=== PATIENT | female | born 1995 | race Caucasian/White ===

== ENCOUNTER 2018-07-12 18:30 | Emergency (ER) | payer MEDICAID, SELFPAY ==
[2018-07-12 18:30] VITALS: BP 135/70; PULSE 109; RESP 16; TEMP 36.7; O2SAT 94; BMI 33.6
--- NOTE | 2018-07-12 21:27 | ED.DCSUM_ITS ---
- ER Visit Summary Date of Service: 07/12/18 Chief Complaint: Rash and itching History of Present Illness: The patient is a 22 F has medical history. Currently on no medications other than vitamins. States is a 3-day history of a rash began on her left arm to her left chest and left abdominal wall. Denies any nausea, vomiting or diarrhea. Currently on no medications other than what the urgent care start her on. Denies any fever or chills. No prior history. Denies any swelling of her lips or tongue. No trouble breathing or wheezing. Physical Examination: Vital signs are stable afebrile. No distress. H EENT exam unremarkable. No swelling. Neck nontender. Lungs clear to auscultation bilaterally. Heart regular rhythm no murmur. Chest wall nontender. Abdomen soft nontender. Her left chest and abdomen has a rash consistent with allergic reaction. No petechiae or purpura. No vesicles. No sloughing of skin. Left arm has a similar rash. She is moving all 4 extremities. Neurovascular intact. Back nontender. No rash. Neurologic exam normal. Test Results: None Emergency Department Course and Treatment: Skin rash consistent with allergic reaction. Treatment Plan: Patient was already treated in urgent care with Zyrtec and prednisone. I told her to check the dose of her prednisone she should be on at least 40 mg a day. She will be given a dose here in the ER. Also add Benadryl. Disposition: Discharge Impression: Acute rash consistent with allergic reaction This note was generated with [employer] dictation software. It may contain incorrect words, spelling, and punctuation that were not noted in review of the chart prior to signing ED Disposition - Plan for ED Patient: Chief Complaint: Rash Referrals: Mounika Buckner MD [Primary Care Provider] -
--- NOTE | 2018-07-12 21:27 | ED.DEP ---
ED Disposition - Plan for ED Patient: Disposition: Home or Assisted Living Chief Complaint: Rash Instructions: ED Allergic Reaction General Other Referrals: Mounika Buckner MD [Primary Care Provider] - 1 Week if not improving Additional Instructions: Check your prednisone dose it should be at least 40 mg a day for 5 days. Benadryl 25-50 mg twice a day for itching. Continue your Zyrtec. Follow-up if not improving or return if a lot worse.
[2018-07-12 21:34] VITALS: BP 108/74; PULSE 61; RESP 15; O2SAT 98
== END 2018-07-12 21:35 | disposition home or self-care (01) ==
PROVIDERS: Emergency Provider Emergency Medicine; Family Provider Internal Medicine; PCP Internal Medicine
DX: R21 Rash and other nonspecific skin eruption (principal)
CPT/HCPCS: 99282

== ENCOUNTER → 2019-10-06 | Outpatient (CLI) | payer MEDICAID, SELFPAY ==
[2019-05-13 13:56] VITALS: BMI 33.6
== END | disposition home or self-care (01) ==
LOC: LABSPEC 15:50
PROVIDERS: PCP Internal Medicine; Referring Provider Otolaryngology Otolaryngology/Facial Plastic Surgery; Visit Provider Otolaryngology Otolaryngology/Facial Plastic Surgery
DX: J32.9 Chronic sinusitis, unspecified (principal)
CPT/HCPCS: 87070; 87077; 87205

== ENCOUNTER → 2020-08-08 16:46 | Outpatient (CLI) | payer MEDICAID, SELFPAY ==
[2020-08-08 11:30] VITALS: BMI 36.5
[2020-08-14 13:21] LABS: HPV Reflexed? NOT INDICATED
== END ==
PROVIDERS: PCP Internal Medicine; Referring Provider Nurse Practitioner Women's Health; Visit Provider Nurse Practitioner Women's Health
DX: Z12.4 Encounter for screening for malignant neoplasm of cervix (principal)
CPT/HCPCS: 88175; G0145

== ENCOUNTER → 2020-08-16 13:46 | Outpatient (CLI) | payer MEDICAID, SELFPAY ==
[2020-08-08 11:30] VITALS: BMI 36.5
--- NOTE | 2020-08-16 13:48 | US_ITS ---
STUDY: ULTRASOUND OF THE FEMALE PELVIS - COMPLETE REASON FOR EXAM: Female, 24 years old. PAIN PELVIC LMP: 08/01/2020 TECHNIQUE: Transabdominal and Transvaginal TECHNICAL QUALITY: Adequate. COMPARISON: None. FINDINGS: The uterus is anteverted and is in a midline position. The uterus measures 9.6 x 6.5 x 4.7 cm. There is a Nabothian cyst of the cervix. The endometrium measures 12 mm in thickness, and is hyperechoic. There is no demonstrated endometrial mass. There is no demonstrated myometrial mass. I.U.D. - The patient does not have an I.U.D. The right ovary is visualized. The right ovary measures 2.0 x 1.6 x 2.0 cm. There is no right ovarian cyst or ovarian mass. There is no visualized right adnexal mass or complex lesion. There is normal arterial and normal venous vascularity. The left ovary is visualized. The left ovary measures 3.6 x 2.0 x 2.0 cm. There is no left ovarian cyst or ovarian mass. There is no visualized left adnexal mass or complex lesion. There is normal arterial and normal venous vascularity. There is no fluid in the cul-de-sac. The pre void volume of the bladder was ml. The post void volume of the bladder was ml. Polycystic ovary disease: No. US/Pelvic (Non ) IMPRESSION: Normal female pelvis. Electronically Signed: Lenny Estrada MD at 15:37 EST Tel , Service support ,
--- NOTE | 2020-08-16 13:48 | US_ITS ---
STUDY: ULTRASOUND OF THE FEMALE PELVIS - COMPLETE REASON FOR EXAM: Female, 24 years old. PAIN PELVIC LMP: 08/01/2020 TECHNIQUE: Transabdominal and Transvaginal TECHNICAL QUALITY: Adequate. COMPARISON: None. FINDINGS: The uterus is anteverted and is in a midline position. The uterus measures 9.6 x 6.5 x 4.7 cm. There is a Nabothian cyst of the cervix. The endometrium measures 12 mm in thickness, and is hyperechoic. There is no demonstrated endometrial mass. There is no demonstrated myometrial mass. I.U.D. - The patient does not have an I.U.D. The right ovary is visualized. The right ovary measures 2.0 x 1.6 x 2.0 cm. There is no right ovarian cyst or ovarian mass. There is no visualized right adnexal mass or complex lesion. There is normal arterial and normal venous vascularity. The left ovary is visualized. The left ovary measures 3.6 x 2.0 x 2.0 cm. There is no left ovarian cyst or ovarian mass. There is no visualized left adnexal mass or complex lesion. There is normal arterial and normal venous vascularity. There is no fluid in the cul-de-sac. The pre void volume of the bladder was ml. The post void volume of the bladder was ml. Polycystic ovary disease: No. US/Transvaginal Non- IMPRESSION: Normal female pelvis. Electronically Signed: Lenny Estrada MD at 15:37 EST Tel , Service support ,
== END ==
PROVIDERS: PCP Internal Medicine; Referring Provider Nurse Practitioner Women's Health; Visit Provider Nurse Practitioner Women's Health
DX: R10.2 Pelvic and perineal pain (principal)
CPT/HCPCS: 76830; 76856; 93976

== ENCOUNTER 2020-08-29 10:02 | Emergency (ER) | payer MEDICAID, SELFPAY ==
[2020-08-08 11:30] VITALS: BMI 36.5
[2020-08-29 10:04] VITALS: BP 118/81; PULSE 100; RESP 20; TEMP 35.8; O2SAT 99; BMI 37.7
--- NOTE | 2020-08-29 10:24 | ED.VISSUMM ---
- ER Visit Summary Date of Service: 08/29/20 Chief Complaint: Allergic reaction History of Present Illness: The patient is a 24 F who presents with an allergic reaction that has been getting worse over the past 3 days. 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 Patient states she drank some tea that had chamomile and it. Patient states that the next day she started developing hives. Patient admits to some swelling of her lips. Patient denies any swelling of her mouth or tongue. Patient states she has taken Benadryl which has helped with the itching but not with the hives. Patient states she also tested positive for COVID-19 approximately 1-1/2 weeks ago. Physical Examination: Vital signs are stable. Patient is afebrile. Patient is in no acute distress. Oral mucosa is pink and moist. Airway is patent. Oropharynx is clear. There is some edema of the upper and lower lips. There is no edema of the tongue. Neck is supple. Trachea is midline. There is no JVD. There is no evidence of Giovanni's angina. Heart was regular rate and rhythm. Lungs are clear and equal bilaterally. Abdomen is soft and nontender. Cranial nerves II through XII are intact. There are no focal motor or sensory deficits. Skin is warm dry. There are patchy urticaria noted. There are no vesicles or pustules. There are no petechia noted. There is no involvement of the mucous membranes. Emergency Department Course and Treatment: Patient was given a dose of Decadron here. Patient was given a prescription for Decadron. Patient was instructed to follow-up with her primary care physician in 3 to 5 days. Patient understood and was agreeable with the plan. All questions were answered. Disposition: Discharge home Impression: Urticaria This note was generated with [employer] dictation software. It may contain incorrect words, spelling, and punctuation that were not noted in review of the chart prior to signing ED Disposition - Plan for ED Patient: Disposition: Home or Assisted Living Diagnosis: Urticaria Instructions: ED Hives (Adult) Prescriptions: Dexamethasone [Decadron] 6 mg PO DAILY 5 Days #5 tab Prescription Printed Referrals: Mounika Buckner MD [Primary Care Provider] - 5-7 Days
[2020-08-29] MEDS: dexAMETHasone 4 MG Tablet 6 MG PO (10:44)
[2020-08-29 10:46] VITALS: BP 120/90; PULSE 93; RESP 18; O2SAT 99
== END 2020-08-29 10:49 | disposition home or self-care (01) ==
LOC: ED 10:33
PROVIDERS: Emergency Provider Emergency Medicine; PCP Internal Medicine
DX: L50.0 Allergic urticaria (principal); E66.9 Obesity, unspecified; Z86.16 Personal history of COVID-19
CPT/HCPCS: 99282

== ENCOUNTER 2022-03-05 12:30 | Emergency (ER) | payer MEDICAID, SELFPAY ==
[2022-03-05 12:31] VITALS: BP 124/86; PULSE 124; RESP 16; TEMP 36.9; O2SAT 99; BMI 37.5
[2022-03-05] MEDS: Ketorolac 15 MG/ML Vial IV (13:06)
[2022-03-05] MEDS: 0.9% Normal Saline 1,000 ML 999 ML IV (13:06)
[2022-03-05] MEDS: DiphenhydrAMINE 50 MG/ML Syringe 25 MG IV (13:06)
[2022-03-05] MEDS: Metoclopramide 10 MG/2 ML Vial IV (13:06)
--- NOTE | 2022-03-05 13:40 | EX.ED.VIS.HA ---
HPI History of Present Illness Chief Complaint: Headache Informant: patient Narrative Narrative: Headache starting frontal wraparound both sides since yesterday. This morning fevers sore throat. No sick contacts. Nonvaccinated for COVID. Denies COVID infections in the past. Denies sick contacts. No photophobia. No vomiting or diarrhea. She did report head injury earlier this month with a contusion intermittent headaches improved with Excedrin however this headache is different. Denies myalgias. PFSH PFSH Medical History Cholecystectomy planned Home Medications nirmatrelvir 300 mg (150 mg x2)-ritonavir 100 mg tablet,dose pack(EUA) (Paxlovid) See Rx Instructions PO .COMPLEX #30 tabs 03/05/22 [Rx Last Taken Unknown] Allergy/AdvReac Type Severity Reaction Status Date / Time latex Allergy Rash Verified 03/05/22 12:31 Family History Grandmother Breast cancer Surgical History Hx of cholecystectomy Social History current occupational status: employed current occupation: [employer] Smoking Status: Never smoker alcohol intake: never substance use type: does not use caffeine: No frequency: 1-2 times per week seatbelt use: always do you feel safe at home: Yes additional social history: single- [address] [employer] ED Constitutional Constitutional ED: Reports fever(s); Denies chills or sweats Eyes Eyes: Denies change in vision ENT ENT ED: Reports sore throat; Denies dysphagia Cardiovascular Cardiovascular: Denies chest pain, leg edema, palpitations or racing heartbeat Respiratory/Chest Respiratory/Chest: Denies cough, dyspnea or dyspnea on exertion Gastrointestinal Gastrointestinal: Denies abdominal pain, diarrhea, nausea or vomiting Genitourinary Genitourinary ED: Denies dysuria, hematuria or urinary frequency Musculoskeletal Musculoskeletal: Reports myalgias; Denies back pain, extremity pain or neck pain Integumentary Denies rash or wounds Neurologic Neurologic: Reports headache(s); Denies paresthesias or weakness EXAM Physical Exam Const Vital Signs: 03/05/22 12:31 03/05/22 15:12 Temperature 98.5 F Temperature Source Temporal Pulse Rate 124 H 88 Respiratory Rate 16 15 Blood Pressure 124/86 H Blood Pressure Mean 98 Pulse Ox 99 95 Oxygen Delivery Method Room Air Positive well nourished and well developed General Appearance ED: well developed and NAD HEENT Reports moist mucous membranes normocephalic and atraumatic Eyes PERRL, EOMs intact bilaterally and conjunctivae normal General Eye ED: Yes normal appearance of both eyes Neck no lymphadenopathy, supple and no meningeal signs Neck Narrative: No meningismus. General: Negative for tenderness Chest Wall Chest: Negative for tenderness Resp normal respiratory effort and normal air movement Effort and Inspection: symmetric chest movement; Negative for respiratory distress Cardio regular rate, regular rhythm and no murmurs Rate: tachycardic Peripheral Pulses: pulses 2+ throughout GI normal to inspection, nondistended, normoactive bowel sounds and non-tender Palpation: Negative for guarding or rebound tenderness present Back/Spine no CVA tenderness and no thoracic nor lumbar tenderness Extremity normal to inspection General Extremety ED: Negative for edema or tenderness General Extremity: Negative for edema Neuro oriented x3, CN's II-XII intact bilaterally and no sensory deficits noted Sensorium / Orientation: awake and alert Skin no rashes or lesions noted and no wounds MDM MDM MDM Narrative Medical decision making narrative: Patient afebrile here she has no meningismus. She is tachycardic. New symptoms sore throat headache myalgias. She history of migraine cocktail with improvement of symptoms. Heart rate improved. COVID testing returned positive. Discussed and offered treatment since she is within 5 days of symptoms which she agreed. She is sent in prescription for Paxlovid. 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 Return precautions discussed. All questions were answered. Discharge Plan Triage Chief Complaint: Headache ED Provider: Adonis Lobo Dx/Rx/DC Orders Clinical Impression: COVID-19 virus infection, Headache, Myalgia Instructions: Coronavirus Disease 2019 (COVID-19): Caring for Yourself or Others Prescriptions: New Paxlovid (EUA) 300 mg (150 mg x 2)-100 mg tablets,dose pack See Rx Instructions .ROUTE .COMPLEX Qty: 30 0RF Rx Instructions: take TWO 150 mg tablets of nirmatrelvir with ONE 100 mg tablet of ritonavir twice daily for 5 days Primary Care Provider: Mounika Buckner Referrals: Mounika Buckner MD [Primary Care Provider] - 1 Week Activity Restrictions/Additional Instructions: Take medication as prescribed. Continue Tylenol Motrin. Continue oral fluids. 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 Return if any worsening respiratory symptoms. Disposition Disposition: Home, Self Care Discharge Date/Time: 03/05/22 15:26
[2022-03-05 15:12] VITALS: PULSE 88; RESP 15; O2SAT 95
== END 2022-03-05 15:26 | disposition home or self-care (01) ==
PROVIDERS: Emergency Provider Emergency Medicine; PCP Internal Medicine; Visit Provider Emergency Medicine
DX: U07.1 COVID-19 (principal); S00.93XD Contusion of unspecified part of head, subsequent encounter; Z28.310 Unvaccinated for COVID-19
CPT/HCPCS: 87428; 96361; 96374; 96375; 99283; J7030

== ENCOUNTER → 2022-03-17 | Outpatient (CLI) | payer MEDICAID, SELFPAY | END | disposition home or self-care (01) | LOC: LABSPEC 11:15 | PROVIDERS: PCP Internal Medicine; Referring Provider Nurse Practitioner Women's Health; Visit Provider Nurse Practitioner Women's Health | DX: N76.0 Acute vaginitis (principal) | CPT/HCPCS: 87070; 87205 ==

== ENCOUNTER 2022-03-20 17:41 | Emergency (ER) | payer MEDICAID, SELFPAY ==
[2022-03-20 17:42] VITALS: BP 122/89; PULSE 86; RESP 14; TEMP 35.9; O2SAT 100; BMI 37.8
--- NOTE | 2022-03-20 17:51 | EX.ED.DYSGE1 ---
HPI <FABI Truong - Last Filed: 03/20/22 18:01> History of Present Illness Chief Complaint: Abd Pain Narrative Narrative: 26-year-old female with no past medical history, cholecystectomy presents with 1 week history of upper abdominal fullness and periumbilical cramping. She noticed it because she sleeps on her stomach but could not lay this way because it was uncomfortable. Pain occurs intermittently throughout the day. Its not affected by eating or drinking and she has a normal appetite. No nausea or vomiting, fever or chills, diarrhea or blood in stool, or urinary symptoms. PFSH <FABI Truong - Last Filed: 03/20/22 18:01> PFS Medical History (Updated 03/20/22 @ 18:01 by FABI Truong) COVID-19 virus infection Allergy/AdvReac Type Severity Reaction Status Date / Time latex Allergy Rash Verified 03/20/22 17:42 Family History Grandmother Breast cancer Surgical History Hx of cholecystectomy Social History current occupational status: employed current occupation: [employer] Smoking Status: Never smoker alcohol intake: never substance use type: does not use caffeine: No frequency: 1-2 times per week seatbelt use: always do you feel safe at home: Yes additional social history: single- works at [address] [employer] ROS <FABI Truong - Last Filed: 03/20/22 18:01> ROS ED ROS Narrative Constitutional: Negative for fever, chills, malaise. Eyes: Negative for visual change. ENT: Negative for sore throat, ear pain, rhinorrhea. CVS: Negative for palpitations, chest pain, syncope. Respiratory: Negative for shortness of breath, cough, orthopnea. GI: Positive for abdominal pain. Negative for nausea, vomiting, diarrhea, constipation, melena, hematochezia. : Negative for dysuria, hematuria or frequency. Neuro: Negative for headache, motor/sensory dysfunction. Skin: Negative for rash, abscess, or wound. Musc: Negative for joint pain, swelling, trauma. Heme: Negative for easy bruising, bleeding, lymphadenopathy. EXAM <FABI Truong - Last Filed: 03/20/22 18:01> Physical Exam Narrative Exam Narrative: CONST: Patient sitting in no acute distress. EYES: Normal inspection. ENT: Normal inspection, moist mucous membranes. NECK: Normal inspection. RESP: No respiratory distress, CTAB. CVS: Regular rate and rhythm, no murmur, no gallop. ABD: Soft with minimal periumbilical tenderness, no RUQ/epigastric tenderness, no guarding or rebound, nondistended, no hepatosplenomegaly. SKIN: Color normal, no rash, warm, dry, intact. EXTREMITIES: Normal appearance, no pedal edema. NEURO: Oriented x4. PSYCH: Normal affect. Const Vital Signs: 03/20/22 17:42 03/20/22 18:04 Temperature 96.7 F L Temperature Source Temporal Pulse Rate 86 Respiratory Rate 14 16 Blood Pressure 122/89 H Blood Pressure Mean 100 Pulse Ox 100 Oxygen Delivery Method Room Air <Dr. Manoj Sosa MD - Last Filed: 03/20/22 18:31> Physical Exam Const Vital Signs: 03/20/22 17:42 03/20/22 18:04 Temperature 96.7 F L Temperature Source Temporal Pulse Rate 86 Respiratory Rate 14 16 Blood Pressure 122/89 H Blood Pressure Mean 100 Pulse Ox 100 Oxygen Delivery Method Room Air MDM <FABI Truong - Last Filed: 03/20/22 18:01> [facility] Narrative Medical decision making narrative: Patient has vague periumbical pain with no other symptoms. She appears well and nontoxic. Vital signs within normal limits. On deep palpation the attending felt a small reducible umbilical hernia which is the source of her pain. There is no indication for further emergent workup and she can follow up with her PCP. Return if symptoms worsen. <Dr. Manoj Sosa MD - Last Filed: 03/20/22 18:31> [facility] Narrative Medical decision making narrative: Patient has vague periumbical pain with no other symptoms. She appears well and nontoxic. Vital signs within normal limits. On deep palpation the attending felt a small reducible umbilical hernia which is the source of her pain. There is no indication for further emergent workup and she can follow up with her PCP. Return if symptoms worsen. I have personally performed a face to face assessment of the patient and have reviewed the MARIAELENA Note. I performed a substantive portion of the visit including all aspects of the following. My ibarra findings include: History is remarkable for periumbilical pain. Patient dates unable to sleep on her stomach. She denies nausea, vomiting diarrhea or constipation. She had laparoscopic surgery for cholecystitis. She has no other complaints Exam is patient has a small reducible umbilical hernia. This alleviated her pain. Medical Decision Making patient with reducible umbilical hernia imaging is not indicated. Patient was discharged home with appropriate home-going structures Other additions or changes: None Discharge Plan Triage Chief Complaint: Abd Pain ED Midlevel Provider: Naya Barillas ED Provider: Manoj Sosa Dx/Rx/DC Orders Clinical Impression: Hernia, umbilical, Abdominal pain Instructions: ED Hernia (Adult) Primary Care Provider: Mounika Buckner Referrals: Mounika Buckner MD [Primary Care Provider] - Activity Restrictions/Additional Instructions: You have a small umbilical hernia which is a source of your discomfort. These typically do not require any treatment and you should follow-up with your primary care doctor. If it becomes larger or more painful or you have vomiting or worsening symptoms come back to the ER. Disposition Disposition: Home, Self Care Discharge Date/Time: 03/20/22 18:13
[2022-03-20 18:04] VITALS: RESP 16
== END 2022-03-20 18:13 | disposition home or self-care (01) ==
PROVIDERS: Emergency Provider Emergency Medicine; PCP Internal Medicine; Visit Provider Emergency Medicine
DX: K42.9 Umbilical hernia without obstruction or gangrene (principal); Z90.49 Acquired absence of other specified parts of digestive tract
CPT/HCPCS: 99282

== ENCOUNTER 2023-05-29 23:10 | Emergency (ER) | payer OTHER, MEDICAID, SELFPAY ==
[2023-05-29 23:11] VITALS: BP 137/99; PULSE 98; RESP 16; TEMP 36.4; O2SAT 99; BMI 36.1
--- NOTE | 2023-05-29 23:30 | EDS_ITS ---
HPI History of Present Illness Chief Complaint: Laceration Informant: patient Narrative Narrative: Accidentally cut the dorsal surface of her left nondominant hand ring finger when she was carving pumpkins shortly before arrival. Last tetanus is unknown. Bleeding was controlled. No loss of function or range of motion. No other injury. She is not on any blood thinners. [facility] Medical History COVID-19 virus infection Home Medications NK 04/02/22 [History Last Taken Unknown] Allergy/AdvReac Type Severity Reaction Status Date / Time latex Allergy Rash Verified 04/02/22 13:18 Family History Grandmother Breast cancer Surgical History Hx of cholecystectomy Social History current occupational status: employed current occupation: [email or web address] Smoking Status: Never smoker alcohol intake: never substance use type: does not use caffeine: No frequency: 1-2 times per week seatbelt use: always do you feel safe at home: Yes additional social history: single- works at [address] [employer] [facility] ED Constitutional Constitutional ED: Denies fever(s) Gastrointestinal Gastrointestinal: Denies nausea or vomiting Integumentary Reports other Details: Laceration as in history of present illness. Neurologic Neurologic: Denies paresthesias or weakness Hematologic/Lymphatic Hematologic/Lymphatic: Denies easy bleeding or easy bruising Allergic/Immunologic Allergic/Immunologic ED: Denies urticaria EXAM Physical Exam Narrative Exam Narrative: General: Patient awake alert no acute distress. HEENT: No sign of trauma Cardiorespiratory shows easy unlabored breathing. Extremities show a 1.5 cm laceration on the dorsum of the left ring finger overlying the DIP joint. It is shallow but does just go through the epidermis. When she flexes the finger it opens up. Her extensor is fully intact. No sensory changes. No visible tendon in that area. Const Vital Signs: 05/29/23 23:11 Temperature 97.5 F L Temperature Source Temporal Pulse Rate 98 Respiratory Rate 16 Blood Pressure 137/99 H Blood Pressure Mean 111 Pulse Ox 99 MDM MDM MDM Narrative Medical decision making narrative: The patient about risk benefits and options. She was nervous about having sutures. But I explained that this area opens up every time she bends her finger. Gluing it would likely not last. Even with suturing and I think placing a splint would be of benefit. She did agree to suturing. She was very nervous about it. So I did proceed with applying LET on it. I do not think this is going to cause any notable ischemia on this young healthy person. We will then use local lidocaine also suture this. Tetanus will be updated. Procedure: Suture of left ring finger laceration 1.5 cm The area was cleansed and draped. LET initially applied. I then added 1 cc of 1% plain lidocaine locally with good anesthesia. It was sutured with 2 interrupted 4-0 Ethilon with good cosmesis and hemostasis. She tolerated it well. Range of motion was good afterwards. We discussed reasons to return follow-up and timing of suture removal. Discharge Plan Triage Chief Complaint: Laceration ED Provider: Khurram Hansen Dx/Rx/DC Orders Clinical Impression: Sutured skin wound, Laceration of left ring finger Instructions: ED Laceration, Hand: All Closures Prescriptions: No Action NK Primary Care Provider: Mounika Buckner Referrals: Mounika Buckner MD [Primary Care Provider] - 10-14 Days suture removal Disposition Disposition: Home, Self Care
[2023-05-29] MEDS: Lidocaine/Epi/Tetracaine 50 ML 1 APPLIC TOPICAL (23:34)
[2023-05-29] MEDS: Lidocaine 1% (20 ml mdv) 20 ML Vial INFILT (23:34)
[2023-05-29] MEDS: Diphth,Pertuss(Acell),Tet Vac 0.5 ML Vial IM (23:35)
== END 2023-05-30 00:20 | disposition home or self-care (01) ==
PROVIDERS: Emergency Provider Emergency Medicine; PCP Internal Medicine; Visit Provider Emergency Medicine
DX: S61.215A Laceration without foreign body of left ring finger without damage to nail, initial encounter (principal); Z86.16 Personal history of COVID-19; W26.8XXA Contact with other sharp object(s), not elsewhere classified, initial encounter
CPT/HCPCS: 12001; 90715; 99283

== ENCOUNTER → 2023-09-15 | Outpatient (CLI) | payer OTHER, SELFPAY ==
--- OUTSIDE RECORDS SUMMARY | 2023-09-15 19:54 | XMS RPT_ITS | CCD ---
Author Name Unknown Address [id number] [place] [address] Organization [facility] Care Team Providers Care Salsa Dance Instructor Name Role Phone MARLO CHILD Unavailable Unavailable IMCA Unavailable Unavailable [facility] Unavailable Unavailable Dudley BURROUGHS, Mounika Primary Care Provider Mounika Buckner MD Primary Care Provider GANTA, MOUNIKA Primary Care Unavailable DINERO, MAMIE Attending Unavailable DINERO, MAMIE Admitting Unavailable DINERO, MAMIE Attending Unavailable GANTA, MOUNIKA Primary Care Unavailable DINERO, MAMIE Attending Unavailable PODLOGAR, MEKHI Referring Unavailable GANTA, MOUNIKA Primary Care Unavailable GANTA, MOUNIKA Primary Care Unavailable HAAGEN, SHERI Attending Unavailable GANTA, MOUNIKA Primary Care Unavailable GANTA, MOUNIKA Primary Care Unavailable GANTA, MOUNIKA Primary Care Unavailable MEGAN, DOLORES Attending Unavailable GANTA, MOUNIKA Primary Care Unavailable HAAGEN, SHERI Attending Unavailable GANTA, MOUNIKA Primary Care Unavailable MEGAN, DOLORES Attending Unavailable GANTA, MOUNIKA Primary Care Unavailable MEGAN, DOLORES Referring Unavailable GANTA, MOUNIKA Primary Care Unavailable GANTA, MOUNIKA Primary Care Unavailable BLAZE PERES Referring Unavailable GANTA, MOUNIKA Primary Care Unavailable DINERO, MAMIE Referring Unavailable GANTA, MOUNIKA Primary Care Unavailable GANTA, MOUNIKA Primary Care Unavailable DINERO, MAMIE Attending Unavailable PODLOGAR, MEKHI Referring Unavailable GANTA, MOUNIKA Primary Care Unavailable DINERO, MAMIE Attending Unavailable DINERO, MAMIE Admitting Unavailable GANTA, MOUNIKA Primary Care Unavailable DINERO, MAMIE Referring Unavailable GANTA, MOUNIKA Primary Care Unavailable Allergies Allergy Classification Reported Allergen(s) Allergy Type Date of Onset Reaction(s) Facility (20 sources) Latex; Translations: [LATEX] Propensity to adverse reactions to drug (disorder) 5 Rash [facility] Other [place] [facility] Medications Current Medications Medication Drug Class(es) Dates Sig (Normalized) Sig (Original) amoxicillin 875 mg / clavulanate 125 mg oral tablet (3 sources) Penicillin-class Antibacterial Start: 08-10-2023 End: 08-15-2023 take 1 tablet by mouth every twelve hours at mealtime amoxicillin-clav ulanate potassium (AUGMENTIN) 875-125 mg per tablet Take 1 tablet by mouth every 12 hours for 5 days. Take with food 10 tablet 0 08/10/2023 08/15/2023 Active Completed/Discontinued Medications Medication Drug Class(es) Dates Sig (Normalized) Sig (Original) acetaminophen 325 mg oral tablet (5 sources) Start: 12-19-2022 take 2 tablets by mouth every six hours as needed acetaminophen (TYLENOL) 325 mg tablet Take 2 tablets by mouth every 6 hours as needed (stagger with ibuprofen). 0 12/19/2022 Active Problems Active Problems Problem Classification Problem Date Documented Da te Episodic/Chronic Abdominal pain (1 source) Right lower quadrant pain; Translations: [Right lower quadrant pain] Episodic Allergic reactions (2 sources) Idiopathic urticaria; Translations: [Idiopathic urticaria] Onset: 07-20-2018 Episodic Immunizations and screening for infectious disease (1 source) Patient encounter status; Translations: [Encounter for screening for COVID-19] Episodic Malaise and fatigue (1 source) Fatigue; Translations: [Other fatigue] Episodic Nausea and vomiting (2 sources) Nausea; Translations: [Nausea] Episodic Open wounds of extremities (1 source) Laceration of left ring finger; Translations: [Laceration without foreign body of left ring finger without damage to nail, subsequent encounter] 06-12-2023 Episodic Other connective tissue disease (1 source) Enthesopathy, unspecified; Translations: [Tendonitis] Onset: 08-28-2023 Episodic Other gastrointestinal disorders (13 sources) Irritable bowel syndrome; Translations: [Irritable bowel syndrome without diarrhea] Onset: 07-02-2015 07-02-2015 Chronic Other nutritional; endocrine; and metabolic disorders (20 sources) Obesity; Translations: [Obesity, unspecified] Onset: 07-02-2015 07-02-2015 Chronic Other nutritional; endocrine; and metabolic disorders (1 source) Obesity, unspecified; Translations: [Class 2 obesity without serious comorbidity with body mass index (BMI) of 35.0 to 35.9 in adult, unspecified obesity type] Onset: 07-02-2015 Chronic Other nutritional; endocrine; and metabolic disorders (1 source) Body mass index (BMI) 35.0-35.9, adult; Translations: [Class 2 obesity without serious comorbidity with body mass index (BMI) of 35.0 to 35.9 in adult, unspecified obesity type] Onset: 07-02-2015 Chronic Other upper respiratory disease (2 sources) Allergic rhinitis; Translations: [Allergic rhinitis, unspecified] Chronic Other upper respiratory disease (1 source) Pain in face; Translations: [Other specified disorders of nose and nasal sinuses] Episodic Other upper respiratory infections (13 sources) Recurrent sinusitis; Translations: [Chronic sinusitis, unspecified] Onset: 09-19-2022 Chronic Residual codes; unclassified (1 source) Pain; Translations: [Pain, unspecified] Episodic Superficial injury; contusion (1 source) Insect bite of ear region; Translations: [Insect bite (nonvenomous) of right ear, initial encounter] 03-24-2023 Episodic Unclassified (1 source) Unknown / UNK(Unknown) Onset: 07-20-2018 Unclassified (1 source) Encounter for screening for COVID-19; Translations: [Encounter for screening for COVID-19] Onset: 12-10-2022 Viral infection (1 source) Viral disease; Translations: [Viral infection, unspecified] Episodic Past or Other Problems Problem Classification Problem Date Documented Da te Episodic/Chronic Other upper respiratory infections (6 sources) Sore throat symptom; Translations: [Acute pharyngitis, unspecified] Onset: 05-26-2023 Episodic Results Test Name Value Interpretation Reference Range Facil ity Vital Signs Date Time Vital Sign Value Performing Clinician Manuel dunne 06-12-2023 17:42-0400 Body temperature 97.3 [degF] Drake Taveras MD Work Phone: [facility] 06-12-2023 17:42-0400 Body weight 95.71 kg Drake Taveras MD Work Phone: [facility] 06-12-2023 17:42-0400 Diastolic blood pressure 72 mm[Hg] Drake Taveras MD Work Phone: [facility] 06-12-2023 17:42-0400 Heart rate 92 /min Drake Taveras MD Work Phone: [facility] 06-12-2023 17:42-0400 Respiratory rate 16 /min Drake Taveras MD Work Phone: [facility] 06-12-2023 17:42-0400 SaO2% (BldA) [Mass fraction] 98 % Drake Taveras MD Work Phone: [facility] 06-12-2023 17:42-0400 Systolic blood pressure 122 mm[Hg] Drake Taveras MD Work Phone: [facility] 03-24-2023 13:26-0400 Body temperature 98.2 [degF] To [place] CAR BODY MECHANIC.SPEECH AND HEARING DIRECTOR Work Phone: [facility] 03-24-2023 13:26-0400 Body weight 95.25 kg To [place] CAR BODY MECHANIC.SPEECH AND HEARING DIRECTOR Work Phone: [facility] 03-24-2023 13:26-0400 Diastolic blood pressure 74 mm[Hg] To [place] CAR BODY MECHANIC.SPEECH AND HEARING DIRECTOR Work Phone: [facility] 03-24-2023 13:26-0400 Heart rate 100 /min To [place] CAR BODY MECHANIC.SPEECH AND HEARING DIRECTOR Work Phone: [facility] 03-24-2023 13:26-0400 Respiratory rate 18 /min To [place] CAR BODY MECHANIC.SPEECH AND HEARING DIRECTOR Work Phone: [facility] 03-24-2023 13:26-0400 SaO2% (BldA) [Mass fraction] 96 % To [place] CAR BODY MECHANIC.SPEECH AND HEARING DIRECTOR Work Phone: [facility] 03-24-2023 13:26-0400 Systolic blood pressure 120 mm[Hg] To [place] CAR BODY MECHANIC.SPEECH AND HEARING DIRECTOR Work Phone: [facility] 11-21-2022 12:55-0400 Body height 160 cm Pacc 1 Work Phone: [facility] 11-21-2022 12:55-0400 Body temperature 98.4 [degF] Pacc 1 Work Phone: [facility] 11-21-2022 12:55-0400 Body weight 90.72 kg Pacc 1 Work Phone: [facility] 11-21-2022 12:55-0400 Diastolic blood pressure 84 mm[Hg] Pacc 1 Work Phone: [facility] 11-21-2022 12:55-0400 Heart rate 94 /min Pacc 1 Work Phone: [facility] 11-21-2022 12:55-0400 Respiratory rate 14 /min Pacc 1 Work Phone: [facility] 11-21-2022 12:55-0400 SaO2% (BldA) [Mass fraction] 97 % Pacc 1 Work Phone: [facility] 11-21-2022 12:55-0400 Systolic blood pressure 120 mm[Hg] Pacc 1 Work Phone: [facility] 10-29-2022 12:27-0400 Body temperature 97.3 [degF] Drake Taveras MD Work Phone: [facility] 10-29-2022 12:27-0400 Body weight 92.53 kg Drake Taveras MD Work Phone: [facility] 10-29-2022 12:27-0400 Diastolic blood pressure 76 mm[Hg] Drake Taveras MD Work Phone: [facility] 10-29-2022 12:27-0400 Heart rate 94 /min Drake Taveras MD Work Phone: [facility] 10-29-2022 12:27-0400 Respiratory rate 16 /min Drake Taveras MD Work Phone: [facility] 10-29-2022 12:27-0400 SaO2% (BldA) [Mass fraction] 97 % Drake Taveras MD Work Phone: [facility] 10-29-2022 12:27-0400 Systolic blood pressure 124 mm[Hg] Drake Taveras MD Work Phone: [facility] 09-19-2022 12:56-0500 Heart rate 92 /min Meredith Dinero MD Work Phone: [facility] 09-19-2022 12:56-0500 Respiratory rate 18 /min Meredith Dinero MD Work Phone: [facility] 09-19-2022 12:56-0500 SaO2% (BldA) [Mass fraction] 97 % Meredith Dinero MD Work Phone: [facility] 09-15-2022 14:37-0500 Diastolic blood pressure 82 mm[Hg] Sheri Haagen CAR BODY MECHANIC.SPEECH AND HEARING DIRECTOR Work Phone: [facility] 09-15-2022 14:37-0500 Heart rate 94 /min Sheri Haagen CAR BODY MECHANIC.SPEECH AND HEARING DIRECTOR Work Phone: [facility] 09-15-2022 14:37-0500 Respiratory rate 18 /min Sheri Haagen CAR BODY MECHANIC.SPEECH AND HEARING DIRECTOR Work Phone: [facility] 09-15-2022 14:37-0500 SaO2% (BldA) [Mass fraction] 98 % Sheri Wattsagen CAR BODY MECHANIC.SPEECH AND HEARING DIRECTOR Work Phone: [facility] 09-15-2022 14:37-0500 Systolic blood pressure 130 mm[Hg] Sheri Haagen CAR BODY MECHANIC.SPEECH AND HEARING DIRECTOR Work Phone: [facility] 07-08-2022 10:24-0500 Body temperature 97.11 [degF] Liat Viramontes APRN.SPEECH AND HEARING DIRECTOR Work Phone: [facility] 07-08-2022 10:24-0500 Body weight 94.71 kg Liat Viramontes APRN.SPEECH AND HEARING DIRECTOR Work Phone: [facility] 07-08-2022 10:24-0500 Diastolic blood pressure 72 mm[Hg] Liat Viramontes APRN.SPEECH AND HEARING DIRECTOR Work Phone: [facility] 07-08-2022 10:24-0500 Heart rate 89 /min Liat Viramontes CAR BODY MECHANIC.SPEECH AND HEARING DIRECTOR Work Phone: [facility] 07-08-2022 10:24-0500 Respiratory rate 18 /min Liat Viramontes CAR BODY MECHANIC.SPEECH AND HEARING DIRECTOR Work Phone: [facility] 07-08-2022 10:24-0500 SaO2% (BldA) [Mass fraction] 98 % Liat Viramontes CAR BODY MECHANIC.SPEECH AND HEARING DIRECTOR Work Phone: [facility] 07-08-2022 10:24-0500 Systolic blood pressure 108 mm[Hg] Liat Viramontes CAR BODY MECHANIC.SPEECH AND HEARING DIRECTOR Work Phone: [facility] 05-30-2022 10:18-0400 Body temperature 97.81 [degF] Mekhi Abdallalogar CAR BODY MECHANIC.SPEECH AND HEARING DIRECTOR Work Phone: [facility] 05-30-2022 10:18-0400 Body weight 94.89 kg Mekhi Podlogar CAR BODY MECHANIC.SPEECH AND HEARING DIRECTOR Work Phone: [facility] 05-30-2022 10:18-0400 Diastolic blood pressure 74 mm[Hg] Mekhi Podlogar CAR BODY MECHANIC.SPEECH AND HEARING DIRECTOR Work Phone: [facility] 05-30-2022 10:18-0400 Heart rate 103 /min Mekhi Podlogar CAR BODY MECHANIC.SPEECH AND HEARING DIRECTOR Work Phone: [facility] 05-30-2022 10:18-0400 Respiratory rate 16 /min Mekhi Podlogar CAR BODY MECHANIC.SPEECH AND HEARING DIRECTOR Work Phone: [facility] 05-30-2022 10:18-0400 SaO2% (BldA) [Mass fraction] 97 % Mekhi Podlogar CAR BODY MECHANIC.SPEECH AND HEARING DIRECTOR Work Phone: [facility] 05-30-2022 10:18-0400 Systolic blood pressure 116 mm[Hg] Mekhi Podlogar CAR BODY MECHANIC.SPEECH AND HEARING DIRECTOR Work Phone: [facility] 05-26-2022 11:34-0400 Body temperature 98.4 [degF] Michelle Mercado CAR BODY MECHANIC.SPEECH AND HEARING DIRECTOR Work Phone: [facility] 05-26-2022 11:34-0400 Body weight 95.62 kg Michelle Mercado CAR BODY MECHANIC.SPEECH AND HEARING DIRECTOR Work Phone: [facility] 05-26-2022 11:34-0400 Diastolic blood pressure 86 mm[Hg] Michelle Mercado CAR BODY MECHANIC.SPEECH AND HEARING DIRECTOR Work Phone: [facility] 05-26-2022 11:34-0400 Heart rate 103 /min Michelle Mercado CAR BODY MECHANIC.SPEECH AND HEARING DIRECTOR Work Phone: [facility] 05-26-2022 11:34-0400 Respiratory rate 18 /min Michelle Mercado CAR BODY MECHANIC.SPEECH AND HEARING DIRECTOR Work Phone: [facility] 05-26-2022 11:34-0400 SaO2% (BldA) [Mass fraction] 98 % Michelle Mercado CAR BODY MECHANIC.SPEECH AND HEARING DIRECTOR Work Phone: [facility] 05-26-2022 11:34-0400 Systolic blood pressure 110 mm[Hg] Michelle Mercado CAR BODY MECHANIC.SPEECH AND HEARING DIRECTOR Work Phone: [facility] Encounters Encounter Date Encounter Type Care Provider Facility Start: 08-28-2023 End: 08-28-2023 ambulatory [facility] Facility:[facility] Start: 08-18-2023 End: 08-18-2023 ambulatory [facility] Facility:[facility] Start: 08-10-2023 End: 08-10-2023 ambulatory Jacquelin Goodson CAR BODY MECHANIC.SPEECH AND HEARING DIRECTOR Work Phone: Telemedicine Procedures Date Procedure Procedure Detail Performing Clinician Start: 12-26-2022 H/O: surgery History of endoscopic sinus surgery Meredith Dinero MD Work Phone: Start: 09-26-2022 Ct maxillofacial w/o contrast material Meredith Dinero MD Work Phone: Start: 09-15-2022 COVID WITH FLUA+B, ROUTINE Sheri Franco CAR BODY MECHANIC.SPEECH AND HEARING DIRECTOR Work Phone: Start: 09-15-2022 STREP A MOLECULAR (POC) Sheri Franco APRN.SAHARA Work Phone: Start: 09-15-2022 Urnls dip stick/tablet rgnt auto w/o microscopy Sheri Franco APRN.SAHARA Work Phone: Start: 05-26-2022 STREP A MOLECULAR (POC) Michelle Mercado APRN. SPEECH AND HEARING DIRECTOR Work Phone: Start: 08-24-2020 Adult depression screening assessment Liat Viramontes APRN.SPEECH AND HEARING DIRECTOR Work Phone: Plan of Treatment Date Care Activity Detail Author Start: 05-29-2033 Urine microalbumin profile DTaP,Tdap,Td Vaccine (7 - Td or Tdap) [facility] Start: 08-10-2023 Depression Assessment Depression Assessment [facility] Start: 08-08-2023 PAP TESTING PAP TESTING [facility] Start: 08-08-2023 Screening for malignant neoplasm of cervix Pap Testing [facility] Start: 04-10-2023 Covid-19 Vaccine (2022- season) Covid-19 Vaccine (2022- season) [facility] Start: 04-10-2023 Influenza vaccination [facility] Start: 08-10-2022 DEPRESSION ASSESSMENT DEPRESSION ASSESSMENT [facility] Start: 05-20-2022 COVID-19 VACCINE (2 - Novavax series) COVID-19 VACCINE (2 - Novavax series) [facility] Start: 04-10-2022 Influenza vaccination INFLUENZA (#1) [facility] Start: 08-24-2021 Adult depression screening assessment DEPRESSION SCREENING [facility] Start: 08-10-2021 DEPRESSION ASSESSMENT DEPRESSION ASSESSMENT [facility] Start: 09-24-2017 HPV VACCINE (2 - 3-dose series) HPV VACCINE (2 - 3-dose series) [facility] Start: 11-06-2011 HEPATITIS C SCREENING HEPATITIS C SCREENING [facility] Start: 11-06-2011 Hepatitis C screening Hepatitis C Screening [facility] Start: 11-06-2011 HIV SCREENING HIV SCREENING [facility] Start: 11-06-2011 HIV screening HIV Screening [facility] Start: 2004 Urine microalbumin profile DTAP,TDAP,TD (6 - Tdap) [facility] Start: 05-08-1994 COVID-19 VACCINE (#1) COVID-19 VACCINE (#1) [facility] Bacteria identified in Urine by Culture URINE CULTURE Microbiology Routine Nausea Fatigue, unspecified type 09/15/2022 3:11 PM EST [facility] Work Phone: End: 10-19-2023 CT SINUS STEREO WO IVCON CT SINUS STEREO WO IVCON Radiology Routine Chronic sinusitis, unspecified location 1 Occurrences starting 09/19/2022 until 10/19/2023 [facility] Work Phone: Immunizations Immunization Date Immunization Notes Care Provider Zaid smith 07-14-2018 influenza virus vaccine, unspecified formulation Sheri Franco APRN.[facility] Work Phone: [facility] 03-28-1999 diphtheria, tetanus toxoids and acellular pertussis vaccine, unspecified formulation Liat Viramontes APRN.[facility] Work Phone: [facility] Work Phone: 03-28-1999 measles, mumps and rubella virus vaccine Liat Viramontes APRN.SPEECH AND HEARING DIRECTOR Work Phone: [facility] Work Phone: 03-28-1999 trivalent poliovirus vaccine, live, oral Liat Viramontes APRN.[facility] Work Phone: [facility] Work Phone: 12-06-1996 diphtheria, tetanus toxoids and acellular pertussis vaccine, unspecified formulation Liat Viramontes APRN.[facility] Work Phone: [facility] Work Phone: 12-06-1996 haemophilus influenz ae type b vaccine, PRP-T conjugate Liat Viramontes APRN.SPEECH AND HEARING DIRECTOR Work Phone: [facility] Work Phone: 01-07-1996 diphtheria, tetanus toxoids and pertussis vaccine Liat Viramontes APRN.SPEECH AND HEARING DIRECTOR Work Phone: [facility] Work Phone: 01-07-1996 trivalent poliovirus vaccine, live, oral Liat Viramontes APRN.[facility] Work Phone: [facility] Work Phone: 02-05-1995 DTP-Haemophilus influenzae type b conjugate vaccine Liat Viramontes CAR BODY MECHANIC.[facility] Work Phone: [facility] Work Phone: 02-05-1995 hepatitis B vaccine, pediatric or pediatric/adolescent dosage Liat Wander CAR BODY MECHANIC.[facility] Work Phone: [facility] Work Phone: 02-05-1995 measles, mumps and rubella virus vaccine Liat James CAR BODY MECHANIC.SPEECH AND HEARING DIRECTOR Work Phone: [facility] Work Phone: 02-05-1995 trivalent poliovirus vaccine, live, oral Liat Wander CAR BODY MECHANIC.[facility] Work Phone: [facility] Work Phone: 08-29-1994 DTP-Haemophilus influenzae type b conjugate vaccine Liat Viramontes CAR BODY MECHANIC.[facility] Work Phone: [facility] Work Phone: 08-29-1994 hepatitis B vaccine, pediatric or pediatric/adolescent dosage Liat James CAR BODY MECHANIC.[facility] Work Phone: [facility] Work Phone: 08-29-1994 trivalent poliovirus vaccine, live, oral Liat Viramontes CAR BODY MECHANIC.[facility] Work Phone: [facility] Work Phone: 1993 hepatitis B vaccine, pediatric or pediatric/adolescent dosage Liat James CAR BODY MECHANIC.[facility] Work Phone: [facility] Work Phone: Payers Date Payer Category Payer Unknown MMO MMO [employer] PPO [id number] 2023-Present [phone] [address] [place] [address] PPO [id number] 2023 Unknown [id number] 2022 Medicaid [id number] 2022 Medicaid [id number] 2017 Medicaid [id number] 1993 Unknown [id number] Social History Date Type Detail Facility Start: 06-07-2015 End: 05-06-2022 Tobacco smoking status NHIS Never smoked tobacco [facility] Work Phone: Start: 06-07-2015 End: 05-06-2022 Tobacco use and exposure Smokeless tobacco non-user [facility] Work Phone: Start: 09-27-2021 End: 06-12-2023 Alcohol intake Current non-drinker of alcohol (finding) [facility] Start: 08-24-2020 History SDOH Alcohol Std Drinks 98 [facility] Start: 08-24-2020 History SDOH Alcohol Binge 1 [facility] Start: 08-24-2020 History SDOH Social Connections Phone 5 [facility] Start: 08-24-2020 History SDOH Social Connections Get Together 2 [facility] Start: 08-24-2020 History SDOH Social Connections Living 8 [facility] Start: 08-24-2020 Education 12 [facility] Start: 1995 Sex Assigned At Female [facility] Start: 05-16-2022 End: 05-30-2022 Exposure to SARS-CoV-2 (event) Not sure [facility] Work Phone: Start: 08-24-2020 End: 12-26-2022 History of Social function [facility] Start: 08-24-2020 End: 12-26-2022 Social connection and isolation panel [facility] Do you belong to any clubs or organizations such as buddhism groups, unions, fraternal or athletic groups, or school groups? No [facility] Are you now , , , , never or living with a partner? Living with partner [facility] Frequency of Alcohol Consumption Not on file [facility] How often do you hav e 6 or more drinks on 1 occasion? Never [facility] Do you feel stress - tense, restless, nervous, or anxious, or unable to sleep at night because your mind is troubled all the time - these days [OSQ] Very much [facility] (I/We) worried wheth er (my/our) food would run out before (I/we) got money to buy more. Never true [facility] Start: 03-01-2020 Gender identity Identifies as female gender (finding) [facility] Start: 03-01-2020 Sexual orientation Heterosexual (finding) [facility] Clinical Notes 07-11-2015 to 08-28-2023 Jacquelin Goodson APRN.SPEECH AND HEARING DIRECTOR - 08/10/2023 12:58 PM ESTPatient InstructionsDrake Taveras MD - 06/12/2023 5:50 PM EDTTelephone Encounter - Sonny Wick LPN - 06/01/2023 5:02 PM EDT Note Date & Type Note Facility 08-28-2023 Note HNO ID: [id number] Author: RADHA JESUS RT(R) Service: Radiology Author Type: Technologist Type: Progress Notes Filed: 08/28/2023 10:05 Note Text: Radiology Service Progress Note PATIENT NAME: Agustin Mix DATE OF SERVICE: August 28, 2023 TIME: 9:55 AM PATIENT IDENTITY VERIFICATION COMPLETED USING TWO (2) IDENTIFIERS: Name and Date of confirmed by patient verbally. FALL SCREENING: Has the patient had 2 falls in the last year or 1 fall with injury or currently using an Ambulatory Assistive Device (Walker, Cane, Wheelchair, Crutches, etc.)? No PATIENT GENDER DATA: Female. status: : No status: NO. PATIENT RELEVANT IMPLANT DATA REVIEWED: Not Applicable RADIOLOGY DEPARTMENT: General X-ray: Exam(s) Completed: Lower Extremity X-Ray(s): Foot, Left and Wt. Bearing PERIPHERAL IV DATA: Not applicable SIGNED BY: RT Dillon(R) August 28, 2023 9:55 AM [facility] 08-28-2023 Note HNO ID: [id number] Author: DOLORES LOPES APRN.SAHARA Service: ? Author Type: Nurse Practitioner Type: Progress Notes Filed: 08/28/2023 10:38 Note Text: SUBJECTIVE Agustin Mix is a 27 year old female here today for a check up on her medical problems. Chief Complaint Patient presents with: Recheck: Left foot pain HPI Agustin Mix is a 27 year old female. She is an established patient of Dr. Buckner. Here today for concerns of worsening left foot pain. Seen 08/18. See HPI from that visit. HPI in brief she has had on going pain and swelling to the top of the left foot. Onset about 2 weeks ago. Treated with naproxen. Still with the pain to the top of the foot, localized swelling. Her medications were reviewed today and her list is now up to date. Medications Current Outpatient Medications Medication Sig acetaminophen (TYLENOL) 325 mg tablet Take 2 tablets by mouth every 6 hours as needed (stagger with ibuprofen). predniSONE (DELTASONE) 10 mg tablet Take 2 tabs po BID for 2 days then 1 tab po BID for 2 days then 1/2 tab po BID for 2 days then 1/2 tab daily for 2 days then stop loratadine (CLARITIN) 10 mg tablet Take 1 tablet by mouth once daily. No current facility-administered medications for this visit. ALLERGIES Allergen Reactions Latex Rash Powder on gloves ACTIVE PROBLEM LIST History of Endoscopic Sinus Surgery - 12/26/2022 Other Chronic Sinusitis - 12/11/2022 Obesity - 07/02/2015 Social History Tobacco Use Smoking status: Never Smokeless tobacco: Never Vaping Use Vaping Use: Never used Substance Use Topics Alcohol use: No Drug use: No Review of Systems Respiratory: Negative. Cardiovascular: Negative for chest pain and palpitations. OBJECTIVE BP 110/80 Pulse 92 Wt 210 lb (95.3kg) SpO2 98% LMP 08/14/2023 Physical Exam Vitals and nursing note reviewed. Constitutional: General: She is awake. She is not in acute distress. Appearance: Normal appearance. She is well-developed and well-groomed. She is not ill-appearing, toxic-appearing or diaphoretic. HENT: Head: Normocephalic. Right Ear: External ear normal. Left Ear: External ear normal. Nose: Nose normal. Eyes: General: Vision grossly intact. Conjunctiva/sclera: Conjunctivae normal. Pupils: Pupils are equal, round, and reactive to light. Neck: Vascular: No JVD. Trachea: Trachea normal. Cardiovascular: Pulses: Normal pulses. Pulmonary: Effort: Pulmonary effort is normal. No accessory muscle usage, prolonged expiration or respiratory distress. Musculoskeletal: Cervical back: Neck supple. Feet: Skin: General: Skin is warm and dry. Capillary Refill: Capillary refill takes less than 2 seconds. Neurological: General: No focal deficit present. Mental Status: She is alert and oriented to person, place, and time. Mental status is at baseline. Psychiatric: Attention and Perception: Attention and perception normal. Mood and Affect: Mood and affect normal. Speech: Speech normal. Behavior: Behavior normal. Behavior is cooperative. Thought Content: Thought content normal. Cognition and Memory: Cognition and memory normal. Judgment: Judgment normal. ASSESSMENT/PLAN: 1. Left foot pain - ICD9: 729.5, ICD10: M79.672 Still suspect a tendonitis given the nature of the pain but we need to ensure no stress fracture/hair line fractures. Check xray today. IF pain persistent then plan to refer to ortho or Podiatry. - XR FOOT GENERAL 3V AP/LAT/OBL LEFT - PREDNISONE 10 MG TABLET Dolores Lopes APRN.SAHARA Portions of this note have been entered by ancillary staff. I have reviewed and when necessary edited, so that they are an adequate record of my encounter with this patient Please note that parts of this document were created using voice recognition software and therefore may contain grammatical errors. Patient verbalizes understanding of instructions from today's visit and in agreement with treatment plan. Questions answered. Agrees to call the office if questions, concerns of issues with acute symptoms not improving or if they worsen. See diagnoses and orders for additional plan(s). Allergies and medications were reviewed, list was updated, and refills given if needed. Past medical, surgical, social, and family history reviewed and updated as appropriate. Encouraged proper diet AND exercise as well as compliance with taking medications. Age-appropriate health preventative measures were discussed. Return if symptoms worsen or fail to improve, for Keep next scheduled appointment.. Dolores Lopes APRN-SAHARA [facility] 08-18-2023 Note HNO ID: [id number] Author: DOLORES LOPES APRN.SAHARA Service: ? Author Type: Nurse Practitioner Type: Progress Notes Filed: 08/18/2023 12:37 Note Text: SUBJECTIVE Agustin Mix is a 27 year old female here today for a check up on her medical problems. Chief Complaint Patient presents with: Edema: right ankle and foot noted about 3 days ago Pain is 2:10 dull. HPI Agustin Mix is a 27 year old female. Established patient of Mounika Buckner MD. Here today acutely for concerns of a pain, some swelling on the top of her foot. Onset about 3 days ago. More swelling when on feet. Work has aggravated it. Has tried warm application to the site. Located to the right foot, top of foot. Pain 2/10, dull. No prior injury or issue like this. Her medications were reviewed today and her list is now up to date. Medications Current Outpatient Medications Medication Sig naproxen (NAPROSYN) 500 mg tablet Take 1 tablet by mouth two times a day with meals. Take with food. acetaminophen (TYLENOL) 325 mg tablet Take 2 tablets by mouth every 6 hours as needed (stagger with ibuprofen). oxyCODONE IR (ROXICODONE) 5 mg immediate release tablet Take 1 tablet by mouth every 6 hours as needed for pain (breakthrough pain not controlled by tylenol and ibuprofen). (Patient not taking: Reported on 12/26/2022) loratadine (CLARITIN) 10 mg tablet Take 1 tablet by mouth once daily. No current facility-administered medications for this visit. ALLERGIES Allergen Reactions Latex Rash Powder on gloves ACTIVE PROBLEM LIST History of Endoscopic Sinus Surgery - 12/26/2022 Other Chronic Sinusitis - 12/11/2022 Obesity - 07/02/2015 Social History Tobacco Use Smoking status: Never Smokeless tobacco: Never Vaping Use Vaping Use: Never used Substance Use Topics Alcohol use: No Drug use: No Review of Systems Respiratory: Negative. Cardiovascular: Negative. OBJECTIVE BP 120/70 Pulse 88 Wt 208 lb (94.3kg) SpO2 98% LMP 08/14/2023 Physical Exam Vitals and nursing note reviewed. Constitutional: General: She is awake. She is not in acute distress. Appearance: Normal appearance. She is well-developed and well-groomed. She is not ill-appearing, toxic-appearing or diaphoretic. HENT: Head: Normocephalic. Right Ear: External ear normal. Left Ear: External ear normal. Nose: Nose normal. Eyes: General: Vision grossly intact. Conjunctiva/sclera: Conjunctivae normal. Pupils: Pupils are equal, round, and reactive to light. Neck: Vascular: No JVD. Trachea: Trachea normal. Cardiovascular: Pulses: Normal pulses. Pulmonary: Effort: Pulmonary effort is normal. No accessory muscle usage, prolonged expiration or respiratory distress. Musculoskeletal: Cervical back: Neck supple. Right lower leg: No edema. Left lower leg: No edema. Feet: Skin: General: Skin is warm and dry. Capillary Refill: Capillary refill takes less than 2 seconds. Neurological: General: No focal deficit present. Mental Status: She is alert and oriented to person, place, and time. Mental status is at baseline. Psychiatric: Attention and Perception: Attention and perception normal. Mood and Affect: Mood and affect normal. Speech: Speech normal. Behavior: Behavior normal. Behavior is cooperative. Thought Content: Thought content normal. Cognition and Memory: Cognition and memory normal. Judgment: Judgment normal. ASSESSMENT/PLAN: 1. Tendonitis - ICD9: 726.90, ICD10: M77.9 Discussed rest, ice, compression, elevation, safe use of NSAIDs, start naproxen. - NAPROXEN 500 MG TABLET Portions of this note have been entered by ancillary staff. I have reviewed and when necessary edited, so that they are an adequate record of my encounter with this patient Please note that parts of this document were created using voice recognition software and therefore may contain grammatical errors. Patient verbalizes understanding of instructions from today's visit and in agreement with treatment plan. Questions answered. Agrees to call the office if questions, concerns of issues with acute symptoms not improving or if they worsen. See diagnoses and orders for additional plan(s). Allergies and medications were reviewed, list was updated, and refills given if needed. Past medical, surgical, social, and family history reviewed and updated as appropriate. Encouraged proper diet AND exercise as well as compliance with taking medications. Age-appropriate health preventative measures were discussed. Return if symptoms worsen or fail to improve, for Keep next scheduled appointment.. Dolores Lopes APRN-SAHARA [facility] 08-10-2023 Note HNO ID: [id number] Author: Jacquelin Goodson APRN.SAHARA Service: ? Author Type: Nurse Practitioner Type: Progress Notes Filed: 08/10/2023 1:04 PM Note Text: Telemedicine Visit - Distance Health Virtual Visit Note Patient seen on [employer] Video Visit platform. Location of patient: [place] I have communicated my name and active licensure. The patient's identity and physical location were verified at the time of this visit. Either the patient or their legal credit resolution representative has been informed of the risks and benefits of -- and alternatives to -- treatment through a remote evaluation and consents to proceed with the evaluation remotely. History of Present Illness Agustin Mix is a 27 year old year old female who presents for the past approximately 1.5 weeks with symptoms that are:constant. Symptoms include: (temporary sore throat in the mornings) Positive for Nasal congestion and Face pain/pressure, Negative for Fever, Chills/Sweats, Otalgia, and Sore throat Oral intake: tolerating Tobacco use: No Second hand smoke exposure: not asked Recent exposure to strep:No Sick contacts: no known Recent travel: dayquil, nyquil provides some relief OTC meds/remedies that patient has tried: dayquil, nyquil with temporary relief. PAST MEDICAL HISTORY Diagnosis Date Hearing loss thinks its her right ear- exposer to high pitch noises at an employer IBS (irritable bowel syndrome) Lactose intolerance Obesity PAST SURGICAL HISTORY Procedure Laterality Date CHOLECYSTECTOMY 03/2014 Cholecystectomy COLONOSCOPY FLX DX W/COLLJ SPEC WHEN PFRMD 07/11/15 Colonoscopy ESOPHAGOGASTRODUODENOSCOPY TRANSORAL DIAGNOSTIC 07/11/15 EGD Reports sinus surgery for narrow nasal passages December of last year. She stated that it was found that she had a staph infection in nose Sees ENT specialist from FAM[facility] Problem Relation Age of Onset Heart Mother MVP Diabetes Father Type 2 other (Other) Sister hearing loss- she is her twin Breast Cancer Paternal Grandmother Social History Tobacco Use Smoking status: Never Smokeless tobacco: Never Vaping Use Vaping Use: Never used Substance Use Topics Alcohol use: No Drug use: No Current Outpatient Medications Medication Sig amoxicillin-clavulanate potassium (AUGMENTIN) 875-125 mg per tablet Take 1 tablet by mouth every 12 hours for 5 days. Take with food acetaminophen (TYLENOL) 325 mg tablet Take 2 tablets by mouth every 6 hours as needed (stagger with ibuprofen). oxyCODONE IR (ROXICODONE) 5 mg immediate release tablet Take 1 tablet by mouth every 6 hours as needed for pain (breakthrough pain not controlled by tylenol and ibuprofen). (Patient not taking: Reported on 12/26/2022) loratadine (CLARITIN) 10 mg tablet Take 1 tablet by mouth once daily. No current facility-administered medications for this visit. ALLERGIES Allergen Reactions Latex Rash Powder on gloves Self reported temp: 97.6'F Video Exam (Examination performed via Video enabled technology) General appearance: Alert, oriented, pleasant, in NAD :Yes Ill appearing :Yes Lethargic appearing :No Eyes: Sclera clear :Yes Conjunctiva without erythema :Yes Ears: Tragus / outer ear tenderness by self palpation :No Oropharynx: normal, no erythema Frontal sinus tenderness by self palpation;No Maxillary sinus tenderness by self palpation : Yes Tender cervical adenopathy by self palpation :Yes Respiratory distress :No Coughing noted :No Audible wheezing noted :No ASSESSMENT/PLAN: She is afebrile, appeared stable and in NAD 1. Acute maxillary sinusitis, recurrence not specified - ICD9: 461.0, ICD10: J01.00 Follow up with your ENT doctor as soon as possible to discuss recurrent sinus infections Drink plenty of water Get plenty of rest May alternate tylenol and ibuprofen for pain or fever May try sudafed for congestion if you do not have high blood pressure. Warm compress over nose and forehead Breathe in steam from a bowl of hot water or shower. Saline nasal spray or gel Over the counter Flonase- aim spray away from sides of nose; rinse mouth afterwards. (do not use is nosebleeds) Salt water gargles (1/2 tsp salt in a cup of warm water; gargle and spit out) several times a day. Warm tea with honey Soup broth Chloraseptic lozenges or spray Mucinex DM for sinus and chest congestion and cough. Augmentin as prescribed-take with food Always use over the counter medications as directed by the global marketing operations manager - Red flags discussed for need for in person care - All questions answered Jacquelin Goodson APRN.SPEECH AND HEARING DIRECTOR If you let us know who your primary care provider is, we will send them a notification of today?s visit through our electronic medical records system. Since not all providers have access to our notifications, we strongly encourage you to share the following record of today?s visit with your primary care provider at your (more content not included)... [facility] 08-10-2023 History of Christiane sandy illness Narrative Telemedicine Visit - Distance Health Virtual Visit Note Patient seen on [employer] Video Visit platform. Location of patient: [place] I have communicated my name and active licensure. The patient's identity and physical location were verified at the time of this visit. Either the patient or their legal credit resolution representative has been informed of the risks and benefits of -- and alternatives to -- treatment through a remote evaluation and consents to proceed with the evaluation remotely. History of Present Illness Agustin Mix is a 27 year old year old female who presents for the past approximately 1.5 weeks with symptoms that are:constant. Symptoms include: (temporary sore throat in the mornings) Positive for Nasal congestion and Face pain/pressure, Negative for Fever, Chills/Sweats, Otalgia, and Sore throat Oral intake: tolerating Tobacco use: No Second hand smoke exposure: not asked Recent exposure to strep:No Sick contacts: no known Recent travel: dayquil, nyquil provides some relief OTC meds/remedies that patient has tried: dayquil, nyquil with temporary relief. PAST MEDICAL HISTORY Diagnosis Date Hearing loss thinks its her right ear- exposer to high pitch noises at an employer IBS (irritable bowel syndrome) Lactose intolerance Obesity PAST SURGICAL HISTORY Procedure Laterality Date CHOLECYSTECTOMY 03/2014 Cholecystectomy COLONOSCOPY FLX DX W/COLLJ SPEC WHEN PFRMD 07/11/15 Colonoscopy ESOPHAGOGASTRODUODENOSCOPY TRANSORAL DIAGNOSTIC 07/11/15 EGD Reports sinus surgery for narrow nasal passages December of last year. She stated that it was found that she had a staph infection in nose Sees ENT specialist from [facility] Problem Relation Age of Onset Heart Mother MVP Diabetes Father Type 2 other (Other) Sister hearing loss- she is her twin Breast Cancer Paternal Grandmother Social History Tobacco Use Smoking status: Never Smokeless tobacco: Never Vaping Use Vaping Use: Never used Substance Use Topics Alcohol use: No Drug use: No Current Outpatient Medications Medication Sig amoxicillin-clavulanate potassium (AUGMENTIN) 875-125 mg per tablet Take 1 tablet by mouth every 12 hours for 5 days. Take with food acetaminophen (TYLENOL) 325 mg tablet Take 2 tablets by mouth every 6 hours as needed (stagger with ibuprofen). oxyCODONE IR (ROXICODONE) 5 mg immediate release tablet Take 1 tablet by mouth every 6 hours as needed for pain (breakthrough pain not controlled by tylenol and ibuprofen). (Patient not taking: Reported on 12/26/2022) loratadine (CLARITIN) 10 mg tablet Take 1 tablet by mouth once daily. No current facility-administered medications for this visit. ALLERGIES Allergen Reactions Latex Rash Powder on gloves Self reported temp: 97.6'F Video Exam (Examination performed via Video enabled technology) General appearance: Alert, oriented, pleasant, in NAD :Yes Ill appearing :Yes Lethargic appearing :No Eyes: Sclera clear :Yes Conjunctiva without erythema :Yes Ears: Tragus / outer ear tenderness by self palpation :No Oropharynx: normal, no erythema Frontal sinus tenderness by self palpation;No Maxillary sinus tenderness by self palpation : Yes Tender cervical adenopathy by self palpation :Yes Respiratory distress :No Coughing noted :No Audible wheezing noted :No ASSESSMENT/PLAN: She is afebrile, appeared stable and in NAD 1. Acute maxillary sinusitis, recurrence not specified - ICD9: 461.0, ICD10: J01.00 Follow up with your ENT doctor as soon as possible to discuss recurrent sinus infections Drink plenty of water Get plenty of rest May alternate tylenol and ibuprofen for pain or fever May try sudafed for congestion if you do not have high blood pressure. Warm compress over nose and forehead Breathe in steam from a bowl of hot water or shower. Saline nasal spray or gel Over the counter Flonase- aim spray away from sides of nose; rinse mouth afterwards. (do not use is nosebleeds) Salt water gargles (1/2 tsp salt in a cup of warm water; gargle and spit out) several times a day. Warm tea with honey Soup broth Chloraseptic lozenges or spray Mucinex DM for sinus and chest congestion and cough. Augmentin as prescribed-take with food Always use over the counter medications as directed by the global marketing operations manager - Red flags discussed for need for in person care - All questions answered Jacquelin Goodson APRN.SPEECH AND HEARING DIRECTOR If you let us know who your primary care provider is, we will send them a notification of today s visit through our electronic medical records system. Since not all providers have access to our notifications, we strongly encourage you to share the following record of today s visit with your primary care provider at your next visit. This will help in providing you the best care. If you do not have an established Primary Care physician and would like to continue care with a [facility] Virtual Primary Care physician, please ask your provider to place a Establish Primary Care order. Use [employer] to manage your care, wherever you are, 02/03, on your mobile device or computer. [employer] connects you to [facility] so you can access all your health information in one place and also schedule and request virtual appointments with primary care providers. documented in this encounter [facility] 08-10-2023 Instructions Jacquelin Goodson APRN.CNP - 08/10/2023 12:58 PM EST Follow up with your ENT doctor as soon as possible to discuss recurrent sinus infections Drink plenty of water Get plenty of rest May alternate tylenol and ibuprofen for pain or fever May try sudafed for congestion if you do not have high blood pressure. Warm compress over nose and forehead Breathe in steam from a bowl of hot water or shower. Saline nasal spray or gel Over the counter Flonase- aim spray away from sides of nose; rinse mouth afterwards. (do not use is nosebleeds) Salt water gargles (1/2 tsp salt in a cup of warm water; gargle and spit out) several times a day. Warm tea with honey Soup broth Chloraseptic lozenges or spray Mucinex DM for sinus and chest congestion and cough. Augmentin as prescribed-take with food Always use over the counter medications as directed by the global marketing operations manager documented in this encounter [facility] 06-12-2023 Note HNO ID: [id number] Author: Drake Taveras MD Service: ? Author Type: Physician Type: Progress Notes Filed: 06/12/2023 5:57 PM Note Text: Patient presents with: Suture Removal: left ring finger, 2 sutures x 13 days HPI: Cut her left ring finger. Had 2 sutures placed at the [facility] ER 05/29/23. Patient presents for suture removal. Denies bleeding, drainage, dehiscence, erythema, or signs of infection. MEDICATIONS: fluticasone (FLONASE ALLERGY RELIEF) 50 mcg/actuation nasal spray Use 2 Sprays in each nostril once daily. acetaminophen (TYLENOL) 325 mg tablet Take 2 tablets by mouth every 6 hours as needed (stagger with ibuprofen). loratadine (CLARITIN) 10 mg tablet Take 1 tablet by mouth once daily. oxyCODONE IR (ROXICODONE) 5 mg immediate release tablet Take 1 tablet by mouth every 6 hours as needed for pain (breakthrough pain not controlled by tylenol and ibuprofen). (Patient not taking: Reported on 12/26/2022) ALLERGIES: ALLERGIES Allergen Reactions Latex Rash Powder on gloves VITALS: BP 122/72 Pulse 92 Temp 36.3 ?C (97.3 ?F) Resp 16 Wt 95.7 kg (211 lb) LMP 12/01/2022 (Approximate) SpO2 98% BMI 37.38 kg/m? PE: 1cm laceration dorsal middle phalange of the left ring finger. The wound is well healed without signs of infection. The 2 sutures are removed. Wound edges are well approximated. ASSESSMENT/PLAN: 1. Laceration of left ring finger, foreign body presence unspecified, nail damage status unspecified, subsequent encounter - ICD9: V58.89, 883.0, ICD10: S61.215D Drake Taveras MD [facility] 06-12-2023 History of Presen t illness Narrative Patient presents with: Suture Removal: left ring finger, 2 sutures x 13 days HPI: Cut her left ring finger. Had 2 sutures placed at the [facility] ER 05/29/23. Patient presents for suture removal. Denies bleeding, drainage, dehiscence, erythema, or signs of infection. MEDICATIONS: fluticasone (FLONASE ALLERGY RELIEF) 50 mcg/actuation nasal spray Use 2 Sprays in each nostril once daily. acetaminophen (TYLENOL) 325 mg tablet Take 2 tablets by mouth every 6 hours as needed (stagger with ibuprofen). loratadine (CLARITIN) 10 mg tablet Take 1 tablet by mouth once daily. oxyCODONE IR (ROXICODONE) 5 mg immediate release tablet Take 1 tablet by mouth every 6 hours as needed for pain (breakthrough pain not controlled by tylenol and ibuprofen). (Patient not taking: Reported on 12/26/2022) ALLERGIES: ALLERGIES Allergen Reactions Latex Rash Powder on gloves VITALS: BP 122/72 Pulse 92 Temp 36.3 C (97.3 F) Resp 16 Wt 95.7 kg (211 lb) LMP 12/01/2022 (Approximate) SpO2 98% BMI 37.38 kg/m PE: 1cm laceration dorsal middle phalange of the left ring finger. The wound is well healed without signs of infection. The 2 sutures are removed. Wound edges are well approximated. ASSESSMENT/PLAN: 1. Laceration of left ring finger, foreign body presence unspecified, nail damage status unspecified, subsequent encounter - ICD9: V58.89, 883.0, ICD10: S61.215D Drake Taveras MD documented in this encounter [facility] 06-01-2023 Miscellaneous Notes See message. Sonny Wick LPN documented in this encounter [facility] 05-26-2023 Note HNO ID: [id number] Author: Sheri Franco APRN.SPEECH AND HEARING DIRECTOR Service: ? Author Type: Nurse Practitioner Type: Progress Notes Filed: 05/26/2023 12:21 PM Note Text: This is a 27 year old female who presents today with: Patient presents with: Acute Visit: Th evening started with headache, has turned into sore throat, congestion, cough, no fever; no covid test; using otc cold meds HISTORY OF PRESENT ILLNESS: Agustin Mix is a 27 year old female. Patient presents with: Acute Visit: evening started with headache, has turned into sore throat, congestion, cough, no fever; no covid test; using otc cold meds Pt presents today with complaint of URI symptoms. night, started getting a headache. Thursday - more headache and sore throat. More fatigued. Thursday - complete -- congestion, coughing more, feels like ears are full. [place] like there was drainage coming out of the ears and her eyes were red. Some drainage from the eyes. + head congestion. + PND. + cough. + sore throat. + ear pain. Works for a [employer]. She is using daytime and nighttime OTC medication. PAST MEDICAL HISTORY: PAST MEDICAL HISTORY Diagnosis Date Hearing loss thinks its her right ear- exposer to high pitch noises at an employer IBS (irritable bowel syndrome) Lactose intolerance Obesity PAST SURGICAL HISTORY Procedure Laterality Date CHOLECYSTECTOMY 03/2014 Cholecystectomy COLONOSCOPY FLX DX W/COLLJ SPEC WHEN PFRMD 07/11/15 Colonoscopy ESOPHAGOGASTRODUODENOSCOPY TRANSORAL DIAGNOSTIC 07/11/15 EGD ALLERGIES Latex MEDICATIONS Current Outpatient Medications Medication Sig fluticasone (FLONASE ALLERGY RELIEF) 50 mcg/actuation nasal spray Use 2 Sprays in each nostril once daily. acetaminophen (TYLENOL) 325 mg tablet Take 2 tablets by mouth every 6 hours as needed (stagger with ibuprofen). loratadine (CLARITIN) 10 mg tablet Take 1 tablet by mouth once daily. oxyCODONE IR (ROXICODONE) 5 mg immediate release tablet Take 1 tablet by mouth every 6 hours as needed for pain (breakthrough pain not controlled by tylenol and ibuprofen). (Patient not taking: Reported on 12/26/2022) No current facility-administered medications for this visit. FAMILY HISTORY Problem Relation Age of Onset Heart Mother MVP Diabetes Father Type 2 other (Other) Sister hearing loss- she is her twin Breast Cancer Paternal Grandmother Social History Tobacco Use Smoking status: Never Smokeless tobacco: Never Vaping Use Vaping Use: Never used Substance Use Topics Alcohol use: No Drug use: No EXAM: BP 114/82 Pulse 105 Temp 37.3 ?C (99.1 ?F) Resp 16 LMP 12/01/2022 (Approximate) SpO2 97% PHYSICAL EXAM: General Appearance: Well appearing, alert, in no acute distress, well-hydrated, well nourished.. Skin: Skin color, texture, turgor normal, no suspicious rashes or lesions. Flushed. Head: Normocephalic, no masses, lesions, tenderness or abnormalities. Eyes: Anicteric sclera. Pupils are equally round and reactive to light. Extraocular movements are intact. . Ears: External ears normal, canals clear, Positive findings: R TM: air/fluid interface visualized and bulging, L TM: air/fluid interface visualized. Nose/Sinuses: no sinus tenderness. Oropharynx: Lips, mucosa, and tongue normal, teeth and gums normal, oropharynx normal. Neck: Supple, no adenopathy Lungs: Lungs clear to auscultation. No wheezing, rhonchi, rales.. Heart: RRR without murmur, gallop, or rubs. No ectopy. Neurologic: Gait normal. ASSESSMENT/PLAN: 1. Viral URI - ICD9: 465.9, ICD10: J06.9 (primary diagnosis) - Discussed viral etiology and rationale for treatment. - Group A strep molecular testing negative - Symptomatic treatment with prn analgesia - Supportive care with fluids and rest - The patient may also use OTC cough and cold meds as needed. - Follow up in 3-5 days if symptoms persist or sooner if worsening of symptoms - COVID AND INFLUENZA A/B AND RSV NAAT, ROUTINE - COVID NAAT, UPPER RESPIRATORY, ROUTINE - ROUTINE FLU A/B + RSV 2. Sore throat - ICD9: 462, ICD10: J02.9 - suspect viral - Group A strep molecular testing negative - Discussed supportive care treatment with fluids, rest and analgesia. - The patient may also use warm salt water gargles, throat lozenges and/or OTC throat spray as needed. - Call back if drooling, increased temperature, symptoms of dehydration and/or still sick in one week - STREP A MOLECULAR (POC) Discussed treatment plan and patient voices understanding. Patient's questions answered appropriately. Medications and potential side effects were discussed and patient voices understanding. Return to the office as scheduled or as needed for worsening/no improvement. Sheri Franco APRN.SPEECH AND HEARING DIRECTOR [facility] 03-24-2023 Note HNO ID: [id number] Author: To Ayala APRN.SAHARA Service: ? Author Type: Nurse Practitioner Type: Progress Notes Filed: 03/24/2023 1:45 PM Note Text: Subjective HPI Nontoxic-appearing female presents urgent care chief complaint insect bite. Duration of symptoms 8 days ago. Associated symptoms swelling itching adenopathy. Patient states she was hiking when she was stung or bit by an insect around her right ear. Presents today with persistent swelling itching. Has not use any OTC medications. Denies any other concerns. Denies any fever body aches chills productive cough chest pain shortness of breath pleuritic pain hemoptysis nausea vomiting abdominal pain change in bowel or bladder habits. Past medical history prescription medication use and allergies reviewed. Denies chance of is not breast-feeding. 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 acetaminophen (TYLENOL) 325 mg tablet Take 2 tablets by mouth every 6 hours as needed (stagger with ibuprofen). predniSONE (DELTASONE) 10 mg tablet Take 3 tablets by mouth once daily for 5 days. oxyCODONE IR (ROXICODONE) 5 mg immediate release tablet Take 1 tablet by mouth every 6 hours as needed for pain (breakthrough pain not controlled by tylenol and ibuprofen). (Patient not taking: Reported on 12/26/2022) loratadine (CLARITIN) 10 mg tablet Take 1 tablet by mouth once daily. FAMILY HISTORY Problem Relation Age of Onset Heart Mother MVP Diabetes Father Type 2 other (Other) Sister hearing loss- she is her twin Breast Cancer Paternal Grandmother Social History Tobacco Use Smoking status: Never Smokeless tobacco: Never Vaping Use Vaping Use: Never used Substance Use Topics Alcohol use: No Drug use: No BP 120/74 Pulse 100 Temp 36.8 ?C (98.2 ?F) Resp 18 Wt 95.3 kg (210 lb) LMP 12/01/2022 (Approximate) SpO2 96% BMI 37.20 kg/m? Review of Systems Constitutional: Negative for chills, fever and malaise/fatigue. HENT: Negative for congestion, ear discharge, ear pain, sinus pain and sore throat. Eyes: Negative for blurred vision, pain, discharge and redness. Respiratory: Negative for cough, hemoptysis, sputum production, shortness of breath, wheezing and stridor. Cardiovascular: Negative for chest pain. Gastrointestinal: Negative for abdominal pain, diarrhea, nausea and vomiting. Musculoskeletal: Negative for myalgias. Skin: Positive for itching and rash. Neurological: Negative for dizziness and headaches. Objective Physical Exam Constitutional: General: She is not in acute distress. Appearance: She is not toxic-appearing. HENT: Head: Normocephalic. Right Ear: Tympanic membrane, ear canal and external ear normal. No mastoid tenderness. Left Ear: Tympanic membrane, ear canal and external ear normal. No mastoid tenderness. Ears: Comments: No mastoid tenderness. No erythema. Mild edema pre and postauricular area. No evidence of perichondritis. Nose: Nose normal. Eyes: Pupils: Pupils are equal, round, and reactive to light. Cardiovascular: Rate and Rhythm: Normal rate. Pulmonary: Effort: Pulmonary effort is normal. No respiratory distress. Musculoskeletal: Cervical back: Normal range of motion. No rigidity or tenderness. Lymphadenopathy: Head: Right side of head: Posterior auricular adenopathy present. Cervical: No cervical adenopathy. Skin: General: Skin is warm and dry. Neurological: General: No focal deficit present. Mental Status: She is alert. ASSESSMENT/PLAN: 1. Insect bite of right ear, initial encounter - ICD9: 910.4, E906.4, ICD10: S00.461A, W57.XXXA No evidence of bacterial infection on exam. Treat as allergic response. Placed on prednisone burst. Patient was educated on supportive therapies. Patient will follow up with primary care provider as needed. Patient was instructed to immediately proceed to emergency room for any new, worsening, or symptoms lasting longer than anticipated. The patient's clinical presentation is otherwise unremarkable at this time. Based on exam and clinical finding, the patient is stable for discharge. Plan of care was discussed with patient. Patient verbalizes understanding and agrees to plan of care. This note was generated using [employer] software. It may contain errors in wording, punctuation, o (more content not included)... [facility] 03-24-2023 History of Presen t illness Narrative Subjective HPI Nontoxic-appearing female presents urgent care chief complaint insect bite. Duration of symptoms 8 days ago. Associated symptoms swelling itching adenopathy. Patient states she was hiking when she was stung or bit by an insect around her right ear. Presents today with persistent swelling itching. Has not use any OTC medications. Denies any other concerns. Denies any fever body aches chills productive cough chest pain shortness of breath pleuritic pain hemoptysis nausea vomiting abdominal pain change in bowel or bladder habits. Past medical history prescription medication use and allergies reviewed. Denies chance of is not breast-feeding. 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 acetaminophen (TYLENOL) 325 mg tablet Take 2 tablets by mouth every 6 hours as needed (stagger with ibuprofen). predniSONE (DELTASONE) 10 mg tablet Take 3 tablets by mouth once daily for 5 days. oxyCODONE IR (ROXICODONE) 5 mg immediate release tablet Take 1 tablet by mouth every 6 hours as needed for pain (breakthrough pain not controlled by tylenol and ibuprofen). (Patient not taking: Reported on 12/26/2022) loratadine (CLARITIN) 10 mg tablet Take 1 tablet by mouth once daily. FAMILY HISTORY Problem Relation Age of Onset Heart Mother MVP Diabetes Father Type 2 other (Other) Sister hearing loss- she is her twin Breast Cancer Paternal Grandmother Social History Tobacco Use Smoking status: Never Smokeless tobacco: Never Vaping Use Vaping Use: Never used Substance Use Topics Alcohol use: No Drug use: No BP 120/74 Pulse 100 Temp 36.8 C (98.2 F) Resp 18 Wt 95.3 kg (210 lb) LMP 12/01/2022 (Approximate) SpO2 96% BMI 37.20 kg/m Review of Systems Constitutional: Negative for chills, fever and malaise/fatigue. HENT: Negative for congestion, ear discharge, ear pain, sinus pain and sore throat. Eyes: Negative for blurred vision, pain, discharge and redness. Respiratory: Negative for cough, hemoptysis, sputum production, shortness of breath, wheezing and stridor. Cardiovascular: Negative for chest pain. Gastrointestinal: Negative for abdominal pain, diarrhea, nausea and vomiting. Musculoskeletal: Negative for myalgias. Skin: Positive for itching and rash. Neurological: Negative for dizziness and headaches. Objective Physical Exam Constitutional: General: She is not in acute distress. Appearance: She is not toxic-appearing. HENT: Head: Normocephalic. Right Ear: Tympanic membrane, ear canal and external ear normal. No mastoid tenderness. Left Ear: Tympanic membrane, ear canal and external ear normal. No mastoid tenderness. Ears: Comments: No mastoid tenderness. No erythema. Mild edema pre and postauricular area. No evidence of perichondritis. Nose: Nose normal. Eyes: Pupils: Pupils are equal, round, and reactive to light. Cardiovascular: Rate and Rhythm: Normal rate. Pulmonary: Effort: Pulmonary effort is normal. No respiratory distress. Musculoskeletal: Cervical back: Normal range of motion. No rigidity or tenderness. Lymphadenopathy: Head: Right side of head: Posterior auricular adenopathy present. Cervical: No cervical adenopathy. Skin: General: Skin is warm and dry. Neurological: General: No focal deficit present. Mental Status: She is alert. ASSESSMENT/PLAN: 1. Insect bite of right ear, initial encounter - ICD9: 910.4, E906.4, ICD10: S00.461A, W57.XXXA No evidence of bacterial infection on exam. Treat as allergic response. Placed on prednisone burst. Patient was educated on supportive therapies. Patient will follow up with primary care provider as needed. Patient was instructed to immediately proceed to emergency room for any new, worsening, or symptoms lasting longer than anticipated. The patient's clinical presentation is otherwise unremarkable at this time. Based on exam and clinical finding, the patient is stable for discharge. Plan of care was discussed with patient. Patient verbalizes understanding and agrees to plan of care. This note was generated using [employer] software. It may contain errors in wording, punctuation, or spelling. To Ayala APRN.SPEECH AND HEARING DIRECTOR documented in this encounter [facility] 01-09-2023 Miscellaneous Notes Images from the original note were not included. Meredith Dinero MD You 36 minutes ago (9:15 AM) Sometimes it's the irrigations getting stuck in the sinus now that she's debrided. I sent a course of doxy for the discoloration, continue with irrigations, try to do head rolls to try to get all the irrigation out of her nose after she irrigates so less comes out later. MH Attempted to call the patient. Message left on unidentified voicemail to return call to office or check [employer]. If pt calls back, please relay [employer] message to her and get answers. Thank you! Patient called indicating that she has been having discharge this morning. Indicates it is clear and at times it can be brownish thick. Was informed to call the office if she started having some discharge. Surgery was on 12/19. Please advise. documented in this encounter [facility] 12-26-2022 Note HNO ID: [id number] Author: Meredith Dinero MD Service: ? Author Type: Physician Type: Progress Notes Filed: 12/26/2022 3:33 PM Note Text: SECTION OF RHINOLOGY, SINUS AND SKULL BASE SURGERY Head and Neck [place], [facility] NOTE CHIEF COMPLAINT Patient presents with: Post Op ASSESSMENT AND PLAN (J32.8) Other chronic sinusitis (primary encounter diagnosis) (Z98.890) History of endoscopic sinus surgery Office Visit on 12/26/22 fluticasone (FLONASE ALLERGY RELIEF) 50 mcg/actuation nasal spray MsBryan Son is approximately 1 weeks status post endoscopic sinus surgery - CRSsNP s/p ESS (b/l ethmoid, right max) December2022. She is doing very well. I see no signs of active infection. I reviewed her pathology and any microbiology data if obtained, and confirmed appropriate antibiotic coverage. I would like her to continue with saline irrigations twice per day for the next month. In addition, she is instructed to continue with flonase daily. I would like to see her back in for follow-up in 4-6 weeks' time. Meredith Dinero MD HPI Ms. Cline returns to clinic today for follow-up approximately 1 weeks status post endoscopic sinus surgery. PROCEDURES PERFORMED - 12/19/22 Bilateral functional endoscopic sinus surgery, including: Right maxillary antrostomy with removal of contents Bilateral ethmoidectomy - right total, left partial Bilateral inferior turbinate outfracture Extradural navigation FINDINGS; chronic sinusitis, purulence within the maxillary She reports doing well. Pain is minimal. But is having headaches and migraine like vision issues bilaterally. Some blood drainage and crusts in wash, appropriate crusts in washes. ALLERGIES ALLERGIES Allergen Reactions Latex Rash Powder on gloves MEDICATIONS Current Outpatient Medications Medication Sig acetaminophen (TYLENOL) 325 mg tablet Take 2 tablets by mouth every 6 hours as needed (stagger with ibuprofen). ibuprofen (MOTRIN) 200 mg tablet Take 2 tablets by mouth every 6 hours as needed for pain (alternate with tylenol) for up to 7 days. amoxicillin-clavulanic acid (AUGMENTIN) 875-125 mg per tablet Take 1 tablet by mouth twice daily for 7 days. fluticasone (FLONASE ALLERGY RELIEF) 50 mcg/actuation nasal spray Use 2 Sprays in each nostril once daily. oxyCODONE IR (ROXICODONE) 5 mg immediate release tablet Take 1 tablet by mouth every 6 hours as needed for pain (breakthrough pain not controlled by tylenol and ibuprofen). (Patient not taking: Reported on 12/26/2022) fluticasone (FLONASE ALLERGY RELIEF) 50 mcg/actuation nasal spray Use 2 Sprays in each nostril once daily. loratadine (CLARITIN) 10 mg tablet Take 1 tablet by mouth once daily. No current facility-administered medications for this visit. Past Medical History PAST MEDICAL HISTORY Diagnosis Date Hearing loss thinks its her right ear- exposer to high pitch noises at an employer IBS (irritable bowel syndrome) Lactose intolerance Obesity SURGICAL HISTORY PAST SURGICAL HISTORY Procedure Laterality Date CHOLECYSTECTOMY 03/2014 Cholecystectomy COLONOSCOPY FLX DX W/COLLJ SPEC WHEN PFRMD 07/11/15 Colonoscopy ESOPHAGOGASTRODUODENOSCOPY TRANSORAL DIAGNOSTIC 07/11/15 EGD SOCIAL HISTORY Social History Tobacco Use Smoking status: Never Smokeless tobacco: Never Vaping Use Vaping Use: Never used Substance Use Topics Alcohol use: No Drug use: No FAMILY HISTORY FAMILY HISTORY Problem Relation Age of Onset Heart Mother MVP Diabetes Father Type 2 other (Other) Sister hearing loss- she is her twin Breast Cancer Paternal Grandmother OBJECTIVE VITAL SIGNS: LMP 12/01/2022 (Approximate) GENERAL: She is Well appearing, alert, in no acute distress, well-hydrated, well nourished. FACE: symmetric, CN 7 intact EYES: EOMI, gross vision intact, PERRL NOSE: Intranasal examination shows mild crusting bilateral OC/OP: clear NECK: soft, FROM PROCEDURE Nasal endoscopy with sinus debridement SURGEON Meredith Dinero MD INDICATIONS Ms. Cline is approximately 1 weeks status post endoscopic sinus surgery. Nasal endoscopy with debridement is indicated to remove crusting to help prevent scar formation and infection. DESCRIPTION OF PROCEDURE After verbal consent was obtained, both nares were sprayed with Afrin and lidocaine. I then placed a lidocaine-soaked cottonoid into bilateral anterior nasal cavities and removed them 5 minutes later. The rigid 30-degree endoscope was used for visualization. The crusts were removed with a combination of straight and curved suction catheters and straight alligator forceps. She tolerated the procedure well. FINDINGS [employer] Endoscopic Scoring System Polyps (0 = none; 1 = MM only; 2 = beyond MM) Right: 0 Left: 0 Edema (0 = absent; 1 = mild; 2 = severe) Right: 1 Left: 1 Discharge (0 = none; 1 = thin; 2= purulent) Right: 1 Left: 1 Scarring (0 = absent; (more content not included)... [facility] 12-19-2022 Note HNO ID: [id number] Author: Isa Richards RN Service: Nursing Author Type: Registered Nurse Type: Nursing Progress Note Filed: 12/19/2022 8:28 PM Note Text: Pt has met Phase II Criteria, waiting for fiance to return from pharmacy. [facility] 12-19-2022 Note HNO ID: [id number] Author: Isa Richards RN Service: Nursing Author Type: Registered Nurse Type: Nursing Progress Note Filed: 12/19/2022 7:43 PM Note Text: Report given to Grace Poe. 0 Report received from Grace Poe. [facility] 12-19-2022 Note HNO ID: [id number] Author: Bal Mendez DO Service: ? Author Type: Resident Type: Anesthesia Procedure Notes Filed: 12/19/2022 4:14 PM Note Text: ANESTHESIOLOGY PROCEDURE NOTE Airway General Information Procedure Start Time/Medication Administration: 12/19/2022 4:04 PM Patient location during procedure: OR Timeout Performed Pre-procedure: timeout performed Consent Obtained: Yes Patient identity confirmed: arm band Staffing Resident: Bal Mendez DO Performed by: resident Indications and Patient Condition Indications for airway management: anesthesia Preoxygenated: yes anesthesia circuit Method: sleep Difficult Mask: No Final Airway Details Final airway type: endotracheal airway Final Endotracheal Airway: ETT Cuffed: yes Successful intubation technique: video laryngoscopy Devices used: Glidescope Endotracheal tube insertion site: oral Blade size: #3 ETT size (mm): 7.0 Measured from: lips Measurement (cm): 21 Placement verified by: capnometry Cormack-Lehane Classification: grade I - full view of glottis Number of attempts at approach: 1 Airway not difficult Comments Elective glidescope/fiberoptic for education purposes SIGNATURE: Bal Mendez DO PATIENT NAME: Agustin Cline DATE: December 19, 2022 TIME: 4:13 PM CSN: [id number] [facility] 12-19-2022 Note HNO ID: [id number] Author: Latonya Villanueva RN Service: ? Author Type: Registered Nurse Type: Nursing Progress Note Filed: 12/19/2022 1:03 PM Note Text: Paged Dr. Dinero, [id number]. Agustin Cline. Pt needs consent. Thanks Latonya CASON [id number] [facility] 11-21-2022 Instructions Blaze Peres APRN.SPEECH AND HEARING DIRECTOR - 11/21/2022 1:03 PM EDT PATIENT PREOPERATIVE INSTRUCTIONS No ref. provider found has scheduled you for your procedure at this surgery center: [facility]: -- [id number] [address]. Please read below carefully for your personalized instructions. Dietary Restrictions: - No solid food after midnight. - You may have 12 ounces of clear liquids (water, clear juices such as apple juice or gatorade, carbonated beverages, clear tea, black coffee, jello) until 2 hours before scheduled arrival at facility. No red/purple coloring and no creamer/sugar Medications: Unless instructed differently below, stay on all of your medications until your surgery. Approved medications to take the morning of surgery with a sip of water: loratadine (CLARITIN) If you start any new medications after today's visit, please contact the surgeon's office. Blood Thinning Medications: - Stop NSAIDS (Ibuprofen, Advil, Aleve, Motrin, Celebrex, Mobic, etc.) 7 days before surgery, as directed by your surgeon. - Stop Aspirin 7 days before surgery, as directed by your surgeon. - Stop Vitamin E, ALL multi-vitamins, herbals and dietary supplements 7 days before surgery. - You may take Tylenol (Acetaminophen) or any of your pain medications that do not contain aspirin or NSAIDS as needed. Important Reminders: - Candy, mints, and tobacco products are NOT permitted the morning of surgery. - Hearing aids, dentures and glasses may be worn the morning of surgery. - NO jewelry, body piercings, makeup, hairpins or contacts are to be worn the day of surgery. If you develop symptoms such as a fever, cold, or flu, or have other changes to your health within TWO DAYS of scheduled surgery or the morning of surgery, please contact the surgery center above. Personal Belongings: -Please have photo ID and insurance cards. -If you do not have a copy of advance directives on file with us, please bring a copy with you on the day of surgery. - Leave ALL valuables and money at home or with family members. For Outpatient Procedures: - YOU MUST HAVE A RESPONSIBLE RUFFLER TAKE YOU HOME. A CARD RUNNER OR DEPOT MANAGER CANNOT BE MADE A RESPONSIBLE RUFFLER. - We recommend that a responsible person stays with you overnight to take care of you. - You cannot stay in a hotel alone after outpatient surgery. You will not be permitted to have your surgery, if you do not have someone to take care of you. Arrival Time for Surgery: -You will receive a call from [facility] the afternoon before surgery after 2:30 pm (or Thursday for Thursday surgery) for a scheduled arrival time. - If you have not heard by 4 pm, please contact [facility] at [phone]. Please be aware that emergency situations arise, which may delay or change your surgical time. If this happens, we will notify you as soon as possible and regret any inconvenience. If you already have an Advance Directive, please fax a copy to [phone] or email to for it to be added to your chart. If you do not have an Advance Directive, you can find the appropriate form and more information at [email or web address]. We recommend that you complete the Advance Directive form found on the website and bring it with you the day of your surgery. It can be witnessed and scanned into your chart that day. Blaze Peres APRN.CNP documented in this encounter [facility] 11-21-2022 History and physical note HISTORY AND PHYSICAL EXAMINATION SERVICE DATE: 11/21/2022 SERVICE TIME: 1:18 PM PRIMARY CARE PHYSICIAN: Mounika Buckner MD REASON FOR VISIT: Agustin Cline is a 27 year old female who is scheduled for Procedure(s): NASAL / SINUS ENDOSCOPY W/MAXILLARY ANTROSTOMY (Right) STEREOTACTIC COMPUTER-ASSISTED (NAVIGATIONAL) PROCEDURE CRANIAL EXTRADURAL (N/A) ENDOSCOPY NASAL/SINUS W/ ETHMOIDECTOMY, TOTAL (Bilateral) at the request of Dr. Meredith Dinero MD for consultation. My final recommendation will be communicated back to the requesting physician by way of shared medical record or letter. Subjective The patient has the following: ACTIVE PROBLEM LIST Obesity COVID-19 Immunization Status Overdue - COVID-19 VACCINE (2 - Novavax series) Overdue since 05/20/2022 04/29/2022 Imm Admin: COVID-19 vaccine (NOVAVAX) CHIEF COMPLAINT: Pre-op exam HPI: Agustin Cline is a 27 year old seen for PAC due to scheduled above surgery because of chronic sinusitis. 09/19/2022, Dr. Dinero Chief Complaint: Agustin Cline is a 26 year old female who is here for Patient presents with: Sinus Problem New Patient Consultation requested by [facility]logar [address] [facility] [place] [id number] for an opinion regarding sinusitis. My final recommendations will be communicated back to the requesting physician by way of shared Medical record or letter to requesting physician via [place] mail. ASSESSMENT/PLAN: (J30.9) Allergic rhinitis, unspecified seasonality, unspecified trigger (primary encounter diagnosis) (J32.9) Chronic sinusitis, unspecified location Office Visit on 09/19/22 CT SINUS STEREO WO IVCON CONSULT TO ENT fluticasone (FLONASE ALLERGY RELIEF) 50 mcg/actuation nasal spray Patient with known allergies who had started AIT OSH, with persistent clinical symptoms of CRS for the past couple years, with multiple rounds of antibiotics and failure of 1+months of INCS. Endoscopy today clear. CT ordered to rule out underlying sinus disease, will let patient know of results. If significant findings, will have patient return for possible surgical discussion. All questions answered. Meredith Dinero MD HPI: Agustin Cline is a 26 year old female referred for sinus concerns. Patient seen by SPEECH AND HEARING DIRECTOR on 05/30/22 HPI as follows and reviewed by me today, 09/19/22 : Thursday went to Urgent Care with sore throat for a day. Tested negative for strep. Symptoms have been progressing including headache, nasal congestion, rhinorrhea, sinus pain above and below right eye, jaw pain, right ear pain and nausea. Also notes some intermittent twisting epigastric discomfort. Taking OTC sudafed. TUMS and mucinex with minimal relief. Denies fevers, chills, loss of taste/smell, sore throat, SOB, dyspnea, wheezing, chest pain, vomiting or diarrhea. Treated augmentin, referred. She reports the past few years having recurrent sinus issues. States constant pressure - nasal bridge and up into her forehead and malar area. Has pressure, no major nasal obstruction. Does have PND. Only decreased smell when she has increased symptoms. Trialed on mucinex, flonase daily for over a month and allergy medications which do not help senior care. Has had several antibiotics each year for the past couple years without significant benefit - may be better for a week, but then worsens, including the episode in May. She did see an outside ENT and had allergy testing - they recommended AIT which she started but then this was derailed with COVID. Additional factors include: Environmental Allergies: yes, dog (owns dog), trees, molds and others Use of nasal steroids for 8 weeks in the past 12 months: yes, no benefit Prior Sinus Surgery: denies Reactive Airway Disease: denies, but has hx of asthmatic bronchitis REVIEW OF SYSTEMS: General: No weight loss, malaise or fevers. 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 No neurological symptoms or problems. Respiratory: No history of current cough or dyspnea, or pneumonia in the past 6 weeks. No history of respiratory/pulmonary symptoms or problems. Cardiovascular: No history of HTN requiring medication, no history of angina, CHF, AK, cardiac surgery or stents. Denies rest pain, gangrene or revascularization/amputation for PVD. No history of cardiovascular symptoms or problems. GI: No history of GI symptoms or problems. No history of esophageal varices, recent ascites, or ETOH greater than 2 drinks per day. : No history of dysuria, frequency or incontinence, stones or chronic kidney disease. No difficulty urinating, nocturia > 1 time per night or hematuria. 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 Endocrine: No history of diabetes. Has not taken steroids within the past 30 days. No history of endocrinological symptoms or problems. Hematology: No history of bleeding or clotting disorder. Patient is not taking anti-coagulation or platelet medications. No history of hematological symptoms or problems. Oncology: No history of CA metastasis, chemo within 30 days, or radiotherapy within 90 days. No history of oncological symptoms or problems. Psych: No history of psychiatric symptoms or problems. Musculoskeletal: Negative for joint pain or swelling, back pain or muscle pain. Skin: Negative for lesions, rash and itching. PAST MEDICAL HISTORY Diagnosis Date Hearing loss thinks its her right ear- exposer to high pitch noises at an employer IBS (irritable bowel syndrome) Lactose intolerance Obesity PAST SURGICAL HISTORY Procedure Laterality Date CHOLECYSTECTOMY 03/2014 Cholecystectomy COLONOSCOPY FLX DX W/COLLJ SPEC WHEN PFRMD 07/11/15 Colonoscopy ESOPHAGOGASTRODUODENOSCOPY TRANSORAL DIAGNOSTIC 07/11/15 EGD FAMILY HISTORY Problem Relation Age of Onset Heart Mother MVP Diabetes Father Type 2 other (Other) Sister hearing loss- she is her twin Breast Cancer Paternal Grandmother Social History Tobacco Use Smoking status: Never Smokeless tobacco: Never Vaping Use Vaping Use: Never used Substance Use Topics Alcohol use: No Drug use: No Prior to Admission medications as of 11/21/22 1303 Medication Sig Last Dose Taking fluticasone (FLONASE ALLERGY RELIEF) 50 mcg/actuation nasal spray Use 2 Sprays in each nostril once daily. Taking Yes loratadine (CLARITIN) 10 mg tablet Take 1 tablet by mouth once daily. Taking Yes No medication comments found. ALLERGIES Allergen Reactions Latex Rash Powder on gloves Objective PHYSICAL EXAM: General: alert and oriented (x3), healthy appearance and obese. Pertinent negatives noted - not distressed. Skin: normal color, no rash or lesions. HEENT: EOM intact and pupils equal round. Pertinent negatives noted - no carotid bruit. Cardiovascular: regular rate and rhythm, normal S1 and S2, no rub, murmurs, or gallop. Respiratory: normal breath sounds, no wheezes or crackles. No chest wall deformity or tenderness. Abdomen: soft. Pertinent negatives noted - not tender. Extremities: no deformity, no edema or tenderness, no joint swelling or clubbing. Neurological: normal cognition and motor skills. Gait normal. No weakness or sensory deficit. PAIN ASSESSMENT: VITALS: BP 120/84 Pulse 94 Temp (Src) 98.4 (Temporal) Resp 14 Ht 5' 3 (1.60m) Wt 200 lb (90.7kg) SpO2 97% LMP 10/15/2022 BMI 35.44 kg/(m^2). Diagnostic tests reviewed for today's visit: Lab Value Units Date High Low HB No results within date range. HCT No results within date range. WBC No results within date range. PLT No results within date range. NA No results within date range. K No results within date range. GLUC No results within date range. BUN No results within date range. CREAT No results within date range. PTSEC No results within date range. INR No results within date range. APTT No results within date range. ALT No results within date range. AST No results within date range. TBILI No results within date range. TSH No results within date range. Lab Value Units Date High Low HCGQT No results within date range. UHCG No results within date range. HCG, BODY* No results within date range. Lab Value Units Date High Low ABORHD No results within date range. ABSCREEN No results within date range. No results found for: HBA1C No results found for this or any previous visit (from the past 8760 hour(s)). No results found for this or any previous visit (from the past 25998 hour(s)). Assessment Patient has the following medical conditions which may affect nicholas-operative course: Obesity Assessment: Body mass index is 35.43 kg/m . Hernandez Activity Status Index: METS: Climb a flight of stairs or walk up a hill (5.50 METs) DASI Score: 5.5 Patient denies any chest pain or undue shortness of breath with the above physical activity. Clinical Frailty Scale: 2. Well STOP-Bang Score: Snores loudly Has been observed to stop breathing or choking/gasping during sleep BMI greater than 35 kg/m^2 Has a large neck Denies feeling tired, fatigued, or sleepy during the daytime Denies having high blood pressure Patient 50 years old or younger Non-male patient STOP-Bang Score: 4 [id number] Score: Age: <65 Sex: female CHF history: No Hypertension history: No Stroke/TIA/thromboembolism history: No Vascular disease history: No Diabetes history: No [id number] Score: 1 ARISCAT Score: Age: <=50 Preoperative SpO2: >=96% Respiratory infection in the last month: No Preoperative anemia: Yes Surgical incision: peripheral Duration of surgery: 2-3 hrs Emergency procedure: No ARISCAT Score: 27 ASA Class: 2 ANESTHESIA FINDINGS: Intubation History: No history of difficult intubation Significant Anesthesia Considerations: none Airway History: No history of difficult airway I - PHYSICAL EVALUATION AIRWAY Patient intubated: No. Tracheostomy tube not present Mallampati: III. TM distance: >3 FB. Neck ROM: full ROM without neurological symptoms. Mouth opening: adequate. Short neck: no. Thick neck: yes Edwards present: no Lip Bite Test: II Microretrognathia/Micronagthia/R ecessed Chin: No DENTAL Dental findings: teeth intact. II - ANESTHESIA PLAN ASA Score: 2 Anesthetic Plan: other Anesthetic plan additional comments: *PACC/TCI - anesthesia choice. Beta Vanessa Monitoring Plan Post Procedure Analgesic Plan Informed Consent Anesthetic risks, benefits, alternatives, personnel and consent discussed: yes. Patient / Responsible Constitution Party agrees to proceed: yes Patient / Surrogate agrees to blood products: blood products not planned Discussed the possibility of lip / dental damage: yes Prepared for Surgery: optimally prepared for surgery, pending [see comment]. COVID and labs CONSULTS: Patient does not require consults for optimization at this time Planned Anesthetic: other anesthesia choice The Following Tests/Procedures Have Been Initiated: Orders Placed This Encounter >CBC + AUTO DIFF Standing Status: Future Number of Occurrences: 1 Standing Expiration Date: 01/21/2023 >BMP Standing Status: Future Number of Occurrences: 1 Standing Expiration Date: 01/21/2023 Instructions Given to Patient: Instructions located in the after visit summary. Patient given verbal and written preop instructions and voices comprehension and compliance. SIGNATURE: Blaze Peres APRN.CNP PATIENT NAME: Agustin Cline DATE: November 21, 2022 TIME: 1:00 PM PAGER/CONTACT #: documented in this encounter [facility] 10-29-2022 Note HNO ID: [id number] Author: Drake Taveras MD Service: ? Author Type: Physician Type: Progress Notes Filed: 10/29/2022 1:13 PM Note Text: Patient presents with: Nausea: feverish, hand feel shaky and sweaty x this am, bruise on right forearm with swelling HPI: Feeling sick today. Positive symptoms: Feverish, sweating, Nausea, shaky, Negative symptoms: Cough, Nasal Congestion, Vomiting, Diarrhea, Body Aches, Headache, OTC: none. MEDICATIONS: Current Outpatient Medications Medication Sig fluticasone (FLONASE ALLERGY RELIEF) 50 mcg/actuation nasal spray Use 2 Sprays in each nostril once daily. loratadine (CLARITIN) 10 mg tablet Take 1 tablet by mouth once daily. No current facility-administered medications for this visit. ALLERGIES: ALLERGIES Allergen Reactions Latex Rash Powder on gloves VITALS: BP 124/76 Pulse 94 Temp 36.3 ?C (97.3 ?F) Resp 16 Wt 92.5 kg (204 lb) LMP 04/19/2021 SpO2 97% BMI 36.14 kg/m? PHYSICAL EXAM: GEN: mildly ill appearing HEENT: PERRL, EOMI, conjunctiva clear Ears: canals clear. TMs without erythema, bulge, or effusion Sinuses: non-tender frontal sinus, non-tender maxillary sinuses Throat: moist mucous membranes, no erythema, no exudate Neck: supple, no thyromegaly, no lymphadenopathy HEART: regular rate and rhythm, no murmurs LUNGS: clear to auscultation, no wheezes or crackles, no increased WOB ASSESSMENT/PLAN: 1. Encounter for screening for COVID-19 - ICD9: V73.89, ICD10: Z11.52 (primary diagnosis) 2. Nausea - ICD9: 787.02, ICD10: R11.0 Early illness. Differential includes COVID and gastroenteritis. Discussed supportive care with home isolation. Hydration with fluids encouraged. Follow up in the ER with signs of dehydration, increasing abdominal pain, high fever, or blood in vomit or stool. Drake Taveras MD [facility] 10-29-2022 History of Presen t illness Narrative Patient presents with: Nausea: feverish, hand feel shaky and sweaty x this am, bruise on right forearm with swelling HPI: Feeling sick today. Positive symptoms: Feverish, sweating, Nausea, shaky, Negative symptoms: Cough, Nasal Congestion, Vomiting, Diarrhea, Body Aches, Headache, OTC: none. MEDICATIONS: Current Outpatient Medications Medication Sig fluticasone (FLONASE ALLERGY RELIEF) 50 mcg/actuation nasal spray Use 2 Sprays in each nostril once daily. loratadine (CLARITIN) 10 mg tablet Take 1 tablet by mouth once daily. No current facility-administered medications for this visit. ALLERGIES: ALLERGIES Allergen Reactions Latex Rash Powder on gloves VITALS: BP 124/76 Pulse 94 Temp 36.3 C (97.3 F) Resp 16 Wt 92.5 kg (204 lb) LMP 04/19/2021 SpO2 97% BMI 36.14 kg/m PHYSICAL EXAM: GEN: mildly ill appearing HEENT: PERRL, EOMI, conjunctiva clear Ears: canals clear. TMs without erythema, bulge, or effusion Sinuses: non-tender frontal sinus, non-tender maxillary sinuses Throat: moist mucous membranes, no erythema, no exudate Neck: supple, no thyromegaly, no lymphadenopathy HEART: regular rate and rhythm, no murmurs LUNGS: clear to auscultation, no wheezes or crackles, no increased WOB ASSESSMENT/PLAN: 1. Encounter for screening for COVID-19 - ICD9: V73.89, ICD10: Z11.52 (primary diagnosis) 2. Nausea - ICD9: 787.02, ICD10: R11.0 Early illness. Differential includes COVID and gastroenteritis. Discussed supportive care with home isolation. Hydration with fluids encouraged. Follow up in the ER with signs of dehydration, increasing abdominal pain, high fever, or blood in vomit or stool. Drake Taveras MD documented in this encounter [facility] 10-16-2022 Miscellaneous Notes Called and left message for patient regarding surgical scheduling. documented in this encounter [facility] 09-30-2022 Note HNO ID: [id number] Author: Meredith Dinero MD Service: ? Author Type: Physician Type: Progress Notes Filed: 09/30/2022 3:45 PM Note Text: SECTION OF RHINOLOGY, SINUS AND SKULL BASE SURGERY Head and Neck [place], [facility] NOTE Chief Complaint: Patient presents with: Sinusitis This is a virtual visit using HIPAA compliant video platform. It required patient-provider interaction for the medical decision making as documented below. 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 On examination today, I see near complete opacification right max with scattered ethmoid disease, and particularly fluid within the ethmoids on the left We discussed the management options for treating chronic rhinosinusitis and these include medical and surgical therapies. She has failed to have terminal make up operator improvement appropriate aggressive medical therapy and therefore, I recommend endoscopic sinus surgery. Based on her CT scan, I recommend right max, bilateral ethmoid sinus surgery. I will use the image guidance system because of the need to address singular cells within the ethmoids. After discussing the alternative treatments and the risks (including, but not limited to bleeding, infection, continued sinus infections, decrease or loss of smell and taste function, injury to surrounding structures including vision loss or double vision, possible CSF leak necessitating repair, and possible need for re-operation) and potential benefits of surgery, a consent form was signed. We will schedule surgery at her convenience. PACC COVID - self swab I spent more than 21-40 minutes [id number] with the patient and over half the time was devoted to counseling and/or coordination of care. More than 25-mins in face to face care, not including time to review her imaging and coordination of care. Meredith Dinero MD HPI: Ms. Cline returns to clinic today for follow-up regarding clinical symptoms of CRS with hx of allergies on AIT. Patient was seen in September with persistent symptoms of CRS negative endoscopy, failed 1+ months of INCS and multiple rounds of antibiotics with increasing symptoms for 2-years - CT scan was obtained. She reports feeling of pressure periorbital bilateral, and increased headaches. Notes worse on right malar aspect. Notes post nasal drainage constantly still with associated throat clearance, and some congestion. Denies any changes with smell. She is irrigating as directed. ALLERGIES ALLERGIES Allergen Reactions Latex Rash Powder on gloves MEDICATIONS Current Outpatient Medications Medication Sig fluticasone (FLONASE ALLERGY RELIEF) 50 mcg/actuation nasal spray Use 2 Sprays in each nostril once daily. predniSONE (DELTASONE) 10 mg tablet Take 4 tabs daily for 3 days, then 2 tabs daily for 3 days, then 1 tab daily for 3 days with food. (Patient not taking: Reported on 09/19/2022) benzonatate (TESSALON PERLES) 100 mg capsule Take 1 capsule by mouth three times daily as needed for cough. (Patient not taking: Reported on 09/19/2022) loratadine (CLARITIN) 10 mg tablet Take 1 tablet by mouth once daily. cyanocobalamin (VITAMIN B-12) 100 mcg tab Take 100 mcg by mouth once daily. (Patient not taking: Reported on 09/19/2022) ondansetron orally disintegrating (ZOFRAN ODT) 4 mg disintegrating tablet Take 1 tablet by mouth every 8 hours as needed for nausea/vomiting. (Patient not taking: Reported on 09/19/2022) No current facility-administered medications for this visit. Past Medical History PAST MEDICAL HISTORY Diagnosis Date Hearing loss thinks its her right ear- exposer to high pitch noises at an employer IBS (irritable bowel syndrome) Lactose intolerance Obesity SURGICAL HISTORY PAST SURGICAL HISTORY Procedure Laterality Date CHOLECYSTECTOMY 03/2014 Cholecystectomy COLONOSCOPY FLX DX W/COLLJ SPEC WHEN PFRMD 07/11/15 Colonoscopy ESOPHAGOGASTRODUODENOSCOPY TRANSORAL DIAGNOSTIC 07/11/15 EGD SOCIAL HISTORY Social History Tobacco Use Smoking status: Never Smokeless tobacco: Never Substance Use Topics Alcohol use: No Drug use: No FAMILY HISTORY FAMILY HISTORY Problem Relation Age of Onset Heart Mother MVP Diabetes Father Type 2 other (Other) Sister hearing loss- she is her twin Breast Cancer Paternal Grandmother RESULTS CT Sinus 09/26/22 Personal review demonstrates near complete opacification of the right maxillary, with some scattered mucus bubbles within thel eft mid-ethmoid cells, as well as mild inflammation of the aggar nasi cell and anterior ethmoid on the right (bes (more content not included)... [facility] 09-30-2022 Miscellaneous Notes Called and spoke with patient. Agreed to do a virtual visit with Dr. Dinero this afternoon to review CT results. Will add patient on to schedule. documented in this encounter [facility] 09-30-2022 History of Presen t illness Narrative Images from the original note were not included. SECTION OF RHINOLOGY, SINUS AND SKULL BASE SURGERY Head and Neck [place], [facility] NOTE Chief Complaint: Patient presents with: Sinusitis This is a virtual visit using HIPAA compliant video platform. It required patient-provider interaction for the medical decision making as documented below. 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 On examination today, I see near complete opacification right max with scattered ethmoid disease, and particularly fluid within the ethmoids on the left We discussed the management options for treating chronic rhinosinusitis and these include medical and surgical therapies. She has failed to have terminal make up operator improvement appropriate aggressive medical therapy and therefore, I recommend endoscopic sinus surgery. Based on her CT scan, I recommend right max, bilateral ethmoid sinus surgery. I will use the image guidance system because of the need to address singular cells within the ethmoids. After discussing the alternative treatments and the risks (including, but not limited to bleeding, infection, continued sinus infections, decrease or loss of smell and taste function, injury to surrounding structures including vision loss or double vision, possible CSF leak necessitating repair, and possible need for re-operation) and potential benefits of surgery, a consent form was signed. We will schedule surgery at her convenience. PACC COVID - self swab I spent more than 21-40 minutes [id number] with the patient and over half the time was devoted to counseling and/or coordination of care. More than 25-mins in face to face care, not including time to review her imaging and coordination of care. Meredith Dinero MD HPI: Ms. Cline returns to clinic today for follow-up regarding clinical symptoms of CRS with hx of allergies on AIT. Patient was seen in September with persistent symptoms of CRS negative endoscopy, failed 1+ months of INCS and multiple rounds of antibiotics with increasing symptoms for 2-years - CT scan was obtained. She reports feeling of pressure periorbital bilateral, and increased headaches. Notes worse on right malar aspect. Notes post nasal drainage constantly still with associated throat clearance, and some congestion. Denies any changes with smell. She is irrigating as directed. ALLERGIES ALLERGIES Allergen Reactions Latex Rash Powder on gloves MEDICATIONS Current Outpatient Medications Medication Sig fluticasone (FLONASE ALLERGY RELIEF) 50 mcg/actuation nasal spray Use 2 Sprays in each nostril once daily. predniSONE (DELTASONE) 10 mg tablet Take 4 tabs daily for 3 days, then 2 tabs daily for 3 days, then 1 tab daily for 3 days with food. (Patient not taking: Reported on 09/19/2022) benzonatate (TESSALON PERLES) 100 mg capsule Take 1 capsule by mouth three times daily as needed for cough. (Patient not taking: Reported on 09/19/2022) loratadine (CLARITIN) 10 mg tablet Take 1 tablet by mouth once daily. cyanocobalamin (VITAMIN B-12) 100 mcg tab Take 100 mcg by mouth once daily. (Patient not taking: Reported on 09/19/2022) ondansetron orally disintegrating (ZOFRAN ODT) 4 mg disintegrating tablet Take 1 tablet by mouth every 8 hours as needed for nausea/vomiting. (Patient not taking: Reported on 09/19/2022) No current facility-administered medications for this visit. Past Medical History PAST MEDICAL HISTORY Diagnosis Date Hearing loss thinks its her right ear- exposer to high pitch noises at an employer IBS (irritable bowel syndrome) Lactose intolerance Obesity SURGICAL HISTORY PAST SURGICAL HISTORY Procedure Laterality Date CHOLECYSTECTOMY 03/2014 Cholecystectomy COLONOSCOPY FLX DX W/COLLJ SPEC WHEN PFRMD 07/11/15 Colonoscopy ESOPHAGOGASTRODUODENOSCOPY TRANSORAL DIAGNOSTIC 07/11/15 EGD SOCIAL HISTORY Social History Tobacco Use Smoking status: Never Smokeless tobacco: Never Substance Use Topics Alcohol use: No Drug use: No FAMILY HISTORY FAMILY HISTORY Problem Relation Age of Onset Heart Mother MVP Diabetes Father Type 2 other (Other) Sister hearing loss- she is her twin Breast Cancer Paternal Grandmother RESULTS CT Sinus 09/26/22 Personal review demonstrates near complete opacification of the right maxillary, with some scattered mucus bubbles within thel eft mid-ethmoid cells, as well as mild inflammation of the aggar nasi cell and anterior ethmoid on the right (best seen on axials and sagittal). IMPRESSION: Right maxillary sinus and ostiomeatal paranasal sinus inflammatory changes. COMPARISON: None. RESULT: Post-Surgical Findings: None Sinus Chambers: Paranasal mucosal thickening is noted with minimal mucosal sinus thickening involving the ethmoid sinuses and moderate to severe mucosal sinus thickening involving the right maxillary sinus; see below for Largo Tonio score for degree of sinus opacification. 0 is less than 2mm thickness of mucosal thickening, 1 is partial opacification, and 2 is almost complete or complete opacification. For the ostiomeatal complex, 0 is patent and 2 is any portion occluded. Air Fluid Levels: No air fluid levels or frothy secretions are seen. High attenuation sinus disease: There is no high attenuation sinus disease. Left Frontal Sinus: 0 Left Anterior Ethmoid Air Cells: 0 Left posterior Ethmoid Air Cells: 0 Left Maxillary Sinus: 0 Left Sphenoid Sinus: 0 Left Ostiomeatal Complex: 0 LEFT Grupo Randolph Score: 0 Right Frontal Sinus: 0 Right Anterior Ethmoid Air Cells: 0 Right posterior Ethmoid Air Cells: 0 Right Maxillary Sinus: 2 Right Sphenoid Sinus: 0 Right Ostiomeatal Complex: 2 RIGHT Largo Tonio Score: 0 TOTAL Largo Randolph Score: 4 Nasal Cavities: Visualized nasal cavities are patent. Developmental Anomalies: None Other: The visualized mastoid air cells and middle ear cavities are clear. The soft tissues of the face and orbits are within normal limits within the limitations of the study. Laborer Tin Can (topogram) images: No significant findings. OBJECTIVE VITAL SIGNS: LMP 04/19/2021 GENERAL: Very pleasant, no acute distress. FACE: symmetric, Cn7 intact EYES: EOMI, gross vision intact, PERRL NOSE: Intranasal examination shows healthy mucosa anteriorly with a fairly straight nasal septum. No anterior drainage OC/OP: clear NECK: soft, FROM Meredith Dinero MD documented in this encounter [facility] 09-26-2022 Note HNO ID: [id number] Author: RT Sukumar(R) Service: ? Author Type: Crm Administrator Type: Progress Notes Filed: 09/26/2022 3:30 PM Note Text: Radiology Service Progress Note PATIENT NAME: Agustin Cline DATE OF SERVICE: September 26, 2022 TIME: 3:30 PM PATIENT IDENTITY VERIFICATION COMPLETED USING TWO (2) IDENTIFIERS: Name and Date of confirmed by patient verbally. FALL SCREENING: Has the patient had 2 falls in the last year or 1 fall with injury or currently using an Ambulatory Assistive Device (Walker, Cane, Wheelchair, Crutches, etc.)? No PATIENT GENDER DATA: Female. status: : No status: NO. PATIENT RELEVANT IMPLANT DATA REVIEWED: Yes RADIOLOGY DEPARTMENT: CT; Exam(s) Completed: Sinus PERIPHERAL IV DATA: Not applicable SIGNED BY: RT Maria Dolores(R) September 26, 2022 3:30 PM [facility] 09-26-2022 History of Presen t illness Narrative Radiology Service Progress Note PATIENT NAME: Agustin Cline DATE OF SERVICE: September 26, 2022 TIME: 3:30 PM PATIENT IDENTITY VERIFICATION COMPLETED USING TWO (2) IDENTIFIERS: Name and Date of confirmed by patient verbally. FALL SCREENING: Has the patient had 2 falls in the last year or 1 fall with injury or currently using an Ambulatory Assistive Device (Walker, Cane, Wheelchair, Crutches, etc.)? No PATIENT GENDER DATA: Female. status: : No status: NO. PATIENT RELEVANT IMPLANT DATA REVIEWED: Yes RADIOLOGY DEPARTMENT: CT; Exam(s) Completed: Sinus PERIPHERAL IV DATA: Not applicable SIGNED BY: RT Maria Dolores(R) September 26, 2022 3:30 PM documented in this encounter [facility] 09-22-2022 Miscellaneous Notes [employer] message sent w/ letter. Sheri Franco APRN.CNP Patient calls and states that she was off of work today. Patient plans to go back to work on Thursday09/23/2022. Patient asking if provider can write a letter for her to be off today and ok to go back to work on Thursday? If agreeable can send letter through [facility]. Please review and advise, Dorita Obrien RN documented in this encounter [facility] 09-19-2022 Note HNO ID: [id number] Author: Meredith Dinero MD Service: ? Author Type: Physician Type: Progress Notes Filed: 09/19/2022 1:16 PM Note Text: SECTION OF RHINOLOGY, SINUS AND SKULL BASE SURGERY Head and Neck [place], [facility] NOTE Chief Complaint: Agsutin Cline is a 26 year old female who is here for Patient presents with: Sinus Problem New Patient Consultation requested by [facility] [address] [facility] [place] [address] for an opinion regarding sinusitis. My final recommendations will be communicated back to the requesting physician by way of shared Medical record or letter to requesting physician via [place] mail. ASSESSMENT/PLAN: (J30.9) Allergic rhinitis, unspecified seasonality, unspecified trigger (primary encounter diagnosis) (J32.9) Chronic sinusitis, unspecified location Office Visit on 09/19/22 CT SINUS STEREO WO IVCON CONSULT TO ENT fluticasone (FLONASE ALLERGY RELIEF) 50 mcg/actuation nasal spray Patient with known allergies who had started [facility] O[facility], with persistent clinical symptoms of CRS for the past couple years, with multiple rounds of antibiotics and failure of 1+months of INCS. Endoscopy today clear. CT ordered to rule out underlying sinus disease, will let patient know of results. If significant findings, will have patient return for possible surgical discussion. All questions answered. Meredith Dinero MD HPI: Agustin Cline is a 26 year old female referred for sinus concerns. Patient seen by SPEECH AND HEARING DIRECTOR on 05/30/22 HPI as follows and reviewed by me today, 09/19/22 : Thursday went to Urgent Care with sore throat for a day. Tested negative for strep. Symptoms have been progressing including headache, nasal congestion, rhinorrhea, sinus pain above and below right eye, jaw pain, right ear pain and nausea. Also notes some intermittent twisting epigastric discomfort. Taking OTC sudafed. TUMS and mucinex with minimal relief. Denies fevers, chills, loss of taste/smell, sore throat, SOB, dyspnea, wheezing, chest pain, vomiting or diarrhea. Treated augmentin, referred. She reports the past few years having recurrent sinus issues. States constant pressure - nasal bridge and up into her forehead and malar area. Has pressure, no major nasal obstruction. Does have PND. Only decreased smell when she has increased symptoms. 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 Has had several antibiotics each year for the past couple years without significant benefit - may be better for a week, but then worsens, including the episode in May. She did see an outside ENT and had allergy testing - they recommended AIT which she started but then this was derailed with COVID. Additional factors include: Environmental Allergies: yes, dog (owns dog), trees, molds and others Use of nasal steroids for 8 weeks in the past 12 months: yes, no benefit Prior Sinus Surgery: denies Reactive Airway Disease: denies, but has hx of asthmatic bronchitis ALLERGIES ALLERGIES Allergen Reactions Latex Rash Powder on gloves MEDICATIONS Current Outpatient Medications Medication Sig loratadine (CLARITIN) 10 mg tablet Take 1 tablet by mouth once daily. fluticasone (FLONASE ALLERGY RELIEF) 50 mcg/actuation nasal spray Use 2 Sprays in each nostril once daily. predniSONE (DELTASONE) 10 mg tablet Take 4 tabs daily for 3 days, then 2 tabs daily for 3 days, then 1 tab daily for 3 days with food. (Patient not taking: Reported on 09/19/2022) benzonatate (TESSALON PERLES) 100 mg capsule Take 1 capsule by mouth three times daily as needed for cough. (Patient not taking: Reported on 09/19/2022) cyanocobalamin (VITAMIN B-12) 100 mcg tab Take 100 mcg by mouth once daily. (Patient not taking: Reported on 09/19/2022) ondansetron orally disintegrating (ZOFRAN ODT) 4 mg disintegrating tablet Take 1 tablet by mouth every 8 hours as needed for nausea/vomiting. (Patient not taking: Reported on 09/19/2022) No current facility-administered medications for this visit. PAST MEDICAL HISTORY PAST MEDICAL HISTORY Diagnosis Date Hearing loss thinks its her right ear- exposer to high pitch noises at an employer IBS (irritable bowel syndrome) Lactose intolerance Obesity SOCIAL HISTORY PAST SURGICAL HISTORY Procedure Laterality Date CHOLECYSTECTOMY 03/2014 Cholecystectomy COLONOSCOPY FLX DX W/COLLJ SPEC WHEN PFRMD 07/11/15 Colonoscopy ESOPHAGOGASTRODUODENOSCOPY TRANSORAL DIAGNOSTIC 07/11/15 EGD FAMILY HISTORY FAMILY HISTORY Problem Relation Age of Onset Heart Mother MVP Diabetes Father Type 2 other (Other) Sister hearing loss- she is her twin Breast Cancer Paternal Grandmother PHYSICAL EXAM: Pulse 92 Resp 18 LMP 04/19/2021 SpO2 97% GENERAL: no acute distress, alert, VOICE: clear, no stridor/stertor HEAD AND FACE: Physical examination of the head, neck, external nose, (more content not included)... [facility] 09-19-2022 Instructions Meredith Dinero MD - 09/19/2022 1:10 PM EST Get your CT scan Keep up with your allergy treatments Use your nasal spray as directed on the bottle. When spraying, point away from the midline (your septum), and towards the outer corner of your eye. documented in this encounter [facility] 09-19-2022 History of Presen t illness Narrative Images from the original note were not included. SECTION OF RHINOLOGY, SINUS AND SKULL BASE SURGERY Head and Neck [place], [facility] NOTE Chief Complaint: Agustin Cline is a 26 year old female who is here for Patient presents with: Sinus Problem New Patient Consultation requested by [facility] [address] [place] [facility] [id number] for an opinion regarding sinusitis. My final recommendations will be communicated back to the requesting physician by way of shared Medical record or letter to requesting physician via [place] mail. ASSESSMENT/PLAN: (J30.9) Allergic rhinitis, unspecified seasonality, unspecified trigger (primary encounter diagnosis) (J32.9) Chronic sinusitis, unspecified location Office Visit on 09/19/22 CT SINUS STEREO WO IVCON CONSULT TO ENT fluticasone (FLONASE ALLERGY RELIEF) 50 mcg/actuation nasal spray Patient with known allergies who had started [facility] O[facility], with persistent clinical symptoms of CRS for the past couple years, with multiple rounds of antibiotics and failure of 1+months of INCS. Endoscopy today clear. CT ordered to rule out underlying sinus disease, will let patient know of results. If significant findings, will have patient return for possible surgical discussion. All questions answered. Meredith Dinero MD HPI: Agustin Cline is a 26 year old female referred for sinus concerns. Patient seen by SAHARA PABLO on 05/30/22 HPI as follows and reviewed by me today, 09/19/22 : Thursday went to Urgent Care with sore throat for a day. Tested negative for strep. Symptoms have been progressing including headache, nasal congestion, rhinorrhea, sinus pain above and below right eye, jaw pain, right ear pain and nausea. Also notes some intermittent twisting epigastric discomfort. Taking OTC sudafed. TUMS and mucinex with minimal relief. Denies fevers, chills, loss of taste/smell, sore throat, SOB, dyspnea, wheezing, chest pain, vomiting or diarrhea. Treated augmentin, referred. She reports the past few years having recurrent sinus issues. States constant pressure - nasal bridge and up into her forehead and malar area. Has pressure, no major nasal obstruction. Does have PND. Only decreased smell when she has increased symptoms. 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 Has had several antibiotics each year for the past couple years without significant benefit - may be better for a week, but then worsens, including the episode in May. She did see an outside ENT and had allergy testing - they recommended AIT which she started but then this was derailed with COVID. Additional factors include: Environmental Allergies: yes, dog (owns dog), trees, molds and others Use of nasal steroids for 8 weeks in the past 12 months: yes, no benefit Prior Sinus Surgery: denies Reactive Airway Disease: denies, but has hx of asthmatic bronchitis ALLERGIES ALLERGIES Allergen Reactions Latex Rash Powder on gloves MEDICATIONS Current Outpatient Medications Medication Sig loratadine (CLARITIN) 10 mg tablet Take 1 tablet by mouth once daily. fluticasone (FLONASE ALLERGY RELIEF) 50 mcg/actuation nasal spray Use 2 Sprays in each nostril once daily. predniSONE (DELTASONE) 10 mg tablet Take 4 tabs daily for 3 days, then 2 tabs daily for 3 days, then 1 tab daily for 3 days with food. (Patient not taking: Reported on 09/19/2022) benzonatate (TESSALON PERLES) 100 mg capsule Take 1 capsule by mouth three times daily as needed for cough. (Patient not taking: Reported on 09/19/2022) cyanocobalamin (VITAMIN B-12) 100 mcg tab Take 100 mcg by mouth once daily. (Patient not taking: Reported on 09/19/2022) ondansetron orally disintegrating (ZOFRAN ODT) 4 mg disintegrating tablet Take 1 tablet by mouth every 8 hours as needed for nausea/vomiting. (Patient not taking: Reported on 09/19/2022) No current facility-administered medications for this visit. PAST MEDICAL HISTORY PAST MEDICAL HISTORY Diagnosis Date Hearing loss thinks its her right ear- exposer to high pitch noises at an employer IBS (irritable bowel syndrome) Lactose intolerance Obesity SOCIAL HISTORY PAST SURGICAL HISTORY Procedure Laterality Date CHOLECYSTECTOMY 03/2014 Cholecystectomy COLONOSCOPY FLX DX W/COLLJ SPEC WHEN PFRMD 07/11/15 Colonoscopy ESOPHAGOGASTRODUODENOSCOPY TRANSORAL DIAGNOSTIC 07/11/15 EGD FAMILY HISTORY FAMILY HISTORY Problem Relation Age of Onset Heart Mother MVP Diabetes Father Type 2 other (Other) Sister hearing loss- she is her twin Breast Cancer Paternal Grandmother PHYSICAL EXAM: Pulse 92 Resp 18 LMP 04/19/2021 SpO2 97% GENERAL: no acute distress, alert, VOICE: clear, no stridor/stertor HEAD AND FACE: Physical examination of the head, neck, external nose, external ears, mouth and face fails to demonstrate any significant abnormality or asymmetry to critical face to face observation. Skin and scalp are normal. EYES: PERRL, gross vision intact, EOMI EARS: bilateral ear canals clear, bilateral tympanic membranes intact, middle ear space clear without masses or effusions NOSE: Examination of the nasal cavity revealed a septum which is relatively midline. The mucosa is pink, and the visible turbinates are normal on anterior rhinoscopy. There is no purulence or polyps . External nose unremarkable ORAL CAVITY AND OROPHARYNX: The oral mucosa, hard and soft palates, tongue, tonsil area, and posterior pharyngeal wall are without lesions. NECK: The neck appears symmetric without scars. On palpation, there are no masses or lymphadenopathy. The thyroid is not palpable and was free of masses. No salivary gland masses or hypertrophy is noted. FROM REVIEW OF RADIOLOGICAL FILMS AND RECORDS: No pertinent records REVIEW OF LABS/TESTING/AUDIOLOGY RECORDS 09/15/22 covid negative, flu negative 09/15/22 - strep negative 07/16/22 - covid negative, +fluA 05/02/21 - cbc - wbc wnl, eos wnl PROCEDURE Nasal endoscopy SURGEON Meredith Dinero MD ANESTHESIA Topical afrin and lidocaine bilateral nares FINDINGS Largo-Toro Endoscopic Scoring System Polyps (0 = none; 1 = MM only; 2 = beyond MM) Right: 0 Left: 0 Edema (0 = absent; 1 = mild; 2 = severe) Right: 0 Left: 0 Discharge (0 = none; 1 = thin; 2= purulent) Right: 0 Left: 0 Scarring (0 = absent; 1 = mild; 2 = severe) Right: 0 Left: 0 Crusting (0 = absent; 1 = mild; 2 = severe) Right: 0 Left: 0 TOTAL Right: 0 Left: 0 Some mild mucus stranding in the nose but no evidence of sinusitis INDICATIONS Ms. Cline has a history of chronic rhinosinusitis symptoms and nasal endoscopy is indicated to help establish a diagnosis, determine response to treatment, or potentially obtain an endoscopic collected sinus culture to help with treatment recommendations. DESCRIPTION OF PROCEDURE After verbal consent was obtained, both nares were sprayed with Afrin and lidocaine. The rigid endoscope was then used for visualization and passed from the nostrils into the sinus cavities on both sides. The above-stated findings were seen. She tolerated the procedure well. Meredith Dinero MD documented in this encounter [facility] 09-15-2022 Note HNO ID: [id number] Author: Sheri Franco APRN.SPEECH AND HEARING DIRECTOR Service: ? Author Type: Nurse Practitioner Type: Progress Notes Filed: 09/15/2022 5:12 PM Note Text: This is a 26 year old female who presents today with: Patient presents with: Sore Throat: Started Fri evening Head Congestion Fatigue: X couple weeks Nausea: No vomiting/diarrhea HISTORY OF PRESENT ILLNESS: Agustin Cline is a 26 year old female. Patient presents with: Sore Throat: Started Fri evening Head Congestion Fatigue: X couple weeks Nausea: No vomiting/diarrhea Sore throat starting Thursday night. Better Thursday, but now is back. Occ nausea from her sore throat. + head congestion. Some fatigue. 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 predniSONE (DELTASONE) 10 mg tablet Take 4 tabs daily for 3 days, then 2 tabs daily for 3 days, then 1 tab daily for 3 days with food. benzonatate (TESSALON PERLES) 100 mg capsule Take 1 capsule by mouth three times daily as needed for cough. cyanocobalamin (VITAMIN B-12) 100 mcg tab Take 100 mcg by mouth once daily. ondansetron orally disintegrating (ZOFRAN ODT) 4 mg disintegrating tablet Take 1 tablet by mouth every 8 hours as needed for nausea/vomiting. No current facility-administered medications for this visit. FAMILY HISTORY Problem Relation Age of Onset Heart Mother MVP Diabetes Father Type 2 other (Other) Sister hearing loss- she is her twin Breast Cancer Paternal Grandmother Social History Tobacco Use Smoking status: Never Smokeless tobacco: Never Substance Use Topics Alcohol use: No Drug use: No EXAM: BP 130/82 Pulse 94 Resp 18 LMP 04/19/2021 SpO2 98% PHYSICAL EXAM: General Appearance: Well appearing, alert, in no acute distress, well-hydrated, well nourished. Skin: Skin color, texture, turgor normal, no suspicious rashes or lesions. Head: Normocephalic, no masses, lesions, tenderness or abnormalities. Eyes: Anicteric sclera. Pupils are equally round and reactive to light. Extraocular movements are intact. Ears: External ears normal, canals clear. Normal TMs bilaterally. Oropharynx: Lips, mucosa, and tongue normal, teeth and gums normal, oropharynx normal. Neck: Supple, no adenopathy; thyroid symmetric, normal size, no bruits. Lungs: Lungs clear to auscultation. No wheezing, rhonchi, rales.. Heart: RRR without murmur, gallop, or rubs. No ectopy. Extremities: No deformities, edema, skin discoloration, clubbing or cyanosis. Good capillary refill. Neurologic: Gait normal. ASSESSMENT/PLAN: 1. Viral upper respiratory tract infection - ICD9: 465.9, ICD10: J06.9 (primary diagnosis) - Discussed viral etiology and rationale for treatment. - Rapid strep negative in office today - Symptomatic treatment with prn analgesia and otc cold medication. - Supportive care with fluids and rest - COVID WITH FLUA+B, ROUTINE 2. Nausea - ICD9: 787.02, ICD10: R11.0 - UA DIP, URINE (POC) - URINE CULTURE 3. Acute pharyngitis, unspecified etiology - ICD9: 462, ICD10: J02.9 - suspect viral - Alere Strep Test negative, no culture pending - Discussed supportive care treatment with fluids, rest and analgesia. - STREP A MOLECULAR (POC) 4. Fatigue, unspecified type - ICD9: 780.79, ICD10: R53.83 - UA DIP, URINE (POC) - URINE CULTURE Discussed treatment plan and patient voices understanding. Patient's questions answered appropriately. Medications and potential side effects were discussed and patient voices understanding. Return to the office as scheduled or as needed for worsening/no improvement. Sheri Franco APRN.SPEECH AND HEARING DIRECTOR This note was partially generated using [employer] voice recognition system. Note was reviewed for accuracy. There may be minor misspellings or grammar miscues with [employer] voice recognition. [facility] 09-15-2022 Instructions Sheri Franco APRN.SAHARA - 09/15/2022 3:02 PM EST Home going instructions for Viral Upper Respiratory Infections In General: - Drink lots of fluids - at least one gallon of non-caffeinated liquids per day - Make sure you are eating well - Get plenty of rest - at least 8 hours of sleep per night for adults - ibuprofen 600mg every 8 hours as needed for discomfort - acetaminophen 500mg every 4-6 hours as needed for fever and discomfort. - may alternate ibuprofen and acetaminophen For nasal congestion try: -Vaporizers, Neti Pot, humidifiers, hot showers, and hot fluids help open respiratory and sinus passages. - Martin Nasal [place] may offer relief of nasal and head congestion 2-3 times per day as needed. - Sudafed is a safe and effective decongestant for people who do not have high blood pressure. Do not take Sudafed if you have ever been told that you have high blood pressure or hypertension. General dosing guidelines: Immediate release: 60 mg every 4-6 hours; Extended release: 120 mg every 12 hours or 240 mg every 24 hours; maximum: 240 mg/24 hours. For Sore Throat try: - Salt water gargles every 2-3 hours as needed for discomfort - Chloraceptic spray or throat lozenges (Cepacol) For Cough and chest congestion try one of the following: - Mucinex or Robitussin are expectorants. You may take 200-400 mg every 4 hours to a not to exceed 2,400 mg/day OR Extended release tablet: 600-1200 mg every 12 hours, not to exceed 2,400 mg/day - Delsym is a cough suppressant: Oral: 10-20 mg every 4 hours or 30 mg every 6-8 hours OR Extended release: 60 mg twice daily; maximum: 120 mg/day - If you have high blood pressure or hypertension it is safe to take Coricidin HBP Cough & Cold. If you smoke it is advised that you quit smoking. CONTACT YOUR DOCTOR IF: You have fevers for longer than five days or a fever more than 102 degrees You are still sick after 10 days After several days you are getting worse rather than better 4. You develop nausea, vomiting, diarrhea, or a rash. Go to the ER if you - experience pressure or pain in your chest - experience difficulty swallowing - experience difficulty breathing Follow up in 7-10 days or before if your symptoms get worse. documented in this encounter [facility] 09-15-2022 History of Presen t illness Narrative This is a 26 year old female who presents today with: Patient presents with: Sore Throat: Started Fri evening Head Congestion Fatigue: X couple weeks Nausea: No vomiting/diarrhea HISTORY OF PRESENT ILLNESS: Agustin Cline is a 26 year old female. Patient presents with: Sore Throat: Started Fri evening Head Congestion Fatigue: X couple weeks Nausea: No vomiting/diarrhea Sore throat starting Thursday night. Better Thursday, but now is back. Occ nausea from her sore throat. + head congestion. Some fatigue. 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 predniSONE (DELTASONE) 10 mg tablet Take 4 tabs daily for 3 days, then 2 tabs daily for 3 days, then 1 tab daily for 3 days with food. benzonatate (TESSALON PERLES) 100 mg capsule Take 1 capsule by mouth three times daily as needed for cough. cyanocobalamin (VITAMIN B-12) 100 mcg tab Take 100 mcg by mouth once daily. ondansetron orally disintegrating (ZOFRAN ODT) 4 mg disintegrating tablet Take 1 tablet by mouth every 8 hours as needed for nausea/vomiting. No current facility-administered medications for this visit. FAMILY HISTORY Problem Relation Age of Onset Heart Mother MVP Diabetes Father Type 2 other (Other) Sister hearing loss- she is her twin Breast Cancer Paternal Grandmother Social History Tobacco Use Smoking status: Never Smokeless tobacco: Never Substance Use Topics Alcohol use: No Drug use: No EXAM: BP 130/82 Pulse 94 Resp 18 LMP 04/19/2021 SpO2 98% PHYSICAL EXAM: General Appearance: Well appearing, alert, in no acute distress, well-hydrated, well nourished. Skin: Skin color, texture, turgor normal, no suspicious rashes or lesions. Head: Normocephalic, no masses, lesions, tenderness or abnormalities. Eyes: Anicteric sclera. Pupils are equally round and reactive to light. Extraocular movements are intact. Ears: External ears normal, canals clear. Normal TMs bilaterally. Oropharynx: Lips, mucosa, and tongue normal, teeth and gums normal, oropharynx normal. Neck: Supple, no adenopathy; thyroid symmetric, normal size, no bruits. Lungs: Lungs clear to auscultation. No wheezing, rhonchi, rales.. Heart: RRR without murmur, gallop, or rubs. No ectopy. Extremities: No deformities, edema, skin discoloration, clubbing or cyanosis. Good capillary refill. Neurologic: Gait normal. ASSESSMENT/PLAN: 1. Viral upper respiratory tract infection - ICD9: 465.9, ICD10: J06.9 (primary diagnosis) - Discussed viral etiology and rationale for treatment. - Rapid strep negative in office today - Symptomatic treatment with prn analgesia and otc cold medication. - Supportive care with fluids and rest - COVID WITH FLUA+B, ROUTINE 2. Nausea - ICD9: 787.02, ICD10: R11.0 - UA DIP, URINE (POC) - URINE CULTURE 3. Acute pharyngitis, unspecified etiology - ICD9: 462, ICD10: J02.9 - suspect viral - Alere Strep Test negative, no culture pending - Discussed supportive care treatment with fluids, rest and analgesia. - STREP A MOLECULAR (POC) 4. Fatigue, unspecified type - ICD9: 780.79, ICD10: R53.83 - UA DIP, URINE (POC) - URINE CULTURE Discussed treatment plan and patient voices understanding. Patient's questions answered appropriately. Medications and potential side effects were discussed and patient voices understanding. Return to the office as scheduled or as needed for worsening/no improvement. Sheri Franco APRN.SAHARA This note was partially generated using [employer] voice recognition system. Note was reviewed for accuracy. There may be minor misspellings or grammar miscues with [employer] voice recognition. documented in this encounter [facility] 07-08-2022 History of Presen t illness Narrative Images from the original note were not included. Subjective Patient came in with complaints of right foot pain. Patient says she was mopping and slipped in her kitchen. Patient says she is just having pain on the outer aspect. Patient denies any loss of feeling in her foot. Patient denies any redness or swelling. The history is provided by the patient. No spanish interpreter/translator was used. Review of Systems Constitutional: Negative. Skin: Negative. Objective Physical Exam Constitutional: Appearance: Normal appearance. Pulmonary: Effort: Pulmonary effort is normal. Musculoskeletal: Feet: Feet: Comments: Patient is experiencing the pain in the area marked above. Neurological: Mental Status: She is alert. 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 predniSONE (DELTASONE) 10 mg tablet Take 4 tabs daily for 3 days, then 2 tabs daily for 3 days, then 1 tab daily for 3 days with food. (Patient not taking: Reported on 05/30/2022) benzonatate (TESSALON PERLES) 100 mg capsule Take 1 capsule by mouth three times daily as needed for cough. (Patient not taking: Reported on 05/30/2022) cyanocobalamin (VITAMIN B-12) 100 mcg tab Take 100 mcg by mouth once daily. (Patient not taking: No sig reported) ondansetron orally disintegrating (ZOFRAN ODT) 4 mg disintegrating tablet Take 1 tablet by mouth every 8 hours as needed for nausea/vomiting. (Patient not taking: No sig reported) FAMILY HISTORY Problem Relation Age of Onset Heart Mother MVP Diabetes Father Type 2 other (Other) Sister hearing loss- she is her twin Breast Cancer Paternal Grandmother Social History Tobacco Use Smoking status: Never Smokeless tobacco: Never Substance Use Topics Alcohol use: No Drug use: No ASSESSMENT/PLAN: 1. Pain - ICD9: 780.96, ICD10: R52 - XR FOOT GENERAL 3V AP/LAT/OBL RIGHT * * * * Physician Interpretation * * * * EXAMINATION: XR FOOT 3V AP/LAT/OBL RT CLINICAL HISTORY: Right foot pain Technique: XR FOOT 3V AP/LAT/OBL RT -- RIGHT with 3 views on 3 images Comparison: None RESULT: No acute fracture or dislocation. Joint spaces are maintained. IMPRESSION IMPRESSION: No acute osseous abnormality [employer] Laboratory Director: KATLYN Transcribe Date/Time: Jul 08 2022 12:05P Dictated by : AGUSTIN VAUGHAN MD Was instructed to rest elevate foot and baby it for a few days see if this helps with the pain. If pain is persistent patient will follow-up with primary care provider. Patient was okay with this care plan. Liat Viramontes APRN.SAHARA documented in this encounter [facility] 05-30-2022 History of Presen t illness Narrative 05/30/2022 Patient presents with: Nasal Congestion Headache Cough Nausea SUBJECTIVE: This is a 26 year old that is here today for Above Complaints. Thursday went to Urgent Care with sore throat for a day. Tested negative for strep. Symptoms have been progressing including headache, nasal congestion, rhinorrhea, sinus pain above and below right eye, jaw pain, right ear pain and nausea. Also notes some intermittent twisting epigastric discomfort. Taking OTC sudafed. TUMS and mucinex with minimal relief. Denies fevers, chills, loss of taste/smell, sore throat, SOB, dyspnea, wheezing, chest pain, vomiting or diarrhea. PAST MEDICAL HISTORY Diagnosis Date Hearing loss thinks its her right ear- exposer to high pitch noises at an employer IBS (irritable bowel syndrome) Lactose intolerance Obesity ALLERGIES Latex MEDICATIONS Current Outpatient Medications Medication Sig loratadine (CLARITIN) 10 mg tablet Take 1 tablet by mouth once daily. predniSONE (DELTASONE) 10 mg tablet Take 4 tabs daily for 3 days, then 2 tabs daily for 3 days, then 1 tab daily for 3 days with food. (Patient not taking: Reported on 05/30/2022) benzonatate (TESSALON PERLES) 100 mg capsule Take 1 capsule by mouth three times daily as needed for cough. (Patient not taking: Reported on 05/30/2022) cyanocobalamin (VITAMIN B-12) 100 mcg tab Take 100 mcg by mouth once daily. (Patient not taking: No sig reported) ondansetron orally disintegrating (ZOFRAN ODT) 4 mg disintegrating tablet Take 1 tablet by mouth every 8 hours as needed for nausea/vomiting. (Patient not taking: No sig reported) No current facility-administered medications for this visit. Medications and allergies reviewed by this provider. SOCIAL HISTORY Social History Tobacco Use Smoking status: Never Smokeless tobacco: Never Substance Use Topics Alcohol use: No Drug use: No REVIEW OF SYSTEMS All other reviewed and negative other than HPI. OBJECTIVE: BP 116/74 (BP Site: Left Arm, BP Position: Sitting, BP Cuff Size: Regular Adult) Pulse 103 Temp 36.6 C (97.8 F) Resp 16 Wt 94.9 kg (209 lb 3.2 oz) LMP 04/19/2021 SpO2 97% BMI 37.06 kg/m . Vital signs reviewed by this provider. APPEARANCE Well appearing, alert, in no acute distress, well-hydrated, well nourished. EYES conjunctiva and sclera normal. Nose/Sinuses: Positive findings: TTP to frontal and maxillary sinuses EARS External ears normal, canals clear THROAT normal, no erythema NECK Supple, no adenopathy HEART RRR with normal S1 and S2, no murmurs, no gallops, no JVD appreciated LUNG clear to auscultation. No wheezes, rhonchi, or rales ABDOMEN bowel sounds normoactive, no bruits, soft, non-tender, non-distended EXTREMITIES Extremities normal, No deformities, No skin discoloration, and No edema SKIN Skin color, texture, turgor normal, no suspicious rashes or lesions to exposed skin DTAP,TDAP,TD(6 - Tdap) due on 2004 HEPATITIS C SCREENING Never done HIV SCREENING Never done DEPRESSION ASSESSMENT Never done INFLUENZA(1) due on 04/10/2022 COVID-19 VACCINE(2 - Novavax series) due on 05/20/2022 PAP TESTING due on 08/08/2023 HEPATITIS B Completed ASSESSMENT/PLAN: 1. Sinus pain - ICD9: 478.19, ICD10: J34.89 (primary diagnosis) - Will begin treatment with Augmentin 875 mg PO BID for 10 days - The patient should also be given OTC decongestants prn, OTC cough and cold meds as needed, and nasal saline gtts and suction prn for the first 5-7 days of treatment. - Supportive care with plenty of fluids, rest, and analgesia prn. -COVID-19 testing offered, declined at this time - Follow up in 3-5 days if symptoms persist or worsen. - AMOXICILLIN 875 MG-POTASSIUM CLAVULANATE 125 MG TABLET 2. Frequent sinus infections - ICD9: 473.9, ICD10: J32.9 - CONSULT TO ENT Mekhi Podlogar, [employer]CH[employer]IC.SPEECH AND HEARING DIRECTOR Prescription instructions reviewed with patient as applicable. Patient advised if symptoms do not improve or if symptoms worsen sooner, to contact their primary care physician. Potential red flag symptoms discussed with the patient. Reviewed appropriate action plan to take if red flag symptoms occur. Patient agreeable to treatment plan. I spent a total of 25 minutes on the date of the service which included preparing to see the patient, [id number] patient care, completing clinical documentation, obtaining and/or reviewing separately obtained history, performing a medically appropriate examination, counseling and educating the patient/family/caregiver, and ordering medications, tests, or procedures. documented in this encounter [facility] 05-26-2022 Instructions Michelle Mercado APRN.CNP - 05/26/2022 11:55 AM EDT Rest, increase water intake Motrin or Tylenol as needed for fever or pain. Salt water gargles, chloraseptic spray or lozenges as needed for sore throat. Warm beverages, honey. Nasal saline spray as needed Cool mist humidifier at night Strep is negative documented in this encounter [facility] 05-26-2022 History of Presen t illness Narrative Subjective The history is provided by the patient. No spanish interpreter/translator was used. MEGHAN Cline is a 26 year old female who presents today for CC of sore throat for one day. She is also having sinus pressure and congestion that started in past 2 days. She has used otc sudafed, tylenol with slight relief. Daughter is also ill. BP 110/86 Pulse 103 Temp 36.9 C (98.4 F) Resp 18 Wt 95.6 kg (210 lb 12.8 oz) LMP 04/19/2021 SpO2 98% BMI 37.34 kg/m Social History Tobacco Use Smoking status: Never Smokeless tobacco: Never Substance Use Topics Alcohol use: No Drug use: No PAST MEDICAL HISTORY Diagnosis Date Hearing loss thinks its her right ear- exposer to high pitch noises at an employer IBS (irritable bowel syndrome) Lactose intolerance Obesity I have confirmed and edited as necessary, the [facility] Review of Systems Constitutional: Negative for chills, fever and malaise/fatigue. HENT: Positive for congestion, sinus pain and sore throat. Negative for ear pain. Respiratory: Positive for cough. Negative for sputum production, shortness of breath and wheezing. Cardiovascular: Negative for chest pain. Gastrointestinal: Negative for abdominal pain, diarrhea, nausea and vomiting. Musculoskeletal: Negative for myalgias. Neurological: Negative for headaches. Objective Physical Exam Vitals and nursing note reviewed. HENT: Head: Normocephalic and atraumatic. Right Ear: Tympanic membrane, ear canal and external ear normal. Left Ear: Tympanic membrane, ear canal and external ear normal. Nose: Mucosal edema, congestion and rhinorrhea present. Right Sinus: No maxillary sinus tenderness or frontal sinus tenderness. Left Sinus: No maxillary sinus tenderness or frontal sinus tenderness. Mouth/Throat: Pharynx: Uvula midline. Posterior oropharyngeal erythema present. No oropharyngeal exudate. Cardiovascular: Rate and Rhythm: Normal rate and regular rhythm. Heart sounds: Normal heart sounds. Pulmonary: Effort: Pulmonary effort is normal. Breath sounds: Normal breath sounds. Lymphadenopathy: Head: Right side of head: No submental, submandibular or tonsillar adenopathy. Left side of head: No submental, submandibular or tonsillar adenopathy. Cervical: No cervical adenopathy. Skin: General: Skin is warm and dry. Neurological: Mental Status: She is alert. Psychiatric: Mood and Affect: Affect normal. ASSESSMENT/PLAN: 1. Sore throat - ICD9: 462, ICD10: J02.9 (primary diagnosis) - suspect viral - Alere Strep Test negative, no culture pending - STREP A MOLECULAR (POC) 2. Viral illness - ICD9: 079.99, ICD10: B34.9 - Discussed viral etiology and rationale for treatment. - Symptomatic treatment with prn analgesia - Supportive care with fluids and rest - Decline covid testing Diagnosis and treatment plan were discussed and questions were answered to the patient's satisfaction. Pt acknowledged understanding of concepts and follow up plan. Specific signs and symptoms that would indicate the need for higher level of care were discussed in detail warranting prompt ER evaluation. Michelle Mercado APRN.SPEECH AND HEARING DIRECTOR documented in this encounter [facility] 03-20-2022 History of Presen t illness Narrative Patient came in with abdominal pain that is getting worse. Patient said its on the right lower side and above her umbilicus. Patient said she has noticed significant swelling and is unable to change positions. Pain is a 7/10. Patient said it even hurts to have a bowel movement. Patient does still have appendix. Patient was sent to ER for full evaluation at this time. documented in this encounter [facility] documented as of this encounter (statuses as of 03/20/2022) [facility] History of Past illness Narrative* Problem Noted Date Resolved Date Bowel habit changes 07/11/2015 07/11/2015 Dysphagia 07/11/2015 07/11/2015 documented as of this encounter (statuses as of 05/26/2022) [facility] History of Past illness Narrative* Problem Noted Date Resolved Date Bowel habit changes 07/11/2015 07/11/2015 Dysphagia 07/11/2015 07/11/2015 documented as of this encounter (statuses as of 05/30/2022) [facility] History of Past illness Narrative* Problem Noted Date Resolved Date Bowel habit changes 07/11/2015 07/11/2015 Dysphagia 07/11/2015 07/11/2015 documented as of this encounter (statuses as of 07/08/2022) [facility] History of Past illness Narrative* Problem Noted Date Resolved Date Bowel habit changes 07/11/2015 07/11/2015 Dysphagia 07/11/2015 07/11/2015 documented as of this encounter (statuses as of 09/16/2022) [facility] History of Past illness Narrative* Problem Noted Date Resolved Date Bowel habit changes 07/11/2015 07/11/2015 Dysphagia 07/11/2015 07/11/2015 documented as of this encounter (statuses as of 09/19/2022) [facility] History of Past illness Narrative* Problem Noted Date Resolved Date Bowel habit changes 07/11/2015 07/11/2015 Dysphagia 07/11/2015 07/11/2015 documented as of this encounter (statuses as of 09/23/2022) [address]02-2015 History of Past illness Narrative* Problem Noted Date Resolved Date Bowel habit changes 07/11/2015 07/11/2015 Dysphagia 07/11/2015 07/11/2015 documented as of this encounter (statuses as of 09/30/2022) [address]02[address]2015 History of Past illness Narrative* Problem Noted Date Resolved Date Bowel habit changes 07/11/2015 07/11/2015 Dysphagia 07/11/2015 07/11/2015 documented as of this encounter (statuses as of 09/30/2022) [address]2015 History of Past illness Narrative* Problem Noted Date Resolved Date Bowel habit changes 07/11/2015 07/11/2015 Dysphagia 07/11/2015 07/11/2015 documented as of this encounter (statuses as of 10/16/2022) [address]2015 History of Past illness Narrative* Problem Noted Date Resolved Date Bowel habit changes 07/11/2015 07/11/2015 Dysphagia 07/11/2015 07/11/2015 documented as of this encounter (statuses as of 10/28/2022) [address]2015 History of Past illness Narrative* Problem Noted Date Resolved Date Bowel habit changes 07/11/2015 07/11/2015 Dysphagia 07/11/2015 07/11/2015 documented as of this encounter (statuses as of 10/29/2022) [address] History of Past illness Narrative* Problem Noted Date Resolved Date Bowel habit changes 07/11/2015 07/11/2015 Dysphagia 07/11/2015 07/11/2015 documented as of this encounter (statuses as of 11/12/2022) [address] History of Past illness Narrative* Problem Noted Date Resolved Date Bowel habit changes 07/11/2015 07/11/2015 Dysphagia 07/11/2015 07/11/2015 documented as of this encounter (statuses as of 11/22/2022) [facility] History of Past illness Narrative* Problem Noted Date Resolved Date Bowel habit changes 07/11/2015 07/11/2015 Dysphagia 07/11/2015 07/11/2015 documented as of this encounter (statuses as of 01/09/2023) [address] History of Past illness Narrative* Problem Noted Date Diagnosed Date Resolved Date Bowel habit changes 07/11/2015 07/11/20 15 Dysphagia 07/11/2015 07/11/2015 documented as of this encounter (statuses as of 03/25/2023) [facility] History of Past illness Narrative* Problem Noted Date Diagnosed Date Resolved Date Bowel habit changes 07/11/2015 07/11/20 15 Dysphagia 07/11/2015 07/11/2015 documented as of this encounter (statuses as of 06/02/2023) [facility] History of Past illness Narrative* Problem Noted Date Diagnosed Date Resolved Date Bowel habit changes 07/11/2015 07/11/20 15 Dysphagia 07/11/2015 07/11/2015 documented as of this encounter (statuses as of 06/13/2023) [facility] History of Past illness Narrative* Problem Noted Date Diagnosed Date Resolved Date Bowel habit changes 07/11/2015 07/11/20 15 Dysphagia 07/11/2015 07/11/2015 documented as of this encounter (statuses as of 06/15/2023) [facility] History of Past illness Narrative* Problem Noted Date Diagnosed Date Resolved Date Bowel habit changes 07/11/2015 07/11/20 15 Dysphagia 07/11/2015 07/11/2015 documented as of this encounter (statuses as of 08/10/2023) [facility] note* Diagnosis Right lower quadrant abdominal pain- Primary Abdominal pain, right lower quadrant [facility] Diagnosis Sore throat- Primary Acute pharyngitis Viral illness Unspecified viral infection, in conditions classified elsewhere and of unspecified site [facility] Sinus pain- Primary Other diseases of nasal cavity and sinuses Frequent sinus infections [facility] Pain- Primary Generalized pain [facility] Diagnosis Viral upper respiratory tract infection- Primary Acute upper respiratory infections of unspecified site Nausea Nausea alone Acute pharyngitis, unspecified etiology Fatigue, unspecified type [facility] Diagnosis Allergic rhinitis, unspecified seasonality, unspecified trigger- Primary Chronic sinusitis, unspecified location [facility] Other chronic sinusitis- Primary Allergic rhinitis, unspecified seasonality, unspecified trigger Preoperative examination Preoperative examination, unspecified [facility] Diagnosis Encounter for screening for COVID-19- Primary Nausea Nausea alone Encounter for screening for COVID-19 Other chronic sinusitis [facility] Diagnosis Pre-operative examination- Primary Preoperative examination, unspecified Class 2 obesity without serious comorbidity with body mass index (BMI) of 35.0 to 35.9 in adult, unspecified obesity type Encounter for screening for COVID-19 Other chronic sinusitis [facility] Diagnosis Insect bite of right ear, initial encounter- Primary documented in this encounter [facility] note* Diagnosis Laceration of left ring finger, foreign body presence unspecified, nail damage status unspecified, subsequent encounter- Primary documented in this encounter [facility] note* Diagnosis Chronic sinusitis, unspecified location documented in this encounter [facility] note* Diagnosis Acute maxillary sinusitis, recurrence not specified- Primary documented in this encounter [facility] for referral (narrative)* Diagnostic Procedure Only (Urgent) - Closed Specialty Diagnoses / Procedures Referred By Lacie sandy Referred To Contact XR IMAGING Diagnoses Pain Procedures XR FOOT GENERAL 3V AP/LAT/OBL RIGHT RADEX FOOT COMPLETE MINIMUM 3 VIEWS Liat Viramontes APRN.SPEECH AND HEARING DIRECTOR [address] [place] [address] Xr Imaging Referral ID Status Reason Start Date Expiration Date V isits Requested Visits Authorized [id number] Closed Auto-Generate d Referral 07/08/2022 08/07/2023 1 1 [facility] Summary Purpose Family History No Family History Records FoundNo Family History Records FoundNo Family History Records FoundNo Family History Records Found Advance Directives No Advanced Directives Records FoundNo Advanced Directives Records FoundNo Advanced Directives Records FoundNo Advanced Directives Records Found Reason for Referral Specialty Diagnoses / Procedures Referred By Lacie sandy Referred To Contact Ent - Otolaryngology Diagnoses Frequent sinus infections Procedures CONSULT TO ENT OFFICE/OUTPATIENT NEW HIGH MDM 60-74 MINUTES Mekhi Neville APRN.SPEECH AND HEARING DIRECTOR [address] [facility] [place] [address] Referral ID Status Reason Start Date Expiration Date Visits Requested Visits Authorized [id number] Authorized PCP Requested Referral 2 05/30/2023 1 1 Specialty Diagnoses / Procedures Referred By Contac t Referred To Contact Diagnoses Preoperative examination Procedures REFER TO PACC - PRE ANESTHESIA CONSULTATION CLINIC OFFICE/OUTPATIENT NEW HIGH MDM 60-74 MINUTES Meredith Dinero MD [address] [place] [address] Referral ID Status Reason Start Date Expiration Date Visits Requested Visits Authorized [id number] Authorized PCP Requested Referral 09/30/2022 09/30/2023 1 1 Health Concerns Infection Onset Date Last Indicated Resolved Time COVID-19 Rule-Out 10/29/2022 10/29/2022 Additional Source Comments INFORMATION SOURCE (unrecogn ized section and content) DATE CREATED AUTHOR AUTHOR'S ORGANIZ ATION 07/26/2018 [facility] DATE CREATED AUTHOR AUTHOR'S ORGANIZ ATION 12/13/2022 [facility] DATE CREATED AUTHOR AUTHOR'S ORGANIZ ATION 08/29/2023 [facility] Source Comments (unrecognize d section and content) In the event this informatio n is protected by the Federal Confidentiality of Alcohol and Drug Abuse Patient Records regulations: The Federal rules restrict any use of the information to criminally investigate or prosecute any alcohol or drug abuse patient.[facility]In the event this information is protected by the Federal Confidentiality of Alcohol and Drug Abuse Patient Records regulations: The Federal rules restrict any use of the information to criminally investigate or prosecute any alcohol or drug abuse patient.[facility]In the event this information is protected by the Federal Confidentiality of Alcohol and Drug Abuse Patient Records regulations: The Federal rules restrict any use of the information to criminally investigate or prosecute any alcohol or drug abuse patient.[facility]In the event this information is protected by the Federal Confidentiality of Alcohol and Drug Abuse Patient Records regulations: The Federal rules restrict any use of the information to criminally investigate or prosecute any alcohol or drug abuse patient.[facility]In the event this information is protected by the Federal Confidentiality of Alcohol and Drug Abuse Patient Records regulations: The Federal rules restrict any use of the information to criminally investigate or prosecute any alcohol or drug abuse patient.[facility]In the event this information is protected by the Federal Confidentiality of Alcohol and Drug Abuse Patient Records regulations: The Federal rules restrict any use of the information to criminally investigate or prosecute any alcohol or drug abuse patient.[facility]In the event this information is protected by the Federal Confidentiality of Alcohol and Drug Abuse Patient Records regulations: The Federal rules restrict any use of the information to criminally investigate or prosecute any alcohol or drug abuse patient.[facility]In the event this information is protected by the Federal Confidentiality of Alcohol and Drug Abuse Patient Records regulations: The Federal rules restrict any use of the information to criminally investigate or prosecute any alcohol or drug abuse patient.[facility]In the event this information is protected by the Federal Confidentiality of Alcohol and Drug Abuse Patient Records regulations: The Federal rules restrict any use of the information to criminally investigate or prosecute any alcohol or drug abuse patient.[facility]In the event this information is protected by the Federal Confidentiality of Alcohol and Drug Abuse Patient Records regulations: The Federal rules restrict any use of the information to criminally investigate or prosecute any alcohol or drug abuse patient.[facility]In the event this information is protected by the Federal Confidentiality of Alcohol and Drug Abuse Patient Records regulations: The Federal rules restrict any use of the information to criminally investigate or prosecute any alcohol or drug abuse patient.[facility] HospitalIn the event this information is protected by the Federal Confidentiality of Alcohol and Drug Abuse Patient Records regulations: The Federal rules restrict any use of the information to criminally investigate or prosecute any alcohol or drug abuse patient.[facility] HospitalIn the event this information is protected by the Federal Confidentiality of Alcohol and Drug Abuse Patient Records regulations: The Federal rules restrict any use of the information to criminally investigate or prosecute any alcohol or drug abuse patient.[facility] HospitalIn the event this information is protected by the Federal Confidentiality of Alcohol and Drug Abuse Patient Records regulations: The Federal rules restrict any use of the information to criminally investigate or prosecute any alcohol or drug abuse patient.[facility] HospitalIn the event this information is protected by the Federal Confidentiality of Alcohol and Drug Abuse Patient Records regulations: The Federal rules restrict any use of the information to criminally investigate or prosecute any alcohol or drug abuse patient.[facility] HospitalIn the event this information is protected by the Federal Confidentiality of Alcohol and Drug Abuse Patient Records regulations: The Federal rules restrict any use of the information to criminally investigate or prosecute any alcohol or drug abuse patient.[facility] HospitalIn the event this information is protected by the Federal Confidentiality of Alcohol and Drug Abuse Patient Records regulations: The Federal rules restrict any use of the information to criminally investigate or prosecute any alcohol or drug abuse patient.[facility] HospitalIn the event this information is protected by the Federal Confidentiality of Alcohol and Drug Abuse Patient Records regulations: The Federal rules restrict any use of the information to criminally investigate or prosecute any alcohol or drug abuse patient.[facility] HospitalIn the event this information is protected by the Federal Confidentiality of Alcohol and Drug Abuse Patient Records regulations: The Federal rules restrict any use of the information to criminally investigate or prosecute any alcohol or drug abuse patient.[facility] HospitalIn the event this information is protected by the Federal Confidentiality of Alcohol and Drug Abuse Patient Records regulations: The Federal rules restrict any use of the information to criminally investigate or prosecute any alcohol or drug abuse patient.[facility] Care Teams (unrecognized sec tion and content) Salsa Dance Instructor Relationship Specialty Start Date End Date Mounika Buckner MD [address] [place] [address] PCP - General Internal Medicine 08/19/17 Salsa Dance Instructor Relationship Specialty Start Date End Date Mounika Buckner MD [address] [place], [place] [id number] PCP - General Internal Medicine 08/19/17 Salsa Dance Instructor Relationship Specialty Start Date End Date Mounika Buckner MD [address] [place] [address] PCP - General Internal Medicine 08/19/17 Salsa Dance Instructor Relationship Specialty Start Date End Date Mounika Buckner MD [address] [place] [address] PCP - General Internal Medicine 08/19/17 Salsa Dance Instructor Relationship Specialty Start Date End Date Mounika Buckner MD [address] [place] [address] PCP - General Internal Medicine 08/19/17 Salsa Dance Instructor Relationship Specialty Start Date End Date Mounika Buckner MD [address] [place] [address] PCP - General Internal Medicine 08/19/17 Salsa Dance Instructor Relationship Specialty Start Date End Date Mounika Buckner MD [address] [place] [address] PCP - General Internal Medicine 08/19/17 Salsa Dance Instructor Relationship Specialty Start Date End Date Mounika Buckner MD [address] [place] [address] PCP - General Internal Medicine 08/19/17 Salsa Dance Instructor Relationship Specialty Start Date End Date Mounika Buckner MD [address] [place] [address] PCP - General Internal Medicine 08/19/17 Salsa Dance Instructor Relationship Specialty Start Date End Date Mounika Buckner MD [address] [place] [address] PCP - General Internal Medicine 08/19/17 Salsa Dance Instructor Relationship Specialty Start Date End Date Mounika Buckner MD [address] [place] [address] PCP - General Internal Medicine 08/19/17 Salsa Dance Instructor Relationship Specialty Start Date End Date Mounika Buckner MD [address] [place], [place] [address] PCP - General Internal Medicine 08/19/17 Salsa Dance Instructor Relationship Specialty Start Date End Date Mounika Buckner MD [address] [place], [place] [address] PCP - General Internal Medicine 08/19/17 Salsa Dance Instructor Relationship Specialty Start Date End Date Mounika Buckner MD [address] [place], [place] [address] PCP - General Internal Medicine 08/19/17 Salsa Dance Instructor Relationship Specialty Start Date End Date Mounika Buckner MD [address] [place], [place] [address] PCP - General Internal Medicine 08/19/17 Salsa Dance Instructor Relationship Specialty Start Date End Date Mounika Buckner MD [address] [place], [place] [id number] PCP - General Internal Medicine 08/19/17 Reason for Visit (unrecogniz ed section and content) Reason Comments Nasal Congestion Headache Cough Nausea Reason Comments right foot pain Fell yesterday Reason Comments Sore Throat Started Fri evening Head Congestion Fatigue X couple weeks Nausea No vomiting/diarrhea Reason Comments Sinus Problem New Patient Specialty Diagnoses / Procedures Referred By Lacie sandy Referred To Contact Ent - Otolaryngology Diagnoses Frequent sinus infections Procedures CONSULT TO ENT OFFICE/OUTPATIENT NEW HIGH MDM 60-74 MINUTES [employer]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 Dinero, requested staff to call and see if patient could review recent CT scan via virtual visit with her this afternoon Reason Comments Sinusitis Reason Comments Schedule Surgery Reason Comments Nausea feverish, hand feel shaky and sweaty x this am, bruise on right forearm with swelling Reason Comments Consult Reason Comments Patient Question After surgery Reason Comments Insect Bite right ear insect bit e x 8 days ago, still feels swollen and warm Reason Comments Suture Removal left ring finger, 2 sutures x 13 days Reason Comments Radiology CT Specialty Diagnoses / Procedures Referred By Lacie sandy Referred To Contact Radiology / RADIO CT SCAN [facility] Diagnoses Chronic sinusitis, unspecified Chronic sinusitis, unspecified location [J32.9] Procedures CT MAXILLOFACIAL W/O CONTRAST MATERIAL CT WO SINUS STEREO [address] Meredith Dinero MD [address] [place] [address] Scan [facility] [address] [place] [address] Referral ID Status Reason Start Date Expiration Date Visits Re quested Visits Authorized [id number] Closed 09/21/2022 11/20/2022 1 1 Reason Comments Sinus Problem FOR RECORDS PERTAINING TO PATIENTS WHO ARE OR HAVE BEEN ENROLLED IN A CHEMICAL DEPENDENCY/SUBSTANCEABUSE PROGRAM, SOME INFORMATION MAY BE OMITTED. This clinical summary was aggregated from multiple sources. Caution should be exercised in using it in the provision of clinical care. This summary normalizes information from multiple sources, and as a consequence, information in this document may materially change the coding, format and clinical context of patient data. In addition, data may be omitted in some cases. CLINICAL DECISIONS SHOULD BE BASED ON THE PRIMARY CLINICAL RECORDS. [facility]. provides no warranty or guarantee of the accuracy or completeness of information in this document.
[2023-09-19 15:45] LABS: HPV Reflexed? NOT INDICATED
== END | disposition home or self-care (01) ==
LOC: LABSPEC 16:29
PROVIDERS: PCP Internal Medicine; Referring Provider Nurse Practitioner Women's Health; Visit Provider Nurse Practitioner Women's Health
DX: Z12.4 Encounter for screening for malignant neoplasm of cervix (principal)
CPT/HCPCS: 88175; G0145

== ENCOUNTER → 2023-10-01 | Outpatient (CLI) | payer OTHER, MEDICAID, SELFPAY ==
[2023-10-01 17:10] LABS: Progesterone Level 10.47 ng/mL (See Comment)
== END | disposition home or self-care (01) ==
LOC: LAB 15:16
PROVIDERS: PCP Internal Medicine; Referring Provider Nurse Practitioner Women's Health; Visit Provider Nurse Practitioner Women's Health
DX: N92.6 Irregular menstruation, unspecified (principal)
CPT/HCPCS: 36415; 84144

== ENCOUNTER → 2023-11-06 | Outpatient (CLI) | payer OTHER, SELFPAY ==
[2023-11-10 00:06] LABS: Chlamydia By Nucleic Acid AMP Negative (Negative); Gonococcus By Nucleic Acid AMP Negative (Negative)
== END | disposition home or self-care (01) ==
PROVIDERS: PCP Internal Medicine; Visit Provider Advanced Practice Midwife
DX: Z34.90 Encounter for supervision of normal pregnancy, unspecified, unspecified trimester (principal)
CPT/HCPCS: 87086; 87088; 87491; 87591

== ENCOUNTER → 2023-12-07 | Outpatient (CLI) | payer OTHER, SELFPAY ==
[2023-12-07 14:48] LABS: Absolute Lymphocyte Count 1.94 X10^3/uL (0.83-4.51); Basophil# 0.01 X10^3/uL; Basophil% 0.1 % (0-1); Eosinophil# 0.05 X10^3/uL; Eosinophils% 0.5 % (0-5); Hematocrit 38.8 % (37-47); Hemoglobin 13.5 g/dL (12.0-15.0); Lymphocyte # 1.94 X10^3/ul (0.83-4.51); Lymphocyte % 18.3 % (19-41); Mean Corp Hgb Conc 34.8 g/dL (32-36); Mean Corpuscular Hgb 30.6 pg (27.0-32.0); Mean Platelet Vol. 9.5 fl (6.2-12.0); Monocyte% 5.7 % (0-10); NRBC Flagged by Analyzer 0 % (0-5); Neutrophil # 7.97 X10^3/uL (2.7-7.7); Neutrophil % 75.1 % (47-70); Platelet Count 295 K/mm3 (150-450); RBC Distribution Width CV 12.2 % (11.6-14.6); Red Blood Count 4.41 M/mm3 (4.2-5.4); White Blood Count 10.6 K/mm3 (4.4-11.0)
[2023-12-07 15:11] LABS: Hemoglobin A1c 4.9 % (3.8-5.6)
[2023-12-07 16:18] LABS: HIV - WCH Non-Reactive (Nonreactive); Hepatitis B Surface Antigen Non-Reactive (Nonreactive); Hepatitis C Antibody Non-Reactive (Nonreactive); Rubella IgG Reactive (Nonreactive); Syphilis Antibodies Non-reactive
== END | disposition home or self-care (01) ==
LOC: LAB 14:11
PROVIDERS: PCP Internal Medicine; Referring Provider Advanced Practice Midwife; Visit Provider Advanced Practice Midwife
DX: Z34.81 Encounter for supervision of other normal pregnancy, first trimester (principal); E66.9 Obesity, unspecified
CPT/HCPCS: 36415; 83036; 85025; 86703; 86762; 86780; 86803; 86850; 86900; 86901; 87340

== ENCOUNTER → 2024-01-11 | Outpatient (CLI) | payer OTHER, SELFPAY | END | disposition home or self-care (01) | PROVIDERS: PCP Internal Medicine; Referring Provider Advanced Practice Midwife; Visit Provider Advanced Practice Midwife | DX: Z36.9 Encounter for antenatal screening, unspecified (principal) | CPT/HCPCS: 36415 ==

== ENCOUNTER → 2024-02-15 | Outpatient (CLI) | payer OTHER, SELFPAY | END | disposition home or self-care (01) | PROVIDERS: PCP Internal Medicine; Visit Provider Nurse Practitioner Women's Health | DX: O23.40 Unspecified infection of urinary tract in pregnancy, unspecified trimester (principal); Z3A.00 Weeks of gestation of pregnancy not specified | CPT/HCPCS: 87086; 87088 ==

== ENCOUNTER → 2024-03-21 | Outpatient (CLI) | payer OTHER, SELFPAY ==
[2024-03-21 13:05] LABS: Absolute Lymphocyte Count 1.75 X10^3/uL (0.83-4.51); Absolute Neutrophil Count 7.6 X10^3/uL (2.0-7.7); Basophil# 0.02 X10^3/uL; Basophil% 0.2 % (0-1); Eosinophil# 0.06 X10^3/uL; Eosinophils% 0.6 % (0-5); Hemoglobin 12.3 g/dL (12.0-15.0); Lymphocyte # 1.75 X10^3/ul (0.83-4.51); Lymphocyte % 17.2 % (19-41); Mean Corp Hgb Conc 33.2 g/dL (32-36); Mean Corpuscular Hgb 30.3 pg (27.0-32.0); Mean Corpuscular Volume 91.1 fL (81-99); Monocyte# 0.66 X10^3/uL; Monocyte% 6.5 % (0-10); NRBC Flagged by Analyzer 0 % (0-5); Neutrophil % 74.9 % (47-70); Platelet Count 279 K/mm3 (150-450); RBC Distribution Width CV 13.4 % (11.6-14.6); RBC Distribution Width SD 44.3 fl (35.1-43.9); Red Blood Count 4.06 M/mm3 (4.2-5.4); White Blood Count 10.2 K/mm3 (4.4-11.0)
[2024-03-21 13:24] LABS: Glucose Challenge Gest 1H 50g 160 mg/dL (70-140)
[2024-03-21 14:01] LABS: HIV - WCH Non-Reactive (Nonreactive); Syphilis Antibodies Non-reactive
== END | disposition home or self-care (01) ==
LOC: LAB 12:43
PROVIDERS: PCP Internal Medicine; Referring Provider Obstetrics & Gynecology; Visit Provider Obstetrics & Gynecology
DX: O09.91 Supervision of high risk pregnancy, unspecified, first trimester (principal); Z3A.00 Weeks of gestation of pregnancy not specified
CPT/HCPCS: 36415; 82950; 85025; 86703; 86780

== ENCOUNTER → 2024-04-08 | Outpatient (CLI) | payer OTHER, SELFPAY ==
[2024-04-08 10:38] LABS: Bedside Glucose 91 mg/dL (74-106)
[2024-04-08 10:57] LABS: Glucose GTT-Gestation. Fasting 93 mg/dL (<105)
[2024-04-08 11:56] LABS: Glucose GTT-Gestational 1 Hr 180 mg/dL (<190)
[2024-04-08 12:50] LABS: Glucose GTT-Gestational 2 Hr 162 mg/dL (<165)
[2024-04-08 14:08] LABS: Glucose GTT-Gestational 3 Hr 119 L (<145)
== END | disposition home or self-care (01) ==
LOC: LAB 09:59
PROVIDERS: PCP Internal Medicine; Referring Provider Obstetrics & Gynecology; Visit Provider Obstetrics & Gynecology
DX: O99.810 Abnormal glucose complicating pregnancy (principal); Z3A.00 Weeks of gestation of pregnancy not specified
CPT/HCPCS: 36415; 82951; 82952; 82962

== ENCOUNTER → 2024-04-29 | Outpatient (CLI) | payer OTHER, SELFPAY ==
[2024-04-29 11:19] LABS: Absolute Lymphocyte Count 2.04 X10^3/uL (0.83-4.51); Absolute Neutrophil Count 6.8 X10^3/uL (2.0-7.7); Basophil# 0.03 X10^3/uL; Basophil% 0.3 % (0-1); Eosinophil# 0.08 X10^3/uL; Eosinophils% 0.8 % (0-5); Hematocrit 38.1 % (37-47); Hemoglobin 12.6 g/dL (12.0-15.0); Lymphocyte # 2.04 X10^3/ul (0.83-4.51); Lymphocyte % 20.9 % (19-41); Mean Corp Hgb Conc 33.1 g/dL (32-36); Mean Corpuscular Hgb 30.2 pg (27.0-32.0); Mean Corpuscular Volume 91.4 fL (81-99); Mean Platelet Vol. 10.5 fl (6.2-12.0); Monocyte# 0.77 X10^3/uL; Monocyte% 7.9 % (0-10); NRBC Flagged by Analyzer 0 % (0-5); Neutrophil # 6.76 X10^3/uL (2.7-7.7); Neutrophil % 69.5 % (47-70); Platelet Count 280 K/mm3 (150-450); RBC Distribution Width CV 13.9 % (11.6-14.6); RBC Distribution Width SD 46.5 fl (35.1-43.9); Red Blood Count 4.17 M/mm3 (4.2-5.4); White Blood Count 9.7 K/mm3 (4.4-11.0)
[2024-04-29 11:48] LABS: ALB/GLOB Ratio 0.7 RATIO (0.9-2.4); AST(SGOT) 13 U/L (15-37); Alanine Aminotransfer ALT/SGPT 14 U/L (13-56); Albumin, Serum 2.7 g/dL (3.2-5.0); Alkaline Phosphatase 82 U/L (45-117); Anion Gap 5 (5-15); BUN 6 mg/dL (7-18); BUN/Creat Ratio 9.8 RATIO (10-20); Calcium,Total 9.1 mg/dL (8.5-10.1); Chloride 107 mmol/L (98-107); Creatinine, Serum 0.61 mg/dL (0.55-1.02); EST Glomerular Filtration Rate 121 mL/min (>60); Est Glom Filt Rate - Afr Amer 147 mL/min (>60); Globulin 4.1 g/dL (2.2-4.2); Glucose 93 mg/dL (74-106); Protein, Total 6.8 g/dL (6.4-8.2); Sodium Level 137 mmol/L (136-145)
[2024-04-29 12:50] LABS: Protein, Urine (Random) 8.6 mg/dL (<11.9); Protein:Creat Ratio 228 mg/g CRE (0-200)
== END | disposition home or self-care (01) ==
PROVIDERS: PCP Internal Medicine; Referring Provider Advanced Practice Midwife; Visit Provider Advanced Practice Midwife
DX: R42 Dizziness and giddiness (principal)
CPT/HCPCS: 36415; 80053; 82570; 84156; 85025

== ENCOUNTER → 2024-05-20 | Outpatient (CLI) | payer OTHER, SELFPAY ==
--- NOTE | 2024-05-20 10:08 | US_ITS ---
STUDY: SECOND AND THIRD TRIMESTER OBSTETRICAL ULTRASOUND - LIMITED REASON FOR EXAM: Female, 28 years old growth scan LMP: September 10, 2023. PRIOR ULTRASOUND: None. TECHNIQUE: Transabdominal TECHNICAL QUALITY: Adequate. FINDINGS: There is a single intrauterine fetus. The fetus is in a cephalic presentation. There is demonstrated cardiac activity with a heart rate of 136 bpm. There is a normal amniotic fluid volume. The largest amniotic fluid pocket measures 6.6 cm. The amniotic fluid index (LIZ) is 11.4 cm. The placenta is anterior in location and is not low lying. There are Grade 1 placental changes. BIOMETRY: BPD: 8.8 cm: 35 weeks, 5 days: 47% HC: 32.8 cm: 37 weeks, 2 days: 46% AC: 34.4 cm: 38 weeks, 2 days: 97% FL: 7 cm: 36 weeks, 0 days: 43% Age by LMP: 36 weeks, 1 days. MIKE by LMP: June 16, 2024. age by current US: 36 weeks, 6 days. MIKE by current US: June 11, 2024. Estimated weight: 3191 grams, +/- 479 grams, 82 percentile. US/OB Limited With Biometrics IMPRESSION: Single live intrauterine gestation with a mean gestational age of 36 weeks and 6 days. Electronically Signed: Doroteo Willams MD at 14:52 EDT ,
== END | disposition home or self-care (01) ==
LOC: US 09:54
PROVIDERS: PCP Internal Medicine; Referring Provider Obstetrics & Gynecology; Visit Provider Obstetrics & Gynecology
DX: O24.419 Gestational diabetes mellitus in pregnancy, unspecified control (principal); O09.91 Supervision of high risk pregnancy, unspecified, first trimester; Z3A.00 Weeks of gestation of pregnancy not specified; O99.210 Obesity complicating pregnancy, unspecified trimester
CPT/HCPCS: 76816

== ENCOUNTER → 2024-05-27 | Outpatient (CLI) | payer OTHER, SELFPAY ==
[2024-05-27 13:42] LABS: ROM Internal Control Test YES-OK TO RESULT pt. (Internal QC); ROM Patient Test Negative (Negative)
== END | disposition home or self-care (01) ==
LOC: LABSPEC 12:46
PROVIDERS: PCP Internal Medicine; Referring Provider Obstetrics & Gynecology; Visit Provider Obstetrics & Gynecology
DX: O26.899 Other specified pregnancy related conditions, unspecified trimester (principal); N89.8 Other specified noninflammatory disorders of vagina; Z3A.37 37 weeks gestation of pregnancy
CPT/HCPCS: 84112; 87081

== ENCOUNTER → 2024-06-10 | Outpatient (CLI) | payer OTHER, SELFPAY ==
[2024-06-10 15:33] LABS: Absolute Lymphocyte Count 2.22 X10^3/uL (0.83-4.51); Basophil# 0.02 X10^3/uL; Basophil% 0.2 % (0-1); Eosinophil# 0.03 X10^3/uL; Eosinophils% 0.3 % (0-5); Hematocrit 39.9 % (37-47); Hemoglobin 14.1 g/dL (12.0-15.0); Lymphocyte # 2.22 X10^3/ul (0.83-4.51); Lymphocyte % 21.9 % (19-41); Mean Corp Hgb Conc 35.3 g/dL (32-36); Mean Corpuscular Hgb 31.1 pg (27.0-32.0); Mean Corpuscular Volume 87.9 fL (81-99); Mean Platelet Vol. 9.9 fl (6.2-12.0); Monocyte# 0.74 X10^3/uL; Monocyte% 7.3 % (0-10); NRBC Flagged by Analyzer 0 % (0-5); Neutrophil # 7.03 X10^3/uL (2.7-7.7); Neutrophil % 69.4 % (47-70); Platelet Count 256 K/mm3 (150-450); RBC Distribution Width CV 13.9 % (11.6-14.6); RBC Distribution Width SD 43.9 fl (35.1-43.9); Red Blood Count 4.54 M/mm3 (4.2-5.4); White Blood Count 10.1 K/mm3 (4.4-11.0)
[2024-06-10 15:49] LABS: Protein, Urine (Random) 35.3 mg/dL (<11.9); Protein:Creat Ratio 222 mg/g CRE (0-200)
[2024-06-10 15:51] LABS: ALB/GLOB Ratio 0.7 RATIO (0.9-2.4); AST(SGOT) 14 U/L (15-37); Alanine Aminotransfer ALT/SGPT 13 U/L (13-56); Albumin, Serum 2.6 g/dL (3.2-5.0); Alkaline Phosphatase 131 U/L (45-117); Anion Gap 8 (5-15); BUN 9 mg/dL (7-18); BUN/Creat Ratio 10.8 RATIO (10-20); Chloride 108 mmol/L (98-107); Creatinine, Serum 0.83 mg/dL (0.55-1.02); EST Glomerular Filtration Rate 85 mL/min (>60); Est Glom Filt Rate - Afr Amer 103 mL/min (>60); Globulin 3.9 g/dL (2.2-4.2); Glucose 101 mg/dL (74-106); Potassium 4.1 mmol/L (3.5-5.1); Protein, Total 6.5 g/dL (6.4-8.2); Sodium Level 137 mmol/L (136-145)
== END | disposition home or self-care (01) ==
LOC: BWCLAB 15:16
PROVIDERS: PCP Internal Medicine; Referring Provider Advanced Practice Midwife; Visit Provider Advanced Practice Midwife
DX: O12.10 Gestational proteinuria, unspecified trimester (principal); Z3A.00 Weeks of gestation of pregnancy not specified
CPT/HCPCS: 36415; 80053; 82570; 84156; 85025

== ENCOUNTER 2024-06-12 14:58 | Outpatient (CLI) | payer OTHER, SELFPAY ==
[2024-06-12 15:04] VITALS: BMI 39.6
[2024-06-12 15:16] VITALS: PULSE 108; PULSE 109; RESP 14; TEMP 36.6; O2SAT 94; O2SAT 96
[2024-06-12 15:17] VITALS: BP 117/70; PULSE 108
--- NOTE | 2024-06-12 17:01 | OB.TRI.PN ---
Progress Notes Date of Service: 06/12/24 Progress Note: Patient presents for triage evaluation secondary to uterine contractions at 39 weeks FHT: 135 Moderate variability reactive no decelerations category I tracing [place]: irregular Contractions Assessment and plan: minimal cervical change, desires early labor at home and minimal intervention Reactive NST, reassuring maternal and status patient discharged to home to follow-up in office tues if not in active labor. See problem list details for additional plan information. Charges/Coding Multi Select Codes Visit Charges Office Visit/Consults: 98169 OV L3 Est 20min Urinary/Genital Urinary/Genital CPT Codes: 87788-93 non-stress test Interp Assessment & Plan (1) Uterine contractions: (2) Acute sinusitis: (3) Dizziness: (4) Gestational diabetes: COMMENT: nutrition consult, ordered testing supplies recommend 36 week growth us and delivery by 40 (5) COVID-19: COMMENT: start 81 asa daily (6) UTI in : QUALIFIERS: Trimester: second trimester Qualified Code(s): O23.42 - Unspecified infection of urinary tract in , second trimester COMMENT: +UA, culture pending. Macrobid sent. (7) Obesity (BMI 30-39.9): (8) Supervision of high-risk : QUALIFIERS: Trimester: first trimester Qualified Code(s): O09.91 - Supervision of high risk , unspecified, first trimester COMMENT: PRR, , MIKE 06/16/24, BARBARA Machado, Herve (9) : QUALIFIERS: Weeks of gestation: 39 weeks Qualified Code(s): Z3A.39 - 39 weeks gestation of COMMENT: GBS neg, NIPT low risk, discussed genetic & carrier testing (10) Hx of depression, currently : (11) FH: spina bifida: COMMENT: FOB had spina bifida at , AFP neg (12) JULISSA (stress urinary incontinence, female):
== END 2024-06-12 17:25 | disposition home or self-care (01) ==
LOC: WPOUT 15:00 → WP 15:03
PROVIDERS: PCP Internal Medicine; Visit Provider Advanced Practice Midwife
DX: O47.1 False labor at or after 37 completed weeks of gestation (principal); Z3A.39 39 weeks gestation of pregnancy
CPT/HCPCS: 59025; 59050; 99221; G0378

== ENCOUNTER 2024-06-13 04:35 | Inpatient (IN) | payer OTHER, SELFPAY ==
[2024-06-13] VITALS (37 sets, daily range): BP systolic 108–135; BP diastolic 67–83; PULSE 91–111; RESP 16–18; TEMP 36.3–37.6; O2SAT 94–99; BMI 40.1
[2024-06-13] MEDS: Lactated Ringers 1,000 ML 999 ML IV (05:00)
[2024-06-13 05:19] LABS: Absolute Lymphocyte Count 1.87 X10^3/uL (0.83-4.51); Absolute Neutrophil Count 12.7 X10^3/uL (2.0-7.7); Basophil# 0.05 X10^3/uL; Basophil% 0.3 % (0-1); Eosinophil# 0.02 X10^3/uL; Eosinophils% 0.1 % (0-5); Hematocrit 42.9 % (37-47); Hemoglobin 15.2 g/dL (12.0-15.0); Lymphocyte # 1.87 X10^3/ul (0.83-4.51); Lymphocyte % 11.7 % (19-41); Mean Corp Hgb Conc 35.4 g/dL (32-36); Mean Corpuscular Volume 87.6 fL (81-99); Mean Platelet Vol. 10.6 fl (6.2-12.0); Monocyte# 1.24 X10^3/uL; Monocyte% 7.8 % (0-10); NRBC Flagged by Analyzer 0 % (0-5); Neutrophil # 12.67 X10^3/uL (2.7-7.7); Neutrophil % 79.6 % (47-70); Platelet Count 261 K/mm3 (150-450); RBC Distribution Width CV 13.8 % (11.6-14.6); White Blood Count 15.9 K/mm3 (4.4-11.0)
--- NOTE | 2024-06-13 05:42 | HP.PCM.OB_ITS ---
HPI - General General Date of Admission: 06/13/24 Date of Service: 06/13/24 HPI Narrative AGUSTIN DAVIS, is a 28 F 39.4 weeks who presents in active labor Maternal Data Information MIKE Calculator Estimated Delivery Date Method Current WG Current Estimate 06/16/24 LMP (Certain) 39w 4d Final MIKE: 06/16/24 Final MIKE Source: US >20 weeks Gestational age: 39.4 weeks PFSH PFSH Medical History (Updated 06/13/24 @ 05:46 by Leia Salazar CNM) Placental abnormality Asthma Superficial varicosities depression Gestational diabetes COVID-19 Seasonal allergies Vulvar varicose veins Infertility COVID-19 virus infection Home Medications ?Medication ?Instructions ?Recorded ?Last Taken ?Type multivitamin no.47-iron fum 27 cap PO DAILY 10/30/23 06/12/24 08:00 History mg-folate no.1 1 mg-dha 300 mg capsule (PNV-DHA) aspirin 81 mg capsule 81 mg PO DAILY 04/01/24 06/12/24 08:00 History blood sugar diagnostic (Blood #50 ea 04/12/24 Unknown Rx Glucose Test strips) blood-glucose meter (FreeStyle See Rx Instructions miscellaneous 04/12/24 Unknown Rx [place] kit) .COMPLEX #1 ea lancets 28 gauge (FreeStyle #100 ea 04/12/24 Unknown Rx Lancets) hydroxyzine pamoate 25 mg capsule 25 mg PO QHS #30 caps 06/03/24 Unknown Rx (Vistaril) amoxicillin 500 mg capsule 500 mg PO BID 06/13/24 06/12/24 08:00 History Allergy/AdvReac Type Severity Reaction Status Date / Time Environmental Allergies: Allergy Intermediate Swelling Verified 06/13/24 04:16 Uncoded latex Allergy Rash Verified 06/13/24 04:16 Family History Grandmother Breast cancer, Onset Age: 50 Paternal Mother Diabetes Father Diabetes Sister Diabetes Surgical History [place] teeth extracted Hx of cholecystectomy Social History adopted: No household members: spouse and children number of children: 1 current occupational status: employed current occupation: [employer] current occupational exposures/hazards: No pets and animals: Yes pets and animals: dog(s) history of recent travel: No sexually active: Yes Smoking Status: Never smoker alcohol intake: never substance use type: does not use diet: lactose free well-balanced diet: about half the time caffeine: No eating out: rarely or never during the past year weight has: remained stable what type of physical activity do you participate in: none meño/adventism: None seatbelt use: always do you feel safe at home: Yes additional social history: Herve History 2 Elective abortions Hx Para 1 Spontaneous abortions Hx # Term Pregnancies Ectopic pregnancies Hx # Pregnancies Multiple births # of living children 1 Past Pregnancies Del. Date Name GA/Weeks Outcome Route Bth Weight Gen Labor Lgth Anesthesia Del Locatn Provider FOB Unknown 2013 Jeannette 40 live - full term 8#9oz Female 1 1 hrs none [place] Visit Details Expected Delivery Route/Plan Labor Preferences- CB/BF classes: [] labor support person: [] labor intervention preferences: [] pain management options preferred: [] cut cord/dad catch: [] : [] PP control planned: [] discussed possible routes of delivery and associated risks: [] special requests: [] Plans Covid status: Flu vaccine: [] Tdap vaccine: given Rhogam: na LARC form signed: declined movement and labor precautions reviewed. Problem list reviewed and updated with the most current plan of care details and appropriate orders placed. Relevant counseling for the gestational age provided. Continue routine care and follow up unless otherwise noted in visit notes/problem list details OB Flowsheet Initial Weight: Not Recorded Date -?-?-?-?-?-?-?-?-?-?-?-?- EGA Weight BP Urine Prot -?-?-?-?-?-?-?-?-?-?-?-?- Glucose FHR FuHt Pres Dilation -?-?-?-?-?-?-?-?-?-?-?-?- Effaced St Visit Note 11/06/23 -?-?-?-?-?-?-?-?-?-?-?-?- 8w 1d 212 lb 2 oz 111/72 -?-?-?-?-?-?-?-?-?-?-?-?- 180 -?-?-?-?-?-?-?-?-?-?-?-?- KW-CRL cons with dates. Desires NIPT and AFP for fam hx. 12/07/23 -?-?-?-?-?-?-?-?-?-?-?-?- 12w 4d 210 lb 6 oz 116/78 Nega tive -?-?-?-?-?-?-?-?-?-?-?-?- Negative 170 -?-?-?-?-?-?-?-?-?-?-?-?- MH-No VB. Brief US to confirm live IUP and FHT. Denies concerns 01/11/24 -?-?-?-?-?-?-?-?-?-?-?-?- 17w 4d 208 lb 128/87 Negative -?-?-?-?-?-?-?-?-?-?-?-?- Negative 150 -?-?-?-?-?-?-?-?-?-?-?-?- kw- no vb/crampi ng. US scheduled for 02/01. AFP ordered. 02/08/24 -?-?-?-?-?-?-?-?-?-?-?-?- 21w 4d 210 lb 4 oz 116/80 Nega tive -?-?-?-?-?-?-?-?-?-?-?-?- Negative 145 21 -?-?-?-?-?-?-?-?-?-?-?-?- KW- no vb/crampi ng. good fm. AFP neg. marginal previa-repeat US at 28 weeks. requesting note for work for light duty at next visit. 02/15/24 -?-?-?-?-?-?-?-?-?-?-?-?- 22w 4d 210 lb 8 oz Negative -?-?-?-?-?-?-?-?-?-?-?-?- Negative -?-?-?-?-?-?-?-?-?-?-?-?- Nurse only-soy schmitz. Rx sent. 03/09/24 -?-?-?-?-?-?-?-?-?-?-?-?- 25w 6d 212 lb 119/74 Negative -?-?-?-?-?-?-?-?-?-?-?-?- Negative 148 28 -?-?-?-?-?-?-?-?-?-?-?-?- JV- pt complains of briseyda-mckeon contractions. She was diagnosed with covid a week ago. recommend fluids and rest. rpt ultrasound at 28 weeks for placental location. continue pelvic rest until then. start baby asa 04/01/24 -?-?-?-?-?-?-?-?-?-?-?-?- 29w 1d 213 lb 3.2 oz 105/72 Tr shani -?-?-?-?-?-?-?-?-?-?-?-?- Negative 150 29 -?-?-?-?-?-?-?-?-?-?-?-?- LC-no vb/ctx/lof . good fm. LC-no vb/ctx/lof. good fm. t dap and larc provided today 04/15/24 -?-?-?-?-?-?-?-?-?-?-?-?- 31w 1d 213 lb 8 oz 105/70 Trac e -?-?-?-?-?-?-?-?-?-?-?-?- Negative 140 31 -?-?-?-?-?-?-?-?-?-?-?-?- SM- no vb lof go od fm no regualr ctx discussed gdm diagnosis recommend nutrition consult and start testing 04/29/24 -?-?-?-?-?-?-?-?-?-?-?-?- 33w 1d 214 lb 113/74 Negative -?-?-?-?-?-?-?-?-?-?-?-?- Negative 130 33 -?-?-?-?-?-?-?-?-?-?-?-?- KW- no vb/lof/ct x. good fm. reports good BS but does not have readings with her. having some dizziness and changes in her vision. pre e labs/check bs when it happens and compression hose. 05/13/24 -?-?-?-?-?-?-?-?-?-?-?-?- 35w 1d 215 lb 6 oz 111/77 Nega tive -?-?-?-?-?-?-?-?-?-?-?-?- Negative 125 Cephalic -?-?-?-?-?-?-?-?-?-?-?-?- JV- no lof, vagi nal bleeding, or dec fm. pt not checking glucose levels adequately. will need log next visit. 05/27/24 -?-?-?-?-?-?-?-?-?-?-?-?- 37w 1d 217 lb 120/79 Negative -?-?-?-?-?-?-?-?-?-?-?-?- Negative 130 38 Cephalic 1 -?-?-?-?-?-?-?-?-?-?-?-?- SM- quesitonable LOF- rom plus sent. no vb good fm no reuglar ctx gbs done 06/03/24 -?-?-?-?-?-?-?-?-?--?-?-?- 38w 1d 218 lb 127/91 Negative -?-?-?-?-?-?-?-?-?-?-?-?- Negative 132 38 Cephalic 1 -?-?-?-?-?-?-?-?-?-?-?-?- 70 -2 JV- glucos e log reviewed and normal.feels miserable and cant sleep due to sinus infection. on abx. will try vistaril. vtx on bedside scan today. 06/10/24 -?-?-?-?-?-?-?-?-?-?-?-?- 39w 1d 219 lb 131/84 Trace -?-?-?-?-?-?-?-?-?-?-?-?- Negative 130 40 Cephalic 1 .5 -?-?-?-?-?-?-?-?-?-?-?-?- 50 -2 KW- no vb/ lof/ctx. good fm. PIH labs today NST FHR Rate Baby A Baseline: 135 Variability:: Moderate Accelerations:: 15 x 15 Decelerations:: None NST Reactive:: Yes FHR Category:: Category I Uterine Activity:: 4-5 minutes ROS Constitutional Constitutional: Denies change in weight, fatigue, fever(s), headache(s), poor appetite or weakness Eyes Eyes: Denies blurry vision, change in vision, floaters, seeing flashes or spots in vision ENT HEENT: Denies dizziness, headache(s), loss taste/smell or sore throat Cardiovascular Cardiovascular: Denies chest pain, dizziness, dyspnea, irregular heart rhythm, lightheadedness, palpitations or rapid heart rate Respiratory/Chest Respiratory/Chest: Denies change in mental status, chest tightness, cough, dyspnea or breast pain Gastrointestinal Gastrointestinal: Denies anorexia, chewing difficulty, constipation, diarrhea or weight changes Genitourinary Genitourinary: Denies difficulty urinating, dysuria, flank pain, genital pain, urinary frequency or urinary urgency Musculoskeletal Musculoskeletal: Denies back pain, difficulty walking, extremity pain, joint pain, muscle cramps or muscle weakness Integumentary Integumentary: Denies lesions or unusual bruising Neurologic Neurologic: Denies abnormal movements, abnormal speech, dizziness, numbness, seizure-like activity, syncope or weakness Psychiatric Psychiatric: Denies behavioral changes, change in appetite, confusion, depression, homicidal ideation, suicidal ideation or suicidal thoughts Endocrine Endocrinology: Denies excessive sweating, polydipsia or polyuria Hematologic/Lymphatic Hematologic/Lymphatic: Denies anemia Allergic/Immunologic Allergic/Immunologic: Denies itchy eyes, lip swelling, throat swelling, tongue swelling or wheezing Vital Signs Vital Signs Vital Signs: 06/13/24 04:19 06/13/24 04:19 06/13/24 04:21 Temperature Temperature Source Pulse Rate 111 H Respiratory Rate Blood Pressure 130/83 H BP Systolic 130 BP Diastolic 83 Pulse Ox 96 06/13/24 04:21 06/13/24 04:22 06/13/24 04:22 Temperature Temperature Source Temporal Pulse Rate 106 H Respiratory Rate 17 Blood Pressure BP Systolic BP Diastolic Pulse Ox 06/13/24 04:22 06/13/24 05:24 06/13/24 05:24 Temperature 98.6 F Temperature Source Pulse Rate 97 Respiratory Rate Blood Pressure 135/76 H BP Systolic 135 BP Diastolic 76 Pulse Ox 06/13/24 05:24 06/13/24 05:24 06/13/24 05:24 Temperature Temperature Source Temporal Pulse Rate 98 Respiratory Rate 16 Blood Pressure BP Systolic BP Diastolic Pulse Ox 06/13/24 05:24 06/13/24 05:24 Temperature 98.4 F Temperature Source Pulse Rate Respiratory Rate Blood Pressure BP Systolic BP Diastolic Pulse Ox 97 Weight Weight: 219 lb 2.232 oz Body Mass Index (BMI) 40.1 Physical Exam Const alert, oriented x3 and no apparent distress General Appearance: cooperative Orientation / Consciousness: awake HEENT normocephalic Neck full ROM Lymph Lymphatic: no lymphadenopathy noted Chest inspection of chest normal Resp normal respiratory effort and normal air movement Effort and Inspection: able to speak in complete sentences and symmetric chest movement GI soft to palpation and non-tender Inspection: gravid Palpation: soft; Negative for tender external exam normal Back/Spine normal to inspection Extremity normal to inspection and full ROM Skin no rashes or lesions noted Psych mental status grossly normal Appearance: grossly normal Speech: normal speech Labs Labs Labs: Blood Type A POSITIVE Antibody Screen NEGATIVE Hct 42.9 % (37-47) Hgb 15.2 g/dL (12.0-15.0) H Obstetrics Ultrasound Syphilis Total Ab Non-reactive Rubella IgG Antibody Reactive (Nonreactive) Hep Bs Antigen Non-Reactive (Nonreactive) Hepatitis C Antibody Non-Reactive (Nonreactive) Chlamydia DNA (KARINA) Negative (Negative) N.gonorrhoeae DNA (KARINA) Negative (Negative) HIV 1&2 Antibody Non-Reactive (Nonreactive) Glucose 1 Hr 50 gm 160 mg/dL (70-140) H Gest Glucose Tolerance MG/DL Miscellaneous Test Assessment & Plan (1) Active labor: PLAN: Patient presents IAL, plan expectant management for , pitocin/AROM PRN if needed. Pain management: plans no epidural. GBS negative. Management of any complications: see problem list I have reviewed the [facility] and made any clinically relevant updates. Dr Valentin aware of assessment and plan. agrees with admission (2) Uterine contractions: (3) Acute sinusitis: (4) Dizziness: (5) Gestational diabetes: COMMENT: nutrition consult, ordered testing supplies recommend 36 week growth us and delivery by 40 (6) UTI in : QUALIFIERS: Trimester: second trimester Qualified Code(s): O23.42 - Unspecified infection of urinary tract in , second trimester COMMENT: +UA, culture pending. Macrobid sent. (7) Obesity (BMI 30-39.9): (8) Supervision of high-risk : QUALIFIERS: Trimester: first trimester Qualified Code(s): O09.91 - Supervision of high risk , unspecified, first trimester COMMENT: PRR, , MIKE 06/16/24, BARBARA Machado, Herve (9) : QUALIFIERS: Weeks of gestation: 39 weeks Qualified Code(s): Z3A.39 - 39 weeks gestation of COMMENT: GBS neg, NIPT low risk, discussed genetic & carrier testing (10) Hx of depression, currently : (11) FH: spina bifida: COMMENT: FOB had spina bifida at , AFP neg (12) JULISSA (stress urinary incontinence, female): (13) COVID-19: COMMENT: start 81 asa daily Charges/Coding Multi Select Codes Urinary/Genital Urinary/Genital CPT Codes: No Charge
--- NOTE | 2024-06-13 05:47 | PCM.PN.BLA ---
Progress Note Coping well with contractions current tracing: FHT: 140 Moderate variability reactive no decelerations category I tracing [place]: 4-5 Contractions Membranes:AROm clear SVE:7/90/0 A/P: Continue with position changes Titrate pitocin per protocol Epidural per anesthesia GBS neg Anticipate Dr Valentin aware of above assessment and agrees with plan of care Assessment & Plan Assessment/Plan (1) Active labor: (2) Uterine contractions: (3) Acute sinusitis: (4) Dizziness: (5) Gestational diabetes: (6) UTI in : QUALIFIERS: Trimester: second trimester Qualified Code(s): O23.42 - Unspecified infection of urinary tract in , second trimester (7) Obesity (BMI 30-39.9): (8) Supervision of high-risk : QUALIFIERS: Trimester: first trimester Qualified Code(s): O09.91 - Supervision of high risk , unspecified, first trimester (9) : QUALIFIERS: Weeks of gestation: 39 weeks Qualified Code(s): Z3A.39 - 39 weeks gestation of (10) Hx of depression, currently : (11) FH: spina bifida: (12) JULISSA (stress urinary incontinence, female): (13) COVID-19: Multi Select Codes Urinary/Genital Urinary/Genital CPT Codes: No Charge
[2024-06-13 05:59] LABS: Syphilis Antibodies Non-reactive
[2024-06-13] MEDS: Oxytocin 10 UNITS/ML Vial IM (06:36)
[2024-06-13] MEDS: Oxytocin 15 Units/NS 250ml 15 UNITS/250 ML IV.SOLN 83 UNITS IV (06:37)
[2024-06-13 06:39] LABS: Bedside Glucose 107 mg/dL (74-106)
[2024-06-13 06:39] LABS: Bedside Glucose 102 mg/dL (74-106)
--- NOTE | 2024-06-13 06:43 | OB.VAGDELI_ITS ---
Assessment & Plan (1) Vaginal delivery: COMMENT: LINDA Colin (2) Active labor: (3) Uterine contractions: (4) Acute sinusitis: (5) Dizziness: (6) Gestational diabetes: COMMENT: nutrition consult, ordered testing supplies recommend 36 week growth us and delivery by 40 (7) UTI in : QUALIFIERS: Trimester: second trimester Qualified Code(s): O23.42 - Unspecified infection of urinary tract in , second trimester COMMENT: +UA, culture pending. Macrobid sent. (8) Obesity (BMI 30-39.9): (9) Supervision of high-risk : QUALIFIERS: Trimester: first trimester Qualified Code(s): O09.91 - Supervision of high risk , unspecified, first trimester COMMENT: PRR, , MIKE 06/16/24, BARBARA Machado, Herve (10) : QUALIFIERS: Weeks of gestation: 39 weeks Qualified Code(s): Z3A.39 - 39 weeks gestation of COMMENT: GBS neg, NIPT low risk, discussed genetic & carrier testing (11) Hx of depression, currently : (12) FH: spina bifida: COMMENT: FOB had spina bifida at , AFP neg (13) JULISSA (stress urinary incontinence, female): (14) COVID-19: COMMENT: start 81 asa daily Maternal Data Information MIKE Calculator Estimated Delivery Date Method Current WG Current Estimate 06/16/24 LMP (Certain) 39w 4d Final MIKE: 06/16/24 Final MIKE Source: US >20 weeks Gestational age: 39.4 Vaginal Delivery Maternal Presentation Maternal Presentation: Active Labor Maternal Presentation: Presented to unit for [active labor] [induction of labor for ] Vaginal Delivery Information Procedure Performed: Spontaneous Vaginal Delivery Surgeon/Practitioner: Leia Salazar Date of Procedure: 06/13/24 Pre-Procedure Diagnosis: see problem list Post-Procedure Diagnosis: same Type of anesthesia: None Estimated Blood Loss: 150 Time of Delivery: 06:28 Findings Description of procedure: Progressed well to 10cm dilated and made steady progress with effective maternal pushing. Delivered the head in LETY presentation. The head was delivered atraumatically and a double loose nuchal cord was identified and was easily reduced over the 's head. The anterior and posterior shoulders delivered without complication followed by the rest of the and the was placed on the maternal abdomen. Delayed cord clamping was employed for approximately 3 minutes. Cord was clamped and cut and gentle traction was applied to the cord and the placenta delivered spontaneously. Immediately following, it was noted to be intact with a 3 vessel cord. Uterine bleeding stable. The perineum and vagina were inspected and noted to have no laceration . EBL was 150cc. Patient and infant tolerated delivery well. Apgars 8/9. Dr Valentin notified of vaginal delivery and orders reviewed. Physician agrees with current plan of care. Presentation: Vertex Amniotic Membrane Rupture Type: Artificial Amniotic Fluid Description: Clear Placental Delivery Description: Spontaneous Placenta Disposition: [facility] Specimen collected: No Cord Vessel Description: 3 Vessels Cord Entanglement: Around neck x 2, loose A Gender: Male (1 minute): 8 (5 minute): 9 Delayed Cord Clamping: Yes Nurse Practitioner Hospitalist circulation clerk: No Post Vaginal Deli Medications given after delivery: IM Pitocin Episiotomy Description: None Laceration: None Complication Complications: No Multi Select Codes Urinary/Genital Urinary/Genital CPT Codes: 05251 Vaginal Delivery [facility]
--- NOTE | 2024-06-13 06:45 | DCINST_ITS ---
Discharge Instructions Diet Discharge Diet: No restrictions Activity Discharge Activity: Return to Normal Activity May resume sexual activity in: 6-8 weeks Dressing / Incision Call your doctor if you observe: Fever of 101 or Higher, Coldness, Increased Pain, Numbness or Tingling, Change in Color, Inability to urinate, Inability to have a bowel movement, Using more than 1 pad per hour, Shortness of breath, Dizziness, Fainting spells, Swelling in the ankles, Chest pain, Increased palpitations (irregular heartbeat), Calf discomfort and Uncontrolled pain Follow Up Care Please Follow Up With: Leia Salazar CNM When: Please call the office to schedule your follow up appointment in 6 weeks. If you had high blood pressure please call to schedule an appointment in 2 weeks. Test Results: Test results from this visit will be discussed in further detail at your follow- up appointment, if applicable. Discharge Plan Admission Admit Date/Time: 06/13/24 04:35 Attending Provider: Leia Salazar Primary Care Provider: Mounika Buckner Discharge Orders/Prescriptions Prescriptions: No Action PNV-DHA 27 mg iron-1 mg -300 mg capsule PO DAILY aspirin 81 mg capsule 81 mg PO DAILY hydroxyzine pamoate [Vistaril] 25 mg capsule 25 mg PO QHS Qty: 30 0RF amoxicillin 500 mg capsule 500 mg PO BID Patient Comments: for sinus infection blood-glucose meter [FreeStyle [place]] Kit See Rx Instructions miscellaneous .COMPLEX Qty: 1 0RF Rx Instructions: as directed 4 times daily testing. Once at fasting and 2 hrs. post meals, Br eakfast, Lunch, and Dinner; (DME) Blood Glucose Test Strip See Rx Instructions .Route Qty: 50 4RF Rx Instructions: As directed (DME) lancets [FreeStyle Lancets] 28 gauge misc See Rx Instructions .Route Qty: 100 2RF Rx Instructions: As directed Referrals / Follow Up: Mounika Buckner MD [Primary Care Provider] -
[2024-06-13 08:08] LABS: Bedside Glucose 144 mg/dL (74-106)
[2024-06-13] MEDS: Ibuprofen 600 MG Tablet PO (19:37)
[2024-06-13] MEDS: Acetaminophen 500 MG Tablet 1000 MG PO (23:00)
[2024-06-14 03:52] VITALS: PULSE 90; O2SAT 98
[2024-06-14 03:53] VITALS: BP 119/78; PULSE 93; PULSE 96; RESP 16; TEMP 36.3; O2SAT 97
[2024-06-14 07:20] LABS: Bedside Glucose 91 mg/dL (74-106)
--- NOTE | 2024-06-14 07:42 | PCM.PN.OB ---
Subjective Subjective Patient doing well without complaints. Tolerating PO. Ambulating and voiding without difficulty. Feeding well. Denies chest pain, shortness of breath, calf pain/swelling, fevers, chills, lightheadedness. Objective Data Objective Data Vital Signs: Vital Signs Temp Pulse Resp BP Pulse Ox O2 Del Method 97.4 F L 93 16 119/78 97 Room Air 06/14/24 03:53 06/14/24 03:53 06/14/24 03:53 06/14/24 03:53 06/14/24 03:53 06/14/24 03:53 Oxygen Delivery Method Room Air Weight: 219 lb 2.232 oz Body Mass Index (BMI) 40.1 Intake & Output: Intake and Output for Last 24 Hours 06/12/24 06/13/24 06/14/24 22:59 23:59 23:59 Intake Total 845.28 / 845.28 Output Total 651 / 651 Balance 194.28 / 194.28 Lab / Micro Data Attestation: I reviewed the patient's lab results. 06/13/24 05:00 Labs: Laboratory Results - last 24 hr 06/13/24 07:26: POC Glucose 144 H 06/14/24 06:34: POC Glucose 91 ROS Constitutional Constitutional: Reports systems reviewed and no addt'l complaints, except as documented; Denies anorexia or headache(s) Cardiovascular Cardiovascular: Reports systems reviewed and no addt'l complaints, except as documented; Denies dizziness, dyspnea, nausea or tachypnea Respiratory/Chest Respiratory/Chest: Reports systems reviewed and no addt'l complaints, except as documented; Denies cough, dyspnea, shortness of breath at rest or tachypnea Gastrointestinal Gastrointestinal: Reports systems reviewed and no addt'l complaints, except as documented; Denies abdominal pain, constipation or nausea Genitourinary Genitourinary: Reports systems reviewed and no addt'l complaints, except as documented; Denies burning urination, difficulty urinating, dysuria, urinary frequency or urinary incontinence Musculoskeletal Musculoskeletal: Reports systems reviewed and no addt'l complaints, except as documented Integumentary Integumentary: Reports systems reviewed and no addt'l complaints, except as documented Neurologic Neurologic: Reports systems reviewed and no addt'l complaints, except as documented; Denies abnormal speech, dizziness or headache(s) Psychiatric Psychiatric: Reports systems reviewed and no addt'l complaints, except as documented Endocrine Endocrinology: Reports systems reviewed and no addt'l complaints, except as documented Hematologic/Lymphatic Hematologic/Lymphatic: Reports systems reviewed and no addt'l complaints, except as documented Physical Exam Const alert, oriented x3 and no apparent distress Neck full ROM Resp normal respiratory effort, normal air movement and no retractions Effort and Inspection: able to speak in complete sentences and symmetric chest movement GI soft to palpation Bladder / Kidney Exam: bladder normal to palpation Uterus Palpation: uterus fundus Extremity normal to inspection and full ROM Psych mental status grossly normal, thought process normal and cooperative Assessment & Plan (1) Vaginal delivery: COMMENT: LINDA Colin PLAN: s/p PPD # 1 1. routine post delivery care 2. breast feeding- support given 3. rh positive 4. rubella immune 5. Discharge home (2) Gestational diabetes: COMMENT: nutrition consult, ordered testing supplies recommend 36 week growth us and delivery by 40 (3) UTI in : QUALIFIERS: Trimester: second trimester Qualified Code(s): O23.42 - Unspecified infection of urinary tract in , second trimester COMMENT: +UA, culture pending. Macrobid sent. (4) Obesity (BMI 30-39.9): (5) Hx of depression, currently : (6) FH: spina bifida: COMMENT: FOB had spina bifida at , AFP neg (7) JULISSA (stress urinary incontinence, female): (8) COVID-19: COMMENT: start 81 asa daily Charges/Coding Multi Select Codes Urinary/Genital Urinary/Genital CPT Codes: No Charge
[2024-06-14 09:09] VITALS: BP 117/71; PULSE 93
[2024-06-14 09:10] VITALS: BP 117/71; PULSE 93; RESP 16; TEMP 36
--- NOTE | 2024-06-15 13:32 | CASEMGMT ---
Social Work Assessment Labor and Delivery Unit Patient Address: [address] [place] [address]. [place] [address] Phone number:[phone] Date of Referral: 06/13/24 Time of Referral:? 704 Referred By: Leia Salazar Date of Intervention: ?06/14/24? Time of Intervention:?919 Reason for Referral:? history of depression Sw completed chart review and acknowledges social work consult. Sw presented to bedside and introduced self to mother of baby (TRICIA- Felecia). Sw explained reason for sw involvement and completed psychosocial assessment. Father of baby (FOB- Herve) presented to bedside later and participated respectfully in completion of assessment. History obtained from: medical records, MOB and FOB Household composition: Currently residing in the family home is TRICIA, JEN, their 10 year old daughter, Jeannette, and baby when ready for discharge. Parents deny any housing concerns reporting that it is safe and secure. Patient's parent/guardian status:? ?MOB states that she and JEN have been together for 11 years after meeting while working together at [employer]. No concerns of domestic violence or intimate partner violence. baby is biologically first baby for both parents together. TRICIA states that her 10 year old daughter is the child to a former partner, however she ended that relationship and started dating JEN who has always claimed Jeannette as his own. Medical History: TRICIA is 28 year old female who is 2, para 1- now 2 following labor and delivery of . TRICIA received routine care during with [facility]. TRICIA presented to hospital for induction of labor and delivered baby on 06/13/24 at 39 weeks gestation. Baby boy, named Alannah Rojas, was born weighing 7lb 13oz with apgars of 8 and 9 at one and five minutes of life, respectfully. TRICIA is breast feeding and states that it is going well, and baby will be followed by Dr. Webster for pediatrics. ? Educational Status: Both parents graduated from high school and obtained some college education but no degree. Parents deny concerns with reading, learning or comprehension. ? Financial Status: Both parents are gainfully employed outside of the home. 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 JEN works at [employer] in [place] and is able to get time off for paternity leave. Supplies: Parents have obtained necessary baby supplies, including: car seat, safe sleep space, clothes, diapers and wipes. Childcare/Caregiver(s):? TRICIA states that she will be the primary caregiver to baby along with JEN when he is not at work. When both parents have returned to work laly will provdie childcare. Transportation:??Both parents have their drivers license and reliable means of transportation. No barriers at this time. Programs/Agencies Involved: ??Parents are over income for community resources that assist them financially. ? Children Services/Legal Issues:??No history of children services involvement, no issues or concerns warranting referral to be made at this time. ? Behavioral Health Issues: ??Mental Health History:??JEN reports to having been diagnosed with PTSD after discovering his father after completing suicide. JEN has attended counseling for this. TRICIA reports that she believes that she experienced depression after her daughter was born. TRICIA states that although she is able to look back now and realize what she was struggling with, when she was going through it she did not know that's what it was. TRICIA reports that she has been struggling since delivering baby, and has been emotional and has had several melt downs. TRICIA reports that she has a lot of mom guilt, and is worried that their daughter will not accept the baby, or is worried about how the baby will impact her relationship with her daughter. Much active listening and support provided. TRICIA completed [place] Depression Scale, her score was `11. Sw provided education and support regarding her result. JEN states that he is more aware and mindful at this time regarding what to be on the lookout for with TRICIA's mental health. ? Substance Use History:?Parents deny substance use prior to and during . ? Family History:?Parents deny family history of substance use/ addiction and significant mental health diagnoses. ??Drug Screens: No drug screens observed in chart review. Family/Social Stressors:? TRICIA repeats that she is worried about her older daughter not accepting the baby. TRICIA states that she knows this will be a big transition for the family as a whole, but she has had a lot of mom guilt over the fact that her daughter is saying she does not want a sibling. Education on how to approach this topic with her daughter provided. Support Systems: TRICIA identifies that JEN and the grandma's are her biggest supports at this time. MOB also states that she has a sister in law who has some little boys who may be receptive to talking to her about her mental health during this period. Depression/Shaken Baby/Safe Sleeping: Amari educated parents on signs and symptoms of baby blues and mood and anxiety disorders to be mindful of during this period. Amari provided MOB with several lists of local mental health providers that she could get connected to. MOB receptive to that idea and appreciative of the information provided. FOB states that he feels better equipped this time to recognize when MOB may be struggling with her mental health, and feels like he would know how to help and support her. Sw educated parents on shaken baby prevention and ABCs of safe sleep. Parents express understanding. ASSESSMENT: MOB and baby admitted following labor and delivery. MOB opened up throughout assessment and observed to be tearful several times throughout conversation. MOB observed to provide hands on loving and appropriate care to . Both parents report that they are happy baby is here and have a griffith/ attachment with him. MOB talkative regarding her previous mental health experience after the delivery of her first baby. MOB states that following this and delivery she is in a much better place with her and FOB's relationship and feels more confident in their marriage. FOB receptive to learning more about mood and anxiety disorders and willing to help MOB if she were to struggle. Parents have obtained all necessary baby supplies and have natural supports in place. PLAN:?? No other services requested or indicated. MOB and baby to be discharged when medically ready. Parents were provided literature regarding: signs and symptoms of baby blues and mood and anxiety disorders, Help Me Grow, shaken baby prevention, ABCs of safe sleep and a list of county resources that are available for them should any needs present themselves. Live [employer], COMEDIAN, MERCHANDISING TEAM LEAD
== END 2024-06-14 13:15 | disposition home or self-care (01) | DRG 807 ==
LOC: WPOUT 04:39 → WP 05:16
PROVIDERS: Admitting Provider Advanced Practice Midwife; PCP Internal Medicine; Referring Provider Advanced Practice Midwife; Visit Provider Advanced Practice Midwife
DX: O24.429 Gestational diabetes mellitus in childbirth, unspecified control (principal); Z37.0 Single live birth; J01.90 Acute sinusitis, unspecified; O99.214 Obesity complicating childbirth; Z3A.39 39 weeks gestation of pregnancy; Z79.82 Long term (current) use of aspirin; Z87.440 Personal history of urinary (tract) infections; O99.52 Diseases of the respiratory system complicating childbirth; Z86.59 Personal history of other mental and behavioral disorders; Z90.49 Acquired absence of other specified parts of digestive tract; Z86.16 Personal history of COVID-19; O99.892 Other specified diseases and conditions complicating childbirth; N39.3 Stress incontinence (female) (male); O69.81X0 Labor and delivery complicated by cord around neck, without compression, not applicable or unspecified
CPT/HCPCS: 59025; 59050; 82962; 85025; 86780; 86850; 86900; 86901; 99221; G0378

== ENCOUNTER → 2025-05-31 | Outpatient (CLI) | payer BC, SELFPAY ==
--- NOTE | 2025-05-31 16:52 | MRI_ITS ---
PROCEDURE: SPINE CERVICAL (ROUTINE) 06/01/2025 REASON FOR EXAM: WORSENING DEXTERITY AND BALANCE X10 MONTHS TECHNIQUE: Procedure Code: MRISP Modality: MR Procedure: SPINE CERVICAL (ROUTINE) Multiplanar and multisequence images were obtained without IV contrast administration. COMPARISON: 14-Apr-2025 CR FINDINGS: Straightening of cervical curve denoting myospasm. No vertebral fracture/acute dislocation noted. The vertebral body heights are normal. The examined vertebral bodies and posterior neural elements appear intact with no fractures. Normal craniometric measures of the craniovertebral junction No obvious marrow degenerative signal. Modio 0. Variable degrees of reduced bright T2 signal of the intervertebral discs denoting their desiccation. C1-C2: Atlantod[place] interval is preserved. Odontoid process and atlantoaxial joint appear normal. C2-C3: There is no significant disc pathology. Normal morphology of the ligamentum flava. No arthropathy of the uncovertebral and zygapophyseal joints. No significant spinal canal stenosis noted. C3-C4: There is no significant disc pathology. Normal morphology of the ligamentum flava. No arthropathy of the uncovertebral and zygapophyseal joints. No significant spinal canal stenosis noted. C4-C5: There is no significant disc pathology. Normal morphology of the ligamentum flava. No arthropathy of the uncovertebral and zygapophyseal joints. No significant spinal canal stenosis noted. C5-C6: a diffuse disc bulge with a 4.5 mm left paracentral and left foraminal posterior disc protrusion seen indenting the cord encroaching upon the related neural exit foramina inducing marked left and mild right exiting nerve roots compression. C6-C7: a diffuse disc bulge with a 2 mm left paracentral and left foraminal posterior disc protrusion seen indenting the cord encroaching upon the related neural exit foramina inducing moderate left and minimal right exiting nerve roots compression. C7-T1: There is no significant disc pathology. Normal morphology of the ligamentum flava. No arthropathy of the uncovertebral and zygapophyseal joints. No significant spinal canal stenosis noted. Normal appearance of the examined cervical cord and cranio-cervical junction. No marrow infiltrative lesions. No paraspinal soft tissue masses. MRI/Spine Cervical (Routine) IMPRESSION: Straightening of cervical curve denoting myospasm. No fractures/acute dislocation noted. C5-C6: a diffuse disc bulge with a 4.5 mm left paracentral and left foraminal p osterior disc protrusion inducing marked left and mild right exiting nerve roots compression. C6-C7: a diffuse disc bulge with a 2 mm left paracentral and left foraminal pos terior disc protrusion seen inducing moderate left and minimal right exiting nerve roots compression. Reading [facility]
--- OUTSIDE RECORDS SUMMARY | 2025-05-31 17:28 | XMS RPT_ITS | CCD ---
Author Organization [facility] Care Team Providers Care Web Analyst Name Role Phone [facility] Unavailable Unavailable [facility] Unavailable Unavailable Dr. Stefan Bradford Primary Care Provider Dr. Stefan Bradford Referring Provider Ilia INFORMATION ASSURANCE MANAGER, GERARD-C Teresa Attending Provider [phone] Stefan Bradford MD Primary Care Provider Stefan Bradford MD Primary Care Provider STEFAN BRADFORD Primary Care Unavailable ELÍAS DINERO Attending Unavailable ELÍAS DINERO Admitting Unavailable Dr. Stefan Bradford Primary Care Provider Dr. Stefan Bradford Referring Provider Ilia INFORMATION ASSURANCE MANAGER, GERARD-C Teresa Attending Provider [phone] Dr. Stefan Bradford Primary Care Provider Dr. Stefan Bradford Referring Provider Ilia INFORMATION ASSURANCE MANAGER, INFORMATION ASSURANCE MANAGER-C Teresa Attending Provider SIENA Salazar Attending Provider Stefan Bradford MD Primary Care Provider EDNA JOSHI Attending Unavailable NO PRIMARY CAREMD Primary Care Unavailable AMNA MCCORMACK Referring Unavailab le NO PRIMARY CAREMD Primary Care Unavailable AMNA MCCORMACK Referring Unavailab SUZI Smith Attending Unavailable SHERI FRANCO Referring Unavailable STEFAN BRADFORD Primary Care Unavailable Sharmaine CELIS, Ruth Batres Unavailable Older MULTI SKILLED OPERATOR.VACUUM FORM OPERATOR, Mary Unavailable Katherin Persaud PA-C Unavailable Dr. Stefan Bradford MD Primary Care Provider Dr. Stefan Bradford MD Referring Provider Ilia GEE-CTeresa Attending Provider Galilea Mcdowell Attending Provider Artem BURROUGHS, Dr. Gibson Attending Provider GANTA, STEFAN Primary Care Unavailable GANTA, STEFAN Primary Care Unavailable SHERI FRANCO Attending Unavailable GANTA, STEFAN Primary Care Unavailable GANTA, STEFAN Primary Care Unavailable DRAKE MCDONALD Attending Unavailable GANTA, STEFAN Primary Care Unavailable HAAGEN SHERI Referring Unavailable GANTA, STEFAN Primary Care Unavailable GANTA, STEFAN Primary Care Unavailable GANTA, STEFAN Primary Care Unavailable Ganta, Stefan Referring Unavailable Amna Franks Attending Unavailabl e Ganta, Stefan Primary Care Unavailable Ganta, Stefan Referring Unavailable Don Oro Attending Unavailable Ganta, Stefan Primary Care Unavailable Ganta, Stefan Referring Unavailable Ganta, Stefan Primary Care Unavailable Leia Salazar Attending Unavailable Ganta, Stefan Referring Unavailable Marjorie Valentin Attending Unavailable Ganta, Stefan Primary Care Unavailable Galilea Mercado Attending Unavailable Ganta, Stefan Referring Unavailable Ganta, Stefan Primary Care Unavailable Ganta, Stefan Primary Care Unavailable Arthur Mcgill Attending Unavailable Leia Salazar Consulting Unavailable Leia Salazar Attending Unavailable Ganta, Stefan Primary Care Unavailable Ganta, Stefan Primary Care Unavailable Leia Salazar Consulting Unavailable Leia Salazar Admitting Unavailable Leia Salazar Referring Unavailable Leia Salazar Attending Unavailable Amna Franks Attending Unavailabl e Ganta, Stefan Primary Care Unavailable Ganta, Stefan Referring Unavailable Teresa Morillo NP Attending Unavailable Ganta, Stefan Primary Care Unavailable Ganta, Stefan Referring Unavailable Fa[place]ner INFORMATION ASSURANCE MANAGERTeresa Attending Unavailable Ganta, Stefan Referring Unavailable Ganta, Stefan Primary Care Unavailable Ganta, Stefan Referring Unavailable Ganta, Stefan Primary Care Unavailable Leia Salazar Attending Unavailable Leia Salazar Attending Unavailable Ganta, Stefan Primary Care Unavailable Leia Salazar Admitting Unavailable Leia Salazar Referring Unavailable Leia Salazar Attending Unavailable [facility] Primary Care [facility] Galilea Mercado Referring Unavailable Galilea Mercado Attending Unavailable [facility] Unavailable [facility] Primary Care Unavailable Leia Salazar Referring Unavailable Leia Salazar Attending Unavailable [facility] Referring Unavailable Christiano INFORMATION ASSURANCE MANAGERaCndi Attending Unavailable [facility] Primary Care Unavailable [facility], [facility] Referring Unavailable Christiano INFORMATION ASSURANCE MANAGERCandi Attending Unavailable [facility] Primary Care Unavailable Allergies Allergy Classification Reported Allergen(s) Allergy Type Date of Onset Reaction(s) Facility (20 sources) Latex; Translations: [LATEX] Propensity to adverse reactions (disorder) 5 Rash [facility] Repository (6 sources) Environmental Allergies: Uncoded; Translations: [Environmental Allergies: Uncoded] Allergy to substance 4 [facility] Comment on above: ivory soap Medications Current Medications Medication Drug Class(es) Dates Sig (Normalized) Sig (Original) acetaminophen 325 mg oral tablet (20 sources) Start: 12-19-2022 take 2 tablets by mouth every six hours as needed acetaminophen (TYLENOL) 325 mg tablet Take 2 tablets by mouth every 6 hours as needed (stagger with ibuprofen). 12/19/2022 Active Comment on above: Take 2 tablets by mo uth every 6 hours as needed (stagger with ibuprofen). amoxicillin 875 mg / clavulanate 125 mg oral tablet (7 sources) Penicillin-class Antibacterial Start: 10-09-2024 End: 10-14-2024 take 1 tablet by mouth twice daily amoxicillin-clavul anate potassium (AUGMENTIN) 875-125 mg per tablet Indications: Acute non-recurrent maxillary sinusitis Take 1 tablet by mouth two times a day for 5 days. 10 tablet 10/09/2024 10/14/2024 Active Start: 06-02-2024 End: 06-12-2024 Amoxicillin-Pot Clavulanate 875-125 mg tablet Discontinued 1 {tbl} PO Q12H 20 10 0 June 02, 2024 12:00am June 11, 2024 12:00am June 12, 2024 12:09am Acute sinusitis, unspecified Start: 08-10-2023 End: 08-15-2023 take 1 tablet by mouth every twelve hours at mealtime amoxicillin-clavulanate potassium (AUGMENTIN) 875-125 mg per tablet Take 1 tablet by mouth every 12 hours for 5 days. Take with food 10 tablet 0 08/10/2023 08/15/2023 Active Start: 06-01-2023 End: 06-11-2023 take 1 tablet by mouth twice daily amoxicillin-clavulanic acid (AUGMENTIN) 875-125 mg per tablet Take 1 tablet by mouth two times a day for 10 days. 20 tablet 0 06/01/2023 06/11/2023 Active Start: 05-30-2022 End: 06-09-2022 take 1 tablet by mouth twice daily amoxicillin-clavulanic acid (AUGMENTIN) 875-125 mg per tablet Indications: Sinus pain Take 1 tablet by mouth twice daily for 10 days. 20 tablet 0 05/30/2022 06/09/2022 Active Comment on above: Take 1 tablet by maegan th twice daily for 10 days. Take 1 tablet by maegan th two times a day for 10 days. Take 1 tablet by maegan th every 12 hours for 5 days. Take with food benzonatate 100 mg oral capsule (16 sources) Non-narcotic Antitussive Start: 10-09-2024 benzonatate (TESSALON PERLE) 100 mg capsule Indications: Productive cough Take 1-2 capsules every 8 hours as needed. 60 capsule 10/09/2024 Active Start: 05-06-2022 End: 10-29-2022 take 1 capsule by mouth every eight hours as needed benzonatate (TESSALON PERLES) 100 mg capsule Take 1 capsule by mouth three times daily as needed for cough. 21 capsule 05/06/2022 10/29/2022 Discontinued Comment on above: Take 1 capsule by mo [facility] three times daily as needed for cough. doxycycline hyclate 100 mg oral tablet (2 sources) Tetracycline-clas s Drug Start: 10-23-2024 End: 11-02-2024 take 1 tablet by mouth twice daily doxycycline (VIBRA-TABS) 100 mg tablet Take 1 tablet by mouth two times a day for 10 days. 20 tablet 10/23/2024 11/02/2024 Active Start: 01-09-2023 End: 01-23-2023 take 1 capsule by mouth twice daily doxycycline hyclate (VIBRAMYCIN) 100 mg capsule Take 1 capsule by mouth twice daily for 14 days. 28 capsule 0 01/09/2023 01/23/2023 Active Comment on above: Take 1 capsule by mo [facility] twice daily for 14 days. fluticasone propionate 0.05 mg/actuat metered dose nasal spray (18 sources) Corticosteroid Start: End: take 2 spray(s) nasal route once daily fluticasone (FLONASE) 50 mcg/actuation nasal spray Indications: Acute non-recurrent maxillary sinusitis Use 2 Sprays in each nostril once daily for 14 days. 16 g 10/09/2024 10/23/2024 Active Start: 09-19-2022 End: 06-24-2023 take 2 spray(s) nasal route once daily fluticasone (FLONASE ALLERGY RELIEF) 50 mcg/actuation nasal spray Use 2 Sprays in each nostril once daily. 15.8 mL 3 09/19/2022 03/18/2023 Comment on above: Use 2 Sprays in each nostril once daily. 12 hr guaiFENesin 1200 mg extended release oral tablet (1 source) Start: 10-09-2024 End: 10-16-2024 take 1 tablet by mouth twice daily guaiFENesin (MUCINEX) 1,200 mg Ta12 Indications: Acute non-recurrent maxillary sinusitis , Productive cough Take 1 tablet by mouth two times a day for 7 days. 14 tablet 10/09/2024 10/16/2024 Active loratadine 10 mg oral tablet (20 sources) Start: 05-06-2022 take 1 tablet by mouth once daily loratadine (CLARITIN) 10 mg tablet Take 1 tablet by mouth once daily. 30 tablet 11 05/06/2022 Active Comment on above: [facility] [place] (Nk) (5 sources) Start: 04-14-2025 [place] (Nk) Active April 14, 2025 12:00am Start: 04-02-2022 [place] (Nk) A ctive April 01, 2022 11:00pm Start: 04-02-2022 [place] (Nk) [place] ctive April 02, 2022 12:00am polymyxin b 10004 unt/ml / trimethoprim 1 mg/ml ophthalmic solution (1 source) Dihydrofolate Reductase Inhibitor Antibacterial, Polymyxin-class Antibacterial Start: 10-09-2024 End: 10-16-2024 take 1 drop(s) into the eye(s) four times daily polymyxin B-trimethoprim (POLYTRIM) 10,000 unit- 1 mg/mL ophthalmic solution Indications: Acute bacterial conjunctivitis of right eye Use 1 Drop in the right eye four times daily for 7 days. 10 mL 10/09/2024 10/16/2024 Active 25/iron fum/folic/dha (-1 ORAL) (14 sources) 25/iron fum/folic/dha (-1 ORAL) Take by mouth. Active 25/iron fum/folic/dha (-1 ORAL) Take by mouth. 0 Active Comment on above: Take by mouth. Completed/Discontinued Medications Medication Drug Class(es) Dates Sig (Normalized) Sig (Original) amoxicillin 500 mg oral capsule (5 sources) Penicillin-class Antibacterial Start: 06-13-2024 End: 08-29-2024 take 1 capsule by mouth twice daily Amoxicillin 500 mg capsule Discontinued 500 mg PO TWICE A DAY June 13, 2024 1:00am August 29, 2024 12:50pm Start: 12-22-2023 End: 01-01-2024 take 1 tablet by mouth twice daily amoxicillin (AMOXIL) 875 mg tablet Indications: Sinobronchitis Take 1 tablet by mouth two times a day for 10 days. 20 tablet 0 12/22/2023 01/01/2024 Active Start: 09-21-2023 End: 10-01-2023 take 1 capsule by mouth twice daily amoxicillin (AMOXIL) 500 mg capsule Indications: Streptococcal pharyngitis Take 1 capsule by mouth two times a day for 10 days. 20 capsule 0 09/21/2023 10/01/2023 Active Comment on above: Take 1 capsule by mo [facility] two times a day for 10 days. aspirin 81 mg oral tablet (3 sources) Platelet Aggregation Inhibitor, Nonsteroidal Anti-inflammatory Drug Start: End: take 1 capsule by mouth once daily Aspirin 81 mg capsule Discontinued 81 mg PO DAILY April 01, 2024 12:00am August 29, 2024 12:50pm Blood-Glucose Meter (Freestyle [place]) kit (3 sources) Start: End: Blood-Glucose Meter (Freestyle [place]) kit Discontinued 0 MC .COMPLEX 1 0 April 12, 2024 12:00am August 29, 2024 12:50pm as directed 4 times daily testing. Once at fasting and 2 hrs. post meals, Breakfast, Lunch, and Dinner; Start: 04-12-2024 End: 08-29-2024 Blood-Glucose Meter ([place]) kit Discontinued 0 MC .COMPLEX 1 April 12, 2024 12:00am August 29, 2024 12:50pm as directed 4 times daily testing. Once at fasting and 2 hrs. post meals, Breakfast, Lunch, and Dinner; calcium ascorbate 500 mg oral tablet (3 sources) Start: 08-29-2024 End: 04-14-2025 take 1 tablet by mouth once daily Ascorbate Calcium (Vitamin C) 500 mg tablet Discontinued 500 mg PO daily August 29, 2024 1:00am April 14, 2025 10:36am cetirizine hydrochloride 10 mg oral capsule (11 sources) Histamine-1 Receptor Antagonist Start: 07-12-2018 End: 05-13-2019 take 1 capsule by mouth once daily Cetirizine 10 MG capsule Discontinued 10 mg PO DAILY July 12, 2018 1:00am May 13, 2019 1:56pm hydrOXYzine pamoate 25 mg oral capsule (3 sources) Antihistamine Start: 06-03-2024 End: 08-29-2024 take 1 capsule by mouth at bedtime Hydroxyzine Pamoate (Vistaril) 25 mg capsule Discontinued 25 mg PO AT BEDTIME 30 0 June 03, 2024 12:00am August 29, 2024 12:50pm Multivit 19-Txsa-Pduomg 1-Dha (Pnv-Dha) 27 mg iron-1 mg -300 mg capsule (5 sources) Start: 10-30-2023 End: 08-29-2024 Multivit 42-Beuf-Dwqrmf 1-Dha (Pnv-Dha) 27 mg iron-1 mg -300 mg capsule Discontinued NMA PO DAILY October 30, 2023 12:00am August 29, 2024 12:50pm Start: 10-30-2023 take 1 capsule by [facility] once daily Multivit 05-Hhje-Dpcvvl 1-Dha (Pnv-Dha) 27 mg iron-1 mg -300 mg capsule Active CAP PO DAILY October 30, 2023 12:00am Multivitamin 1 EACH tablet (3 sources) Start: 07-12-2018 End: 05-13-2019 Multivitamin 1 EACH tablet Discontinued 1 NMA PO DAILY July 12, 2018 1:00am May 13, 2019 1:56pm Multivitamin preparation (8 sources) Start: 07-12-2018 End: 05-13-2019 Multivitamin Discontinued 1 EACH PO DAILY July 12, 2018 12:00am May 13, 2019 12:56pm Start: 07-12-2018 End: 05-13-2019 Multivitamin Discontinued 1 EACH PO DAILY July 12, 2018 1:00am May 13, 2019 1:56pm naproxen 250 mg oral tablet (4 sources) Nonsteroidal Anti-inflammatory Drug End: 03-03-2024 take 1 tablet by mouth every twelve hours as needed naproxen (NAPROSYN) 250 mg tablet Take 250 mg by mouth two times a day as needed. 0 03/03/2024 Discontinued (Other) Comment on above: Take 250 mg by mouth two times a day as needed. Nirmatrelvir-Ri tonavir (11 sources) Start: 03-05-2022 End: 03-17-2022 Nirmatrelvir-Riton avir (Paxlovid (Eua)) 300 mg (150 mg x 2)-100 mg tablets,dose pack Discontinued 0 PO .COMPLEX 30 March 05, 2022 12:00am March 17, 2022 9:26am take TWO 150 mg tablets of nirmatrelvir with ONE 100 mg tablet of ritonavir twice daily for 5 days Start: 03-05-2022 End: 03-17-2022 Nirmatrelvir-Ritonavir (Paxl ovid (Eua)) 300 mg (150 mg x 2)-100 mg tablets,dose pack Discontinued 0 PO .COMPLEX March 04, 2022 11:00pm March 17, 2022 8:26am take TWO 150 mg tablets of nirmatrelvir with ONE 100 mg tablet of ritonavir twice daily for 5 days Start: 03-05-2022 End: 03-17-2022 Nirmatrelvir-Ritonavir (Paxl ovid (Eua)) 300 mg (150 mg x 2)-100 mg tablets,dose pack Discontinued 0 PO .COMPLEX March 05, 2022 12:00am March 17, 2022 9:26am take TWO 150 mg tablets of nirmatrelvir with ONE 100 mg tablet of ritonavir twice daily for 5 days Start: 03-05-2022 Nirmatrelvir-R itonavir (Paxlovid (Eua)) 300 mg (150 mg x 2)- 100 mg tablets,dose pack Active 0 PO .COMPLEX March 05, 2022 12:00am take TWO 150 mg tablets of nirmatrelvir with ONE 100 mg tablet of ritonavir twice daily for 5 days nitrofurantoin, macrocrystals 25 mg / nitrofurantoin, monohydrate 75 mg oral capsule (3 sources) Nitrofuran Antibacterial Start: 02-15-2024 End: 02-22-2024 take 1 capsule by mouth twice daily at mealtime Nitrofurantoin Monohyd/M-Cryst (Macrobid) 100 mg capsule Discontinued 100 mg PO TWICE A DAY 14 7 0 February 15, 2024 12:00am February 21, 2024 12:00am February 22, 2024 12:05am must administer with a meal/food ondansetron 4 mg disintegrating oral tablet (16 sources) Serotonin-3 Receptor Antagonist Start: 05-01-2021 End: 10-29-2022 take 1 tablet by mouth every eight hours as needed for nausea ondansetron orally disintegrating (ZOFRAN ODT) 4 mg disintegrating tablet Indications: Nausea , Acute LUQ pain Take 1 tablet by mouth every 8 hours as needed for nausea/vomiting. 12 tablet 05/01/2021 10/29/2022 Discontinued Comment on above: Take 1 tablet by maegan every 8 hours as needed for nausea/vomiting. oxyCODONE hydrochloride 5 mg oral tablet (5 sources) Opioid Agonist Start: 12-19-2022 take 1 tablet by mouth every six hours as needed for pain oxyCODONE IR (ROXICODONE) 5 mg immediate release tablet Indications: Other chronic sinusitis Take 1 tablet by mouth every 6 hours as needed for pain (breakthrough pain not controlled by tylenol and ibuprofen). 10 tablet 0 12/19/2022 Active Comment on above: Take 1 tablet by maegan every 6 hours as needed for pain (breakthrough pain not controlled by tylenol and ibuprofen). predniSONE 10 mg oral tablet (20 sources) Start: 08-28-2023 End: 09-21-2023 predniSONE (DELTASONE) 10 mg tablet Indications: Left foot pain Take 2 tabs po BID for 2 days then 1 tab po BID for 2 days then 1/2 tab po BID for 2 days then 1/2 tab daily for 2 days then stop 15 tablet 08/28/2023 09/21/2023 Discontinued (Course of therapy completed) Start: 03-24-2023 End: 03-29-2023 take 3 tablets by mouth once daily predniSONE (DELTASONE) 10 mg tablet Take 3 tablets by mouth once daily for 5 days. 15 tablet 0 03/24/2023 03/29/2023 Active Start: 05-06-2022 End: 10-29-2022 predniSONE (DELTASONE) 10 mg tablet Take 4 tabs daily for 3 days, then 2 tabs daily for 3 days, then 1 tab daily for 3 days with food. 21 tablet 05/06/2022 10/29/2022 Discontinued Start: 07-12-2018 End: 05-13-2019 take 1 tablet by mouth once daily Prednisone 20 MG tablet Discontinued 20 mg PO DAILY July 12, 2018 1:00am May 13, 2019 1:56pm DOSE PACK Comment on above: Take 4 tabs daily fo r 3 days, then 2 tabs daily for 3 days, then 1 tab daily for 3 days with food. Take 3 tablets by mo ut once daily for 5 days. Take 2 tabs po BID f or 2 days then 1 tab po BID for 2 days then 1/2 tab po BID for 2 days then 1/2 tab daily for 2 days then stop vitamin b12 0.1 mg oral tablet (15 sources) Vitamin B12 End: 10-29-2022 take 1 tablet by mouth once daily cyanocobalamin (VITAMIN B-12) 100 mcg tab Take 100 mcg by mouth once daily. 10/29/2022 Discontinued Comment on above: Take 100 mcg by mout h once daily. Problems Active Problems Problem Classification Problem Date Documented Da te Episodic/Chronic Abdominal hernia (10 sources) Umbilical hernia; Translations: [Umbilical hernia without obstruction or gangrene] 03-28-2022 Episodic Abdominal pain (12 sources) Abdominal pain; Translations: [Unspecified abdominal pain] Episodic Allergic reactions (12 sources) Idiopathic urticaria; Translations: [Urticaria] Onset: 07-20-2018 08-30-2020 Episodic Genitourinary symptoms and ill-defined conditions (16 sources) Female stress incontinence; Translations: [Stress incontinence (female) (male)] Onset: 06-10-2024 Chronic Headache; including migraine (11 sources) Headache; Translations: [Headache] 03-13-2022 Episodic Hemorrhage during ; abruptio placenta; placenta previa (3 sources) Placenta previa marginalis; Translations: [Partial placenta previa NOS or without hemorrhage, unspecified trimester] 04-15-2024 Episodic Comment on above: RESOLVED US @ 28 wks . Immunizations and screening for infectious disease (2 sources) Patient encounter status; Translations: [Encounter for screening for COVID-19] Episodic Inflammation; infection of eye (except that caused by tuberculosis or sexually transmitteddisease) (1 source) Acute infectious conjunctivitis; Translations: [Unspecified acute conjunctivitis, right eye] 10-09-2024 Episodic Malaise and fatigue (1 source) Fatigue; Translations: [Other fatigue] Episodic Menstrual disorders (8 sources) Menorrhagia; Translations: [Excessive and frequent menstruation with regular cycle] 01-19-2025 Chronic Nausea and vomiting (2 sources) Nausea; Translations: [Nausea] Episodic Nonmalignant breast conditions (2 sources) Mastodynia; Translations: [Mastodynia] Episodic Open wounds of extremities (9 sources) Laceration of left ring finger; Translations: [Laceration without foreign body of left ring finger without damage to nail, initial encounter] 05-29-2023 Episodic Other complications of (5 sources) High risk ; Translations: [Supervision of high risk , unspecified, unspecified trimester] 10-30-2023 Episodic Comment on above: PRR, , MIKE , BARBARA Machado, Herve Other complications of (11 sources) H/O: depression; Translations: [History of depression, currently ] 10-30-2023 Episodic Comment on above: stable, declines nee d for intervention at pp visit Other complications of (3 sources) Supervision of high risk , unspecified, unspecified trimester; Translations: [Supervision of unspecified high-risk ] 11-06-2023 Episodic Other complications of (3 sources) Urinary tract infection in ; Translations: [Unspecified infection of urinary tract in , unspecified trimester] 08-29-2024 Episodic Comment on above: +UA, culture pending . Macrobid sent. Other connective tissue disease (11 sources) Muscle pain; Translations: [Myalgia, unspecified site] 03-13-2022 Episodic Other connective tissue disease (2 sources) Pain in left foot; Translations: [Pain in left foot] 09-15-2023 Episodic Other connective tissue disease (1 source) Tendinitis; Translations: [Enthesopathy, unspecified] 08-28-2023 Episodic Other diseases of veins and lymphatics (8 sources) Vulval varices; Translations: [Vulval varices] 04-02-2022 Episodic Other female genital disorders (2 sources) Other specified noninflammatory disorders of vagina; Translations: [Leukorrhea, not specified as infective] Episodic Other gastrointestinal disorders (13 sources) Irritable bowel syndrome; Translations: [Irritable bowel syndrome without diarrhea] Onset: 07-02-2015 07-02-2015 Chronic Other injuries and conditions due to external causes (8 sources) Wound finding; Translations: [Other injury of unspecified body region, initial encounter] 05-29-2023 Episodic Other lower respiratory disease (1 source) Productive cough ; Translations: [Productive cough] 10-09-2024 Episodic Other nervous system disorders (2 sources) Disease of spinal cord, unspecified; Translations: [Disease of spinal cord, unspecified] Onset: 04-14-2025 Chronic Other non-traumatic joint disorders (3 sources) Pain of right wrist; Translations: [Pain in right wrist] 07-05-2024 Episodic Other nutritional; endocrine; and metabolic disorders (20 sources) Obesity; Translations: [Obesity, unspecified] Onset: 07-02-2015 07-02-2015 Chronic Other nutritional; endocrine; and metabolic disorders (5 sources) Body mass index 30+ - obesity; Translations: [Obesity, unspecified] 10-30-2023 Chronic Other nutritional; endocrine; and metabolic disorders (5 sources) Obesity, unspecified; Translations: [Obesity, unspecified] Onset: 06-10-2024 11-06-2023 Chronic Other upper respiratory disease (2 sources) Allergic rhinitis; Translations: [Allergic rhinitis, unspecified] Chronic Other upper respiratory disease (1 source) Pain in face; Translations: [Other specified disorders of nose and nasal sinuses] Episodic Other upper respiratory infections (20 sources) Recurrent sinusitis; Translations: [Chronic sinusitis, unspecified] Onset: 12-11-2022 Chronic Otitis media and related conditions (1 source) Acute bilateral otitis media ; Translations: [Otitis media, unspecified, bilateral] 10-23-2024 Episodic Residual codes; unclassified (2 sources) Pain; Translations: [Pain, unspecified] Episodic Residual codes; unclassified (5 sources) Family history of Spina bifida; Translations: [Family history of other congenital malformations, deformations and chromosomal abnormalities] 10-30-2023 Episodic Comment on above: FOB had spina bifida at , AFP neg Residual codes; unclassified (2 sources) Medical care unavailable; Translations: [Procedure and treatment not carried out for other reasons] 10-09-2024 Episodic Residual codes; unclassified (3 sources) Infertile 10-30-2023 Episodic Comment on above: Herve: SA noguera. Day 2 1 progesterone. Discussed letrozole Spondylosis; intervertebral disc disorders; other back problems (6 sources) Acute back pain with sciatica; Translations: [Lumbago with sciatica, left side] Onset: 04-14-2025 09-27-2021 Episodic Sprains and strains (1 source) Sprain of left foot; Translations: [Unspecified sprain of left foot, initial encounter] 10-23-2023 Episodic Superficial injury; contusion (1 source) Insect bite of ear region; Translations: [Insect bite (nonvenomous) of right ear, initial encounter] 03-24-2023 Episodic Unclassified (1 source) Unknown / UNK(Unknown) Onset: 07-20-2018 Unclassified (2 sources) M54.50 - Low back pain, unspecified,M54.2 - Cervicalgia Unclassified (1 source) Low back pain, unspecified; Translations: [Low back pain, unspecified] Onset: 04-14-2025 Unclassified (2 sources) Other specified diseases and conditions complicating ; Translations: [Other specified diseases and conditions complicating ] Onset: 06-10-2024 Viral infection (15 sources) Disease caused by 2019-nCoV; Translations: [COVID-19] Episodic Comment on above: start 81 asa daily Viral infection (2 sources) COVID-19; Translations: [COVID-19] Onset: 06-10-2024 Past or Other Problems Problem Classification Problem Date Documented Da te Episodic/Chronic Conditions associated with dizziness or vertigo (5 sources) Dizziness; Translations: [Dizziness and giddiness] Onset: 06-10-2024 06-18-2024 Episodic Diabetes or abnormal glucose tolerance complicating ; childbirth; or the puerperium (18 sources) Gestational diabetes mellitus; Translations: [Gestational diabetes mellitus in , unspecified control] Onset: 04-18-2024 04-18-2024 Episodic Comment on above: nutrition consult, o rdered testing supplies recommend 36 week growth us and delivery by 40 needs 2 hr GTT Early or threatened labor (5 sources) Uterine contractions present; Translations: [False labor, unspecified] Onset: 07-04-2024 06-13-2024 Episodic Other complications of (2 sources) Unspecified infection of urinary tract in , second trimester; Translations: [Unspecified infection of urinary tract in , second trimester] Onset: 06-10-2024 Episodic Other complications of (2 sources) Supervision of high risk , unspecified, first trimester; Translations: [Supervision of high risk , unspecified, first trimester] Onset: 06-10-2024 Episodic Other complications of (1 source) Gestational proteinuria, unspecified trimester; Translations: [Gestational proteinuria, unspecified trimester] Onset: 07-04-2024 Episodic Other gastrointestinal disorders (17 sources) Altered bowel function; Translations: [Change in bowel habit] Onset: 07-11-2015 Resolved: 07-11-2015 07-11-2015 Episodic Other gastrointestinal disorders (17 sources) Dysphagia; Translations: [Dysphagia, unspecified] Onset: 07-11-2015 Resolved: 07-11-2015 07-11-2015 Episodic Other non-traumatic joint disorders (2 sources) Pain in right wrist; Translations: [Right wrist pain] Onset: 07-05-2024 Episodic Other and delivery including normal (13 sources) ; Translations: [Encounter for supervision of normal , unspecified, unspecified trimester] Onset: 06-27-2024 11-06-2023 Episodic Comment on above: KW IAL boy Cristi GBS neg, NIPT low ri sk, discussed genetic & carrier testing Other upper respiratory infections (14 sources) Sore throat symptom; Translations: [Acute pharyngitis, unspecified] Onset: 06-10-2024 Episodic Residual codes; unclassified (5 sources) Family history of other congenital malformations, deformations and chromosomal abnormalities; Translations: [Family history of congenital anomalies] Onset: 06-10-2024 11-06-2023 Episodic Residual codes; unclassified (2 sources) 39 weeks gestation of ; Translations: [39 weeks gestation of ] Onset: 06-10-2024 Episodic Residual codes; unclassified (1 source) 38 weeks gestation of ; Translations: [38 weeks gestation of ] Onset: 06-03-2024 Episodic Screening and history of mental health and substance abuse codes (2 sources) Personal history of other mental and behavioral disorders; Translations: [Personal history of other mental and behavioral disorders] Onset: 06-10-2024 Episodic Unclassified (11 sources) Infertile; Translations: [Infertility] Unclassified (3 sources) Labor finding 06-13-2024 Results Test Name Value Interpretation Reference Range Facility [facility] 05-20-2025 CNOV Office Visit ([facility]) FELECIA DAVIS ([id number]) 1995 F Date Time Provider Department 05/20/25 8:30 AM DRAKE MCDONALD During your visit today, we recorded the following information about you: Temperature Pulse Respiration Blood pressure 97.6 degrees 90/minute 20/minute 124/72 Weight Last Period 95.1 kg 05/16/25 Drake Mcdonald MD 05/20/2025 9:09 AM Signed [facility] Subjective Felecia Rosenthal Maria Del Rosario is a 29 year old female. Patient presents with: Neck Pain: Upper back pain x 4 days Neck pain: Duration: woke with pain 4 days ago. Has had neck pain and upper extremity dexterity issues since June. Ortho ([place]) has ordered MRI for degenerative disc disease but she has not scheduled it. Location: junction of upper back and neck, worse on the left Character: constant pressure, sharp with neck movement or pushing to get up; progressively worsening Radiation: no radiation to the arms or lower body Aggravating: all neck movement, sitting up, pushing her self to get up Relieving: Pain relievers: Motrin Associated: no change in baseline finger tingling or dexterity Pertinent negatives: Denies weakness, incontinence, fever, injury Review of Systems Objective BP 124/72 Pulse 90 Temp 36.4 ?C (97.6 ?F) Resp 20 Wt 95.1 kg (209 lb 10.5 oz) LMP 05/16/2025 (Exact Date) SpO2 97% No BMI 37.14 kg/m? Physical Exam Constitutional: General: She is not in acute distress. Comments: Accompanied by her son ALVAT: Head: Normocephalic and atraumatic. Mouth/Throat: Pharynx: No posterior oropharyngeal erythema. Eyes: Extraocular Movements: Extraocular movements intact. Conjunctiva/sclera: Conjunctivae normal. Pupils: Pupils are equal, round, and reactive to light. Neck: Comments: Pain with neck range of motion in all directions Cardiovascular: Rate and Rhythm: Normal rate and regular rhythm. Heart sounds: No murmur heard. Pulmonary: Effort: No respiratory distress. Breath sounds: No wheezing, rhonchi or rales. Musculoskeletal: Right shoulder: No tenderness or bony tenderness. Normal range of motion. Left shoulder: No tenderness or bony tenderness. Normal range of motion. Cervical back: No tenderness. Pain with movement present. No spinous process tenderness or muscular tenderness. Comments: Normal strength in hand malter operator, pincer grasp, and finger abduction. Lymphadenopathy: Cervical: No cervical adenopathy. Neurological: Mental Status: She is alert. Cranial Nerves: No cranial nerve deficit. Gait: Gait normal. Deep Tendon Reflexes: Reflex Scores: Brachioradialis reflexes are 2+ on the right side and 2+ on the left side. Patellar reflexes are 2+ on the right side and 2+ on the left side. Psychiatric: Speech: Speech is delayed. {ASSESSMENT/PLAN: 1. Neck pain - ICD9: 723.1, ICD10: M54.2 Suspect exacerbation of degenerative spine without change in radicular symptoms. - PREDNISONE 10 MG TABLET taper. Denies side effects with prior use. Normal glucose last year. She is not breast feeding but should avoid sedating medications while watching her infant. Schedule MRI as ordered and follow up with ortho spine. Consider PT. Seek immediate evaluation for loss of bladder or bowel control, unexplained fever, or progressive weakness or numbness. Drake Mcdonald MD History and Record Review External record(s) reviewed: prior labs/imaging. Findings from review of prior labs/imaging: Glc 93 on 04/29/24 Differential Diagnoses - Exacerbation of degenerative spine is more likely for the following reason(s): suggested by HANDP - Mass lesion - Discitis is less likely for the following reason(s): No constitutional symptoms - Neurodegenerative disorder is less likely for the following reason(s): Pain with movement Procedures Allergies As of Date: 05/20/2025 Noted Allergy Reaction LATEX 07/02/2015 2 - Rash Comments: Powder on gloves Date Reviewed: 05/20/2025 Reviewed by: Estephania Colunga MA - Fully Assessed Reason for Visit: Neck Pain [135] Cmt: Upper back pain x 4 days Primary Visit Diagnosis:Neck pain [M54.2] Order(s):predniSONE (DELTASONE) 10 mg tabletTake 4 tablets by mouth once daily for 3 days, THEN 2 tablets once daily for 3 days, THEN 1 tablet once daily for 3 days.Disp: 21 tabletRfl: 0 Prescriptions as of 05/20/2025 - predniSONE (DELTASONE) 10 mg tablet Take 4 tablets by mouth once daily for 3 days, THEN 2 tablets once daily for 3 days, THEN 1 tablet once daily for 3 days. - benzonatate (TESSALON PERLE) 100 mg capsule Take 1-2 capsules every 8 hours as needed. - acetaminophen (TYLENOL) 325 mg tablet Take 2 tablets by mouth every 6 hours as needed (stagger with ibuprofen). - loratadine (CLARITIN) 10 mg tablet Take 1 tablet by mouth once daily. Problem List As Of Date 05/20/2025 Noted Resol (more content not included)... Normal [facility] Cerv Spine 4 or 5 Viewson Cerv Spine 4 or 5 Views [facility] Imaging Services [address] [place], [place] [id number] Cerv Spine 4 or 5 Views MR#: [id number] Acct: [id number] Name: FELECIA DAVIS Rep #: [id number] : 1995 F 29 From: Carlos Tidwell MD PCP: Dr. Stefan Bradford MD Status: DEP AMB Study: Cerv Spine 4 or 5 Views Date of Exam: 04/14/25 Exam# [id number] Ordering Dr: Galilea Mercado PROCEDURE: CERV SPINE 4 OR 5 VIEWS 04/14/2025 REASON FOR EXAM: PAIN, NKI TECHNIQUE: Procedure Code: RADSPC Modality: DX Procedure: CERV SPINE 4 OR 5 VIEWS COMPARISON: None. FINDINGS: There is loss of the normal cervical lordosis. There are no compression fractures or subluxations. There is degenerative disc disease at the C5-6 level with narrowing of the disc space. There is no facet arthropathy. There is no spondylolisthesis. There is no instability with flexion and extension. The paravertebral soft tissues are normal. RAD/Cerv Spine 4 or 5 Views IMPRESSION: Cervical spasm. No evidence of instability. Reading Location[id number] CC: FABI York; Dr. Stefan Bradford MD Lime Trimmer: Signed Normal [facility] L/S Spine Min 4 Views L/S Spine Min 4 Views [facility] Imaging Services [address] [place] [address] L/S Spine Min 4 Views MR#: [id number] Acct: [id number] Name: FELECIA DAVIS Rep #: [id number] : 1995 F 29 From: Shayy Pascual MD PCP: Dr. Stefan Bradford MD Status: DEP AMB Study: L/S Spine Min 4 Views Date of Exam: 04/14/25 Exam# [id number] Ordering Dr: Galilea Mercado PROCEDURE: L/S SPINE MIN 4 VIEWS 04/14/2025 REASON FOR EXAM: BACK PAIN, STARTED DURING LAST , NKI TECHNIQUE: Procedure Code: RADSPLS Modality: DX Procedure: L/S SPINE MIN 4 VIEWS COMPARISON: None. FINDINGS: BONES: Five bpp-bqs-[id number] lumbar vertebral bodies. No fracture or focal osseous lesion. Alignment is anatomic in the sagittal projection and is maintained throughout flexion and extension. DISC/DEGENERATIVE CHANGES: Disc spaces are preserved. SOFT TISSUES: No acute abnormality seen. Right upper abdominal surgical clips. Moderate colonic stool. RAD/L/S Spine Min 4 Views IMPRESSION: No acute abnormality seen. Reading Location: [id number] CC: FABI York; Dr. Stefan Bradford MD Lime Trimmer: Signed Normal [facility] Orthopedic Visit Reporton Orthopedic Visit Report [facility] [address] [place] [address] [place] [address] OFFICE VISIT Date of Service: 04/14/25 MR#: [id number] Acct: [id number] Name: FELECIA DAVIS Rep #: [id number] : 1995 Provider: FABI York Age/Sex: 29/F Location: [facility] Status: Signed Intake Vital Signs 01/19/25 10:06 04/14/25 10:33 Height 5 ft 2 in 5 ft 2 in Weight: 206 lb BMI 37.6 Intake Visit Reasons: LUMBAR SPINE Chief Complaint: Lumbar spine pain Accompanied by: Self Is patient in pain?: Yes Pain scale (1-10): 7 Allergies Environmental Allergies: Uncoded Allergy (Intermediate, Verified 04/14/25 10:35) Swelling latex Allergy (Verified 04/14/25 10:35) Rash Medications ???Medication ???Instructions ???Recorded ???Confirmed ???Type NK 04/14/25 04/14/25 History Have you fallen in the past year?: No PFSH Medical History Vaginal delivery FH: spina bifida Placental abnormality Asthma Superficial varicosities depression Gestational diabetes COVID-19 Seasonal allergies Vulvar varicose veins Infertility COVID-19 virus infection Surgical History [place] teeth extracted Hx of cholecystectomy Family History Grandmother Breast cancer, Onset Age: 50 Paternal Mother Diabetes Father Diabetes Sister Diabetes Plantar fasciitis, bilateral Osteoarthritis Carpal tunnel syndrome on both sides Social History adopted: No household members: spouse and children number of children: 1 current occupational status: employed current occupation: [employer] current occupational exposures/hazards: No pets and animals: Yes pets and animals: dog(s) history of recent travel: No sexually active: Yes Smoking Status: Never smoker alcohol intake: never substance use type: does not use diet: lactose free well-balanced diet: about half the time caffeine: No eating out: rarely or never during the past year weight has: remained stable what type of physical activity do you participate in: none meño/catholic: None seatbelt use: always do you feel safe at home: Yes additional social history: Herve CHRISTIANSON LUMBAR SPINE Details: This documentation accurately reflects the service provided and the decisions made by me, FABI York 04/14/25 1033. Part of today???s visit was documented by Kali Rios MA, acting as scribe. FELECIA DAVIS is a 29 year old F here today for lumbar spine. Patient states that her pain is a 7 today. She states that her pain is in the lower back. The pain is more pressure then pain. She states that the pressure pain makes her feel nauseas. The pain is more on the left side of the lower back, and the pain sometimes goes up the left side of the mid back. She states the at she has numbness and tingling in both hands, but the right hand is the worst. She is right-hand dominant, she also mentions that she has noticed some right hand swelling and right sided tingling in the arm that extends from the bicep down. She denies any neck pain. She says that sitting increases her lower back pain, says that mainly she notices pain in her tailbone while sitting. This seems to improve while she is standing or walking. No recent falls or injuries to the tailbone. Patient states that this happened on 06/13/2024. She was at the [facility] after she gave with her second child. Patient states that after giving she was having pain, but she thought it was from giving . The lower back pain got gradually worse over time. She states that she hasn't seen a doctor for this in the past. Patient states that she has never had any surgery on her lower back. She states that she hasn't injured her back in the past. Patient states that siting in general makes the pain worse. Anything bending, or lounging down makes the pain worse. Patient states that she has tried heat therapy. The heat did help temporary, but pain in the lower back would come back right away. She states that she hasn't had any injections. Patient states that she hasn't done any physical therapy. She has tried exercising at home, but it doesn't help. Patient states that she has felt that she has balance issues. She states that when she had her son, she feels like her balance, and fine motor skills are different. Patient states that she feels more weaker when lifting something up. She states that she has been dropping items out of both hands, but her right hand is worse. Dropping items out of her hands such as pens and bottles. This has been going on since (more content not included)... Normal [facility] Assembly Hand Office Visit Reporton 01-19-2025 Assembly Hand Office Visit Report [facility] [address], [address] [place] [address] OFFICE VISIT Date of Service: 01/19/25 MR#: [id number] Acct: [id number] Name: FELECIA DAVIS FILEMON Rep #: [id number] : 1995 Provider: ALESSIA herrera Age/Sex: 29/F Location: [facility] Status: Signed Intake Vital Signs 08/29/24 11:51 01/19/25 10:01 01/19/25 10:06 Height 5 ft 2 in 5 ft 2 in 5 ft 2 in Weight: 211 lb 2 oz BMI 38.6 BP 110/82 H Intake Visit Reasons: Heavy, painful periods *Copay $25 Chief Complaint: heavy painful periods 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: No Is patient in pain?: No Allergies Environmental Allergies: Uncoded Allergy (Intermediate, Verified 01/19/25 10:01) Swelling latex Allergy (Verified 01/19/25 10:01) Rash Medications ???Medication ???Instructions ???Recorded ???Confirmed ???Type ascorbate calcium (vitamin C) 500 500 mg PO QDAY 08/29/24 01/19/25 History mg tablet Is last menstrual period known: Yes Last Menstrual Period: 01/10/25 Post menopausal: No Patient : No : No PFSH Medical History Vaginal delivery FH: spina bifida Placental abnormality Asthma Superficial varicosities depression Gestational diabetes COVID-19 Seasonal allergies Vulvar varicose veins Infertility COVID-19 virus infection Surgical History [place] teeth extracted Hx of cholecystectomy Family History Grandmother Breast cancer, Onset Age: 50 Paternal Mother Diabetes Father Diabetes Sister Diabetes Social History adopted: No household members: spouse and children number of children: 1 current occupational status: employed current occupation: [employer] current occupational exposures/hazards: No pets and animals: Yes pets and animals: dog(s) history of recent travel: No sexually active: Yes Smoking Status: Never smoker alcohol intake: never substance use type: does not use diet: lactose free well-balanced diet: about half the time caffeine: No eating out: rarely or never during the past year weight has: remained stable what type of physical activity do you participate in: none meño/catholic: None seatbelt use: always do you feel safe at home: Yes additional social history: Herve CHRISTIANSON Heavy, painful periods *Copay $25 Details: FELECIA DAVIS is a 29 year old who presents for menses regular and lasting 6 days but have gotten more clots(size of nickel) and very painful last couple of months. Changing protection every 1-2 hours for 2 days. No contraception, they are considering vasectomy but is ok. Delivered son 07/2024. She is not breast feeding. Female Reproductive History Last Menstrual Period: 01/10/25 Cycle Length: 21-35 Questions: metorrhagia: Yes, sexually active: Yes, dyspareunia: No and PCB: No History 2 Elective abortions Hx Para 2 Spontaneous abortions Hx # Term Pregnancies Ectopic pregnancies Hx # Pregnancies Multiple births # of living children 2 Past Pregnancies Del. Date Name GA/Weeks Outcome Route Bth Weight Gen Labor Lgth Anesthesia Del Locatn Provider FOB Unknown 2013 Jeannette 40 live - full term 8#9oz Female 11 hrs none [place] 06/13/24 Cristi 39 live - full term Male none [facility] Leia Salazar [facility] Herve Delivery Date: 06/13/24 Last Updated by: Lisa Dallas see problem list for complications, and KW IAL boy. ROS Const Constitutional: Reports system reviewed and no additional complaints, except as documented Eyes Eyes: Reports system reviewed and no additional complaints, except as documented GI GI: Denies abdominal pain or change in bowel habits : Reports as per HPI Exam Const General: cooperative and no acute distress Orientation: oriented x3 HENMT Head: normal to inspection and normocephalic Eyes General: appearance normal, both eyes and all related structures Neck Neck: normal visual inspection Resp Effort Inspection: normal respiratory effort Neuro Cognition: normal cognition Speech: speech normal Psych Appearance: grossly normal Mood: congruent mood Affect: normal affect Speech and Movement: speech and movement normal Attitude: cooperative Judgment: judgment good Coding Level of Care Code Off vis,est,level 3 Diagnoses Menorrhagia with regular cycle N92.0 Dysmenorrhea N94.6 Assessment and Plan Assessment and Plan (1) Menorrhagia with regular cycle: Status: Acute (2) Dysmenorrhea: Status: Acute Orders: Orders Pelvic w/ Abrams (more content not included)... [facility] ([facility]) FELECIA DAVIS ([id number]) 1995 F Date Time Provider Department 10/23/24 1:00 PM MARAH HERNANDEZ During your visit today, we recorded the following information about you: Temperature Pulse Respiration Blood pressure 98.6 degrees 102/minute 16/minute 128/72 Weight 93.5 kg Marah Hernandez APRN.VACUUM FORM OPERATOR 10/23/2024 1:27 PM Signed This note was created using NoteWriter. Subjective Felecia Davis is a 28 year old female. 28 year old female with PMH sinusitis presents for illness Acute onset several weeks ago +sinus pressure +sinus pain +post nasal drainage +ear pressure Denies cough Denies CP Denies SOB Denies dyspnea Of note, she was evaluated October 09 distance health RX Augmenting provided But endorses " Augmentin never really helps me" The history is provided by the patient. No languages and literature instructor was used. Sinus Problem This is a recurrent problem. The current episode started 1 to 4 weeks ago. The problem occurs constantly. The problem has been unchanged. Associated symptoms include congestion, coughing and headaches. Pertinent negatives include no abdominal pain, anorexia, arthralgias, change in bowel habit, chest pain, chills, diaphoresis, fatigue, fever, joint swelling, myalgias, nausea, neck pain, numbness, rash, sore throat, swollen glands, urinary symptoms, vertigo, visual change, vomiting or weakness. Nothing aggravates the symptoms. Treatments tried: OTC medicines. The treatment provided no relief. 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 fluticasone (FLONASE) 50 mcg/actuation nasal spray Use 2 Sprays in each nostril once daily for 14 days. (Patient not taking: Reported on 10/23/2024) benzonatate (TESSALON PERLE) 100 mg capsule Take 1-2 capsules every 8 hours as needed. (Patient not taking: Reported on 10/23/2024) 25/iron fum/folic/dha (-1 ORAL) Take by mouth. (Patient not taking: Reported on 10/23/2024) acetaminophen (TYLENOL) 325 mg tablet Take 2 tablets by mouth every 6 hours as needed (stagger with ibuprofen). (Patient not taking: Reported on 03/03/2024) loratadine (CLARITIN) 10 mg tablet Take 1 tablet by mouth once daily. (Patient not taking: Reported on 09/21/2023) FAMILY HISTORY Problem Relation Age of Onset Heart Mother MVP Diabetes Father Type 2 other (Other) Sister hearing loss- she is her twin Breast Cancer Paternal Grandmother Social History Tobacco Use Smoking status: Never Smokeless tobacco: Never Vaping Use Vaping status: Never Used Substance Use Topics Alcohol use: No Drug use: No Review of Systems Constitutional: Negative for chills, diaphoresis, fatigue and fever. HENT: Positive for congestion. Negative for sore throat. Respiratory: Positive for cough. Cardiovascular: Negative for chest pain. Gastrointestinal: Negative for abdominal pain, anorexia, change in bowel habit, nausea and vomiting. Musculoskeletal: Negative for arthralgias, joint swelling, myalgias and neck pain. Skin: Negative for rash. Neurological: Positive for headaches. Negative for vertigo, weakness and numbness. Objective BP 128/72 Pulse 102 Temp 37 ?C (98.6 ?F) Resp 16 Wt 93.5 kg (206 lb 2.1 oz) LMP 09/14/2023 (Exact Date) SpO2 97% BMI 36.51 kg/m? Physical Exam Vitals and nursing note reviewed. Constitutional: General: She is not in acute distress. Appearance: Normal appearance. She is normal weight. She is not ill-appearing, toxic-appearing or diaphoretic. HENT: Head: Normocephalic and atraumatic. Comments: +frontal sinus pressure +maxillary sinus pressure Right Ear: Ear canal and external ear normal. Left Ear: Ear canal and external ear normal. Ears: Comments: B/L TM's mild erythema Nose: Congestion present. No rhinorrhea. Mouth/Throat: Mouth: Mucous membranes are moist. Pharynx: Posterior oropharyngeal erythema present. No oropharyngeal exudate. Comments: + post nasal drainage Eyes: General: Right eye: No discharge. Left eye: No discharge. Extraocular Movements: Extraocular movements intact. Conjunctiva/sclera: Conjunctivae normal. Pupils: Pupils are equal, round, and reactive to light. Cardiovascular: Rate and Rhythm: Normal rate and regular rhythm. Pulses: Normal pulses. Heart sounds: Normal heart sounds. No murmur heard. No friction rub. Pulmonary: Effort: Pulmon (more content not included)... Normal [facility] Assembly Hand Office Visit Reporton 08-29-2024 Assembly Hand Office Visit Report [facility] [address], [address] [place] [address] OFFICE VISIT Date of Service: 08/29/24 MR#: [id number] Acct: [id number] Name: FELECIA DAVIS FILEMON Rep #: [id number] : 1995 Provider: ALESSIA herrera Age/Sex: 28/F Location: [facility] Status: Signed Intake Vital Signs 06/30/24 12:54 08/29/24 11:44 08/29/24 11:51 Height 5 ft 2 in 5 ft 2 in 5 ft 2 in Weight: 205 lb 6 oz BMI 37.5 BP 108/70 Intake Visit Reasons: visit (obstetrics) Chief Complaint: 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 Is patient in pain?: No Allergies Environmental Allergies: Uncoded Allergy (Intermediate, Verified 08/29/24 11:44) Swelling latex Allergy (Verified 08/29/24 11:44) Rash Medications ???Medication ???Instructions ???Recorded ???Confirmed ???Type ascorbate calcium (vitamin C) 500 500 mg PO QDAY 08/29/24 08/29/24 History mg tablet : Yes PFSH Medical History (Updated 08/29/24 @ 13:02 by Teresa Morillo NP, GERARD-C) Vaginal delivery FH: spina bifida Placental abnormality Asthma Superficial varicosities depression Gestational diabetes COVID-19 Seasonal allergies Vulvar varicose veins Infertility COVID-19 virus infection Surgical History [place] teeth extracted Hx of cholecystectomy Family History Grandmother Breast cancer, Onset Age: 50 Paternal Mother Diabetes Father Diabetes Sister Diabetes Social History adopted: No household members: spouse and children number of children: 1 current occupational status: employed current occupation: [employer] current occupational exposures/hazards: No pets and animals: Yes pets and animals: dog(s) history of recent travel: No sexually active: Yes Smoking Status: Never smoker alcohol intake: never substance use type: does not use diet: lactose free well-balanced diet: about half the time caffeine: No eating out: rarely or never during the past year weight has: remained stable what type of physical activity do you participate in: none meño/catholic: None seatbelt use: always do you feel safe at home: Yes additional social history: Herve History 2 Elective abortions Hx Para 2 Spontaneous abortions Hx # Term Pregnancies Ectopic pregnancies Hx # Pregnancies Multiple births # of living children 2 Past Pregnancies Del. Date Name GA/Weeks Outcome Route Bth Weight Infant Gen Labor Lgth Anesthesia Del Locatn Provider FOB Unknown 2013 Jeannette 40 live - full term 8#9oz Female 11 hrs none [place] 06/13/24 Cristi 39 live - full term Male none [facility] Leia Salazar M [place] Delivery Date: 06/13/24 Last Updated by: Lisa Dallas see problem list for complications, and KW IAL boy. Depression Screen PHQ-2/9 PHQ-2 Over the last 2 weeks, how often have you been bothered by any of the following problems? 1. Little interest or pleasure in doing things: several days 2. Feeling down, depressed, or hopeless: several days Total score: 2 Post HPI Routine Follow-Up: Details: FELECIA DAVIS is a 28 year old who presents for her post visit. Has been feeling somewhat overwhelmed but feels it is due to having to go back to work already and she didn't think she would have to go back at all. Has had help at home. Baby has reflux and doesn't sleep as well as her daughter did. She is wanting permanent sterilization. Infant Feeding: Both Menses resumed: Yes Stollings since delivery: No Emotional Support: Yes Last Pap:: 2024 Control Method: condoms ROS Card Denies chest pain and Denies dyspnea Resp Denies dyspnea GI Denies bloating and Denies change in bowel habits Denies difficulty voiding Skin/Breast Denies breast mass, Denies breast pain and Denies breast skin changes Exam Const General: cooperative, no acute distress and well developed Nutritional Appearance: average body habitus Orientation: oriented x3 Chest Chest palpation inspection: abnormal inspection of the chest Breast inspection: normal inspection of the breasts Breast palpation: normal palpation of the breasts, normal palpation of the axillae and no axillary lymphadenopathy GI Palpation: soft, no masses and nontender General: bladder normal to palpation External Female Exam: normal external appearance and normal appearance of the urethra Urethra: normal appearance of the urethra Speculum Exam - Vagina: normal appearance of the vagina and normal vaginal discharge Speculum Exam - Cervix: normal appearance of (more content not included)... Normal [facility] US DVT UPPER RTon 07-06-2024 US DVT UPPER RT * * *Final Report* * * DATE OF EXAM: Jul 06 2024 2:51PM LDU 1004 - US DVT UPPER RT / PROCEDURE REASON: Right wrist pain * * * * Physician Interpretation * * * * EXAMINATION: RIGHT UPPER EXTREMITY DEEP VENOUS ULTRASOUND WITH DOPPLER IMAGING CLINICAL HISTORY: Arm pain TECHNIQUE: Grayscale with compression maneuvers where accessible, color and spectral Doppler of the right internal jugular, subclavian, and axillary veins was performed. Grayscale with compression maneuvers of the right brachial, basilic and cephalic veins was also performed. The contralateral internal jugular and distal subclavian veins were imaged for comparison. Images were obtained and stored in a permanent archive. MQ: USUER_1 COMPARISON: None RESULT: RIGHT UPPER EXTREMITY DEEP VEINS Internal Jugular vein: Normal compression, normal spontaneous flow. Subclavian vein: Normal, spontaneous flow. Axillary vein: Normal compression, normal spontaneous flow. Brachial vein: Normal compression SUPERFICIAL VEINS Basilic vein: Normal compression. Cephalic vein: Normal compression. LEFT UPPER EXTREMITY (FOR COMPARISON) DEEP VEINS Internal Jugular and Distal Subclavian veins: Normal compression, normal spontaneous flow. IMPRESSION: Negative study for DVT in the right upper extremity. Negative study for superficial thrombophlebitis in the imaged segments of the right upper extremity. Lime Trimmer: KATLYN Transcribe Date/Time: Jul 06 2024 5:36P Dictated by : YADIEL RIZVI MD This examination was interpreted and the report reviewed and electronically signed by: YADIEL RIZVI MD on Jul 06 2024 5:36PM EST [id number] Normal [facility] US Upper extremity vein - ri alirio 07-06-2024 IMPRESSION: Negative study for DVT in the right upper extremity. Negative study for superficial thrombophlebitis in the imaged segments of the right upper extremity. Lime Trimmer: PSCB Transcribe Date/Time: Jul 06 2024 5:36P Dictated by : YADIEL RIZVI MD This examination was interpreted and the report reviewed and electronically signed by: YADIEL RIZVI MD on Jul 06 2024 5:36PM EST [employer] * * *Final Report* * * DATE OF EXAM: Jul 06 2024 2:51PM LDU 1004 - US DVT UPPER RT / PROCEDURE REASON: Right wrist pain * * * * Physician Interpretation * * * * EXAMINATION: RIGHT UPPER EXTREMITY DEEP VENOUS ULTRASOUND WITH DOPPLER IMAGING CLINICAL HISTORY: Arm pain TECHNIQUE: Grayscale with compression maneuvers where accessible, color and spectral Doppler of the right internal jugular, subclavian, and axillary veins was performed. Grayscale with compression maneuvers of the right brachial, basilic and cephalic veins was also performed. The contralateral internal jugular and distal subclavian veins were imaged for comparison. Images were obtained and stored in a permanent archive. MQ: USUER_1 COMPARISON: None RESULT: RIGHT UPPER EXTREMITY DEEP VEINS Internal Jugular vein: Normal compression, normal spontaneous flow. Subclavian vein: Normal, spontaneous flow. Axillary vein: Normal compression, normal spontaneous flow. Brachial vein: Normal compression SUPERFICIAL VEINS Basilic vein: Normal compression. Cephalic vein: Normal compression. LEFT UPPER EXTREMITY (FOR COMPARISON) DEEP VEINS Internal Jugular and Distal Subclavian veins: Normal compression, normal spontaneous flow. Yappn SYNGO Provider, [facility] [place] - 07/06/2024 * * *Final Report* * * DATE OF EXAM: Jul 06 2024 2:51PM LDU 1004 - US DVT UPPER RT / PROCEDURE REASON: Right wrist pain * * * * Physician Interpretation * * * * EXAMINATION: RIGHT UPPER EXTREMITY DEEP VENOUS ULTRASOUND WITH DOPPLER IMAGING CLINICAL HISTORY: Arm pain TECHNIQUE: Grayscale with compression maneuvers where accessible, color and spectral Doppler of the right internal jugular, subclavian, and axillary veins was performed. Grayscale with compression maneuvers of the right brachial, basilic and cephalic veins was also performed. The contralateral internal jugular and distal subclavian veins were imaged for comparison. Images were obtained and stored in a permanent archive. MQ: USUER_1 COMPARISON: None RESULT: RIGHT UPPER EXTREMITY DEEP VEINS Internal Jugular vein: Normal compression, normal spontaneous flow. Subclavian vein: Normal, spontaneous flow. Axillary vein: Normal compression, normal spontaneous flow. Brachial vein: Normal compression SUPERFICIAL VEINS Basilic vein: Normal compression. Cephalic vein: Normal compression. LEFT UPPER EXTREMITY (FOR COMPARISON) DEEP VEINS Internal Jugular and Distal Subclavian veins: Normal compression, normal spontaneous flow. IMPRESSION IMPRESSION: Negative study for DVT in the right upper extremity. Negative study for superficial thrombophlebitis in the imaged segments of the right upper extremity. Lime Trimmer: KATLYN Transcribe Date/Time: Jul 06 2024 5:36P Dictated by : YADIEL RIZVI MD This examination was interpreted and the report reviewed and electronically signed by: YADIEL RIZVI MD on Jul 06 2024 5:36PM EST [facility] Radiology Study observation (narrative) [facility] US Upper extremity vein - ri ghtOrdered By: Ccf Provider on 07-06-2024 [facility] CNOVon 07-05-2024 CNOV Office Visit (BALDOWS) FELECIA DAVIS ([id number]) 1995 F Date Time Provider Department 07/05/24 2:00 PM SHERI FRANCO During your visit today, we recorded the following information about you: Pulse Respiration Blood pressure 87/minute 16/minute 110/80 Sheri Franco APRN.CNP 07/05/2024 6:55 PM Signed This is a 28 year old female who presents today with: Patient presents with: Acute Visit: R hand tingling/numbness intermittent since having IV 3 weeks HISTORY OF PRESENT ILLNESS: Felecia Davis is a 28 year old female. Patient presents with: Acute Visit: R hand tingling/numbness intermittent since having IV 3 weeks Pt presents today with complaint of problems from an IV site about 3 weeks ago. She is 3 weeks . IV was in the right wrist. She reports that it didn't necessarily that feel right in the hospital. Refers when she went home, it had some swelling. She continues to have numbness in her right hand. She gets intermittent tingling. Refers that since the swelling has gone down, she is concerned that she feels something linear still in the wrist. 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 acetaminophen (TYLENOL) 325 mg tablet Take 2 tablets by mouth every 6 hours as needed (stagger with ibuprofen). (Patient not taking: Reported on 03/03/2024) loratadine (CLARITIN) 10 mg tablet Take 1 tablet by mouth once daily. (Patient not taking: Reported on 09/21/2023) No current facility-administere d medications for this visit. FAMILY HISTORY Problem Relation Age of Onset Heart Mother MVP Diabetes Father Type 2 other (Other) Sister hearing loss- she is her twin Breast Cancer Paternal Grandmother Social History Tobacco Use Smoking status: Never Smokeless tobacco: Never Vaping Use Vaping status: Never Used Substance Use Topics Alcohol use: No Drug use: No EXAM: BP 110/80 Pulse 87 Resp 16 LMP 09/14/2023 (Exact Date) SpO2 97% Yes PHYSICAL EXAM: General Appearance: Well appearing, alert, in no acute distress, well-hydrated, well nourished.. Skin: Skin color, texture, turgor normal, no suspicious rashes or lesions. Head: Normocephalic, no masses, lesions, tenderness or abnormalities. Eyes: Anicteric sclera. Extraocular movements are intact. . Extremities: good cap refill. +2 radial pulses. Right cephalic vein with linear firmness that rolls. Neurologic: Gait normal. ASSESSMENT/PLAN: 1. Right wrist pain - ICD9: 719.43, ICD10: M25.531 1 view wrist xray did not reveal any radiopaque foreign body. Will get ultrasound. Discussed could be irritated vein from IV, but will r/o foreign body. Patient agreeable to plan. - XR WRIST SPECIFY 1V RIGHT - US ARM VEIN DVT UNL VAS LAB - US DVT UPPER RIGHT If work-up negative, consider EMG d/t n/t s/p IV versus continued monitoring for improvement. Pt aware that may take time for n/t to resolve. Discussed treatment plan and patient voices understanding. Patient's questions answered appropriately. Medications and potential side effects were discussed and patient voices understanding. Return to the office as scheduled or as needed for worsening/no improvement. Sheri Franco APRN.Sheri Tong APRN.SAHARA 07/05/2024 3:56 PM Addendum Get the xray. 2. Schedule the ultrasound. Allergies As of Date: 07/05/2024 Noted Allergy Reaction LATEX 07/02/2015 2 - Rash Comments: Powder on gloves Date Reviewed: 03/03/2024 Reviewed by: Paty Dorado LPN - Fully Assessed Reason for Visit: Acute Visit [896] Cmt: R hand tingling/numbness intermittent since having IV 3 weeks Primary Visit Diagnosis:Right wrist pain [M25.531] Order(s):XR WRIST SPECIFY 1V RIGHT [0034370] Order #: [id number] FUTURE US ARM VEIN DVT UNL VAS LAB [3703513] Order #: [id number] FUTURE US DVT UPPER RIGHT [[id number]] Order #: [id number] FUTURE Prescriptions as of 07/05/2024 - 25/iron fum/folic/dha (-1 ORAL) Take by mouth. - acetaminophen (TYLENOL) 325 mg tablet Take 2 tablets by mouth every 6 hours as needed (stagger with ibuprofen). - loratadine (CLARITIN) 10 mg tablet Take 1 tablet by mouth once daily. Problem List As Of Date 07/05/2024 Noted Resolved Obesity [E66.9] 07/02/2015 Bowel habit changes [R19.4] 07/11/2015 07/11/2015 Dysphagia [R13.10] 07/11/20150 (more content not included)... Normal [facility] XR WRIST SPECIFY 1V RTon XR WRIST SPECIFY 1V RT * * *Final Report * * * DATE OF EXAM: Jul 05 2024 3:50PM WOX [id number] - XR WRIST SPECIFY 1V RT / PROCEDURE REASON: Right wrist pain * * * * Physician Interpretation * * * * Right wrist HISTORY: 28 years old Clinical information: Right wrist pain pt feels something in her right wrist after having an IV in that location recently, concerns for foreign body. TECHNIQUE: Images: XR WRIST SPECIFY 1V RT Comparison: None. RESULT: Findings: No evidence of a radiopaque foreign body. On single projection image no bony abnormality is evident. IMPRESSION: No acute bony finding. No radiopaque foreign body is evident. If there is persistent concern for a radiopaque foreign body would suggest evaluation with a lateral view. Lime Trimmer: Twones Transcribe Date/Time: Jul 05 2024 3:56P Dictated by : KIA BELLO MD This examination was interpreted and the report reviewed and electronically signed by: KIA BELLO MD on Jul 05 2024 4:00PM EST [id number] Normal [facility] XR Wrist - right Single view on 07-05-2024 IMPRESSION: No acute bony finding. No radiopaque foreign body is evident. If there is persistent concern for a radiopaque foreign body would suggest evaluation with a lateral view. Lime Trimmer: Twones Transcribe Date/Time: Jul 05 2024 3:56P Dictated by : KIA BELLO MD This examination was interpreted and the report reviewed and electronically signed by: KIA BELLO MD on Jul 05 2024 4:00PM EST DIVISION OF RADIOLOGY * * *Final Report* * * DATE OF EXAM: Jul 05 2024 3:50PM WOX [id number] - XR WRIST SPECIFY 1V RT / PROCEDURE REASON: Right wrist pain * * * * Physician Interpretation * * * * Right wrist HISTORY: 28 years old Clinical information: Right wrist pain pt feels something in her right wrist after having an IV in that location recently, concerns for foreign body. TECHNIQUE: Images: XR WRIST SPECIFY 1V RT Comparison: None. RESULT: Findings: No evidence of a radiopaque foreign body. On single projection image no bony abnormality is evident. DIVISION OF RADIOLOGY Provider, [facility] - 07/05/2024 * * *Final Report* * * DATE OF EXAM: Jul 05 2024 3:50PM WOX [id number] - XR WRIST SPECIFY 1V RT / PROCEDURE REASON: Right wrist pain * * * * Physician Interpretation * * * * Right wrist HISTORY: 28 years old Clinical information: Right wrist pain pt feels something in her right wrist after having an IV in that location recently, concerns for foreign body. TECHNIQUE: Images: XR WRIST SPECIFY 1V RT Comparison: None. RESULT: Findings: No evidence of a radiopaque foreign body. On single projection image no bony abnormality is evident. IMPRESSION IMPRESSION: No acute bony finding. No radiopaque foreign body is evident. If there is persistent concern for a radiopaque foreign body would suggest evaluation with a lateral view. Lime Trimmer: KATLYN Transcribe Date/Time: Jul 05 2024 3:56P Dictated by : KIA BELLO MD This examination was interpreted and the report reviewed and electronically signed by: KIA BELLO MD on Jul 05 2024 4:00PM EST [facility] Radiology Study observation (narrative) Lisa philip [facility] XR Wrist - right Single view Ordered By: f Provider on 07-05-2024 [facility] MR/BMS.BBCon 06-30-2024 MR/BMS.BBC [facility] [address] [place] [address] OFFICE VISIT Date of Service: 06/15/24 MR#: [id number] Acct: [id number] Name: KELLYLeannaFELECIA FILEMON Rep #: [id number] : 1995 Provider: Candi Alvarado NP Age/Sex: 28/F Location: [facility] Status: Signed Intake Vital Signs 06/13/24 04:16 06/30/24 12:54 Height 5 ft 2 in 5 ft 2 in Intake Visit Reasons: assessment Chief Complaint: assessment Accompanied by: Allergies Environmental Allergies: Uncoded Allergy (Intermediate, Verified 06/13/24 04:16) Swelling latex Allergy (Verified 06/13/24 04:16) Rash : Yes PFSH PFS Medical History (Updated 06/18/24 @ 00:03 by Susana Chowdhury) Placental abnormality Asthma Superficial varicosities depression Gestational diabetes COVID-19 Seasonal allergies Vulvar varicose veins Infertility COVID-19 virus infection Surgical History [place] teeth extracted Hx of cholecystectomy Family History Grandmother Breast cancer, Onset Age: 50 Paternal Mother Diabetes Father Diabetes Sister Diabetes Social History adopted: No household members: spouse and children number of children: 1 current occupational status: employed current occupation: [employer] current occupational exposures/hazards: No pets and animals: Yes pets and animals: dog(s) history of recent travel: No sexually active: Yes Smoking Status: Never smoker alcohol intake: never substance use type: does not use diet: lactose free well-balanced diet: about half the time caffeine: No eating out: rarely or never during the past year weight has: remained stable what type of physical activity do you participate in: none meño/catholic: None seatbelt use: always do you feel safe at home: Yes additional social history: Herve History 2 Elective abortions Hx Para 2 Spontaneous abortions Hx # Term Pregnancies Ectopic pregnancies Hx # Pregnancies Multiple births # of living children 2 Past Pregnancies Del. Date Name GA/Weeks Outcome Route Bth Weight Gen Labor Lgth Anesthesia Del Locatn Provider FOB Unknown 2013 Jeannette 40 live - full term 8#9oz Female 11 hrs none [place] 06/13/24 Cristi 39 live - full term Male none [facility] Leia Salazar CNM [place] Delivery Date: 06/13/24 Last Updated by: Lisa Dallas see problem list for complications, and KW IAL boy. HPI HPI HPI: FELECIA DAVIS, is a 28 F who presents to the office today for assessment. History provided by the patient. ROS ROS Const Constitutional: Denies fever(s) or lethargy : Denies nipple discharge Skin Skin/Breast: Denies breast pain, breast skin changes or nipple discharge Details: q1-2 hours, 15-30 minutes to one side, hand expressed last night and got 1.5 ml and gave that to baby, breasts feeling more full, nursed last child 2 months, had minimal breast changes with but have increased in size since delivery Exam Maternal Assessment Breast Assessment Bilateral Breasts: Full (very slight fullness ) Nipple Assessment Bilateral Nipples: Everted Areolar Tissue Areolar Tissue: Pliable Assessment Baby Feeding History Is your baby latching onto the breast: Yes Number of Breast Feedings in 24 hours: 10-12 Minutes per breast: First Breast: 15-30 Supplements Supplement Type:: Expressed milk Frequency: once Amount: 1.5 ml Breast Pumping Type of Breast Pump: Hands Free Goals Breast Feeding Goals: Exclusive Exam Const General: comfortable and no acute distress Orientation: alert and oriented x3 Chest Breast inspection: normal inspection of the breasts Breast palpation: normal palpation of the breasts (slight fullness ) Resp Effort Inspection: normal respiratory effort Skin General: no rashes or lesions noted Psych Appearance: grossly normal Mental Status: mental status grossly normal Affect: normal affect Assessment and Plan Assessment and Plan (1) Care and examination of lactating mother: Plan: Educated on feeding on demand, offering both sides with each feed, haakaa use, pumping, milk supply, milk storage and milk regulation. Follow up with next week or call sooner as needed. Coding Level of Care Code 85424 PRVT COUNSELING INDIVID Diagnoses Care and examination of lactating mother Z39.1 Time Spent (min) 30 06/30/24 1300 Date Candi Alvarado (more content not included)... Normal [facility] MR/RIKA.Lyric 06-23-2024 MR/RIKA.SHANTEL [facility] [address] [place] [address] OFFICE VISIT Date of Service: 06/23/24 MR#: [id number] Acct: [id number] Name: FELECIA DAVIS Rep #: [id number] : 1995 Provider: Candi Alvarado NP Age/Sex: 28/F Location: [facility] Status: Signed Intake Vital Signs 06/13/24 04:16 Height 5 ft 2 in Intake Visit Reasons: assessment Chief Complaint: assessment, follow up Accompanied by: Allergies Environmental Allergies: Uncoded Allergy (Intermediate, Verified 06/13/24 04:16) Swelling latex Allergy (Verified 06/13/24 04:16) Rash : Yes PFSH PFSH Medical History (Updated 06/18/24 @ 00:03 by Susana Chowdhury) Placental abnormality Asthma Superficial varicosities depression Gestational diabetes COVID-19 Seasonal allergies Vulvar varicose veins Infertility COVID-19 virus infection Surgical History [place] teeth extracted Hx of cholecystectomy Family History Grandmother Breast cancer, Onset Age: 50 Paternal Mother Diabetes Father Diabetes Sister Diabetes Social History adopted: No household members: spouse and children number of children: 1 current occupational status: employed current occupation: [employer] current occupational exposures/hazards: No pets and animals: Yes pets and animals: dog(s) history of recent travel: No sexually active: Yes Smoking Status: Never smoker alcohol intake: never substance use type: does not use diet: lactose free well-balanced diet: about half the time caffeine: No eating out: rarely or never during the past year weight has: remained stable what type of physical activity do you participate in: none meño/catholic: None seatbelt use: always do you feel safe at home: Yes additional social history: Herve History 2 Elective abortions Hx Para 2 Spontaneous abortions Hx # Term Pregnancies Ectopic pregnancies Hx # Pregnancies Multiple births # of living children 2 Past Pregnancies Del. Date Name GA/Weeks Outcome Route Bth Weight Infant Gen Labor Lgth Anesthesia Del Locatn Provider FOB Unknown 2013 Jeannette 40 live - full term 8#9oz Female 11 hrs none [place] 06/13/24 Cristi 39 live - full term Male none [facility] Leia Salazar CNDenita Edgar Delivery Date: 06/13/24 Last Updated by: Lisa Dallas see problem list for complications, and KW IAL boy. HPI HPI HPI: FELECIA DAVIS, is a 28 F who presents to the office today for assessment. History provided by the patient. ROS ROS Const Constitutional: Denies fever(s) or lethargy : Denies nipple discharge Skin Skin/Breast: Denies breast pain, breast skin changes or nipple discharge Details: q2-3 hours, 5-10 minutes per side, milk in well, pumping 1x per day and using haakaa PRN for milk storage, questions today about bottle feeding, also had nipple pain to right nipple yesterday (nipple was pale) but color returned and no pain today Exam Assessment Baby Feeding History Is your baby latching onto the breast: Yes Number of Breast Feedings in 24 hours: 8-12 Minutes per breast: First Breast: 5-10 Minutes per breast: Second Breast: 5-10 Supplements Supplement Type:: Expressed milk Frequency: once yesterday Amount: 2 oz Breast Pumping Type of Breast Pump: Haakaa, Hands Free Frequency: haaka prn, hands free 1x Amount: 1.5-2 oz, 6-7 oz Goals Breast Feeding Goals: Exclusive Exam Const General: comfortable and no acute distress Orientation: alert and oriented x3 Resp Effort Inspection: normal respiratory effort Skin General: no rashes or lesions noted Psych Appearance: grossly normal Mental Status: mental status grossly normal Affect: normal affect Assessment and Plan Assessment and Plan (1) Care and examination of lactating mother: Plan: Educated on feeding on demand, milk supply, pumping. Educated on paced feeding and types of bottles. Discussed feeding plan. Follow up with PRN. Coding Level of Care Code 08290 PRVT COUNSELING INDIVID Diagnoses Care and examination of lactating mother Z39.1 Time Spent (min) 30 06/23/24 3755 Date Candi Alvarado NP INFORMATION ASSURANCE MANAGER-C Cosigner Signature: Date (if applicable) CC: Normal [facility] Bedside Glucoseon 06-14-2024 FINGERSTICK GLU 91 mg/dL Normal 74-106 [facility] Comment on above: Result Comment: DILCIA GEMENT OF PATIENT CARE PER NURSING PROTOCOL Performed By: #### L 501.080 #### [facility] [address] [place], [address] Bedside Glucoseon 06-13-2024 FINGERSTICK GLU 144 mg/dL High 74-106 [facility] Comment on above: Result Comment: DILCIA GEMENT OF PATIENT CARE PER NURSING PROTOCOL Performed By: #### L 501.080 #### [facility] [address] [place], [address] FINGERSTICK GLU 102 mg/dL Normal 74-106 [facility] Comment on above: Result Comment: DILCIA GEMENT OF PATIENT CARE PER NURSING PROTOCOL Performed By: #### L 501.080 ####[facility] [address] [place], [address] FINGERSTICK GLU 107 mg/dL High 74-106 [facility] Comment on above: Result Comment: DILCIA GEMENT OF PATIENT CARE PER NURSING PROTOCOL Performed By: #### L 501.080 ####[facility] [address] [place], [address] CBC W/Diff, Automatedon 11-0 Absolute Lymph 1.87 X10 3/uL Normal 0.83-4.51 [facility] Comment on above: Performed By: #### L 100.0100, BTS #### [facility] [address] [place], [address] Absolute Neut 12.7 X10 3/uL High 2.0-7.7 [facility] Comment on above: Performed By: #### L 100.0100, BTS #### [facility] [address] [place], [address] Basophils/100 WBC (Bld) 0.3 % Normal 0-1 [facility] Comment on above: Performed By: #### L 100.0100, BTS #### [facility] [address] [place], [address] Eosinophils/100 WBC (Bld) 0.1 % Normal 0-5 [facility] Comment on above: Performed By: #### L 100.0100, BTS #### [facility] [address] [place], [address] Erythrocyte distribution width (RBC) [Ratio] 13.8 % Normal 11.6-14.6 [facility] Comment on above: Performed By: #### L 100.0100, BTS #### [facility] [address] [place], [address] Hematocrit (Bld) [Volume fraction] 42.9 % Normal 37-47 [facility] Comment on above: Performed By: #### L 100.0100, BTS #### [facility] [address] [place], [address] Hemoglobin (Bld) [Mass/Vol] 15.2 g/dL High 12.0-15.0 [facility] Comment on above: Performed By: #### L 100.0100, BTS #### [facility] [address] [place], [address] IG% 0.500 Normal 0.0-0.9 [facility] Comment on above: Result Comment: IG% - Immature Granulocytes (promyelocytes, myelocytes and metamyelocytes) > 1% indicates that a LEFT SHIFT is Present. Performed By: #### L 100.0100, BTS #### [facility] [address] [place], [address] Lymphocytes/100 WBC (Bld) 11.7 % Low 19-41 [facility] Comment on above: Performed By: #### L 100.0100, BTS #### [facility] [address] [place], [address] MCH (RBC) [Entitic mass] 31.0 pg Normal 27.0-32.0 [facility] Comment on above: Performed By: #### L 100.0100, BTS #### [facility] [address] [place], [address] MCHC (RBC) [Mass/Vol] 35.4 g/dL Normal 32-36 [facility] Comment on above: Performed By: #### L 100.0100, BTS #### [facility] [address] [place], [address] MCV (RBC) [Entitic vol] 87.6 fL Normal 81-99 [facility] Comment on above: Performed By: #### L 100.0100, BTS #### [facility] [address] [place], [address] Monocytes/100 WBC (Bld) 7.8 % Normal 0-10 [facility] Comment on above: Performed By: #### L 100.0100, BTS #### [facility] [address] [place], [address] Neutrophils/100 WBC (Bld) 79.6 % High 47-70 [facility] Comment on above: Performed By: #### L 100.0100, BTS #### [facility] [address] [place], [address] Nucleated RBC (Bld) [#/Vol] 0 10*3/uL Normal 0-5 [facility] Comment on above: Performed By: #### L 100.0100, BTS #### [facility] [address] [place], [address] Platelet mean volume (Bld) [Entitic vol] 10.6 fL Normal 6.2-12.0 [facility] Comment on above: Performed By: #### L 100.0100, BTS #### [facility] [address], [address] Platelets (Bld) [#/Vol] 261 10*3/uL Normal 150-450 [facility] Comment on above: Performed By: #### L 100.0100, BTS #### [facility] [address] [place], [address] RBC (Bld) [#/Vol] 4.90 10*6/uL Normal 4.2-5.4 [facility] Comment on above: Performed By: #### L 100.0100, BTS #### [facility] [address] [place], [address] RDW SD 44.0 fl High 35.1-43.9 [facility] Comment on above: Performed By: #### L 100.0100, BTS #### [facility] [address] [place], [address] WBC (Bld) [#/Vol] 15.9 10*3/uL High 4.4-11.0 [facility] Comment on above: Performed By: #### L 100.0100, BTS #### [facility] [address] [place], [address] Discharge Instructionon Discharge Instruction [facility] Medical Records Department [address] [place] [address] Instructions for Home/Discharge Instructions 06/13/24 0645 MR#: [id number] Acct: [id number] Name: FELECIA DAVIS FILEMON Rep #: [id number] : 1995 28 From: Leia Salazar CNM PCP: Dr. Stefan Bradford MD Status:ADM IN Discharge Instructions Diet Discharge Diet: No restrictions Activity Discharge Activity: Return to Normal Activity May resume sexual activity in: 6-8 weeks Dressing / Incision Call your doctor if you observe: Fever of 101 or Higher, Coldness, Increased Pain, Numbness or Tingling, Change in Color, Inability to urinate, Inability to have a bowel movement, Using more than 1 pad per hour, Shortness of breath, Dizziness, Fainting spells, Swelling in the ankles, Chest pain, Increased palpitations (irregular heartbeat), Calf discomfort and Uncontrolled pain Follow Up Care Please Follow Up With: Leia Salazar CNM When: Please call the office to schedule your follow up appointment in 6 weeks. If you had high blood pressure please call to schedule an appointment in 2 weeks. Test Results: Test results from this visit will be discussed in further detail at your follow-up appointment, if applicable. Discharge Plan Admission Admit Date/Time: 06/13/24 04:35 Attending Provider: Leia Salazar Primary Care Provider: Stefan Bradford Discharge Orders/Prescriptions Prescriptions: No Action PNV-DHA 27 mg iron-1 mg -300 mg capsule PO DAILY aspirin 81 mg capsule 81 mg PO DAILY hydroxyzine pamoate [Vistaril] 25 mg capsule 25 mg PO QHS Qty: 30 0RF amoxicillin 500 mg capsule 500 mg PO BID Patient Comments: for sinus infection blood-glucose meter [FreeStyle [place]] Kit See Rx Instructions miscellaneous .COMPLEX Qty: 1 0RF Rx Instructions: as directed 4 times daily testing. Once at fasting and 2 hrs. post meals, Breakfast, Lunch, and Dinner; (DME) Blood Glucose Test Strip See Rx Instructions .Route Qty: 50 4RF Rx Instructions: As directed (DME) lancets [FreeStyle Lancets] 28 gauge misc See Rx Instructions .Route Qty: 100 2RF Rx Instructions: As directed Referrals / Follow Up: Stefan Bradford MD [Primary Care Provider] - 06/14/24 0742 Leia Salazar CNM CC: Dr. Stefan Bradford MD Signed Normal [facility] H AND P Exam - OB/GYNon H&P Exam - CUP SETTER LOCKSTITCH [facility] Medical Records Department [address] [place] [address] H P Exam - CUP SETTER LOCKSTITCH 06/13/24 0542 MR#: [id number] Acct: [id number] Name: FELECIA DAVIS FILEMON Rep #: [id number] : 1995 28 From: Leia Salazar CNM PCP: Dr. Stefan Bradford MD Status:ADM IN Location: [id number] HPI - General General Date of Admission: 06/13/24 Date of Service: 06/13/24 HPI Narrative FELECIA DAVIS, is a 28 F 39.4 weeks who presents in active labor Maternal Data Information MIKE Calculator Estimated Delivery Date Method Current WG Current Estimate 06/16/24 LMP (Certain) 39w 4d Final MIKE: 06/16/24 Final MIKE Source: US >20 weeks Gestational age: 39.4 weeks PFSH PFS Medical History (Updated 06/13/24 @ 05:46 by Leia Salazar CNM) Placental abnormality Asthma Superficial varicosities depression Gestational diabetes COVID-19 Seasonal allergies Vulvar varicose veins Infertility COVID-19 virus infection Home Medications ???Medication ???Instructions ???Recorded ???Last Taken ???Type multivitamin no.47-iron fum 27 cap PO DAILY 10/30/23 06/12/24 08:00 History mg-folate no.1 1 mg-dha 300 mg capsule (PNV-DHA) aspirin 81 mg capsule 81 mg PO DAILY 04/01/24 06/12/24 08:00 History blood sugar diagnostic (Blood #50 ea 04/12/24 Unknown Rx Glucose Test strips) blood-glucose meter (FreeStyle See Rx Instructions miscellaneous 04/12/24 Unknown Rx Sapulpa kit) .COMPLEX #1 ea lancets 28 gauge (FreeStyle #100 ea 04/12/24 Unknown Rx Lancets) hydroxyzine pamoate 25 mg capsule 25 mg PO QHS #30 caps 06/03/24 Unknown Rx (Vistaril) amoxicillin 500 mg capsule 500 mg PO BID 06/13/24 06/12/24 08:00 History Allergy/AdvReac Type Severity Reaction Status Date / Time Environmental Allergies: Allergy Intermediate Swelling Verified 06/13/24 04:16 Uncoded latex Allergy Rash Verified 06/13/24 04:16 Family History Grandmother Breast cancer, Onset Age: 50 Paternal Mother Diabetes Father Diabetes Sister Diabetes Surgical History [place] teeth extracted Hx of cholecystectomy Social History adopted: No household members: spouse and children number of children: 1 current occupational status: employed current occupation: [employer] current occupational exposures/hazards: No pets and animals: Yes pets and animals: dog(s) history of recent travel: No sexually active: Yes Smoking Status: Never smoker alcohol intake: never substance use type: does not use diet: lactose free well-balanced diet: about half the time caffeine: No eating out: rarely or never during the past year weight has: remained stable what type of physical activity do you participate in: none meño/catholic: None seatbelt use: always do you feel safe at home: Yes additional social history: Herve History 2 Elective abortions Hx Para 1 Spontaneous abortions Hx # Term Pregnancies Ectopic pregnancies Hx # Pregnancies Multiple births # of living children 1 Past Pregnancies Del. Date Name GA/Weeks Outcome Route Bth Weight Infant Gen Labor Lgth Anesthesia Del Locat Provider FOB Unknown 2013 Jeannette 40 live - full term 8#9oz Female 11 hrs none [place] Visit Details Expected Delivery Route/Plan Labor Preferences- CB/BF classes: [] labor support person: [] labor intervention preferences: [] pain management options preferred: [] cut cord/dad catch: [] : [] PP control planned: [] discussed possible routes of delivery and associated risks: [] special requests: [] Plans Covid status: Flu vaccine: [] Tdap vaccine: given Rhogam: na LARC form signed: declined movement and labor precautions reviewed. Problem list reviewed and updated with the most current plan of care details and appropriate orders placed. Relevant counseling for the gestational age provided. Continue routine care and follow up unless otherwise noted in visit notes/problem list details OB Flowsheet Initial Weight: Not Recorded Date -???-???-???-???-??? -???-???-???-???-??? -???-???- EGA Weight BP Urine Prot -???-???-???-???-??? -???-???-???-???-??? -???-???- Glucose FHR FuHt Pres Dilation -???-???-???-???-??? -???-???-???-???-??? -???-???- Effaced St Visit Note 11/06/23 -???-???-???-???-??? -???-???-???-???-??? -???-???- 8w 1d 212 lb 2 oz 111/72 -???-???-???-???-??? -???-???-???-???-??? -???-???- 180 -???-???-???-???-??? -???-???-???-???-??? -???-???- KW-CRL cons with dates. Desires NIPT and AFP for fam hx. 12/07/23 -???-???-???-???-??? -???-??? (more content not included)... Normal [facility] L509.8000on 06-13-2024 Syphilis Abs Non-Reactive Normal [facility] Comment on above: Performed By: #### L 509.8000 ####[facility] [address] [facility] [place], [address] MR/OB.VAGDELIon 06-13-2024 [facility] Medical Records Department [address] [place] [address] OB VAGINAL DELIVERY 06/13/24 0643 MR#: [id number] Acct: [id number] Name: FELECIA DAVIS FILEMON Rep #: [id number] : 1995 28 From: Leia Salazar CNM PCP: Dr. Stefan Bradford MD Status:ADM IN Location: [id number] Assessment Plan (1) Vaginal delivery: COMMENT: LINDA Colin (2) Active labor: (3) Uterine contractions: (4) Acute sinusitis: (5) Dizziness: (6) Gestational diabetes: COMMENT: nutrition consult, ordered testing supplies recommend 36 week growth us and delivery by 40 (7) UTI in : QUALIFIERS: Trimester: second trimester Qualified Code(s): O23.42 - Unspecified infection of urinary tract in , second trimester COMMENT: +UA, culture pending. Macrobid sent. (8) Obesity (BMI 30-39.9): (9) Supervision of high-risk : QUALIFIERS: Trimester: first trimester Qualified Code(s): O09.91 - Supervision of high risk , unspecified, first trimester COMMENT: PRR, , MIKE 06/16/24, BARBARA Machado, Herve (10) : QUALIFIERS: Weeks of gestation: 39 weeks Qualified Code(s): Z3A.39 - 39 weeks gestation of COMMENT: GBS neg, NIPT low risk, discussed genetic carrier testing (11) Hx of depression, currently : (12) FH: spina bifida: COMMENT: FOB had spina bifida at , AFP neg (13) JULISSA (stress urinary incontinence, female): (14) COVID-19: COMMENT: start 81 asa daily Maternal Data Information MIKE Calculator Estimated Delivery Date Method Current WG Current Estimate 06/16/24 LMP (Certain) 39w 4d Final MIKE: 06/16/24 Final MIKE Source: US >20 weeks Gestational age: 39.4 Vaginal Delivery Maternal Presentation Maternal Presentation: Active Labor Maternal Presentation: Presented to unit for [active labor] [induction of labor for ] Vaginal Delivery Information Procedure Performed: Spontaneous Vaginal Delivery Surgeon/Practitioner : Leia Salazar Date of Procedure: 06/13/24 Pre-Procedure Diagnosis: see problem list Post-Procedure Diagnosis: same Type of anesthesia: None Estimated Blood Loss: 150 Time of Delivery: 06:28 Findings Description of procedure: Progressed well to 10cm dilated and made steady progress with effective maternal pushing. Delivered the head in LETY presentation. The head was delivered atraumatically and a double loose nuchal cord was identified and was easily reduced over the 's head. The anterior and posterior shoulders delivered without complication followed by the rest of the infant and the was placed on the maternal abdomen. Delayed cord clamping was employed for approximately 3 minutes. Cord was clamped and cut and gentle traction was applied to the cord and the placenta delivered spontaneously. Immediately following, it was noted to be intact with a 3 vessel cord. Uterine bleeding stable. The perineum and vagina were inspected and noted to have no laceration . EBL was 150cc. Patient and infant tolerated delivery well. Apgars 8/9. Dr Valentin notified of vaginal delivery and orders reviewed. Physician agrees with current plan of care. Presentation: Vertex Amniotic Membrane Rupture Type: Artificial Amniotic Fluid Description: Clear Placental Delivery Description: Spontaneous Placenta Disposition: [facility] Specimen collected: No Cord Vessel Description: 3 Vessels Cord Entanglement: Around neck x 2, loose Infant A Gender: Male (1 minute): 8 (5 minute): 9 Delayed Cord Clamping: Yes Communications Department Head fingernail technician: No Post Vaginal Deli Medications given after delivery: IM Pitocin Episiotomy Description: None Laceration: None Complication Complications: No Multi Select Codes Urinary/Genital Urinary/Genital CPT Codes: 83519 Vaginal Delivery [facility] 06/13/24 0645 Cosigner Signature (if applicable): CC: SIENA Salazar; Dr. Stefan Bradford MD Signed [facility] Type AND Screenon ABO and Rh group Nom (Bld) Blood group A Rh(D) positive [facility] Comment on above: Order Comment: Labor Performed By: #### L 100.0100, BTS ####[facility] [address] [place], [address] OB Triage Progress Noteon OB Triage Progress Note [facility] Medical Records Department [address] [place] [address] OB Triage Progress Note 06/12/24 1701 MR#: [id number] Acct: [id number] Name: FELECIA DAVIS FILEMON Rep #: [id number] : 1995 28 From: Leia Salazar CNM PCP: Dr. Stefan Bradford MD Status:REG CLI Y DOS: [facility] Progress Notes Date of Service: 06/12/24 Progress Note: Patient presents for triage evaluation secondary to uterine contractions at 39 weeks FHT: 135 Moderate variability reactive no decelerations category I tracing [place]: irregular Contractions Assessment and plan: minimal cervical change, desires early labor at home and minimal intervention Reactive NST, reassuring maternal and status patient discharged to home to follow-up in office tues if not in active labor. See problem list details for additional plan information. Charges/Coding Multi Select Codes Visit Charges Office Visit/Consults: 70361 OV L3 Est 20min Urinary/Genital Urinary/Genital CPT Codes: 59253-22 non-stress test Interp Assessment Plan (1) Uterine contractions: (2) Acute sinusitis: (3) Dizziness: (4) Gestational diabetes: COMMENT: nutrition consult, ordered testing supplies recommend 36 week growth us and delivery by 40 (5) COVID-19: COMMENT: start 81 asa daily (6) UTI in : QUALIFIERS: Trimester: second trimester Qualified Code(s): O23.42 - Unspecified infection of urinary tract in , second trimester COMMENT: +UA, culture pending. Macrobid sent. (7) Obesity (BMI 30-39.9): (8) Supervision of high-risk : QUALIFIERS: Trimester: first trimester Qualified Code(s): O09.91 - Supervision of high risk , unspecified, first trimester COMMENT: PRR, , MIKE 06/16/24, BARBARA Machado, Herve (9) : QUALIFIERS: Weeks of gestation: 39 weeks Qualified Code(s): Z3A.39 - 39 weeks gestation of COMMENT: GBS neg, NIPT low risk, discussed genetic carrier testing (10) Hx of depression, currently : (11) FH: spina bifida: COMMENT: FOB had spina bifida at , AFP neg (12) JULISSA (stress urinary incontinence, female): 06/12/24 1704 Date Leia Salazar CNM Cosigner Signature (if applicable): Date _ CC: SIENA Saalzar; Dr. Stefan Bradford MD Signed Normal [facility] CBC W/Diff, Automatedon 11-0 -2023 Absolute Lymph 2.22 X10 3/uL Normal 0.83-4.51 [facility] Comment on above: Performed By: #### L 500.4050, L100.0100 #### [facility] [address] [place], [address] Absolute Neut 7.0 X10 3/uL Normal 2.0-7.7 [facility] Comment on above: Performed By: #### L 500.4050, L100.0100 #### [facility] [address] [place], [address] Basophils/100 WBC (Bld) 0.2 % Normal 0-1 [facility] Comment on above: Performed By: #### L 500.4050, L100.0100 #### [facility] [address] [place], [address] Eosinophils/100 WBC (Bld) 0.3 % Normal 0-5 [facility] Comment on above: Performed By: #### L 500.4050, L100.0100 #### [facility] [address] [place], [address] Erythrocyte distribution width (RBC) [Ratio] 13.9 % Normal 11.6-14.6 [facility] Comment on above: Performed By: #### L 500.4050, L100.0100 #### [facility] [address] [place], [address] Hematocrit (Bld) [Volume fraction] 39.9 % Normal 37-47 [facility] Comment on above: Performed By: #### L 500.4050, L100.0100 #### [facility] [address] [place], [address] Hemoglobin (Bld) [Mass/Vol] 14.1 g/dL Normal 12.0-15.0 [facility] Comment on above: Performed By: #### L 500.4050, L100.0100 #### [facility] [address] [place], [address] IG% 0.900 Normal 0.0-0.9 [facility] Comment on above: Result Comment: IG% - Immature Granulocytes (promyelocytes, myelocytes and metamyelocytes) > 1% indicates that a LEFT SHIFT is Present. Performed By: #### L 500.4050, L100.0100 #### [facility] [address] [place], [address] Lymphocytes/100 WBC (Bld) 21.9 % Normal 19-41 [facility] Comment on above: Performed By: #### L 500.4050, L100.0100 #### [facility] [address] [place], [address] MCH (RBC) [Entitic mass] 31.1 pg Normal 27.0-32.0 [facility] Comment on above: Performed By: #### L 500.4050, L100.0100 #### [facility] [address] [place], [address] MCHC (RBC) [Mass/Vol] 35.3 g/dL Normal 32-36 [facility] Comment on above: Performed By: #### L 500.4050, L100.0100 #### [facility] [address] [place], [address] MCV (RBC) [Entitic vol] 87.9 fL Normal 81-99 [facility] Comment on above: Performed By: #### L 500.4050, L100.0100 #### [facility] [address] [place], [address] Monocytes/100 WBC (Bld) 7.3 % Normal 0-10 [facility] Comment on above: Performed By: #### L 500.4050, L100.0100 #### [facility] [address] [place], [address] Neutrophils/100 WBC (Bld) 69.4 % Normal 47-70 [facility] Comment on above: Performed By: #### L 500.4050, L100.0100 #### [facility] [address] [place], [address] Nucleated RBC (Bld) [#/Vol] 0 10*3/uL Normal 0-5 [facility] Comment on above: Performed By: #### L 500.4050, L100.0100 #### [facility] [address] [place], [address] Platelet mean volume (Bld) [Entitic vol] 9.9 fL Normal 6.2-12.0 [facility] Comment on above: Performed By: #### L 500.4050, L100.0100 #### [facility] [address] [place], [address] Platelets (Bld) [#/Vol] 256 10*3/uL Normal 150-450 [facility] Comment on above: Performed By: #### L 500.4050, L100.0100 #### [facility] [address] [place], [address] RBC (Bld) [#/Vol] 4.54 10*6/uL Normal 4.2-5.4 [facility] Comment on above: Performed By: #### L 500.4050, L100.0100 #### [facility] [address] [place], [address] RDW SD 43.9 fl Normal 35.1-43.9 [facility] Comment on above: Performed By: #### L 500.4050, L100.0100 #### [facility] [address] [place], [address] WBC (Bld) [#/Vol] 10.1 10*3/uL Normal 4.4-11.0 [facility] Comment on above: Performed By: #### L 500.4050, L100.0100 #### [facility] [address] [place], [address] Comprehensive Metabolic Prof ilon 06-10-2024 Albumin [Mass/Vol] 2.6 g/dL Low 3.2-5.0 [facility] Comment on above: Performed By: #### L 500.4050, L100.0100 #### [facility] [address] [place], [address] Albumin/Globulin [Mass ratio] 0.7 {ratio} Low 0.9-2.4 [facility] Comment on above: Performed By: #### L 500.4050, L100.0100 #### [facility] [address] [place], [address] ALK P 131 U/L High 45-117 [facility] Comment on above: Performed By: #### L 500.4050, L100.0100 #### [facility] [address] [place], [address] ALT [Catalytic activity/Vol] 13 U/L Normal 13-56 [facility] Comment on above: Performed By: #### L 500.4050, L100.0100 #### [facility] [address] [place], [address] AST [Catalytic activity/Vol] 14 U/L Low 15-37 [facility] Comment on above: Performed By: #### L 500.4050, L100.0100 #### [facility] [address] [place], [address] Bilirubin [Mass/Vol] 0.40 mg/dL Normal 0.20-1.00 [facility] Comment on above: Result Comment: For patients on eltrombopag therapy, use of Dimension [place] TBIL is not recommended. Performed By: #### L 500.4050, L100.0100 #### [facility] [address] [place], [address] BUN/CRE 10.8 RATIO Normal 10-20 [facility] Comment on above: Performed By: #### L 500.4050, L100.0100 #### [facility] [address] [place], [address] CA,Total 9.0 mg/dL Normal 8.5-10.1 [facility] Comment on above: Performed By: #### L 500.4050, L100.0100 #### [facility] [address] [place], [address] Chloride [Moles/Vol] 108 mmol/L High 98-107 [facility] Comment on above: Performed By: #### L 500.4050, L100.0100 #### [facility] [address] [place], [address] CO2 [Moles/Vol] 22.0 mmol/L Normal 21.0-32.0 [facility] Comment on above: Performed By: #### L 500.4050, L100.0100 #### [facility] [address] [place], [address] Creatinine [Mass/Vol] 0.83 mg/dL Normal 0.55-1.02 [facility] Comment on above: Result Comment: The validity of the calculated GFR GFRAA in patients over 70 years has not been determined. Clinical correlation is essential. Performed By: #### L 500.4050, L100.0100 #### [facility] [address] [place], [address] EST GFR - AA 103 mL/min Normal >60 [facility] Comment on above: Result Comment: Afri can [place] GFR Calc Performed By: #### L 500.4050, L100.0100 #### [facility] [address] [place], [address] GAP 8 Normal 5-15 [facility] Comment on above: Performed By: #### L 500.4050, L100.0100 #### [facility] [address] [place], [address] GFR/1.73 sq M.predicted among non-blacks MDRD (S/P/Bld) [Vol rate/Area] 85 mL/min/{1.73_m2} Normal >60 [facility] Comment on above: Result Comment: Non- GFR Calc Performed By: #### L 500.4050, L100.0100 #### [facility] [address] [place], [address] Globulin (S) [Mass/Vol] 3.9 g/dL Normal 2.2-4.2 [facility] Comment on above: Performed By: #### L 500.4050, L100.0100 #### [facility] [address] [place], [address] Glucose [Mass/Vol] 101 mg/dL Normal 74-106 [facility] Comment on above: Result Comment: Fast ing Glucose result from 100 to 125 mg/dL suggests IMPAIRED HOMEOSTASIS per A.D.A. criteria. Performed By: #### L 500.4050, L100.0100 #### [facility] [address] [place], [address] Potassium [Moles/Vol] 4.1 mmol/L Normal 3.5-5.1 [facility] Comment on above: Performed By: #### L 500.4050, L100.0100 #### [facility] [address] [place], [address] Sodium [Moles/Vol] 137 mmol/L Normal 136-145 [facility] Comment on above: Performed By: #### L 500.4050, L100.0100 #### [facility] [address] [place], [address] T PROT 6.5 g/dL Normal 6.4-8.2 [facility] Comment on above: Performed By: #### L 500.4050, L100.0100 #### [facility] [address] [place], [address] Urea nitrogen [Mass/Vol] 9 mg/dL Normal 7-18 [facility] Comment on above: Performed By: #### L 500.4050, L100.0100 #### [facility] [address] 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 Is patient in pain?: No Allergies Environmental Allergies: Uncoded Allergy (Intermediate, Verified 06/10/24 14:58) Swelling latex Allergy (Verified 06/10/24 14:58) Rash Medications ???Medication ???Instructions ???Recorded ???Confirmed ???Type multivitamin no.47-iron fum 27 cap PO DAILY 10/30/23 06/10/24 History mg-folate no.1 1 mg-dha 300 mg capsule (PNV-DHA) aspirin 81 mg capsule 81 mg PO DAILY 04/01/24 06/10/24 History blood sugar diagnostic (Blood #50 ea 04/12/24 06/10/24 Rx Glucose Test strips) blood-glucose meter (FreeStyle See Rx Instructions miscellaneous 04/12/24 06/10/24 Rx Sapulpa kit) .COMPLEX #1 ea lancets 28 gauge (FreeStyle #100 ea 04/12/24 06/10/24 Rx Lancets) amoxicillin 875 mg-potassium 1 tab PO Q12H 10 days #20 tabs 06/02/24 06/10/24 Rx clavulanate 125 mg tablet hydroxyzine pamoate 25 mg capsule 25 mg PO QHS #30 caps 06/03/24 06/10/24 Rx (Vistaril) Last Menstrual Period: 09/10/23 Zika: Zika virus screening: Negative : No Have you fallen in the past year?: No PFSH PFSH Medical History COVID-19 Seasonal allergies Vulvar varicose veins Infertility COVID-19 virus infection Surgical History [place] teeth extracted Hx of cholecystectomy Family History Grandmother Breast cancer, Onset Age: 50 Paternal Mother Diabetes Father Diabetes Sister Diabetes Social History adopted: No household members: spouse and children number of children: 1 current occupational status: employed current occupation: [employer] current occupational exposures/hazards: No pets and animals: Yes pets and animals: dog(s) history of recent travel: No sexually active: Yes Smoking Status: Never smoker alcohol intake: never substance use type: does not use diet: lactose free well-balanced diet: about half the time caffeine: No eating out: rarely or never during the past year weight has: remained stable what type of physical activity do you participate in: none meño/catholic: None seatbelt use: always do you feel safe at home: Yes additional social history: [place] History 2 Elective abortions Hx Para 1 Spontaneous abortions Hx # Term Pregnancies Ectopic pregnancies Hx # Pregnancies Multiple births # of living children 1 Past Pregnancies Del. Date Name GA/Weeks Outcome Route Bth Weight Infant Gen Labor Lgth Anesthesia Del [place] Provider FOB Unknown 2013 Jeannette 40 live - full term 8#9oz Female 11 hrs none [place] HPI 39 WK OB Details: FELECIA DAVIS is a 28 year old who presents for routine OB visit. OB Visit MIKE Calculator Estimated Delivery Date Method Current WG Current Estimate 06/16/24 LMP (Certain) 39w 1d Expected Delivery Route/Plan Labor Preferences- CB/BF classes: [] labor support person: [] labor intervention preferences: [] pain management options preferred: [] cut cord/dad catch: [] : [] PP control planned: [] discussed possible routes of delivery and associated risks: [] special requests: [] Specific Issue/Plans Covid status: Flu vaccine: [] Tdap vaccine: given Rhogam: na LARC form signed: declined movement and labor precautions reviewed. Problem list reviewed and updated with the most current plan of care details and appropriate orders placed. Relevant counseling for the gestational age provided. Continue routine care and follow up unless otherwise noted in visit notes/problem list details Initial Weight: Not Recorded Date -???-???-???-???-??? -???-???-???-???-??? -???-???- EGA Weight BP Urine Prot -???-???-???-???-??? -???-???-???-???-??? -???-???- Glucose FHR FuHt Pres Dilation -???-???-???-???-??? -???-???-???-???-??? -???-???- Effaced St Visit Note 11/06/23 -???-???-???-???-??? -???-???-???-???-??? -???-???- 8w 1d 212 lb 2 oz 111/72 -???-???-???-???-??? -???-???-???-???-??? -???-???- 180 -???-???-???-???-??? -???-???-???-???-??? -???-???- KW-CRL (more content not included)... Normal [facility] Protein+Creatinine Ratio,Uri neon 06-10-2024 PROT:CRE RATIO 222 mg/g CRE High 0-200 [facility] Comment on above: Performed By: #### L 501.0900 #### [facility] [address] [place], [address] Protein (U) [Mass/Vol] 35.3 mg/dL High <11.9 [facility] Comment on above: Performed By: #### L 501.0900 #### [facility] [address] [place], [address] UR CREAT 159.00 mg/dL Normal NO RANGE EST. [facility] Comment on above: Performed By: #### L 501.0900 #### [facility] [address] [place], [address] Assembly Hand Office Visit Reporton 06-03-2024 Assembly Hand Office Visit Report [facility] [address], [address] [place] [address] OFFICE VISIT Date of Service: 06/03/24 MR#: [id number] Acct: [id number] Name: FELECIA DAVIS FILEMON Rep #: [id number] : 1995 Provider: Dr. 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 Is patient in pain?: No Allergies Environmental Allergies: Uncoded Allergy (Intermediate, Verified 06/02/24 09:43) Swelling latex Allergy (Verified 06/02/24 09:43) Rash Medications ???Medication ???Instructions ???Recorded ???Confirmed ???Type multivitamin no.47-iron fum 27 cap PO DAILY 10/30/23 06/03/24 History mg-folate no.1 1 mg-dha 300 mg capsule (PNV-DHA) aspirin 81 mg capsule 81 mg PO DAILY 04/01/24 06/03/24 History blood sugar diagnostic (Blood #50 ea 04/12/24 06/03/24 Rx Glucose Test strips) blood-glucose meter (ViaSatyle See Rx Instructions miscellaneous 04/12/24 06/03/24 Rx Sapulpa kit) .COMPLEX #1 ea lancets 28 gauge (FreeStyle #100 ea 04/12/24 06/03/24 Rx Lancets) amoxicillin 875 mg-potassium 1 tab PO Q12H 10 days #20 tabs 06/02/24 06/03/24 Rx clavulanate 125 mg tablet hydroxyzine pamoate 25 mg capsule 25 mg PO QHS #30 caps 06/03/24 06/03/24 Rx (Vistaril) Last Menstrual Period: 09/10/23 Zika: Zika virus screening: Negative : No Have you fallen in the past year?: No PFSH PFSH Medical History COVID-19 Seasonal allergies Vulvar varicose veins Infertility COVID-19 virus infection Surgical History [place] teeth extracted Hx of cholecystectomy Family History Grandmother Breast cancer, Onset Age: 50 Paternal Mother Diabetes Father Diabetes Sister Diabetes Social History adopted: No household members: spouse and children number of children: 1 current occupational status: employed current occupation: [employer] current occupational exposures/hazards: No pets and animals: Yes pets and animals: dog(s) history of recent travel: No sexually active: Yes Smoking Status: Never smoker alcohol intake: never substance use type: does not use diet: lactose free well-balanced diet: about half the time caffeine: No eating out: rarely or never during the past year weight has: remained stable what type of physical activity do you participate in: none meño/catholic: None seatbelt use: always do you feel safe at home: Yes additional social history: [place] History 2 Elective abortions Hx Para 1 Spontaneous abortions Hx # Term Pregnancies Ectopic pregnancies Hx # Pregnancies Multiple births # of living children 1 Past Pregnancies Del. Date Name GA/Weeks Outcome Route Bth Weight Infant Gen Labor Lgth Anesthesia Del Locatn Provider FOB Unknown 2013 Jeannette 40 live - full term 8#9oz Female 11 hrs none [place] HPI 37 WK OB Details: FELECIA DAVIS is a 28 year old who presents for routine OB visit. OB Visit MIKE Calculator Estimated Delivery Date Method Current WG Current Estimate 06/16/24 LMP (Certain) 38w 1d Expected Delivery Route/Plan Labor Preferences- CB/BF classes: [] labor support person: [] labor intervention preferences: [] pain management options preferred: [] cut cord/dad catch: [] : [] PP control planned: [] discussed possible routes of delivery and associated risks: [] special requests: [] Specific Issue/Plans Covid status: Flu vaccine: [] Tdap vaccine: given Rhogam: na LARC form signed: declined movement and labor precautions reviewed. Problem list reviewed and updated with the most current plan of care details and appropriate orders placed. Relevant counseling for the gestational age provided. Continue routine care and follow up unless otherwise noted in visit notes/problem list details Initial Weight: Not Recorded Date -???-???-???-???-??? -???-???-???-???-??? -???-???- EGA Weight BP Urine Prot -???-???-???-???-??? -???-???-???-???-??? -???-???- Glucose FHR FuHt Pres Dilation -???-???-???-???-??? -???-???-???-???-??? -???-???- Effaced St Visit Note 11/06/23 -???-???-???-???-??? -???-???-???-???-??? -???-???- 8w 1d 212 lb 2 oz 111/72 -???-???-???-???-??? -???-???-???-???-??? -???-???- 180 -???-???-???-???-??? -???-???-???-???-??? -???-???- KW-CRL cons with date (more content not included)... Normal [facility] Visit Reporton 1 Urgent Care Visit Report [facility] [address], [address] [place] [address] OFFICE VISIT Date of Service: 06/02/24 MR#: [id number] Acct: [id number] Name: FELECIA DAVIS FILEMON Rep #: [id number] : 1995 Provider: FABI Merino Age/Sex: 28/F Location: [facility] Status: Signed Intake Vital Signs 05/27/24 10:59 06/02/24 09:42 Height 5 ft 3 in 5 ft 2 in Weight: 217 lb 220 lb 6 oz BMI 38.4 40.3 BP 120/79 128/80 H Blood Pressure Location Rt brachial Position Sitting Respiration 16 Pulse 97 Pulse Source NIBP Temp 98.5 F Temp Source Oral Pulse Oximetry (%) 97 Oxygen Delivery Method room air Intake Visit Reasons: CONGESTION, COUGH Chief Complaint: cough, congestion 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 pt declines covid as she doesnt think its that. pt is 38 weeks and states her is worried about the baby. [facility] Medical History COVID-19 Seasonal allergies Vulvar varicose veins Infertility COVID-19 virus infection Surgical History [place] teeth extracted Hx of cholecystectomy Family History Grandmother Breast cancer, Onset Age: 50 Paternal Mother Diabetes Father Diabetes Sister Diabetes Social History adopted: No household members: spouse and children number of children: 1 current occupational status: employed current occupation: [employer] current occupational exposures/hazards: No pets and animals: Yes pets and animals: dog(s) history of recent travel: No sexually active: Yes Smoking Status: Never smoker alcohol intake: never substance use type: does not use diet: lactose free well-balanced diet: about half the time caffeine: No eating out: rarely or never during the past year weight has: remained stable what type of physical activity do you participate in: none meño/catholic: None seatbelt use: always do you feel safe at home: Yes additional social history: [facility] HPI Chief Complaint: cough, congestion Details: FELECIA DAVIS, is a 28 F who presents to the office today for complaint of sinus congestion/pressure and pain as well as postnasal drainage and minimal cough. Patient denies fever, chills, sweats. No hemoptysis, shortness of breath or difficulty breathing. No loss of taste or smell. No other associated symptoms or alleviating/aggravat ing factors. ROS Const Constitutional: No other (6 system ROS completed with pertinent findings in the HPI otherwise normal.) Exam Const General: cooperative and healthy appearing HENMO Head: normal to inspection Ears: hearing grossly normal bilaterally, TM's normal bilaterally and EAC's normal Nose: nasal discharge purulent Face and sinus: sinus tenderness frontal and maxillary Mouth: oral mucosae normal Throat: abnormal tonsil bilaterally erythema and hypertrophy 1+ and postnasal drainage Resp Effort Inspection: normal respiratory effort Auscultation: Bilateral: Clear to Auscultation Cardio Rate: regular rate Rhythm: regular rhythm Neuro General: patient alert Psych Appearance: grossly normal Mental Status: mental status grossly normal Coding Level of Care Code Off vis,new,level 3 Diagnoses Acute sinusitis J01.90 Assessment and Plan Assessment and Plan (1) Acute sinusitis: Status: Acute Medications: New amoxicillin-pot clavulanate 875-125 mg 1 TAB PO Q12H 20 tabs 0RF 10 days J01.90 - Acute sinusitis, unspecified Plan Augmentin as prescribed today. Encouraged to get plenty of rest, drink lots of clear liquids, and use Tylenol or Ibuprofen (unless contraindicated) for fever and comfort. Patient also educated on other symptomatic management techniques. To be seen in 7-10 days if no improvement; sooner if worsening of symptoms. Patient advised of potential red flags and when appropriate to report to the ED. Patient verbalized understanding and agreement with all the above. Clinical Quality Measures Falls Risk Screening/Assistive Devices Have you fallen in the past year?: No 06/02/24 1000 Date Don Morton Signature: Date (if applicable) CC: Normal [facility] COVID & INFLUENZA A/B & RSV NAAT, ROUTINEon 12-16-2023 FLUAV RNA KARINA+probe Ql (Unsp spec) Not detected Not Detected [facility] FLUBV RNA KARINA+probe Ql (Unsp spec) Not detected Not Detected [facility] Interpretation and review of laboratory results Normal [facility] RSV A RNA KARINA+probe Ql (Unsp spec) Not detected Not Detected [facility] SARS-CoV-2 (COVID-19) RNA KARINA+probe Ql (Resp) Not detected See comment Lisa philip [facility] Comment on above: The method used is R T-PCR or an equivalent NAAT method. Reference Range (the expected result in uninfected individuals): Not detected For upper respiratory tract samples, this test has been authorized by FDA under Emergenecy Use Authorization (EUA). For lower respiratory tract samples, this test was developed and its performance characteristics determined by [facility]'s [facility] ([facility]). It has not been cleared or approved by the FDA. [facility] is regulated under CLIA as qualified to perform high-complexity testing. This test is used for clinical purposes. It should not be regarded as investigational or for research. Test performed by [facility], [facility] [place], [facility] [place] [address]. [facility] Absolute lymphocyte countOrd ered By: Leia Salazar on 12-07-2023 Lymphocytes Auto (Unsp spec) [#/Vol] 1.94 10*3/uL 0.83-4.51 [facility] Automated lymphocyte count a s percentage of total leukocytesOrdered By: Leia Salazar on 12-07-2023 Lymphocytes/100 WBC Auto (Unsp spec) 18.3 % 19-41 [facility] Basophil percentageOrdered B y: Leia Salazar on 12-07-2023 Basophils/100 WBC (Bld) 0.1 % 0-1 [facility] Eosinophils/100 WBC (Bld) 0.5 % 0-5 [facility] Hemoglobin (Bld) [Mass/Vol] 13.5 g/dL 12.0-15.0 [facility] Monocytes/100 WBC (Bld) 5.7 % 0-10 [facility] Neutrophils (Bld) [#/Vol] 8.0 10*3/uL 2.0-7.7 [facility] Neutrophils/100 WBC (Bld) 75.1 % 47-70 [facility] WBC (Bld) [#/Vol] 10.6 10*3/uL 4.4-11.0 [facility] Determination of erythrocyte mean corpuscular volume (MCV)Ordered By: Leia Salazar on 12-07-2023 MCV (RBC) [Entitic vol] 88.0 fL 81-99 [facility] Erythrocyte distribution wid th ratioOrdered By: Leia Salazar on 12-07-2023 Erythrocyte distribution width (RBC) [Ratio] 12.2 % 11.6-14.6 [facility] Erythrocyte distribution wid th standard deviationOrdered By: Leia Salazar on 12-07-2023 Erythrocyte distribution width (RBC) [Entitic vol] 39.0 fL 35.1-43.9 [facility] HIV 1 and HIV-2 antibody ass ay with HIV-1 p24 antigen detectionOrdered By: Leia Salazar on 12-07-2023 HIV 1+2 Ab+HIV1 p24 Ag IA Ql Non-Reactive Nonreactive [facility] Hematocrit Auto (Bld) [Volum e fraction]Ordered By: Leia Salazar on 12-07-2023 Hematocrit (Bld) [Volume fraction] 38.8 % 37-47 [facility] Immature granulocytes/100 WB C Auto (Bld)Ordered By: Leia Salazar on 12-07-2023 Immature granulocytes/100 WBC (Bld) 0.300 % 0.0-0.9 [facility] Comment on above: IG% - Immature Granu locytes (promyelocytes, myelocytes and metamyelocytes) > 1% indicates that a LEFT SHIFT is Present. Laboratory - Chemistry and C hemistry - challengeon 12-07-2023 Glucose Ql (U) Negative [facility] - Hematology and Cell countsOrdered By: Leia Salazar on 12-07-2023 MCH (RBC) [Entitic mass] 30.6 pg 27.0-32.0 [facility] MCHC (RBC) [Mass/Vol] 34.8 g/dL 32-36 [facility] Nucleated RBC/100 WBC (Bld) [Ratio] 0 % 0-5 [facility] Platelet mean volume (Bld) [Entitic vol] 9.5 fL 6.2-12.0 [facility] Platelets (Bld) [#/Vol] 295 10*3/uL 150-450 [facility] - Urinalysison Protein Ql (U) Negative [facility] No Panel InformationOrdered By: Leia Salazar on 12-07-2023 Hepatitis B Surface Antigen Non-Reactive Nonreactive [facility] Hepatitis C Antibody Non-Reactive Nonreactive [facility] Comment on above: Non Reactive: < 0.8 Equivocal: >/= 0.8 to < 1.0 Reactive: >/= 1.0The CDC requires that a reactive/equivocal HCV antibody result be sent out for confirmation. HCV Quant by PCR testing. Miscellaneous Test Comment SEE SCANNED REPORT [facility] Rubella IgG Antibody Reactive Nonreactive [facility] Comment on above: Antibody Results Int erpretation of Immune Status Non Reactive Presumed Non-Immune Equivocal Equivocal Reactive Presumed Immune RBC Auto (Bld) [#/Vol]Ordere d By: Leia Salazar on 12-07-2023 RBC (Bld) [#/Vol] 4.41 10*6/uL 4.2-5.4 [facility] Serum Treponema species anti body detectionOrdered By: Leia Salazar on 12-07-2023 Treponema sp Ab Ql (S) Non-Reactive [facility] Whole blood hemoglobin A1c/t otal hemoglobin ratio (mass fraction)Ordered By: Leia Salazar on 12-07-2023 HbA1c (Bld) [Mass fraction] 4.9 % 3.8-5.6 [facility] Comment on above: Normal < 5.7 % Predi abetic 5.7 - 6.4 % Diabetic >or= 6.5 % Please note range changes. Chlamydia trachomatis rRNA d etection by probe and target amplification methodOrdered By: Leia Salazar on 11-06-2023 C. trachomatis rRNA KARINA+probe Ql (Unsp spec) Negative Negative [facility] Culture, urineOrdered By: Nicholas Salazar on 11-06-2023 Bacteria identified Cx Nom (U) Mixed Gram Pos & Gram Neg Org [facility] Laboratory - Microbiology an d Antimicrobial susceptibilityOrdered By: Leia Salazar on 11-06-2023 N. gonorrhoeae DNA KARINA+probe Ql (Unsp spec) Negative Negative [facility] Comment on above: Performed at: =[address] [id number] Director: Nancy Jacinto MD, Phone: [phone] Serum or plasma progesterone measurement (mass/volume)Ordered By: Teresa Morillo on 10-01-2023 Progesterone [Mass/Vol] 10.47 ng/mL See Comment [facility] Comment on above: Progesterone Referen ce Table: UNITS Female: Follicular 0.15 - 1.40 ng/mL Luteal 3.34 - 25.56 ng/mL Mid-luteal 4.44 - 28.03 ng/mL Postmenopausal 0.0 - 0.73 ng/mL : 1st Trimester 11.22 - 90.00 ng/mL 2nd Trimester 25.55 - 89.40 ng/mL 3rd Trimester 48.40 -422.50 ng/mL STREP A MOLECULAR (POC)on Procedural Control Valid [facility] Strep A (POCT) Positive Abnormal Negative [facility] Cervical or vagninal specime n microscopic examination by cytology stain (reported asOrdered By: Teresa Morillo on 09-15-2023 Cytology report Cyto stain Doc (Cvx/Vag) Comment . [facility] Comment on above: The Pap smear is a s creening test designed to aid in thedetection of premalignant and malignant conditions of theuterine cervix. It is not a diagnostic procedure andshould not be used as the sole means of detecting cervicalcancer. Both false-positive and false-negative reports dooccur. Laboratory - CytologyOrdered By: Teresa Morillo on 09-15-2023 Teletray Operator Cyto stain Nom (Cvx/Vag) [ID] Comment . [facility] Comment on above: Lis castelan, Weighter (ASCP) Laboratory - Miscellaneous t estsOrdered By: Teresa Morillo on 09-15-2023 Service comment (Unsp spec) [Interp] . . [facility] No Panel InformationOrdered By: Teresa Morillo on 09-15-2023 Human Papillomavirus Screen Comment . [facility] Comment on above: The HPV DNA reflex c kali were not met with this specimenresult therefore, no HPV testing was performed.Performed at: - [address] [id number] Director: Nancy Jacinto MD, Phone: [phone] Thin prep Papanicolaou smear with manual screeningOrdered By: Teresa Morillo on 09-15-2023 Thin prep Papanicolaou smear with manual screening Comment . [facility] Comment on above: NEGATIVE FOR INTRAEP ITHELIAL LESION OR MALIGNANCY.CELLULAR CHANGES ASSOCIATED WITH INFLAMMATION ARE PRESENT. This liquid based Th inPrep(R) pap test was screened withthe use of an image guided system. XR Foot - left AP and Latera l and obliqueon 08-28-2023 IMPRESSION: 1. No acute radiographic abnormality of the left foot Lime Trimmer: KATLYN Transcribe Date/Time: Aug 28 2023 5:16P Dictated by : CORRY MORTENSEN MD This examination was interpreted and the report reviewed and electronically signed by: CORRY MORTENSEN MD on Aug 28 2023 5:56PM EST DIVISION OF RADIOLOGY * * *Final Report* * * DATE OF EXAM: Aug 28 2023 10:04AM WOX 5336 - XR FOOT 3V AP/LAT/OBL LT / PROCEDURE REASON: Tendonitis * * * * Physician Interpretation * * * * FOOT RADIOGRAPHS - LEFT HISTORY: Tendonitis TECHNOLOGIST PROVIDED HISTORY (if applicable): pain in prox 4-5th MT and radiates across the top of foot no inj TECHNIQUE: XR FOOT 3V AP/LAT/OBL LT COMPARISON: None available RESULT: Bone mineralization appears normal. Left foot: There are no visualized articular erosions in the foot. No focal bony abnormality is identified. Joint spaces are preserved, and there is no soft tissue swelling. DIVISION OF RADIOLOGY Provider, [facility] - 08/28/2023 * * *Final Report* * * DATE OF EXAM: Aug 28 2023 10:04AM WOX 5336 - XR FOOT 3V AP/LAT/OBL LT / PROCEDURE REASON: Tendonitis * * * * Physician Interpretation * * * * FOOT RADIOGRAPHS - LEFT HISTORY: Tendonitis TECHNOLOGIST PROVIDED HISTORY (if applicable): pain in prox 4-5th MT and radiates across the top of foot no inj TECHNIQUE: XR FOOT 3V AP/LAT/OBL LT COMPARISON: None available RESULT: Bone mineralization appears normal. Left foot: There are no visualized articular erosions in the foot. No focal bony abnormality is identified. Joint spaces are preserved, and there is no soft tissue swelling. IMPRESSION IMPRESSION: 1. No acute radiographic abnormality of the left foot Lime Trimmer: KATLYN Transcribe Date/Time: Aug 28 2023 5:16P Dictated by : CORRY MORTENSEN MD This examination was interpreted and the report reviewed and electronically signed by: CORRY MORTENSEN MD on Aug 28 2023 5:56PM EST [facility] Radiology Study observation (narrative) [facility] XR Foot - left AP and Latera l and obliqueOrdered By: Ccf Provider on 08-28-2023 [facility] ANES PRE-OPon 12-12-2022 ANES PRE-OP HNO ID: [id number] Author: Phil Montoya IV, DO Service: Anesthesiology Author Type: Anesthesiologist Type: Anesthesia Preprocedure Evaluation Filed: 12/12/2022 10:33 AM Note Text: ANESTHESIOLOGY DAY OF SURGERY NOTE : 1995 Procedure Information Date/Time: 12/12/22 1045 Procedures: NASAL / SINUS ENDOSCOPY W/MAXILLARY ANTROSTOMY (Right: Sinus) STEREOTACTIC COMPUTER-ASSISTED (NAVIGATIONAL) PROCEDURE CRANIAL EXTRADURAL (Sinus) ENDOSCOPY NASAL/SINUS W/ ETHMOIDECTOMY, TOTAL (Bilateral: Sinus) Location: [facility] OR20A / [facility] OR Surgeons: Elías Dinero MD Estimated body mass index is 35.38 kg/m? as calculated from the following: Height as of 11/21/22: 160 cm (5' 3"). Weight as of this encounter: 90.6 kg (199 lb 11.8 oz). Most recent hematocrit and potassium results: Hematocrit 40.1 11/21/2022 Potassium 3.8 11/21/2022 Relevant Problems No relevant active problems I - PHYSICAL EVALUATION AIRWAY Patient intubated: No. Tracheostomy tube not present Mallampati: II. TM distance: >3 FB. Neck ROM: full ROM without neurological symptoms. Mouth opening: adequate. Short neck: no. Thick neck: yes Edwards present: no Lip Bite Test: I DENTAL Dental findings: teeth intact. II - ANESTHESIA PLAN ASA Score: 2 Anesthetic Plan: general Airway type: ETT The patient is not a current smoker. NPO Status: adequate Beta Ravi Administration of chronic beta ravi medication not planned. Reasons for not administering beta ravi perioperatively: other Monitoring Plan Monitoring plan: standard ASA. Post Procedure Analgesic Plan Postoperative analgesic plan: multimodal analgesia. Informed Consent Anesthetic risks, benefits, alternatives, personnel and consent discussed: yes. Patient / Responsible Libertarian agrees to proceed: yes Patient / Surrogate agrees to blood products: blood products not planned DNR status not reviewed with patient and/or family prior to surgery. Significant changes in the patient condition since the History and Physical, not otherwise documented in primary service progress note: no. Potential Anesthesia issues that may suggest increased risk of complications or contraindication to planned procedure: none. Vitals Value Taken Time BP 104/61 12/12/22 1002 Pulse Resp 16 12/12/22 1002 Temp 36.6 ?C (97.9 ?F) 12/12/22 1002 SpO2 98 % 12/12/22 1002 Facility-Administere d Medications as of 12/12/2022 Medication Dose Route Frequency - acetaminophen 1,000 mg tab(s) (TYLENOL) 1,000 mg ORAL ONCE - promethazine 12.5 mg tab(s) (PHENERGAN) 12.5 mg ORAL NOW - lidocaine 10 mg/mL (1 %) 1-2 mg injection (XYLOCAINE) 0.1-0.2 mL INTRADERMAL PRN - lactated ringers iv infusion 5-30 mL/hr INTRAVENOUS CONTINUOUS - NaCl 0.9% iv flush bag 20 mL INTRAVENOUS PRN - ceFAZolin iv piggyback 2 g in D5W (iso-osmotic) 100 mL (ANCEF) 2 g INTRAVENOUS Wrapper And Preserver to OR Outpatient Medications as of 12/12/2022 Medication Sig - fluticasone (FLONASE ALLERGY RELIEF) 50 mcg/actuation nasal spray Use 2 Sprays in each nostril once daily. - loratadine (CLARITIN) 10 mg tablet Take 1 tablet by mouth once daily. I have interviewed and examined the patient. I have reviewed the medical record and/or the pre-anesthesia evaluation, pertinent labs, and test results. This contains updated information obtained within 48 hours of Surgery/Procedure. SIGNATURE: Phil Montoya IV, DO PATIENT NAME: Felecia Cline DATE: December 12, 2022 TIME: 10:32 AM CSN: [id number] Normal [facility] Basic metabolic 2000 panelon 11-21-2022 Anion gap [Moles/Vol] 9 mmol/L 9 - 18 mmol/L [facility] Calcium [Mass/Vol] 8.9 mg/dL 8.5 - 10. 2 mg/dL [facility] Chloride [Moles/Vol] 102 mmol/L 97 - 10 5 mmol/L [facility] CO2 [Moles/Vol] 26 mmol/L 22 - 30 mmol/L [facility] Creatinine [Mass/Vol] 0.77 mg/dL 0.58 - 0.96 mg/dL [facility] Estimated Glomerular Filtration Rate 107 mL/min/1.73m >=60 mL/min/1.73m [facility] Glucose [Mass/Vol] 99 mg/dL 74 - 99 mg/dL [facility] Potassium [Moles/Vol] 3.8 mmol/L 3.7 - 5.1 mmol/L [facility] Sodium [Moles/Vol] 137 mmol/L 136 - 144 mmol/L [facility] Urea nitrogen [Mass/Vol] 10 mg/dL 7 - 21 mg/d L [facility] CBC W Auto Differential pane l (Bld)on 11-21-2022 Basophils (Bld) [#/Vol] 0.03 10*3/uL <0.11 k/uL [facility] Basophils/100 WBC (Bld) 0.5 % C [facility] Differential cell count method Nom (Bld) Auto [facility] Eosinophils (Bld) [#/Vol] 0.08 10*3/uL <0.46 k/uL [facility] Eosinophils/100 WBC (Bld) 1.3 % [facility] Erythrocyte distribution width (RBC) [Ratio] 12.1 % 11.5 - 15.0 % [facility] Hematocrit (Bld) [Volume fraction] 40.1 % 36.0 - 46.0 % [facility] Hemoglobin (Bld) [Mass/Vol] 14.1 g/dL 11.5 - 15.5 g/dL [facility] Immature granulocytes (Bld) [#/Vol] <0.10 k/uL [facility] Immature granulocytes/100 WBC (Bld) 0.3 % [facility] Lymphocytes (Bld) [#/Vol] 2.22 10*3/uL 1.00 - 4.00 k/uL [facility] Lymphocytes/100 WBC (Bld) 35.1 % [facility] MCH (RBC) [Entitic mass] 30.5 pg 26.0 - 34.0 pg [facility] MCHC (RBC) [Mass/Vol] 35.2 g/dL 30.5 - 36.0 g/dL [facility] MCV (RBC) [Entitic vol] 86.6 fL 80.0 - 100.0 fL [facility] Monocytes (Bld) [#/Vol] 0.77 10*3/uL <0.87 k/uL [facility] Monocytes/100 WBC (Bld) 12.2 % C [facility] Neutrophils (Bld) [#/Vol] 3.20 10*3/uL 1.45 - 7.50 k/uL [facility] Neutrophils/100 WBC (Bld) 50.6 % [facility] Nucleated RBC (Bld) [#/Vol] <0.01 k/uL [facility] Nucleated RBC/100 WBC (Bld) [Ratio] 0.0 /100 WBC [facility] Platelet mean volume (Bld) [Entitic vol] 9.5 fL 9.0 - 12.7 fL [facility] Platelets (Bld) [#/Vol] 296 10*3/uL 150 - 400 k /uL [facility] RBC (Bld) [#/Vol] 4.63 10*6/uL 3.90 - 5.2 0 m/uL [facility] WBC (Bld) [#/Vol] 6.32 10*3/uL 3.70 - 11. 00 k/uL [facility] CT SINUS STEREO WO IVCONon 0 09-26-2022 [facility] Influenza virus A and B RNA and SARS-CoV-2 (COVID-19) N gene panel KARINA+probe (Resp)on 09-16-2022 FLUAV RNA KARINA+probe Ql (Unsp spec) Not detected Not Detected [facility] FLUBV RNA KARINA+probe Ql (Unsp spec) Not detected Not Detected [facility] SARS-CoV-2 (COVID-19) RNA KARINA+probe Ql (Resp) Not detected See comment [facility] STREP A MOLECULAR (POC)on Procedural Control Valid [facility] Strep A (POCT) Negative Negative [facility] UA DIP, URINE (POC)on 2022 BILIRUBIN UA (POCT) Negative Negative [facility] CLARITY UA (POCT) Clear [facility] COLOR UA (POCT) Yellow [facility] GLUCOSE UA (POCT) Negative Negative mg/dL [facility] HEMOGLOBIN/BLOOD UA (POCT) Trace-lysed Abnormal Negative [facility] KETONE UA (POCT) Negative Negative mg/dL [facility] LEUKOCYTES UA (POCT) Small Abnormal Negative [facility] NITRITE UA (POCT) Negative Negative [facility] PH UA (POCT) 5.5 4.5 - 8.0 [facility] Protein Ql (U) Negative Negative mg/dL [facility] SPECIFIC GRAVITY UA (POCT) 1.025 1.005 - 1.030 [facility] UROBILINOGEN UA (POCT) 0.2 E.U./dL Normal E.U./ dL [facility] XR FOOT GENERAL 3V AP/LAT/OB L RIGHTon 07-08-2022 [facility] XR Foot - right AP and Later al and obliqueon 07-08-2022 IMPRESSION: No acute osseous abnormality Lime Trimmer: [facility] Transcribe Date/Time: Jul 08 2022 12:05P Dictated by : FELECIA VAUGHAN MD This examination was interpreted and the report reviewed and electronically signed by: FELECIA VAUGHAN MD on Jul 08 2022 12:07PM [facility] DIVISION OF RADIOLOGY * * *Final Report* * * DATE OF EXAM: Jul 08 2022 11:55AM WOX 5337 - XR FOOT 3V AP/LAT/OBL RT / PROCEDURE REASON: Pain * * * * Physician Interpretation * * * * EXAMINATION: XR FOOT 3V AP/LAT/OBL RT CLINICAL HISTORY: Right foot pain Technique: XR FOOT 3V AP/LAT/OBL RT -- RIGHT with 3 views on 3 images Comparison: None RESULT: No acute fracture or dislocation. Joint spaces are maintained. DIVISION OF RADIOLOGY Provider, [facility] [place] - 07/08/2022 * * *Final Report* * * DATE OF EXAM: Jul 08 2022 11:55AM WOX 5337 - XR FOOT 3V AP/LAT/OBL RT / PROCEDURE REASON: Pain * * * * Physician Interpretation * * * * EXAMINATION: XR FOOT 3V AP/LAT/OBL RT CLINICAL HISTORY: Right foot pain Technique: XR FOOT 3V AP/LAT/OBL RT -- RIGHT with 3 views on 3 images Comparison: None RESULT: No acute fracture or dislocation. Joint spaces are maintained. IMPRESSION IMPRESSION: No acute osseous abnormality Lime Trimmer: [facility] Transcribe Date/Time: Jul 08 2022 12:05P Dictated by : FELECIA VAUGHAN MD This examination was interpreted and the report reviewed and electronically signed by: FELECIA VAUGHAN MD on Jul 08 2022 12:07PM EST [facility] Radiology Study observation (narrative) [facility] XR Foot - right AP and Later al and obliqueOrdered By: Ccf Provider on 07-08-2022 [facility] STREP A MOLECULAR (POC)on Procedural Control Valid [facility] Strep A (POCT) Negative Negative [facility] No Panel Informationon 03-17 POC Bacterial Vaginitis (Rapid) Negative [facility] Work Phone: No Panel Informationon 09-27 IMPRESSION: NO EVIDENCE OF FRACTURE Lime Trimmer: KATLYN Transcribe Date/Time: Sep 27 2021 9:31A Dictated by : FELECIA VAUGHAN MD This examination was interpreted and the report reviewed and electronically signed by: FELECIA VAUGHAN MD on Sep 27 2021 9:34AM EST DIVISION OF RADIOLOGY Radiology Study observation (narrative) [facility] No Panel InformationOrdered By: Ccf Provider on 09-27-2021 [facility] XR Lumbar spine 3 Viewson * * *Final Report* * * DATE OF EXAM: Sep 27 2021 9:30AM WOX 5228 - XR LUMBAR 3V AP/LAT/L5-S1 / PROCEDURE REASON: Acute bilateral low back pain with left-sided sciatica * * * * Physician Interpretation * * * * X-ray lumbosacral spine, AP, lateral and L5-S1 views X-ray sacrum and coccyx, AP and lateral views Indication: Low back pain Comparison: None Counting reference: Lumbosacral junction. For the purposes of this report, L5S1 is considered the last lumbar type disc space and L4-5 is considered the level of the iliac crest. There is normal architecture and mineralization of the bones. No fracture is visualized. There is good alignment of the vertebrae. Intervertebral disc spaces are maintained. Sacroiliac joints appear normal. DIVISION OF RADIOLOGY Provider, [facility] [place] - 09/27/2021 * * *Final Report* * * DATE OF EXAM: Sep 27 2021 9:30AM WOX 5228 - XR LUMBAR 3V AP/LAT/L5-S1 / PROCEDURE REASON: Acute bilateral low back pain with left-sided sciatica * * * * Physician Interpretation * * * * X-ray lumbosacral spine, AP, lateral and L5-S1 views X-ray sacrum and coccyx, AP and lateral views Indication: Low back pain Comparison: None Counting reference: Lumbosacral junction. For the purposes of this report, L5S1 is considered the last lumbar type disc space and L4-5 is considered the level of the iliac crest. There is normal architecture and mineralization of the bones. No fracture is visualized. There is good alignment of the vertebrae. Intervertebral disc spaces are maintained. Sacroiliac joints appear normal. IMPRESSION IMPRESSION: NO EVIDENCE OF FRACTURE Lime Trimmer[facility] Transcribe Date/Time: Sep 27 2021 9:31A Dictated by : FELECIA VAUGHAN MD This examination was interpreted and the report reviewed and electronically signed by: FELECIA VAUGHAN MD on Sep 27 2021 9:34AM [facility] XR Sacrum and Coccyx 3 Views on 09-27-2021 * * *Final Report* * * DATE OF EXAM: Sep 27 2021 9:30AM WOX 5246 - XR SACRUM/COCCYX 3V AP/LAT / PROCEDURE REASON: Acute bilateral low back pain with left-sided sciatica * * * * Physician Interpretation * * * * X-ray lumbosacral spine, AP, lateral and L5-S1 views X-ray sacrum and coccyx, AP and lateral views Indication: Low back pain Comparison: None Counting reference: Lumbosacral junction. For the purposes of this report, L5S1 is considered the last lumbar type disc space and L4-5 is considered the level of the iliac crest. There is normal architecture and mineralization of the bones. No fracture is visualized. There is good alignment of the vertebrae. Intervertebral disc spaces are maintained. Sacroiliac joints appear normal. DIVISION OF RADIOLOGY Provider, [facility] [place] - 09/27/2021 * * *Final Report* * * DATE OF EXAM: Sep 27 2021 9:30AM WOX 5246 - XR SACRUM/COCCYX 3V AP/LAT / PROCEDURE REASON: Acute bilateral low back pain with left-sided sciatica * * * * Physician Interpretation * * * * X-ray lumbosacral spine, AP, lateral and L5-S1 views X-ray sacrum and coccyx, AP and lateral views Indication: Low back pain Comparison: None Counting reference: Lumbosacral junction. For the purposes of this report, L5S1 is considered the last lumbar type disc space and L4-5 is considered the level of the iliac crest. There is normal architecture and mineralization of the bones. No fracture is visualized. There is good alignment of the vertebrae. Intervertebral disc spaces are maintained. Sacroiliac joints appear normal. IMPRESSION IMPRESSION: NO EVIDENCE OF FRACTURE Lime Trimmer: [facility] Transcribe Date/Time: Sep 27 2021 9:31A Dictated by : FELECIA VAUGHAN MD This examination was interpreted and the report reviewed and electronically signed by: FELECIA VAUGHAN MD on Sep 27 2021 9:34AM [facility] XR Abdomen Supine and Uprigh ton 05-02-2021 IMPRESSION: No evidence of free air or obstruction. Lime Trimmer: [facility] Transcribe Date/Time: May 02 2021 10:54A Dictated by : JAKE PERDO MD This examination was interpreted and the report reviewed and electronically signed by: JAKE PEDRO MD on May 02 2021 10:56AM [facility] DIVISION OF RADIOLOGY * * *Final Report* * * DATE OF EXAM: May 02 2021 10:43AM WOX 5356 - XR ABD 2V SUPINE W UPR/DECUB/CTL / PROCEDURE REASON: Acute LUQ pain * * * * Physician Interpretation * * * * EXAM TITLE: XR ABD 2V SUPINE W UPR/DECUB/CTL EXAM DATE/TIME: 05/02/2021 10:43 AM COMPARISON: None. CLINICAL INDICATION/HISTORY: Left upper quadrant abdominal pain. TECHNIQUE: AP views of the abdomen including upright view are presented. FINDINGS: No abnormally dilated bowel loops identified. No evidence of free air. A few tiny phleboliths in the pelvis. There are a few surgical clips in the right upper quadrant abdomen. There are no abnormal calcifications. The bony structures appear intact. DIVISION OF RADIOLOGY Provider, [facility] - 05/02/2021 * * *Final Report* * * DATE OF EXAM: May 02 2021 10:43AM WOX 5356 - XR ABD 2V SUPINE W UPR/DECUB/CTL / PROCEDURE REASON: Acute LUQ pain * * * * Physician Interpretation * * * * EXAM TITLE: XR ABD 2V SUPINE W UPR/DECUB/CTL EXAM DATE/TIME: 05/02/2021 10:43 AM COMPARISON: None. CLINICAL INDICATION/HISTORY: Left upper quadrant abdominal pain. TECHNIQUE: AP views of the abdomen including upright view are presented. FINDINGS: No abnormally dilated bowel loops identified. No evidence of free air. A few tiny phleboliths in the pelvis. There are a few surgical clips in the right upper quadrant abdomen. There are no abnormal calcifications. The bony structures appear intact. IMPRESSION IMPRESSION: No evidence of free air or obstruction. Lime Trimmer: [facility] Transcribe Date/Time: May 02 2021 10:54A Dictated by : JAKE PEDRO MD This examination was interpreted and the report reviewed and electronically signed by: JAKE PEDRO MD on May 02 2021 10:56AM EST [facility] Radiology Study observation (narrative) [facility] XR Abdomen Supine and Uprigh tOrdered By: Ccf Provider on 05-02-2021 [facility] Thyro. Peroxidase Abon 07-21 Thyro. Peroxidase Ab 30.2 IU/ml Normal 0.0-60.0 [facility] Comment on above: Performed By: #### T PAB ####[address] [address] C3on 07-20-2018 C3 176.0 mg/dL Normal 90.0-180.0 [facility] Comment on above: Performed By: #### C 3 ####[address] [address] C4on 07-20-2018 C4 29.7 mg/dL Normal 10.0-40.0 [facility] Comment on above: Performed By: #### C 4 ####[address] [address] Sed Rateon 07-20-2018 Sed Rate 13 mm/hr Normal 0-20 [facility] Comment on above: Performed By: #### E SR ####[address] [address] Gram stain for investigation of transfusion reaction Microscopic observation Gram stain Nom (Unsp spec) [facility] Work Phone: No Panel Information SARS-CoV-2 & FLU Antigen (Rapid) SARS-CoV-2 (COVID 19) [facility] Work Phone: Thin prep Papanicolaou smear with manual screening Cytopathology procedure, preparation of smear, genital source Neisseria or beta-hemolytic Streptococcus isolated. [facility] Work Phone: Vital Signs Date Time Vital Sign Value Performing Clinician Facility 04-14-2025 10:33-0400 Body height 157.[address] Stefan Bradford MD Work Phone: [facility] 04-14-2025 10:33-0400 Body mass index (BMI) [Ratio] 37.6 kg/m2 Dr. Stefan Bradford MD Work Phone: [facility] 04-14-2025 10:33-0400 Body weight 93.[address] Stefan Bradford MD Work Phone: [phone] [place] [address] 01-19-2025 10:06-0400 Body height 157.[address] Stefan Bradford MD Work Phone: [facility] 01-19-2025 10:01-0400 Body mass index (BMI) [Ratio] 38.6 kg/m2 Dr. Stefan Bradford MD Work Phone: [facility] 01-19-2025 10:01-0400 Body weight 95.[address] Stefan Bradford MD Work Phone: [facility] 01-19-2025 10:01-0400 Diastolic blood pressure 82 mm[Hg] Dr. Stefan Bradford MD Work Phone: [facility] 01-19-2025 10:01-0400 Systolic blood pressure 110 mm[Hg] Dr. Stefan Bradford MD Work Phone: [facility] 10-23-2024 13:12-0400 Body mass index (BMI) [Ratio] 36.51 kg/m2 Marah Hernandez APRN.CNP Work Phone: [facility] 10-23-2024 13:12-0400 Body temperature 98.6 [degF] Marah Hernandez MULTI SKILLED OPERATOR.VACUUM FORM OPERATOR Work Phone: [facility] 10-23-2024 13:12-0400 Body weight 93.5 kg Marah Hernandez MULTI SKILLED OPERATOR.VACUUM FORM OPERATOR Work Phone: [facility] 10-23-2024 13:12-0400 Diastolic blood pressure 72 mm[Hg] Marah Hernandez MULTI SKILLED OPERATOR.VACUUM FORM OPERATOR Work Phone: [facility] 10-23-2024 13:12-0400 Heart rate 102 /min Marah Hernandez MULTI SKILLED OPERATOR.VACUUM FORM OPERATOR Work Phone: [facility] 10-23-2024 13:12-0400 Respiratory rate 16 /min Marah Hernandez MULTI SKILLED OPERATOR.VACUUM FORM OPERATOR Work Phone: [facility] 10-23-2024 13:12-0400 SaO2% (BldA) [Mass fraction] 97 % Marah Hernandez MULTI SKILLED OPERATOR.VACUUM FORM OPERATOR Work Phone: [facility] 10-23-2024 13:12-0400 Systolic blood pressure 128 mm[Hg] Marah Hernandez MULTI SKILLED OPERATOR.VACUUM FORM OPERATOR Work Phone: [facility] 07-05-2024 14:08-0500 Diastolic blood pressure 80 mm[Hg] Sheri Haagen MULTI SKILLED OPERATOR.VACUUM FORM OPERATOR Work Phone: [facility] 07-05-2024 14:08-0500 Heart rate 87 /min Sheri Haagen MULTI SKILLED OPERATOR.VACUUM FORM OPERATOR Work Phone: [facility] 07-05-2024 14:08-0500 Respiratory rate 16 /min Sheri Haagen MULTI SKILLED OPERATOR.VACUUM FORM OPERATOR Work Phone: [facility] 07-05-2024 14:08-0500 SaO2% (BldA) [Mass fraction] 97 % Sheri Haagen MULTI SKILLED OPERATOR.VACUUM FORM OPERATOR Work Phone: [facility] 07-05-2024 14:08-0500 Systolic blood pressure 110 mm[Hg] Sheri Haagen MULTI SKILLED OPERATOR.VACUUM FORM OPERATOR Work Phone: [facility] 03-03-2024 09:43-0400 Body mass index (BMI) [Ratio] 37.88 kg/m2 Krislyn Aberegg PA Work Phone: [facility] 03-03-2024 09:43-0400 Body temperature 97.5 [degF] Krislyn Aberegg PA Work Phone: [facility] 03-03-2024 09:43-0400 Body weight 97 kg Krislyn Aberegg PA Work Phone: [facility] 03-03-2024 09:43-0400 Diastolic blood pressure 79 mm[Hg] Krislyn Aberegg PA Work Phone: [facility] 03-03-2024 09:43-0400 Heart rate 88 /min Krislyn Aberegg PA Work Phone: [facility] 03-03-2024 09:43-0400 Respiratory rate 18 /min Krislyn Aberegg PA Work Phone: [facility] 03-03-2024 09:43-0400 SaO2% (BldA) [Mass fraction] 99 % Krislyn Aberegg PA Work Phone: [facility] 03-03-2024 09:43-0400 Systolic blood pressure 110 mm[Hg] Krislyn Aberegg PA Work Phone: [facility] 12-16-2023 09:04-0400 Body temperature 98.6 [degF] Sheri Haagen MULTI SKILLED OPERATOR.VACUUM FORM OPERATOR Work Phone: [facility] 12-16-2023 09:04-0400 Diastolic blood pressure 82 mm[Hg] Sheri Haagen MULTI SKILLED OPERATOR.VACUUM FORM OPERATOR Work Phone: [facility] 12-16-2023 09:04-0400 Heart rate 99 /min Sheri Haagen MULTI SKILLED OPERATOR.VACUUM FORM OPERATOR Work Phone: [facility] 12-16-2023 09:04-0400 Respiratory rate 16 /min Sheri Haagen MULTI SKILLED OPERATOR.VACUUM FORM OPERATOR Work Phone: [facility] 12-16-2023 09:04-0400 SaO2% (BldA) [Mass fraction] 97 % Sheri Franco MULTI SKILLED OPERATOR.VACUUM FORM OPERATOR Work Phone: 2(395)388-108833 [place] [address] 12-16-2023 09:04-0400 Systolic blood pressure 122 mm[Hg] Sheri Franco MULTI SKILLED OPERATOR.VACUUM FORM OPERATOR Work Phone: 3(293)331-391233 [place] [address] 12-07-2023 13:47-0400 Body height 160.[address] Stefan Bradford Work Phone: 5(425)490-753233 [place] [address] 12-07-2023 13:44-0400 Body mass index (BMI) [Ratio] 37.3 kg/m2 Dr. Stefan Bradford Work Phone: 8(260)979-585633 [place] [address] 12-07-2023 13:44-0400 Body weight 95.[address] Stefan Bradford Work Phone: 0(144)264-078933 [place] [address] 12-07-2023 13:44-0400 Diastolic blood pressure 78 mm[Hg] Dr. Stefan Bradford Work Phone: 5(736)633-075333 [place] [address] 12-07-2023 13:44-0400 Systolic blood pressure 116 mm[Hg] Dr. Stefan Bradford Work Phone: 7(926)764-231033 [place] [address] 11-06-2023 11:18-0400 Body height 160.[address] Stefan Bradford Work Phone: 9(546)808-036733 [place] [address] 11-06-2023 11:18-0400 Body mass index (BMI) [Ratio] 37.5 kg/m2 Dr. Stefan Bradford Work Phone: 8(073)715-613533 [place] [address] 11-06-2023 11:18-0400 Body weight 96.[address] Stefan Bradford Work Phone: 7(061)255-921733 [place] [address] 11-06-2023 11:18-0400 Diastolic blood pressure 72 mm[Hg] Dr. Stefan Bradford Work Phone: 2(873)214-203733 [place] [address] 11-06-2023 11:18-0400 Systolic blood pressure 111 mm[Hg] Dr. Stefan Bradford Work Phone: 7(825)050-667933 [place] [address] 09-21-2023 17:55-0500 Body temperature 98.01 [degF] Drake Mcdonald MD Work Phone: 6(845)745-778833 [place] [address] 09-21-2023 17:55-0500 Body weight 94.8 kg Drake Mcdonald MD Work Phone: [facility] 09-21-2023 17:55-0500 Diastolic blood pressure 84 mm[Hg] Drake Mcdonald MD Work Phone: 6(999)337-118833 [place] [address] 09-21-2023 17:55-0500 Heart rate 102 /min Drake Mcdonald MD Work Phone: 5(529)286-406933 [place] [address] 09-21-2023 17:55-0500 Respiratory rate 16 /min Drake Mcdonald MD Work Phone: 6(373)135-643333 [place] [address] 09-21-2023 17:55-0500 SaO2% (BldA) [Mass fraction] 97 % Drake Mcdonald MD Work Phone: 7(051)271-020333 [place] [address] 09-21-2023 17:55-0500 Systolic blood pressure 124 mm[Hg] Drake Mcdonald MD Work Phone: 2(553)915-443633 [place] [address] 09-15-2023 15:19-0500 Body height 160.[address] Stefan Bradford Work Phone: 9(958)972-670663 [place] [address] 09-15-2023 15:12-0500 Body mass index (BMI) [Ratio] 37 kg/m2 Dr. Stefan Bradford Work Phone: 2(037)312-377363 [place] [address] 09-15-2023 15:12-0500 Body weight 95.[address] Stefan Bradford Work Phone: 3(440)534-018333 [place] [address] 09-15-2023 15:12-0500 Diastolic blood pressure 70 mm[Hg] Dr. Stefan Bradford Work Phone: 1(183)569-936233 [place] [address] 09-15-2023 15:12-0500 Systolic blood pressure 110 mm[Hg] Dr. Stefan Bradford Work Phone: 9(851)874-080233 [place] [address] 06-12-2023 17:42-0400 Body temperature 97.3 [degF] Drake Mcdonald MD Work Phone: [facility] 06-12-2023 17:42-0400 Body weight 95.71 kg Drake Mcdonald MD Work Phone: [facility] 06-12-2023 17:42-0400 Diastolic blood pressure 72 mm[Hg] Drake Mcdonald MD Work Phone: [facility] 06-12-2023 17:42-0400 Heart rate 92 /min Drake Mcdonald MD Work Phone: [facility] 06-12-2023 17:42-0400 Respiratory rate 16 /min Drake Mcdonald MD Work Phone: [facility] 06-12-2023 17:42-0400 SaO2% (BldA) [Mass fraction] 98 % Drake Mcdonald MD Work Phone: [facility] 06-12-2023 17:42-0400 Systolic blood pressure 122 mm[Hg] Drake Mcdonald MD Work Phone: [facility] 05-29-2023 23:11-0400 Body height 160.02 cm [facility] 05-29-2023 23:11-0400 Body mass index (BMI) [Ratio] 36.1 kg/m2 [facility] 05-29-2023 23:11-0400 Body temperature 97.5 [degF] [facility] 05-29-2023 23:11-0400 Body weight 92.53 kg [facility] 05-29-2023 23:11-0400 Diastolic blood pressure 99 mm[Hg] [facility] 05-29-2023 23:11-0400 Heart rate 98 /min [facility] 05-29-2023 23:11-0400 Respiratory rate 16 /min [facility] 05-29-2023 23:11-0400 SaO2% (BldA) [Mass fraction] 99 % [facility] 05-29-2023 23:11-0400 Systolic blood pressure 137 mm[Hg] [facility] 03-24-2023 13:26-0400 Body temperature 98.2 [degF] To Pendlebury MULTI SKILLED OPERATOR.VACUUM FORM OPERATOR Work Phone: [facility] 03-24-2023 13:26-0400 Body weight 95.25 kg Toallie Ayala MULTI SKILLED OPERATOR.VACUUM FORM OPERATOR Work Phone: [facility] 03-24-2023 13:26-0400 Diastolic blood pressure 74 mm[Hg] To Pendlebury MULTI SKILLED OPERATOR.VACUUM FORM OPERATOR Work Phone: [facility] 03-24-2023 13:26-0400 Heart rate 100 /min To Pendlebury MULTI SKILLED OPERATOR.VACUUM FORM OPERATOR Work Phone: [facility] 03-24-2023 13:26-0400 Respiratory rate 18 /min To [place] MULTI SKILLED OPERATOR.VACUUM FORM OPERATOR Work Phone: [facility] 03-24-2023 13:26-0400 SaO2% (BldA) [Mass fraction] 96 % To [place]bury MULTI SKILLED OPERATOR.VACUUM FORM OPERATOR Work Phone: [facility] 03-24-2023 13:26-0400 Systolic blood pressure 120 mm[Hg] To Pendlebury MULTI SKILLED OPERATOR.VACUUM FORM OPERATOR Work Phone: [facility] 11-21-2022 12:55-0400 Body height 160 cm Pacc 1 Work Phone: [facility] 11-21-2022 12:55-0400 Body temperature 98.4 [degF] Pacc 1 Work Phone: [facility] 11-21-2022 12:55-0400 Body weight 90.72 kg Pacc 1 Work Phone: [facility] 11-21-2022 12:55-0400 Diastolic blood pressure 84 mm[Hg] Pacc 1 Work Phone: [facility] 11-21-2022 12:55-0400 Heart rate 94 /min Pacc 1 Work Phone: [facility] 11-21-2022 12:55-0400 Respiratory rate 14 /min Pacc 1 Work Phone: [facility] 11-21-2022 12:55-0400 SaO2% (BldA) [Mass fraction] 97 % Pac 1 Work Phone: [facility] 11-21-2022 12:55-0400 Systolic blood pressure 120 mm[Hg] Pac 1 Work Phone: [facility] 10-29-2022 12:27-0400 Body temperature 97.3 [degF] Drake Mcdonald MD Work Phone: [facility] 10-29-2022 12:27-0400 Body weight 92.53 kg Drake Mcdonald MD Work Phone: [facility] 10-29-2022 12:27-0400 Diastolic blood pressure 76 mm[Hg] Drake Mcdonald MD Work Phone: [facility] 10-29-2022 12:27-0400 Heart rate 94 /min Drake Mcdonald MD Work Phone: [facility] 10-29-2022 12:27-0400 Respiratory rate 16 /min Drake Mcdonald MD Work Phone: [facility] 10-29-2022 12:27-0400 SaO2% (BldA) [Mass fraction] 97 % Drake Mcdonald MD Work Phone: [facility] 10-29-2022 12:27-0400 Systolic blood pressure 124 mm[Hg] Drake Mcdonald MD Work Phone: [facility] 09-19-2022 12:56-0500 Heart rate 92 /min Elías Dinero MD Work Phone: [facility] 09-19-2022 12:56-0500 Respiratory rate 18 /min Elías Dinero MD Work Phone: [facility] 09-19-2022 12:56-0500 SaO2% (BldA) [Mass fraction] 97 % Elías Dinero MD Work Phone: [facility] 09-15-2022 14:37-0500 Diastolic blood pressure 82 mm[Hg] Sheri Franco MULTI SKILLED OPERATOR.VACUUM FORM OPERATOR Work Phone: [facility] 09-15-2022 14:37-0500 Heart rate 94 /min Sheri Haagen MULTI SKILLED OPERATOR.VACUUM FORM OPERATOR Work Phone: [facility] 09-15-2022 14:37-0500 Respiratory rate 18 /min Sheri Franco MULTI SKILLED OPERATOR.VACUUM FORM OPERATOR Work Phone: [facility] 09-15-2022 14:37-0500 SaO2% (BldA) [Mass fraction] 98 % Sheri Franco MULTI SKILLED OPERATOR.VACUUM FORM OPERATOR Work Phone: [facility] 09-15-2022 14:37-0500 Systolic blood pressure 130 mm[Hg] Shrei Haagen MULTI SKILLED OPERATOR.VACUUM FORM OPERATOR Work Phone: [facility] 07-08-2022 10:24-0500 Body temperature 97.11 [degF] Liat Viramontes APRN.VACUUM FORM OPERATOR Work Phone: [facility] 07-08-2022 10:24-0500 Body weight 94.71 kg Liat Viramontes APRN.VACUUM FORM OPERATOR Work Phone: [facility] 07-08-2022 10:24-0500 Diastolic blood pressure 72 mm[Hg] Liat Viramontes MULTI SKILLED OPERATOR.VACUUM FORM OPERATOR Work Phone: [facility] 07-08-2022 10:24-0500 Heart rate 89 /min Liat Viramontes APRN.VACUUM FORM OPERATOR Work Phone: [facility] 07-08-2022 10:24-0500 Respiratory rate 18 /min Liat Viramontes APRN.VACUUM FORM OPERATOR Work Phone: [facility] 07-08-2022 10:24-0500 SaO2% (BldA) [Mass fraction] 98 % Liat Viramontes APRN.VACUUM FORM OPERATOR Work Phone: [facility] 07-08-2022 10:24-0500 Systolic blood pressure 108 mm[Hg] Liat Viramontes MULTI SKILLED OPERATOR.VACUUM FORM OPERATOR Work Phone: [facility] 05-30-2022 10:18-0400 Body temperature 97.81 [degF] Smitha Podlogar MULTI SKILLED OPERATOR.VACUUM FORM OPERATOR Work Phone: [facility] 05-30-2022 10:18-0400 Body weight 94.89 kg Smitha Podlogar MULTI SKILLED OPERATOR.VACUUM FORM OPERATOR Work Phone: [facility] 05-30-2022 10:18-0400 Diastolic blood pressure 74 mm[Hg] Smitha Podlogar MULTI SKILLED OPERATOR.VACUUM FORM OPERATOR Work Phone: [facility] 05-30-2022 10:18-0400 Heart rate 103 /min Smitha Podlogar MULTI SKILLED OPERATOR.VACUUM FORM OPERATOR Work Phone: [facility] 05-30-2022 10:18-0400 Respiratory rate 16 /min Smitha Podlogar MULTI SKILLED OPERATOR.VACUUM FORM OPERATOR Work Phone: [facility] 05-30-2022 10:18-0400 SaO2% (BldA) [Mass fraction] 97 % Smitha Podlogar MULTI SKILLED OPERATOR.VACUUM FORM OPERATOR Work Phone: [facility] 05-30-2022 10:18-0400 Systolic blood pressure 116 mm[Hg] Smitha Podlogar MULTI SKILLED OPERATOR.VACUUM FORM OPERATOR Work Phone: [facility] 05-26-2022 11:34-0400 Body temperature 98.4 [degF] Michelle Rogelio MULTI SKILLED OPERATOR.VACUUM FORM OPERATOR Work Phone: [facility] 05-26-2022 11:34-0400 Body weight 95.62 kg Michelle Rogelio MULTI SKILLED OPERATOR.VACUUM FORM OPERATOR Work Phone: [facility] 05-26-2022 11:34-0400 Diastolic blood pressure 86 mm[Hg] Michelle Rogelio MULTI SKILLED OPERATOR.VACUUM FORM OPERATOR Work Phone: [facility] 05-26-2022 11:34-0400 Heart rate 103 /min Michelle Rogelio MULTI SKILLED OPERATOR.VACUUM FORM OPERATOR Work Phone: [facility] 05-26-2022 11:34-0400 Respiratory rate 18 /min Michelle Rogelio MULTI SKILLED OPERATOR.VACUUM FORM OPERATOR Work Phone: [facility] 05-26-2022 11:34-0400 SaO2% (BldA) [Mass fraction] 98 % Michelle Beltrefreya SIMPSON.VACUUM FORM OPERATOR Work Phone: [facility] 05-26-2022 11:34-0400 Systolic blood pressure 110 mm[Hg] Michelle Rogelio SIMPSON.VACUUM FORM OPERATOR Work Phone: [facility] 03-20-2022 18:04-0400 Respiratory rate 16 /min Dr. Stefan Bradford Work Phone: [facility] Work Phone: 03-20-2022 17:42-0400 Body height 160.[address] Stefan Bradford Work Phone: [facility] Work Phone: 03-20-2022 17:42-0400 Body mass index (BMI) [Ratio] 37.8 kg/m2 Dr. Stefan Bradford Work Phone: [facility] Work Phone: 03-20-2022 17:42-0400 Body temperature 96.7 [degF] Dr. Stefan Bradford Work Phone: [facility] Work Phone: 03-20-2022 17:42-0400 Body weight 96.[address] Stefan Bradford Work Phone: [facility] Work Phone: 03-20-2022 17:42-0400 Diastolic blood pressure 89 mm[Hg] Dr. Stefan Bradford Work Phone: [facility] Work Phone: 03-20-2022 17:42-0400 Heart rate 86 /min Dr. Stefan Bradford Work Phone: [facility] Work Phone: 03-20-2022 17:42-0400 SaO2% (BldA) [Mass fraction] 100 % Dr. Stefan Bradford Work Phone: [facility] Work Phone: 03-20-2022 17:42-0400 Systolic blood pressure 122 mm[Hg] Dr. Stefan Bradford Work Phone: [facility] Work Phone: 03-17-2022 09:27-0400 Body mass index (BMI) [Ratio] 37.8 kg/m2 Dr. Stefan Bradford Work Phone: [facility] Work Phone: 03-17-2022 09:27-0400 Body weight 96.[address] Stefan Bradford Work Phone: [facility] Work Phone: 03-17-2022 09:27-0400 Diastolic blood pressure 70 mm[Hg] Dr. Stefan Bradford Work Phone: [facility] Work Phone: 03-17-2022 09:27-0400 Systolic blood pressure 118 mm[Hg] Dr. Stfean Bradford Work Phone: [facility] Work Phone: 03-05-2022 15:12-0400 Heart rate 88 /min [facility] Work Phone: 03-05-2022 15:12-0400 Respiratory rate 15 /min [facility] Work Phone: 03-05-2022 15:12-0400 SaO2% (BldA) [Mass fraction] 95 % [facility] Work Phone: 03-05-2022 12:31-0400 Body height 160.02 cm [facility] Work Phone: 03-05-2022 12:31-0400 Body mass index (BMI) [Ratio] 37.5 kg/m2 [facility] Work Phone: 03-05-2022 12:31-0400 Body temperature 98.5 [degF] [facility] Work Phone: 03-05-2022 12:31-0400 Body weight 96 kg [facility] Work Phone: 03-05-2022 12:31-0400 Diastolic blood pressure 86 mm[Hg] [facility] Work Phone: 03-05-2022 12:31-0400 Systolic blood pressure 124 mm[Hg] [facility] Work Phone: Encounters Encounter Date Encounter Type Care Provider Facility Start: 05-31-2025 ambulatory Galilea Mercado Facility:[facility] Start: 05-20-2025 End: 05-20-[address] [facility] Facility:[facility] Start: 04-14-2025 End: 04-14-[address] Arthur Mcgill MD -[facility] Start: 04-14-2025 End: 04-14-[address] Stefan Bradford MD Work Phone: [facility] Start: 01-19-2025 End: 01-19-2025 Patient encounter procedure Teresa Morillo INFORMATION ASSURANCE MANAGER-C -[facility] Work Phone: Start: 01-19-2025 End: 01-19-[address] Stefan Bradford MD Work Phone: [facility] Work Phone: Start: 10-23-2024 End: 10-23-2024 Patient encounter procedure Marah Hernandez MULTI SKILLED OPERATOR.VACUUM FORM OPERATOR Work Phone: [facility] Comment on above: Rhinosinusitis (Prim azalia Dx); Acute otitis media, bilateral Start: 10-23-2024 End: 10-23-2024 [facility] Facility:[facility] Start: 10-23-2024 End: 10-23-2024 Telemedicine consultation with patient Mee Borrero MULTI SKILLED OPERATOR.VACUUM FORM OPERATOR Work Phone: Telemedicine Comment on above: Treatment not availa ble (Primary Dx) Start: 10-09-2024 End: 10-09-2024 [facility] Facility:[facility] Start: 10-09-2024 End: 10-09-2024 Telemedicine consultation with patient Aga Valdes MULTI SKILLED OPERATOR.VACUUM FORM OPERATOR Work Phone: Telemedicine Comment on above: Treatment not availa ble (Primary Dx) Acute bacterial conj unctivitis of right eye (Primary Dx); Acute non-recurrent maxillary sinusitis; Productive cough Start: 10-09-2024 ambulatory STEFAN GANTA Facility:[facility] Start: 10-04-2024 ambulatory Amna Greg Mar cility:[facility] Start: 09-23-2024 ambulatory Amna Greg Mar cility:[facility] Start: 08-29-2024 End: 08-29-2024 ambulatory Teresa Morillo NP Facility:[facility] Start: 07-25-[address] [facility] Start: 07-06-2024 [facility] Start: 07-06-2024 End: 07-06-2024 Subsequent hospital visit by physician [facility] Comment on above: Right wrist pain [M2 5.531] Start: 07-05-2024 End: 07-05-2024 Subsequent hospital visit by physician X[facility] Work Phone: Radiology Comment on above: Right wrist pain [M2 5.531] Start: 07-05-2024 End: 07-05-2024 Office outpatient visit 25 minutes Sheri Franco APRN.VACUUM FORM OPERATOR Work Phone: [facility] [place] Comment on above: Right wrist pain (Pr imary Dx) Start: 07-05-2024 End: 07-05-2024 ambulatory STEFAN GANTA Facility:[facility] Start: 06-23-2024 End: 06-23-2024 ambulatory Stefan Ganta Facility:[facility] Start: 06-16-2024 ambulatory Stefan Ganta [facility] Start: 06-15-2024 End: 06-15-2024 ambulatory Stefan Ganta Facility:[facility] Start: 06-13-2024 ambulatory Stefan Ganta Facility:[facility] Start: 06-13-2024 End: 06-14-2024 Evaluation and management of inpatient Leia Salazar Facility:[facility] Start: 06-12-2024 ambulatory Leia Salazar Facility :[facility] Start: 06-12-2024 End: 06-12-2024 ambulatory Leia Salazar Facility:[facility] Start: 06-10-2024 End: 06-10-2024 ambulatory Stefan Miguel Angelsavage Facility:[facility] Start: 06-10-2024 End: 06-10-[address] [facility] Facility:[facility] Start: 06-03-2024 End: 06-03-[address] [facility] Facility:[facility] Start: 06-02-2024 End: 06-02-[address] [facility] Facility:[facility] Start: 04-18-2024 End: 04-18-2024 Telemedicine consultation with patient Sheri Franco APRN.VACUUM FORM OPERATOR Work Phone: [facility] Start: 04-18-2024 End: 04-18-2024 ambulatory Sheri Franco APRN.VACUUM FORM OPERATOR Work Phone: [facility] Comment on above: Virtual visit 9-9 Gestational diabetes mellitus (GDM) in third trimester, gestational diabetes method of control unspecified (Primary Dx) Start: 03-25-2024 End: 03-25-2024 ambulatory [facility] Start: 03-04-2024 Telephone encounter Liat Viramontes APRN.VACUUM FORM OPERATOR Work Phone: [facility] Comment on above: Results Start: 03-03-2024 End: 03-03-2024 Patient encounter procedure Marilia DUNLAP Work Phone: [facility] Comment on above: URI, acute (Primary Dx) Start: 02-02-2024 End: 02-02-2024 ambulatory NO PRIMARY CARE [facility] Start: 12-22-2023 ambulatory Sheri Franco APRN.VACUUM FORM OPERATOR Work Phone: [facility] Comment on above: Ongoing symptoms Start: 12-16-2023 End: 12-16-2023 Office outpatient visit 15 minutes Sheri Franco APRN.VACUUM FORM OPERATOR Work Phone: [facility] Comment on above: Viral URI (Primary D x) Start: 12-07-2023 End: 12-07-[address] Stefan Bradford Work Phone: [facility] Work Phone: Start: 12-07-2023 End: 12-07-[address] Stefan Bradford Work Phone: [facility] Work Phone: Start: 11-06-2023 End: 11-06-[address] Stefan Bradford Work Phone: [facility] Work Phone: Start: 11-06-2023 End: 11-06-[address] Stefan Bradford [facility] Work Phone: Start: 11-06-2023 End: 11-06-[address] Stefan Bradford Work Phone: [facility] Work Phone: Start: 10-23-2023 End: 10-23-2023 Patient encounter procedure Jesus Brandon Work Phone: Podiatry Comment on above: Foot sprain, left, i nitial encounter (Primary Dx); Foot pain, left Start: 10-01-2023 End: 10-01-[address] Stefan Bradford Work Phone: [facility] Work Phone: Start: 10-01-2023 End: 10-01-[address] Stefan Bradford Work Phone: [facility] Work Phone: Start: 09-21-2023 End: 09-21-2023 Patient encounter procedure Drake Mcdonald MD Work Phone: [facility] Comment on above: Streptococcal pharyn gitis (Primary Dx); Sore throat; Exposure to influenza Start: 09-15-2023 End: 09-15-[address] Stefna Bradford Work Phone: [facility] Work Phone: Start: 09-15-2023 End: 09-15-[address] Stefan Bradford Work Phone: [facility] Specimen Work Phone: Start: 09-15-2023 End: 09-15-[address] Stefan Bradford Work Phone: [facility] Work Phone: Start: 09-10-2023 ambulatory Sonny Mejia MULTI SKILLED OPERATOR.VACUUM FORM OPERATOR Work Phone: [facility] Comment on above: Ongoing foot pain Start: 08-28-2023 End: 08-28-2023 Subsequent hospital visit by physician Xr [facility] Work Phone: Radiology Comment on above: Tendonitis [M77.9] Start: 08-10-2023 End: 08-10-2023 ambulatory Jacquelin Goodson MULTI SKILLED OPERATOR.VACUUM FORM OPERATOR Work Phone: Telemedicine Comment on above: Acute maxillary sinu sitis, recurrence not specified (Primary Dx) Start: 08-10-2023 End: 08-10-2023 Telemedicine consultation with patient Jacquelin Goodson MULTI SKILLED OPERATOR.VACUUM FORM OPERATOR Work Phone: [facility] Start: 06-12-2023 End: 06-12-2023 Patient encounter procedure Drake Mcdonald MD Work Phone: [facility] Comment on above: Laceration of left r ing finger, foreign body presence unspecified, nail damage status unspecified, subsequent encounter (Primary Dx) Start: 06-01-2023 ambulatory Sheri Franco MULTI SKILLED OPERATOR.VACUUM FORM OPERATOR Work Phone: [facility] Comment on above: Ongoing symptoms Start: 05-29-2023 End: 05-30-2023 Emergency department patient visit [facility] Work Phone: Start: 03-24-2023 End: 03-24-2023 Office outpatient visit 25 minutes To Ayala MULTI SKILLED OPERATOR.VACUUM FORM OPERATOR Work Phone: [facility] Comment on above: Insect bite of right ear, initial encounter (Primary Dx) Start: 01-08-2023 Telephone encounter Elías peña MD Work Phone: Otolaryngology Comment on above: Patient Question (Af ter surgery) Start: 12-12-2022 End: 12-12-[address] [facility] Facility:[facility] Start: 11-21-2022 End: 11-21-2022 Admission to [facility] [place] [facility] Work Phone: [facility] Start: 11-21-2022 End: 11-21-2022 ambulatory [facility] 1 Work Phone: Pre Anesthesia Comment on above: Pre-operative examin ation (Primary Dx); Class 2 obesity without serious comorbidity with body mass index (BMI) of 35.0 to 35.9 in adult, unspecified obesity type Start: 11-21-2022 End: 11-21-2022 Preprocedural examination done [facility] 1 Work Phone: Pre Anesthesia Start: 11-06-2022 ambulatory Elías Dinero MD Work Phone: Otolaryngology Comment on above: FMLA Paperwork Start: 10-29-2022 End: 10-29-2022 Patient encounter procedure Drake Mcdonald MD Work Phone: [facility] Comment on above: Encounter for screen ing for COVID-19 (Primary Dx); Nausea Start: 10-26-2022 ambulatory Elías Dinero MD Work Phone: Otolaryngology Comment on above: FMLA Paperwork For U pcoming Procedure Start: 10-16-2022 Telephone encounter Elías pñea MD Work Phone: [facility] Comment on above: Schedule Surgery Start: 09-30-2022 End: 09-30-2022 ambulatory Elías Dinero MD Work Phone: Otolaryngology Comment on above: Other chronic sinusi tis (Primary Dx); Allergic rhinitis, unspecified seasonality, unspecified trigger; Preoperative examination Start: 09-30-2022 End: 09-30-2022 Preprocedural examination done Elías Dinero MD Work Phone: Otolaryngology Start: 09-30-2022 End: 09-30-2022 Telemedicine consultation with patient Elías Dinero MD Work Phone: [place] [id number] Start: 09-30-2022 Telephone encounter Elías peña MD Work Phone: Otolaryngology Comment on above: Results - Ct (Per Dr Bryan Dinero, requested staff to call and see if patient could review recent CT scan via virtual visit with her this afternoon) Start: 09-26-2022 End: 09-26-2022 Subsequent hospital visit by physician Ct [facility] ([facility]) Work Phone: Cat Scan Comment on above: Chronic sinusitis, u nspecified location [J32.9] Start: 09-22-2022 Telephone encounter Sheri howard APRN.VACUUM FORM OPERATOR Work Phone: [facility] [place] Comment on above: Patient Update Start: 09-19-2022 End: 09-19-2022 Patient encounter procedure Elías Dinero MD Work Phone: Otolaryngology Comment on above: Allergic rhinitis, u nspecified seasonality, unspecified trigger (Primary Dx); Chronic sinusitis, unspecified location Start: 09-15-2022 End: 09-15-2022 Office outpatient visit 15 minutes Sheri Franco APRN.VACUUM FORM OPERATOR Work Phone: [facility] [place] Comment on above: Viral upper respirat ory tract infection (Primary Dx); Nausea; Acute pharyngitis, unspecified etiology; Fatigue, unspecified type Start: 07-08-2022 End: 07-08-2022 Subsequent hospital visit by physician Xr [facility] Work Phone: Radiology Comment on above: Pain [R52] Start: 07-08-2022 End: 07-08-2022 Patient encounter procedure Liat Viramontes APRN.VACUUM FORM OPERATOR Work Phone: [facility] Comment on above: Pain (Primary Dx) Start: 05-30-2022 End: 05-30-2022 Patient encounter procedure Smitha Neville APRN.VACUUM FORM OPERATOR Work Phone: [facility] Comment on above: Sinus pain (Primary Dx); Frequent sinus infections Start: 05-26-2022 End: 05-26-2022 Patient encounter procedure Michelle Mercado APRN.VACUUM FORM OPERATOR Work Phone: [facility] Comment on above: Sore throat (Primary Dx); Viral illness Start: 03-20-2022 End: 03-20-2022 Emergency department patient visit Dr. Stefan Bradford [facility] Start: 03-20-2022 End: 03-20-2022 Patient encounter procedure Liat Viramontes APRN.VACUUM FORM OPERATOR Work Phone: [facility] Comment on above: Right lower quadrant abdominal pain (Primary Dx) Start: 03-17-2022 End: 03-17-[address] Stefan Bradford Work Phone: [facility] Start: 03-17-2022 End: 03-17-[address] Stefan Bradford Work Phone: [facility] Start: 03-05-2022 End: 03-05-2022 [facility] Start: 09-27-2021 End: 09-27-2021 Subsequent hospital visit by physician Xr [facility] Work Phone: Radiology Comment on above: Acute bilateral low back pain with left-sided sciatica [M54.42] Start: 05-02-2021 End: 05-02-2021 Subsequent hospital visit by physician Xr [facility] Work Phone: Radiology Comment on above: Acute LUQ pain [R10. 12] Start: 07-20-2018 End: 07-21-2018 Patient encounter procedure [facility] Facility:[facility] Procedures Date Procedure Procedure Detail Performing Clinician Start: 07-06-2024 Dup-scan xtr veins unilateral/limited study Sheri Franco APRN.VACUUM FORM OPERATOR Work Phone: Start: 07-05-2024 Radex wrist 2 views Sheri Franco APRN.VACUUM FORM OPERATOR Work Phone: Start: 12-16-2023 COVID & INFLUENZA A/B & RSV NAAT, ROUTINE Sheri Franco APRN.VACUUM FORM OPERATOR Work Phone: Start: 11-06-[address] Stefan Bradford Work Phone: Start: 09-21-2023 STREP A MOLECULAR (POC) Drake Mcdonald MD Work Phone: Start: 08-28-2023 Radex foot complete minimum 3 views Patt Lopes MULTI SKILLED OPERATOR.VACUUM FORM OPERATOR Work Phone: Start: 12-26-2022 H/O: surgery History of endoscopic sinus surgery Elías Dinero MD Work Phone: Start: 09-26-2022 Ct maxillofacial w/o contrast material Elías Dinero MD Work Phone: Start: 09-15-2022 COVID WITH FLUA+B, ROUTINE Sheri Franco MULTI SKILLED OPERATOR.VACUUM FORM OPERATOR Work Phone: Start: 09-15-2022 STREP A MOLECULAR (POC) Sheri Franco APRN.VACUUM FORM OPERATOR Work Phone: Start: 09-15-2022 Urnls dip stick/tablet rgnt auto w/o microscopy Sheri Franco APRN.VACUUM FORM OPERATOR Work Phone: Start: 07-08-2022 Radex foot complete minimum 3 views Liat Viramontes MULTI SKILLED OPERATOR.VACUUM FORM OPERATOR Work Phone: Start: 05-26-2022 STREP A MOLECULAR (POC) Michelle Mercado MULTI SKILLED OPERATOR. VACUUM FORM OPERATOR Work Phone: Start: 09-27-2021 Radex spine lumbosacral 2/3 views Liat Viramontes APRN.VACUUM FORM OPERATOR Work Phone: Start: 05-02-2021 Radiologic exam abdomen 2 views Jay Mccormick MULTI SKILLED OPERATOR.VACUUM FORM OPERATOR, DNP Work Phone: Start: 08-24-2020 Adult depression screening assessment Liat Viramontes APRN.CNP Work Phone: Cytopathology proced ure, preparation of smear, genital source Dr. Stefan Bradford Work Phone: Investigation of transfusion reaction Dr. Stefan Bradford Work Phone: SARS-CoV-2 & FLU Ant igen (Rapid) Plan of Treatment Date Care Activity Detail Author Start: 04-01-2034 Urine microalbumin profile DTaP,Tdap,Td Vaccine (8 - Td or Tdap) [facility] Start: 05-29-2033 Urine microalbumin profile DTaP,Tdap,Td Vaccine (7 - Td or Tdap) [facility] Start: 09-15-2028 Screening for malign ant neoplasm of cervix [facility] Start: 09-15-2026 Screening for malign ant neoplasm of cervix Pap Testing [facility] Start: 04-14-2025 X-ray of cervical spine Cerv Spine 4 or 5 Views [facility] Start: 04-14-2025 XR Cervical spine 4 or 5 Views [facility] Start: 04-14-2025 X-ray of lumbosacral spine L/S Spine Min 4 Views [facility] Start: 04-14-2025 XR Spine Lumbar and Sacrum GE 4 Views [facility] Start: 07-06-2024 End: 07-06-2024 Patient encounter procedure 07/06/2024 2:00 PM EST Appointment [facility] [address] [place] [id number] Right wrist pain [M25.531] [facility] Comment on above: Right wrist pain [M2 5.531] Start: 04-21-2024 RSV Vaccine (1 - Ris k 1-dose series) RSV Vaccine (1 - Risk 1-dose series) [facility] Start: 04-10-2024 Covid-19 Vaccine ( season) Covid-19 Vaccine ( season) [facility] Start: 04-10-2024 Covid-19 Vaccine ( season) Covid-19 Vaccine ( season) [facility] Start: 04-10-2024 Influenza vaccination [facility] Start: 11-06-2023 Screening for malign ant neoplasm of cervix HPV Testing [facility] Start: 09-21-2023 End: 10-05-2023 COVID & INFLUENZA A/B & RSV NAAT, ROUTINE [facility] Work Phone: Comment on above: Expected: 09/21/2023 , Expires: 10/05/2023 Start: 08-10-2023 Behavioral Health Screening Behavioral Health Screening [facility] Start: 08-10-2023 Depression Assessment Depression Ass [facility] Start: 08-08-2023 PAP TESTING PAP TESTING [facility] Start: 08-08-2023 Screening for malign ant neoplasm of cervix Pap Testing [facility] Start: 05-30-2023 [facility] Start: 05-29-2023 Simple repair scalp/neck/ax/genit/vandana nk 2.5cm/< RPR S/N/AX/GEN/TRNK 2.5CM/< [facility] Start: 04-10-2023 Covid-19 Vaccine ( season) Covid-19 Vaccine ( season) [facility] Start: 04-10-2023 Influenza vaccination C [facility] Start: 08-10-2022 [facility] Start: 05-20-2022 COVID-19 VACCINE (2 - Novavax series) COVID-19 VACCINE (2 - Novavax series) [facility] Start: 04-10-2022 Influenza vaccination INFLUENZA (#1) [facility] Start: 03-05-2022 [facility] Work Phone: Start: 08-24-2021 Adult depression screening assessment DEPRESSION SCREENING [facility] Start: 08-10-2021 DEPRESSION ASSESSMENT [facility] Start: 09-24-2017 HPV VACCINE (2 - 3-d ose series) HPV VACCINE (2 - 3-dose series) [facility] Start: 11-06-2011 Anxiety Screening Anxiety Screening [facility] Start: 11-06-2011 Depression Screening Depression Scre ening [facility] Start: 11-06-2011 HEPATITIS C SCREENING HEPATITIS C SC REENING [facility] Start: 11-06-2011 Hepatitis C screening Hepatitis C Ne niki [facility] Start: 11-06-2011 HIV SCREENING HIV SCREENING [facility] Start: 11-06-2011 HIV screening HIV Screening [facility] Start: 2004 Urine microalbumin profile DTAP,TDAP,TD (6 - Tdap) [facility] Start: 05-08-1994 COVID-19 VACCINE (#1) COVID-19 VACCI NE (#1) [facility] Bacteria identified in Urine by Culture URINE CULTURE Microbiology Routine Nausea Fatigue, unspecified type 09/15/2022 3:11 PM EST [facility] Work Phone: CBC W Auto Different ial panel - Blood [facility] COVID & INFLUENZA A/ B & RSV NAAT, ROUTINE COVID & INFLUENZA A/B & RSV NAAT, ROUTINE Microbiology Routine URI, acute Ordered: 03/03/2024 [facility] Work Phone: Comment on above: Ordered: 03/03/2024 End: 10-19-2023 CT SINUS STEREO WO IVCON CT SINUS STEREO WO IVCON Radiology Routine Chronic sinusitis, unspecified location 1 Occurrences starting 09/19/2022 until 10/19/2023 [facility] Work Phone: Comment on above: 1 Occurrences starti ng 09/19/2022 until 10/19/2023 Hemoglobin A1c/Hemoglobin.total in Blood [facility] Hepatitis B surface antigen measurement [facility] Hepatitis C antibody measurement [facility] HIV 1+2 Ab+HIV1 p24 Ag [Presence] in Serum or Plasma by Immunoassay [facility] Influenza virus A an d B RNA and SARS-CoV-2 (COVID-19) N gene panel - Respiratory specimen by KARINA with probe detection COVID WITH FLUA+B, ROUTINE Microbiology Routine Encounter for screening for COVID-19 Nausea 10/29/2022 12:50 PM EDT [facility] Work Phone: MR Cervical spine [facility] Patient Education [facility] Work Phone: Patient referral [facility] Work Phone: Progesterone [Mass/volume] in Serum or Plasma [facility] Rubella IgG measurement [facility] SARS-CoV-2 (COVID-19 ) RNA [Presence] in Respiratory specimen by KARINA with probe detection SELF CHECK COVID Microbiology Routine Other chronic sinusitis Ordered: 09/30/2022 [facility] Work Phone: Comment on above: Ordered: 09/30/2022 Treponema sp Ab [Presence] in Serum [facility] US Pelvis [facility] End: 08-04-2025 US Upper extremity vein - right US DVT UPPER RIGHT Radiology Routine Right wrist pain 1 Occurrences starting 07/05/2024 until 08/04/2025 [facility] Comment on above: 1 Occurrences starti ng 07/05/2024 until 08/04/2025 End: 07-05-2025 US Upper extremity veins US ARM VEIN DVT UNL VAS LAB Vascular Lab STAT Right wrist pain 1 Occurrences starting 07/05/2024 until 07/05/2025 [facility] Work Phone: Comment on above: 1 Occurrences starti ng 07/05/2024 until 07/05/2025 [facility] Immunizations Immunization Date Immunization Notes Care Provider Zaid smith 04-01-2024 tetanus toxoid, redu salma diphtheria toxoid, and acellular pertussis vaccine, adsorbed Dr. Stefan Bradford MD Work Phone: [facility] 05-29-2023 tetanus toxoid, redu salma diphtheria toxoid, and acellular pertussis vaccine, adsorbed [facility] 07-14-2018 influenza virus vaccine, unspecified formulation Sheri Franco APRN.VACUUM FORM OPERATOR Work Phone: [facility] 03-28-1999 diphtheria, tetanus toxoids and acellular pertussis vaccine, unspecified formulation Liat Viramontes APRN.VACUUM FORM OPERATOR Work Phone: [facility] Work Phone: 03-28-1999 measles, mumps and rubella virus vaccine Liat Viramontes APRN.VACUUM FORM OPERATOR Work Phone: [facility] Work Phone: 03-28-1999 trivalent poliovirus vaccine, live, oral Liat Viramontes APRN.[facility] Work Phone: [facility] Work Phone: 12-06-1996 diphtheria, tetanus toxoids and acellular pertussis vaccine, unspecified formulation Liat Viramontes APRN.[facility] Work Phone: [facility] Work Phone: 12-06-1996 haemophilus influenz ae type b vaccine, PRP-T conjugate Liat Viramontes APRN.[facility] Work Phone: [facility] Work Phone: 01-07-1996 diphtheria, tetanus toxoids and pertussis vaccine Liat Viramontes APRN.[facility] Work Phone: [facility] Work Phone: 01-07-1996 trivalent poliovirus vaccine, live, oral Liat Viramontes APRN.[facility] Work Phone: [facility] Work Phone: 02-05-1995 DTP-Haemophilus influenzae type b conjugate vaccine Liat Viramontes APRN.[facility] Work Phone: [facility] Work Phone: 02-05-1995 hepatitis B vaccine, pediatric or pediatric/adolescent dosage Liat Viramotnes APRN.[facility] Work Phone: [facility] Work Phone: 02-05-1995 measles, mumps and rubella virus vaccine Liat Viramontes APRN.VACUUM FORM OPERATOR Work Phone: [facility] Work Phone: 02-05-1995 trivalent poliovirus vaccine, live, oral Liat Viramontes APRN.[facility] Work Phone: [facility] Work Phone: 08-29-1994 DTP-Haemophilus influenzae type b conjugate vaccine Liat Viramontes APRN.[facility] Work Phone: [facility] Work Phone: 08-29-1994 hepatitis B vaccine, pediatric or pediatric/adolescent dosage Liat Wander MULTI SKILLED OPERATOR.[facility] Work Phone: [facility] Work Phone: 08-29-1994 trivalent poliovirus vaccine, live, oral Liat Viramontes APRN.VACUUM FORM OPERATOR Work Phone: [facility] Work Phone: 1993 hepatitis B vaccine, pediatric or pediatric/adolescent dosage Liat Viramontes APRN.VACUUM FORM OPERATOR Work Phone: [facility] Work Phone: Payers Date Payer Category Payer [facility] PPO OOS [id number] 2024 Unknown [id number] 2024 Self-pay [id number] 2023 Private Health Insurance O [employer] PPO [id number] 2023 Unknown MMO MMO [employer] PPO [id number] 2023-Present [phone] [address] [place] [address] PPO [id number] 2023 Unknown [id number] 2017 Medicaid [id number] 2017 Medicaid [id number] 2017 Medicaid [id number] 1993 Unknown [id number] .[id number] 1993 Unknown [id number] .479 1993 Unknown [id number] [id number] .479 Unknown [id number] 2.16.840.1.866068.3.579.2 .462 Unknown [id number] [id number] .462 Unknown [id number] 2.16.840.1.419678.3.579.2 .462 Unknown [id number] 2.16.840.1.444004.3.579.2 .462 Unknown [id number] 2.16.840.1.314771.3.579.2 .462 Unknown [id number] 2.16.840.1.318306.3.579.2 .462 Unknown [id number] 2.16.840.1.437061.3.579.2 .462 Unknown [id number] 2.16.840.1.171732.3.579.2 .462 Unknown [id number] 2.16.840.1.405590.3.579.2 .462 Unknown [id number] 2.16.840.1.219462.3.579.2 .462 Unknown [id number] 2.16.840.1.853589.3.579.2 .462 Unknown [id number] 2.16.840.1.253706.3.579.2 .462 Unknown [id number] 2.16.840.1.991575.3.579.2 .462 Unknown [id number] 2.16.840.1.253358.3.579.2 .462 Unknown [id number] 2.16.840.1.936286.3.579.2 .462 Unknown [id number] 2.16.840.1.047334.3.579.2 .462 Unknown [id number] 2.16.840.1.125835.3.579.2 .462 Unknown [id number] 2.16.840.1.655727.3.579.2 .462 Unknown [id number] 2.16.840.1.832732.3.579.2 .462 Unknown [id number] [id number] .462 Social History Date Type Detail Facility [facility] Work Phone: Start: 03-05-2022 End: 11-06-2023 Tobacco smoking status CAIS Unknown if ever smoked [facility] Start: 1995 Sex Assigned At Female [facility] Start: 06-07-2015 End: 06-13-2024 Tobacco smoking status NHIS Never smoked tobacco [facility] Work Phone: Start: 06-07-2015 End: 05-06-2022 Tobacco use and exposure Smokeless tobacco non-user [facility] Work Phone: Start: 09-27-2021 End: 10-09-2024 Alcohol intake Current non-drinker of alcohol (finding) [facility] Start: 08-24-2020 History SDOH Alcohol Std Drinks 98 [facility] Start: 08-24-2020 History SDOH Alcohol Binge 1 [facility] Start: 08-24-2020 History SDOH Social Connections Phone 5 [facility] Start: 08-24-2020 History SDOH Social Connections Get Together 2 [facility] Start: 08-24-2020 History SDOH Social Connections Living 8 [facility] Start: 08-24-2020 Education 12 [facility] Start: 04-01-2021 End: 05-30-2022 Exposure to SARS-CoV-2 (event) Not sure [facility] Work Phone: Start: 08-24-2020 End: 12-26-2022 History of Social function [facility] Start: 08-24-2020 End: 12-26-2022 Social connection and isolation panel [facility] Do you belong to any clubs or organizations such as tenriism groups, unions, fraternal or athletic groups, or school groups? No [facility] Are you now , , , , never or living with a partner? Living with partner [facility] Frequency of Alcohol Consumption Not on file [facility] How often do you hav e 6 or more drinks on 1 occasion? Never [facility] Do you feel stress - tense, restless, nervous, or anxious, or unable to sleep at night because your mind is troubled all the time - these days [OSQ] Very much [facility] (I/We) worried wheth er (my/our) food would run out before (I/we) got money to buy more. Never true [facility] Start: 03-01-2020 Gender identity Identifies as female gender (finding) [facility] Start: 03-01-2020 Sexual orientation Heterosexual (finding) [facility] Are you now , , , , never or living with a partner? [facility] How hard is it for y ou to pay for the very basics like food, housing, medical care, and heating Somewhat hard [facility] (I/We) worried wheth er (my/our) food would run out before (I/we) got money to buy more. Sometimes true [facility] The food that (I/we) bought just didn't last, and (I/we) didn't have money to get more. DK or Refused [facility] Start: 09-24-2023 [facility] Medical Equipment Procedure Code Equipment Code Equipment Origin al Text Equipment Identifier Dates Blood Sugar Diagnostic (Blood Glucose Test) strip Start: 04-12-2024 End: 08-29-2024 Lancets (Freesty le Lancets) 28 gauge mis Start: 04-12-2024 End: 08-29-2024 Blood Sugar Diagnostic (Blood Glucose Test) strip Start: 04-12-2024 End: 08-29-2024 Lancets (Freesty le Lancets) 28 gauge mis Start: 04-12-2024 End: 08-29-2024 Blood Sugar Diagnostic (Blood Glucose Test) strip Start: 04-12-2024 End: 08-29-2024 Lancets (Freesty le Lancets) [facility] Start: 04-12-2024 End: 08-29-2024 Functional Status Date Assessment Result Facility 09-12-2014 Are you deaf, or do you have serious difficulty hearing No 09/12/2014 5:01 PM Kristel Page MA No [facility] 09-12-2014 Are you blind, or do you have serious difficulty seeing, even when wearing glasses No 09/12/2014 5:01 PM Kristel Page MA No [facility] 09-12-2014 Do you have serious difficulty walking or climbing stairs No 09/12/2014 5:01 PM Kristel Page MA No [facility] 09-12-2014 Do you have difficul ty dressing or bathing No 09/12/2014 5:01 PM Kristel Page MA No [facility] 09-12-2014 Because of a physica l, mental, or emotional condition, do you have difficulty doing errands alone such as visiting a physician's office or shopping No 09/12/2014 5:01 PM Kristel Page MA No [facility] Mental Status Date Assessment Result Facility 03-05-2022 Cognitive function Level Of Cons ciousness Awake;Alert;Appropriate;Fol lows Commands [facility] Work Phone: 09-12-2014 Because of a physica l, mental, or emotional condition, do you have serious difficulty concentrating, remembering, or making decisions No 09/12/2014 5:01 PM EVI Grayson KristelSYDNEE No [facility] Clinical Notes 07-11-2015 to 05-20-2025 Note Date & Type Note Facility 05-20-2025 Note HNO ID: [id number] Author: DRAKE MCDONALD MD Service: ? Author Type: Physician Type: Progress Notes Filed: 05/20/2025 09:09 Note Text: URGENT CARE [facility] Felecia Davis is a 29 year old female. Patient presents with: Neck Pain: Upper back pain x 4 days Neck pain: Duration: woke with pain 4 days ago. Has had neck pain and upper extremity dexterity issues since June. Ortho ([place]) has ordered MRI for degenerative disc disease but she has not scheduled it. Location: junction of upper back and neck, worse on the left Character: constant pressure, sharp with neck movement or pushing to get up; progressively worsening Radiation: no radiation to the arms or lower body Aggravating: all neck movement, sitting up, pushing her self to get up Relieving: Pain relievers: Motrin Associated: no change in baseline finger tingling or dexterity Pertinent negatives: Denies weakness, incontinence, fever, injury Review of Systems Objective BP 124/72 Pulse 90 Temp 36.4 ?C (97.6 ?F) Resp 20 Wt 95.1 kg (209 lb 10.5 oz) LMP 05/16/2025 (Exact Date) SpO2 97% No BMI 37.14 kg/m? Physical Exam Constitutional: General: She is not in acute distress. Comments: Accompanied by her son HENT: Head: Normocephalic and atraumatic. Mouth/Throat: Pharynx: No posterior oropharyngeal erythema. Eyes: Extraocular Movements: Extraocular movements intact. Conjunctiva/sclera: Conjunctivae normal. Pupils: Pupils are equal, round, and reactive to light. Neck: Comments: Pain with neck range of motion in all directions Cardiovascular: Rate and Rhythm: Normal rate and regular rhythm. Heart sounds: No murmur heard. Pulmonary: Effort: No respiratory distress. Breath sounds: No wheezing, rhonchi or rales. Musculoskeletal: Right shoulder: No tenderness or bony tenderness. Normal range of motion. Left shoulder: No tenderness or bony tenderness. Normal range of motion. Cervical back: No tenderness. Pain with movement present. No spinous process tenderness or muscular tenderness. Comments: Normal strength in hand malter operator, pincer grasp, and finger abduction. Lymphadenopathy: Cervical: No cervical adenopathy. Neurological: Mental Status: She is alert. Cranial Nerves: No cranial nerve deficit. Gait: Gait normal. Deep Tendon Reflexes: Reflex Scores: Brachioradialis reflexes are 2+ on the right side and 2+ on the left side. Patellar reflexes are 2+ on the right side and 2+ on the left side. Psychiatric: Speech: Speech is delayed. {ASSESSMENT/PLAN: 1. Neck pain - ICD9: 723.1, ICD10: M54.2 Suspect exacerbation of degenerative spine without change in radicular symptoms. - PREDNISONE 10 MG TABLET taper. Denies side effects with prior use. Normal glucose last year. She is not breast feeding but should avoid sedating medications while watching her infant. Schedule MRI as ordered and follow up with ortho spine. Consider PT. Seek immediate evaluation for loss of bladder or bowel control, unexplained fever, or progressive weakness or numbness. Drake Mcdonald MD History and Record Review External record(s) reviewed: prior labs/imaging. Findings from review of prior labs/imaging: Glc 93 on 04/29/24 Differential Diagnoses - Exacerbation of degenerative spine is more likely for the following reason(s): suggested by HANDP - Mass lesion - Discitis is less likely for the following reason(s): No constitutional symptoms - Neurodegenerative disorder is less likely for the following reason(s): Pain with movement Procedures [facility] 01-19-2025 Evaluation note Diagnosis Onset Date Resolution Dysmenorrhea acute January 19 9:51am Menorrhagia with regular cycle acute January 19, 2025 9:51am [facility] Work Phone: [phone]) 436-571003-16-2025 NoteHNO ID: [id number] Author: MARAH HERNANDEZ APRN.VACUUM FORM OPERATOR Service: ? Author Type: Nurse Practitioner Type: Progress Notes Filed: 10/23/2024 13:27 Note Text: This note was created using NoteWriter. Subjective Felecia Davis is a 28 year old female. 28 year old female with PMH sinusitis presents for illness Acute onset several weeks ago +sinus pressure +sinus pain +post nasal drainage +ear pressure Denies cough Denies CP Denies SOB Denies dyspnea Of note, she was evaluated October 09 [facility] RX Augmenting provided But endorses " Augmentin never really helps me" The history is provided by the patient. No languages and literature instructor was used. Sinus Problem This is a recurrent problem. The current episode started 1 to 4 weeks ago. The problem occurs constantly. The problem has been unchanged. Associated symptoms include congestion, coughing and headaches. Pertinent negatives include no abdominal pain, anorexia, arthralgias, change in bowel habit, chest pain, chills, diaphoresis, fatigue, fever, joint swelling, myalgias, nausea, neck pain, numbness, rash, sore throat, swollen glands, urinary symptoms, vertigo, visual change, vomiting or weakness. Nothing aggravates the symptoms. Treatments tried: OTC medicines. The treatment provided no relief. PAST MEDICAL HISTORY Diagnosis Date Hearing loss thinks its her right ear- exposer to high pitch noises at an employer IBS (irritable bowel syndrome) Lactose intolerance Obesity PAST SURGICAL HISTORY Procedure Laterality Date CHOLECYSTECTOMY 03/2014 Cholecystectomy COLONOSCOPY FLX DX W/COLLJ SPEC WHEN PFRMD 07/11/15 Colonoscopy ESOPHAGOGASTRODUODENOSCOPY TRANSORAL DIAGNOSTIC 07/11/15 EGD ALLERGIES Latex MEDICATIONS doxycycline (VIBRA-TABS) 100 mg tablet Take 1 tablet by mouth two times a day for 10 days. fluticasone (FLONASE) 50 mcg/actuation nasal spray Use 2 Sprays in each nostril once daily for 14 days. (Patient not taking: Reported on 10/23/2024) benzonatate (TESSALON PERLE) 100 mg capsule Take 1-2 capsules every 8 hours as needed. (Patient not taking: Reported on 10/23/2024) 25/iron fum/folic/dha (-1 ORAL) Take by mouth. (Patient not taking: Reported on 10/23/2024) acetaminophen (TYLENOL) 325 mg tablet Take 2 tablets by mouth every 6 hours as needed (stagger with ibuprofen). (Patient not taking: Reported on 03/03/2024) loratadine (CLARITIN) 10 mg tablet Take 1 tablet by mouth once daily. (Patient not taking: Reported on 09/21/2023) FAMILY HISTORY Problem Relation Age of Onset Heart Mother MVP Diabetes Father Type 2 other (Other) Sister hearing loss- she is her twin Breast Cancer Paternal Grandmother Social History Tobacco Use Smoking status: Never Smokeless tobacco: Never Vaping Use Vaping status: Never Used Substance Use Topics Alcohol use: No Drug use: No Review of Systems Constitutional: Negative for chills, diaphoresis, fatigue and fever. HENT: Positive for congestion. Negative for sore throat. Respiratory: Positive for cough. Cardiovascular: Negative for chest pain. Gastrointestinal: Negative for abdominal pain, anorexia, change in bowel habit, nausea and vomiting. Musculoskeletal: Negative for arthralgias, joint swelling, myalgias and neck pain. Skin: Negative for rash. Neurological: Positive for headaches. Negative for vertigo, weakness and numbness. Objective BP 128/72 Pulse 102 Temp 37 ?C (98.6 ?F) Resp 16 Wt 93.5 kg (206 lb 2.1 oz) LMP 09/14/2023 (Exact Date) SpO2 97% BMI 36.51 kg/m? Physical Exam Vitals and nursing note reviewed. Constitutional: General: She is not in acute distress. Appearance: Normal appearance. She is normal weight. She is not ill-appearing, toxic-appearing or diaphoretic. HENT: Head: Normocephalic and atraumatic. Comments: +frontal sinus pressure +maxillary sinus pressure Right Ear: Ear canal and external ear normal. Left Ear: Ear canal and external ear normal. Ears: Comments: B/L TM's mild erythema Nose: Congestion present. No rhinorrhea. Mouth/Throat: Mouth: Mucous membranes are moist. Pharynx: Posterior oropharyngeal erythema present. No oropharyngeal exudate. Comments: + post nasal drainage Eyes: General: Right eye: No discharge. Left eye: No discharge. Extraocular Movements: Extraocular movements intact. Conjunctiva/sclera: Conjunctivae normal. Pupils: Pupils are equal, round, and reactive to light. Cardiovascular: Rate and Rhythm: Normal rate and regular rhythm. Pulses: Normal pulses. Heart sounds: Normal heart sounds. No murmur heard. No friction rub. Pulmonary: Effort: Pulmonary effort is normal. No respiratory distress. Breath sounds: Normal breath sounds. No stridor. No wheezing, rhonchi or rales. Chest: Chest wall: No tenderness. Abdominal: General: Abdomen is flat. There is no distension. Palpations: Abdomen is soft. There is no mass. Tendern (more content not included)...[facility]03-16-2025 History of Present illness Narrative* Marah Hernandez APRN.VACUUM FORM OPERATOR - 10/23/2024 1:17 PM EDT This note was created using Guide Financial[employer]. Subjective Felecia Davis is a 28 year old female. 28 year old female with PMH sinusitis presents for illness Acute onset several weeks ago +sinus pressure +sinus pain +post nasal drainage +ear pressure Denies cough Denies CP Denies SOB Denies dyspnea Of note, she was evaluated October 09 [facility] RX Augmenting provided But endorses " Augmentin never really helps me" The history is provided by the patient. No languages and literature instructor was used. Sinus Problem This is a recurrent problem. The current episode started 1 to 4 weeks ago. The problem occurs constantly. The problem has been unchanged. Associated symptoms include congestion, coughing and headaches. Pertinent negatives include no abdominal pain, anorexia, arthralgias, change in bowel habit, chest pain, chills, diaphoresis, fatigue, fever, joint swelling, myalgias, nausea, neck pain, numbness, rash, sore throat, swollen glands, urinary symptoms, vertigo, visual change, vomiting or weakness. Nothing aggravates the symptoms. Treatments tried: OTC medicines. The treatment provided no relief. PAST MEDICAL HISTORY Diagnosis Date Hearing loss thinks its her right ear- exposer to high pitch noises at an employer IBS (irritable bowel syndrome) Lactose intolerance Obesity PAST SURGICAL HISTORY Procedure Laterality Date CHOLECYSTECTOMY 03/2014 Cholecystectomy COLONOSCOPY FLX DX W/COLLJ SPEC WHEN PFRMD 07/11/15 Colonoscopy ESOPHAGOGASTRODUODENOSCOPY TRANSORAL DIAGNOSTIC 07/11/15 EGD ALLERGIES Latex MEDICATIONS doxycycline (VIBRA-TABS) 100 mg tablet Take 1 tablet by mouth two times a day for 10 days. fluticasone (FLONASE) 50 mcg/actuation nasal spray Use 2 Sprays in each nostril once daily for 14 days. (Patient not taking: Reported on 10/23/2024) benzonatate (TESSALON PERLE) 100 mg capsule Take 1-2 capsules every 8 hours as needed. (Patient nottaking: Reported on 10/23/2024) 25/iron fum/folic/dha (-1 ORAL) Take by mouth. (Patient not taking: Reported on 10/23/2024) acetaminophen (TYLENOL) 325 mg tablet Take 2 tablets by mouth every 6 hours as needed (stagger withibuprofen). (Patient not taking: Reported on 03/03/2024) loratadine (CLARITIN) 10 mg tablet Take 1 tablet by mouth once daily. (Patient not taking: Reportedon 09/21/2023) FAMILY HISTORY Problem Relation Age of Onset Heart Mother MVP Diabetes Father Type 2 other (Other) Sister hearing loss- she is her twin Breast Cancer Paternal Grandmother Social History Tobacco Use Smoking status: Never Smokeless tobacco: Never Vaping Use Vaping status: Never Used Substance Use Topics Alcohol use: No Drug use: No Review of Systems Constitutional: Negative for chills, diaphoresis, fatigue and fever. HENT: Positive for congestion. Negative for sore throat. Respiratory: Positive for cough. Cardiovascular: Negative for chest pain. Gastrointestinal: Negative for abdominal pain, anorexia, change in bowel habit, nausea and vomiting. Musculoskeletal: Negative for arthralgias, joint swelling, myalgias and neck pain. Skin: Negative for rash. Neurological: Positive for headaches. Negative for vertigo, weakness and numbness. Objective BP 128/72 Pulse 102 Temp 37 C (98.6 F) Resp 16 Wt 93.5 kg (206 lb 2.1 oz) LMP 09/14/2023 (Exact Date) SpO2 97% BMI 36.51 kg/m Physical Exam Vitals and nursing note reviewed. Constitutional: General: She is not in acute distress. Appearance: Normal appearance. She is normal weight. She is not ill-appearing, toxic-appearing or diaphoretic. HENT: Head: Normocephalic and atraumatic. Comments: +frontal sinus pressure +maxillary sinus pressure Right Ear: Ear canal and external ear normal. Left Ear: Ear canal and external ear normal. Ears: Comments: B/L TM's mild erythema Nose: Congestion present. No rhinorrhea. Mouth/Throat: Mouth: Mucous membranes are moist. Pharynx: Posterior oropharyngeal erythema present. No oropharyngeal exudate. Comments: + post nasal drainage Eyes: General: Right eye: No discharge. Left eye: No discharge. Extraocular Movements: Extraocular movements intact. Conjunctiva/sclera: Conjunctivae normal. Pupils: Pupils are equal, round, and reactive to light. Cardiovascular: Rate and Rhythm: Normal rate and regular rhythm. Pulses: Normal pulses. Heart sounds: Normal heart sounds. No murmur heard. No friction rub. Pulmonary: Effort: Pulmonary effort is normal. No respiratory distress. Breath sounds: Normal breath sounds. No stridor. No wheezing, rhonchi or rales. Chest: Chest wall: No tenderness. Abdominal: General: Abdomen is flat. There is no distension. Palpations: Abdomen is soft. There is no mass. Tenderness: There is no abdominal tenderness. There is no right CVA tenderness, left CVA tenderness, guarding or rebound. Hernia: No hernia is present. Musculoskeletal: General: No swelling, tenderness, deformity or signs of injury. Normal range of motion. Cervical back: Normal range of motion and neck supple. No rigidity. Right lower leg: No edema. Left lower leg: No edema. Lymphadenopathy: Cervical: Cervical adenopathy present. Skin: General: Skin is warm and dry. Coloration: Skin is not jaundiced or pale. Findings: No bruising, erythema, lesion or rash. Neurological: General: No focal deficit present. Mental Status: She is alert and oriented to person, place, and time. Cranial Nerves: No cranial nerve deficit. Sensory: No sensory deficit. Motor: No weakness. Coordination: Coordination normal. Gait: Gait normal. Psychiatric: Mood and Affect: Mood normal. Behavior: Behavior normal. Thought Content: Thought content normal. Judgment: Judgment normal. Assessment and Plan ASSESSMENT/PLAN: 1. Rhinosinusitis - ICD9: 473.9, ICD10: J32.9 (primary diagnosis) - Will begin treatment with as per antibiotic as written, see orders - The patient should also be given OTC cough and cold meds as needed, warm salt water gargles, throat lozenges and/or OTC throat spray as needed, and nasal saline gtts and suction prn for the first 5-7 days of treatment. - Supportive care with plenty of fluids, rest, and analgesia prn. - Follow up in 3-5 days if symptoms persist or worsen. 2. Acute otitis media, bilateral - ICD9: 382.9, ICD10: H66.93 - Will begin treatment with as per antibiotic as written, see orders - The patient should also be given OTC cough and cold meds as needed, warm salt water gargles, throat lozenges and/or OTC throat spray as needed, and nasal saline gtts and suction prn for the first 5-7 days of treatment. - Supportive care with plenty of fluids, rest, and analgesia prn. - Follow up in 3-5 days if symptoms persist or worsen. Marah Hernandez APRN.CNP documented in [facility] NoteHNO ID: [id number] Author: MEE CARLTON APRN.CNP Service: ? Author Type: Nurse Practitioner Type: Progress Notes Filed: 10/23/2024 10:36 Note Text: Patient presents with complaints of URI that has not resolved from earlier in the moth. The patient was on Augmentin for 5 days. She has not improved and is now feeling chest tightness. Patient was informed that we are not able to assess this online and she will need to be evaluated in person. Appt cx. How did you hear about our [facility] History of Present illness Narrative* Mee Carlton APRN.CNP - 10/23/2024 10:29 AM EDT Patient presents with complaints of URI that has not resolved from earlier in the moth. The patientwas on Augmentin for 5 days. She has not improved and is now feeling chest tightness. Patient was informed that we are not able to assess this online and she will need to be evaluated in person. Apptcx. How did you hear about our services: self documented [facility] Instructions* Patient Instructions* Ericka Bradford APRN.CNP - 10/09/2024 10:29 AM EST Images from the original note were not included. Conjunctivitis ([place]) You have been diagnosed with bacterial conjunctivitis which is contagious and can spread throughoutyour home. You were started on antibiotic drops and I recommend to complete the full course. You are still contagious for 24 hours while on the antibiotic course, so still follow precautions. Do not wear contacts until the full antibiotic course is complete. Perform meticulous handwashing as well as cleaning surfaces in the home that is routinely touched to reduce the spread. Follow up in person in 3-5 days if symptoms do not improve or earlier for worsening symptoms Needs in person evaluation if: develops high fever, develops periorbital redness or swelling, eye pain, visual changes, concerns or if symptoms persist Adult Sinusitis Patient Education What is Sinusitis? Sinusitis [[id number]-car-ubvi-tis] is inflammation of the sinuses or swelling of the lining of the sinus cavity or nose. During an infection the sinuses become blocked with fluid causing swelling of the lining of the sinuses. Symptoms: (viral and bacterial infections) Stuffy nose Runny nose Postnasal drip Fever Toothache Headache Tiredness Cough Sore throat Face and head pressure and or pain Common causes: 98% of sinus infections are viral caused by viruses. Risk Factors of Sinusitis Include: Allergies, air pollution, indoor humidity and outdoor temperature changes, andstructural changes inthe nose may contribute to sinus pain, pressure and congestion. When to get help? Temperature greater than 100.4 F Symptoms lasting more than 10 days or worsening symptoms greater than 7-10 days. If you do not improve or worsen after a course of antibiotics, you should be re-examined. Diagnosis and Treatment: Your healthcare provider will ask a number of questions about your symptoms and how long they have occurred. If symptoms of sinusitis persist greater than 10 days, it is possible you have a bacterial sinus infection and an antibiotic is prescribed. If it is viral, antibiotics will not help. You may be instructed to take pown-[id number] medications for symptoms. including fever reducers acetaminophen or ibuprofen, nasal saline spray, cough and cold preparations and decongestants as prescribed by the physician, nurse practitioner or physician criminal legal assistant. Self-Care and Prevention: Rest Fluids for hydration Good hand washing Humidifier Avoid smoking and exposure to second hand smoke Avoid sick contacts documented in this encounterMer[facility]25 NoteHNO ID: [id number] Author: ERICKA BRADFORD APRN.CNP Service: ? Author Type: Nurse Practitioner Type: Progress Notes Filed: 10/09/2024 10:37 Note Text: Telemedicine Visit - [facility] Virtual Visit Note Patient seen on [employer] Video Visit platform. Location of patient: [place] I have communicated my name and active licensure. The patient's identity and physical location were verified at the time of this visit. Either the patient or their legal inside sales representative has been informed of the risks and benefits of -- and alternatives to -- treatment through a remote evaluation and consents to proceed with the evaluation remotely. History of Present Illness Felecia Davis is a 28 year old female who presents for the past > 10 days with symptoms that are:gradually worsening. Reports that she was exposed to flu at her place of employment. She experienced flu like symptoms of fever, chills, sweats, diarrhea, nasal and sinus congestion, malaise, myalgias, and cough. Flu-like symptoms resolved but sinus symptoms persisted. Symptoms include sinus pressure/pain, thick discolored nasal drainage, productive cough of thick chunky mucus. Right eye has been red for 2 days, but worse today. + drainage. Does not wear contacts Symptoms include: Negative for Hemoptysis, SOB, TURNER, Wheezing, Nausea, and Emesis Recent rapid at-home COVID test completed: No Recent rapid at-home Influenza test completed: No Sick contacts: yes Recent travel: no /Lactating: : No: Lactating: No OTC meds/remedies that patient has tried: otc day/nigh cold/flu medication. PAST MEDICAL HISTORY Diagnosis Date Hearing loss thinks its her right ear- exposer to high pitch noises at an employer IBS (irritable bowel syndrome) Lactose intolerance Obesity PAST SURGICAL HISTORY Procedure Laterality Date CHOLECYSTECTOMY 03/2014 Cholecystectomy COLONOSCOPY FLX DX W/COLLJ SPEC WHEN PFRMD 07/11/15 Colonoscopy ESOPHAGOGASTRODUODENOSCOPY TRANSORAL DIAGNOSTIC 12/2/15 EGD FAMILY HISTORY Problem Relation Age of Onset Heart Mother MVP Diabetes Father Type 2 other (Other) Sister hearing loss- she is her twin Breast Cancer Paternal Grandmother Social History Tobacco Use Smoking status: Never Smokeless tobacco: Never Vaping Use Vaping status: Never Used Substance Use Topics Alcohol use: No Drug use: No Current Outpatient Medications Medication Sig amoxicillin-clavulanate potassium (AUGMENTIN) 875-125 mg per tablet Take 1 tablet by mouth two times a day for 5 days. fluticasone (FLONASE) 50 mcg/actuation nasal spray Use 2 Sprays in each nostril once daily for 14 days. guaiFENesin (MUCINEX) 1,200 mg Ta12 Take 1 tablet by mouth two times a day for 7 days. benzonatate (TESSALON PERLE) 100 mg capsule Take 1-2 capsules every 8 hours as needed. polymyxin B-trimethoprim (POLYTRIM) 10,000 unit- 1 mg/mL ophthalmic solution Use 1 Drop in the right eye four times daily for 7 days. 25/iron fum/folic/dha (-1 ORAL) Take by mouth. acetaminophen (TYLENOL) 325 mg tablet Take 2 tablets by mouth every 6 hours as needed (stagger with ibuprofen). (Patient not taking: Reported on 03/03/2024) loratadine (CLARITIN) 10 mg tablet Take 1 tablet by mouth once daily. (Patient not taking: Reported on 09/21/2023) No current facility-administered medications for this visit. ALLERGIES Allergen Reactions Latex Rash Powder on gloves Video Exam (Examination performed via Video enabled technology) General appearance: Alert, oriented, pleasant, in NAD: Yes Ill appearing: No Lethargic appearing: No Eyes: Right conjunctiva and sclera injected and + drainage. Negative for periorbital edema, erythema, tenderness. Left: no acute processes Ears: Tragus / outer ear tenderness by self palpation: No Oropharynx: moist mucus membranes Frontal sinus tenderness by self palpation: No Maxillary sinus tenderness by self palpation: Yes Tender cervical adenopathy by self palpation: No Respiratory distress: No Coughing noted: Yes- dry Audible wheezing noted: No ASSESSMENT/PLAN: ASSESSMENT/PLAN: 1. Acute bacterial conjunctivitis of right eye - ICD9: 372.03, ICD10: H10.31 (primary diagnosis) - see medication orders - course and contagiousness issues discussed, including hand washing. - POLYMYXIN B SULFATE 10,000 UNIT-TRIMETHOPRIM 1 MG/ML EYE DROPS Follow up in person in 3-5 days if symptoms do not improve or earlier for worsening symptoms Needs in person evaluation if: develops high fever, develops periorbital redness or swelling, eye pain, visual changes, concerns or if symptoms persist 2. Acute non-recurrent maxillary sinusitis - ICD9: 461.0, ICD10: J01.00 - Reviewed illness etiology, contagiousness, and rationale for treatment - Recommend supportive care including plenty of fluids, rest as much as you can, and OTC Tylenol and/or Ibuprofen - AMOXICILLIN 875 MG-POTASSIUM (more content not included)...[facility]03-02-2025 History of Present illness Narrative* Ericka Bradford APRN.VACUUM FORM OPERATOR - 10/09/2024 10:23 AM EST Telemedicine Visit - Distance Health Virtual Visit Note Patient seen on [employer] Video Visit platform. Location of patient: [place] I have communicated my name and active licensure. The patient's identity and physical location wereverified at the time of this visit. Either the patient or their legal inside sales representative has been informed of the risks and benefits of -- and alternatives to -- treatment through a remote evaluation andconsents to proceed with the evaluation remotely. History of Present Illness Felecia Davis is a 28 year old female who presents for the past > 10 days with symptoms that are:gradually worsening. Reports that she was exposed to flu at her place of employment. She experienced flu like symptoms of fever, chills, sweats, diarrhea, nasal and sinus congestion, malaise, myalgias, and cough. Flu- like symptoms resolved but sinus symptoms persisted. Symptoms include sinus pressure/pain, thick discolored nasal drainage, productive cough of thick chunky mucus. Right eye has been red for 2 days, but worse today. + drainage. Does not wear contacts Symptoms include: Negative for Hemoptysis, SOB, TURNER, Wheezing, Nausea, and Emesis Recent rapid at-home COVID test completed: No Recent rapid at-home Influenza test completed: No Sick contacts: yes Recent travel: no /Lactating: : No: Lactating: No OTC meds/remedies that patient has tried: otc day/nigh cold/flu medication. PAST MEDICAL HISTORY Diagnosis Date Hearing loss [...] Never Smokeless tobacco: Never Vaping Use Vaping status: Never Used Substance Use Topics Alcohol use: No Drug use: No Current Outpatient Medications Medication Sig amoxicillin-clavulanate potassium (AUGMENTIN) 875-125 mg per tablet Take 1 tablet by mouth two times a day for 5 days. fluticasone (FLONASE) 50 mcg/actuation nasal spray Use 2 Sprays in each nostril once daily for 14 days. guaiFENesin (MUCINEX) 1,200 mg Ta12 Take 1 tablet by mouth two times a day for 7 days. benzonatate (TESSALON PERLE) 100 mg capsule Take 1-2 capsules every 8 hours as needed. polymyxin B-trimethoprim (POLYTRIM) 10,000 unit- 1 mg/mL ophthalmic solution Use 1 Drop in the right eye four times daily for 7 days. 25/iron fum/folic/dha (-1 ORAL) Take by mouth. acetaminophen (TYLENOL) 325 mg tablet Take 2 tablets by mouth every 6 hours as needed (stagger withibuprofen). (Patient not taking: Reported on 03/03/2024) loratadine (CLARITIN) 10 mg tablet Take 1 tablet by mouth once daily. (Patient not taking: Reportedon 09/21/2023) No current facility-administered medications for this visit. ALLERGIES Allergen Reactions Latex Rash Powder on gloves Video Exam (Examination performed via Video enabled technology) General appearance: Alert, oriented, pleasant, in NAD: Yes Ill appearing: No Lethargic appearing: No Eyes: Right conjunctiva and sclera injected and + drainage. Negative for periorbital edema, erythema, tenderness. Left: no acute processes Ears: Tragus / outer ear tenderness by self palpation: No Oropharynx: moist mucus membranes Frontal sinus tenderness by self palpation: No Maxillary sinus tenderness by self palpation: Yes Tender cervical adenopathy by self palpation: No Respiratory distress: No Coughing noted: Yes- dry Audible wheezing noted: No ASSESSMENT/PLAN: ASSESSMENT/PLAN: 1. Acute bacterial conjunctivitis of right eye - ICD9: 372.03, ICD10: H10.31 (primary diagnosis) - see medication orders - course and contagiousness issues discussed, including hand washing. - POLYMYXIN B SULFATE 10,000 UNIT-TRIMETHOPRIM 1 MG/ML EYE DROPS Follow up in person in 3-5 days if symptoms do not improve or earlier for worsening symptoms Needs in person evaluation if: develops high fever, develops periorbital redness or swelling, eye pain, visual changes, concerns or if symptoms persist 2. Acute non-recurrent maxillary sinusitis - ICD9: 461.0, ICD10: J01.00 - Reviewed illness etiology, contagiousness, and rationale for treatment - Recommend supportive care including plenty of fluids, rest as much as you can, and OTC Tylenol and/or Ibuprofen - AMOXICILLIN 875 MG-POTASSIUM CLAVULANATE 125 MG TABLET - FLUTICASONE PROPIONATE 50 MCG/ACTUATION NASAL SPRAY,SUSPENSION - GUAIFENESIN ER 1,200 MG TABLET, EXTENDED RELEASE 12 HR 3. Productive cough - ICD9: 786.2, ICD10: R05.8 - GUAIFENESIN ER 1,200 MG TABLET, EXTENDED RELEASE 12 HR - BENZONATATE 100 MG CAPSULE -[email or web address]/. This link shares information about when antibiotics may help and when they may not. - Follow up in-person with PCP and/or Express/Urgent Care (or available in- person care) in 1 week if symptoms persist or sooner if symptoms worsen - Red flags discussed for need for in person care - All questions answered Ericka Bradford APRN.CNP documented [facility] NoteHNO ID: [id number] Author: AGA VALDES APRN.CNP Service: ? Author Type: Nurse Practitioner Type: Progress Notes Filed: 10/09/2024 09:28 Note Text: Provider established zoom visit connection. However, patient never joined virtual visit waiting room despite being notified and several minutes of waiting. Appointment Canceled. The patient was not charged for this visit. Aga Valdes APRN.[facility]NPK[facility]tering Health03-02-2025 History of Present illness Narrative* Aga Valdes APRN.CNP - 10/09/2024 9:20 AM EST Provider established zoom visit connection. However, patient never joined virtual visit waiting room despite being notified and several minutes of waiting. Appointment Canceled. The patient was not charged for this visit. Aga Valdes APRN.CNP documented in this encounterMer[facility]11-27-2024 History of Present illness Narrative* Real Reece TECHNOLOGIST - 07/06/2024 2:00 PM EST Radiology Service Progress Note PATIENT NAME: Felecia Davis DATE OF SERVICE: July 06, 2024 TIME: 2:52 PM PATIENT IDENTITY VERIFICATION COMPLETED USING TWO (2) IDENTIFIERS: Name and Date of confirmedby patient verbally. FALL SCREENING: Has the patient had 2 falls in the last year or 1 fall with injury or currently using an Ambulatory Assistive Device (Walker, Cane, Wheelchair, Crutches, etc.)? No PATIENT GENDER DATA: Female. status: : No status: NO. PATIENT RELEVANT IMPLANT DATA REVIEWED: Yes PATIENT PRESENTS WITH AN IMPLANTABLE OR ATTACHED FOOD TECHNOLOGY TEACHER: No RADIOLOGY DEPARTMENT: Ultrasound PERIPHERAL IV DATA: Not applicable SIGNED BY: TECHNOLOGIST Shante July 06, 2024 2:52 PM documented in this encounterMer[facility]11-27-2024 NoteHNO ID: [id number] Author: REAL REECE TECHNOLOGIST Service: ? Author Type: Technologist Type: Progress Notes Filed: 07/06/2024 14:52 Note Text: Radiology Service Progress Note PATIENT NAME: Felecia Davis DATE OF SERVICE: July 06, 2024 TIME: 2:52 PM PATIENT IDENTITY VERIFICATION COMPLETED USING TWO (2) IDENTIFIERS: Name and Date of confirmed by patient verbally. FALL SCREENING: Has the patient had 2 falls in the last year or 1 fall with injury or currently using an Ambulatory Assistive Device (Walker, Cane, Wheelchair, Crutches, etc.)? No PATIENT GENDER DATA: Female. status: : No status: NO. PATIENT RELEVANT IMPLANT DATA REVIEWED: Yes PATIENT PRESENTS WITH AN IMPLANTABLE OR ATTACHED FOOD TECHNOLOGY TEACHER: No RADIOLOGY DEPARTMENT: Ultrasound PERIPHERAL IV DATA: Not applicable SIGNED BY: Real Reece, TECHNOLOGIST July 06, 2024 2:52 [facility]11-26-2024 History of Present illness Narrative* Blas Rolle RT(R) - 07/05/2024 2:50 PM EST Radiology Service Progress Note PATIENT NAME: Felecia Davis DATE OF SERVICE: July 05, 2024 TIME: 3:19 PM PATIENT IDENTITY VERIFICATION COMPLETED USING TWO (2) IDENTIFIERS: Name and Date of confirmedby patient verbally. FALL SCREENING: Has the patient had 2 falls in the last year or 1 fall with injury or currently using an Ambulatory Assistive Device (Walker, Cane, Wheelchair, Crutches, etc.)? No PATIENT GENDER DATA: Female. status: : No status: NO. PATIENT RELEVANT IMPLANT DATA REVIEWED: Yes PATIENT PRESENTS WITH AN IMPLANTABLE OR ATTACHED FOOD TECHNOLOGY TEACHER: No RADIOLOGY DEPARTMENT: General X-ray: Exam(s) Completed: Upper Extremity X- Ray(s): Wrist, right 1 view PERIPHERAL IV DATA: Not applicable SIGNED BY: RT Tyron(R) July 05, 2024 3:19 PM documented in this encounterMercy Health [facility]11-26-2024 NoteHNO ID: [id number] Author: BLAS ROLLE RT(R) Service: ? Author Type: Literature Professor Type: Progress Notes Filed: 07/05/2024 15:48 Note Text: Radiology Service Progress Note PATIENT NAME: Felecia Davis DATE OF SERVICE: July 05, 2024 TIME: 3:19 PM PATIENT IDENTITY VERIFICATION COMPLETED USING TWO (2) IDENTIFIERS: Name and Date of confirmed by patient verbally. FALL SCREENING: Has the patient had 2 falls in the last year or 1 fall with injury or currently using an Ambulatory Assistive Device (Walker, Cane, Wheelchair, Crutches, etc.)? No PATIENT GENDER DATA: Female. status: : No status: NO. PATIENT RELEVANT IMPLANT DATA REVIEWED: Yes PATIENT PRESENTS WITH AN IMPLANTABLE OR ATTACHED FOOD TECHNOLOGY TEACHER: No RADIOLOGY DEPARTMENT: General X-ray: Exam(s) Completed: Upper Extremity X-Ray(s): Wrist, right 1 view PERIPHERAL IV DATA: Not applicable SIGNED BY: RT Tyron(R) July 05, 2024 3:19 [facility]11-26-2024 Instructions* Patient Instructions* Sheri Franco APRN.CNP - 07/05/2024 2:41 PM EST Get the xray. 2. Schedule the ultrasound. documented in this encounterMercy [facility]11-26-2024 NoteHNO ID: [id number] Author: SHERI FRANCO APRN.CNP Service: ? Author Type: Nurse Practitioner Type: Progress Notes Filed: 07/05/2024 18:55 Note Text: This is a 28 year old female who presents today with: Patient presents with: Acute Visit: R hand tingling/numbness intermittent since having IV 3 weeks HISTORY OF PRESENT ILLNESS: Felecia Davis is a 28 year old female. Patient presents with: Acute Visit: R hand tingling/numbness intermittent since having IV 3 weeks Pt presents today with complaint of problems from an IV site about 3 weeks ago. She is 3 weeks . IV was in the right wrist. She reports that it didn't necessarily that feel right in the hospital. Refers when she went home, it had some swelling. She continues to have numbness in her right hand. She gets intermittent tingling. Refers that since the swelling has gone down, she is concerned that she feels something linear still in the wrist. PAST MEDICAL HISTORY: PAST MEDICAL HISTORY Diagnosis Date Hearing loss thinks its her right ear- exposer to high pitch noises at an employer IBS (irritable bowel syndrome) Lactose intolerance Obesity PAST SURGICAL HISTORY Procedure Laterality Date CHOLECYSTECTOMY 03/2014 Cholecystectomy COLONOSCOPY FLX DX W/COLLJ SPEC WHEN PFRMD 07/11/15 Colonoscopy ESOPHAGOGASTRODUODENOSCOPY TRANSORAL DIAGNOSTIC 07/11/15 EGD ALLERGIES Latex MEDICATIONS Current Outpatient Medications Medication Sig 25/iron fum/folic/dha (-1 ORAL) Take by mouth. acetaminophen (TYLENOL) 325 mg tablet Take 2 tablets by mouth every 6 hours as needed (stagger with ibuprofen). (Patient not taking: Reported on 03/03/2024) loratadine (CLARITIN) 10 mg tablet Take 1 tablet by mouth once daily. (Patient not taking: Reported on 09/21/2023) No current facility-administered medications for this visit. FAMILY HISTORY Problem Relation Age of Onset Heart Mother MVP Diabetes Father Type 2 other (Other) Sister hearing loss- she is her twin Breast Cancer Paternal Grandmother Social History Tobacco Use Smoking status: Never Smokeless tobacco: Never Vaping Use Vaping status: Never Used Substance Use Topics Alcohol use: No Drug use: No EXAM: BP 110/80 Pulse 87 Resp 16 LMP 09/14/2023 (Exact Date) SpO2 97% Yes PHYSICAL EXAM: General Appearance: Well appearing, alert, in no acute distress, well-hydrated, well nourished.. Skin: Skin color, texture, turgor normal, no suspicious rashes or lesions. Head: Normocephalic, no masses, lesions, tenderness or abnormalities. Eyes: Anicteric sclera. Extraocular movements are intact. . Extremities: good cap refill. +2 radial pulses. Right cephalic vein with linear firmness that rolls. Neurologic: Gait normal. ASSESSMENT/PLAN: 1. Right wrist pain - ICD9: 719.43, ICD10: M25.531 1 view wrist xray did not reveal any radiopaque foreign body. Will get ultrasound. Discussed could be irritated vein from IV, but will r/o foreign body. Patient agreeable to plan. - XR WRIST SPECIFY 1V RIGHT - US ARM VEIN DVT UNL VAS LAB - US DVT UPPER RIGHT If work-up negative, consider EMG d/t n/t s/p IV versus continued monitoring for improvement. Pt aware that may take time for n/t to resolve. Discussed treatment plan and patient voices understanding. Patient's questions answered appropriately. Medications and potential side effects were discussed and patient voices understanding. Return to the office as scheduled or as needed for worsening/no improvement. Sheri Franco APRN.[facility]11-26-[facility]24 History of Present illness Narrative* Sheri Franco APRN.VACUUM FORM OPERATOR - 07/05/2024 2:24 PM EST This is a 28 year old female who presents today with: Patient presents with: Acute Visit: R hand tingling/numbness intermittent since having IV 3 weeks HISTORY OF PRESENT ILLNESS: Felecia Davis is a 28 year old female. Patient presents with: Acute Visit: R hand tingling/numbness intermittent since having IV 3 weeks Pt presents today with complaint of problems from an IV site about 3 weeks ago. She is 3 weeks . IV was in the right wrist. She reports that it didn't necessarily that feel right in the hospital. Refers when she went home, it had some swelling. She continues to have numbness in her right hand. She gets intermittent tingling. Refers that since the swelling has gone down, she is concerned that she feels something linear still in the wrist. PAST MEDICAL HISTORY: PAST MEDICAL HISTORY Diagnosis Date Hearing loss thinks its her right ear- exposer to high pitch noises at an employer IBS (irritable bowel syndrome) Lactose intolerance Obesity PAST SURGICAL HISTORY Procedure Laterality Date CHOLECYSTECTOMY 03/2014 Cholecystectomy COLONOSCOPY FLX DX W/COLLJ SPEC WHEN PFRMD 07/11/15 Colonoscopy ESOPHAGOGASTRODUODENOSCOPY TRANSORAL DIAGNOSTIC 07/11/15 EGD ALLERGIES Latex MEDICATIONS Current Outpatient Medications Medication Sig 25/iron fum/folic/dha (-1 ORAL) Take by mouth. acetaminophen (TYLENOL) 325 mg tablet Take 2 tablets by mouth every 6 hours as needed (stagger withibuprofen). (Patient not taking: Reported on 03/03/2024) loratadine (CLARITIN) 10 mg tablet Take 1 tablet by mouth once daily. (Patient not taking: Reportedon 09/21/2023) No current facility-administered medications for this visit. FAMILY HISTORY Problem Relation Age of Onset Heart Mother MVP Diabetes Father Type 2 other (Other) Sister hearing loss- she is her twin Breast Cancer Paternal Grandmother Social History Tobacco Use Smoking status: Never Smokeless tobacco: Never Vaping Use Vaping status: Never Used Substance Use Topics Alcohol use: No Drug use: No EXAM: BP 110/80 Pulse 87 Resp 16 LMP 09/14/2023 (Exact Date) SpO2 97% Yes PHYSICAL EXAM: General Appearance: Well appearing, alert, in no acute distress, well-hydrated, well nourished.. Skin: Skin color, texture, turgor normal, no suspicious rashes or lesions. Head: Normocephalic, no masses, lesions, tenderness or abnormalities. Eyes: Anicteric sclera. Extraocular movements are intact. . Extremities: good cap refill. +2 radial pulses. Right cephalic vein with linear firmness that rolls. Neurologic: Gait normal. ASSESSMENT/PLAN: 1. Right wrist pain - ICD9: 719.43, ICD10: M25.531 1 view wrist xray did not reveal any radiopaque foreign body. Will get ultrasound. Discussed could be irritated vein from IV, but will r/o foreign body. Patient agreeable to plan. - XR WRIST SPECIFY 1V RIGHT - US ARM VEIN DVT UNL VAS LAB - US DVT UPPER RIGHT If work-up negative, consider EMG d/t n/t s/p IV versus continued monitoring for improvement. Pt aware that may take time for n/t to resolve. Discussed treatment plan and patient voices understanding. Patient's questions answered appropriately. Medications and potential side effects were discussed and patient voices understanding. Return to the office as scheduled or as needed for worsening/no improvement. Sheri Franco APRN.VACUUM FORM OPERATOR documented in this encounterMercy [facility]09-[facility]24 Telephone encounter Note * Telephone Encounter - Sonny Wick LPN - 04/18/2024 7:18 PM EDT Pt connected with provider. See notes. Sonny Wick LPN [facility]09-09-2024 Miscellaneous Notes* Telephone Encounter - Sonny Wick LPN - 04/18/2024 7:18 PM EDT Pt connected with provider. See notes. Sonny Wick LPN documented in this encounterMercy Health [facility]09-09-2024 History of Present illness Narrative* Sheri Franco APRN.VACUUM FORM OPERATOR - 04/18/2024 6:47 PM EDT Chief Complaint Patient presents with: Telemedicine I have communicated my name and active licensure. The patient's identity and physical location wereverified at the time of this visit. Either the patient or their legal inside sales representative has been informed of the risks and benefits of -- and alternatives to -- treatment through a remote evaluation andconsents to proceed with the evaluation remotely. Video was used for evaluation of this patient. Patient is aware of limitations of performing the visit without a face to face visit in the office setting and agrees. Patient agrees to the visit: Yes Patient Location: [facility] Felecia Davis is a 28 year old female who is contacted today for a virtual visit This is an established patient of Stefan Bradford MD Reports: Pt presents today to discuss possible gestational diabetes. She failed her 1 hour glucola testing. She then had the 3 hour testing and had 2 readings elevated (the 1 hour was exactly 180, the 2-hourwas 162.). She is interested in getting an A1c completed. She was hoping that if she had a normal A1c, they would determine that she did not have gestationaldiabetes and she would not have to pursue the Accu-Cheks and the possible glucose monitoring of baby after . Past medical history, appointments, medications, allergies reviewed 04/18/2024 Previous Medical History PAST MEDICAL HISTORY No date: Hearing loss Comment: thinks its her right ear- exposer to high pitch noises at an employer No date: IBS (irritable bowel syndrome) No date: Lactose intolerance No date: Obesity Previous Surgical History PAST SURGICAL HISTORY 03/2014: CHOLECYSTECTOMY Comment: Cholecystectomy 07/11/15: COLONOSCOPY FLX DX W/COLLJ SPEC WHEN PFRMD Comment: Colonoscopy 07/11/15: ESOPHAGOGASTRODUODENOSCOPY TRANSORAL DIAGNOSTIC Comment: EGD Family History FAMILY HISTORY Problem Relation Age of Onset Heart Mother MVP Diabetes Father Type 2 other (Other) Sister hearing loss- she is her twin Breast Cancer Paternal Grandmother Patient Allergies ALLERGIES Allergen Reactions Latex Rash Powder on gloves Current Medications Current Outpatient Medications on File Prior to Visit Medication Sig 25/iron fum/folic/dha (-1 ORAL) Take by mouth. acetaminophen (TYLENOL) 325 mg tablet Take 2 tablets by mouth every 6 hours as needed (stagger withibuprofen). (Patient not taking: Reported on 03/03/2024) loratadine (CLARITIN) 10 mg tablet Take 1 tablet by mouth once daily. (Patient not taking: Reportedon 09/21/2023) No current facility-administered medications on file prior to visit. Social History Social History Tobacco Use Smoking status: Never Smokeless tobacco: Never Vaping Use Vaping status: Never Used Substance Use Topics Alcohol use: No Drug use: No EXAM: LMP 09/14/2023 (Exact Date) Limited exam as visit was completed over the virtual platform. Virtual visit completed using video, limited exam completed. Patient sounds or appears ill: No General Appearance: Well appearing, alert, in no acute distress, well-hydrated, well nourished. Skin: Skin color normal Head: Normocephalic. No facial swelling or redness. EENT: Eyes nonreddened. No discharge. External ears nonreddened and no swelling. Neck: No mass or lesions. No swelling. FROM Patient is unable to speak in complete sentences: No Patient has labored breathing: No. Patient is audibly coughing: No Psych: Attitude - cooperative, easily engaged in conversation Affect - Euthymic, normal mood Mental status: Alert. Speech is clear and fluent with good repetition, comprehension Appearance - Normal hygiene and grooming appropriate Coordination: No abnormal or extraneous movements. Gait/Stance: Posture is normal. Health Maintenance List Depression Screening Never done Anxiety Screening Never done Hepatitis C Screening Never done HPV Vaccine(2 - 3-dose series) due on 09/24/2017 Covid-19 Vaccine(2 - season) due on 04/10/2024 Influenza Vaccine(1) due on 04/10/2024 RSV Vaccine(1 - Risk 1-dose series) due on 04/21/2024 Cervical Cancer Screening due on 09/15/2028 DTaP,Tdap,Td Vaccine(8 - Td or Tdap) due on 04/01/2034 Hepatitis B Vaccine Completed HIV Screening Completed Data reviewed Last 5 Encounter BP Readings: Date: BP: 03/03/2024 110/79 12/16/2023 122/82 09/21/2023 124/84 08/28/2023 110/80 08/18/2023 120/70 BMI Readings from Last 5 Encounters: 03/03/24 : 37.88 kg/m 09/21/23 : 37.02 kg/m 08/28/23 : 37.20 kg/m 08/18/23 : 36.85 kg/m 06/12/23 : 37.38 kg/m Last 5 Encounter Wt Readings: Date: Wt: 03/03/2024 97 kg (213 lb 13.5 oz) 09/21/2023 94.8 kg (209 lb) 08/28/2023 95.3 kg (210 lb) 08/18/2023 94.3 kg (208 lb) 06/12/2023 95.7 kg (211 lb) Medication and allergy list reviewed, reconciled and updated 04/18/2024 ASSESSMENT/PLAN: 1. Gestational diabetes mellitus (GDM) in third trimester, gestational diabetes method of control unspecified - ICD9: 648.83, ICD10: O24.419 She follows with [facility]. Discussed w/ patient that we can do the A1C; however, the A1c is a look back over the past 3 months, so if she recently became or met the criteria of gestational diabetes, the A1c is not going to be as accurate as the 3-hour Glucola testing. After discussing the testing options and the actual look back period of the test, patient is in agreement that the 3-hour Glucola is more accurate than the A1c and this circumstance. She is aware that she will need follow-up testing after delivery and surveillance for diabetes after delivery. Discussed treatment plan and patient voices understanding. Patient's questions answered appropriately. Medications and potential side effects were discussed and patient voices understanding. Return to the office as scheduled or as needed for worsening/no improvement. Sheri Franco APRN.SAHARA documented in this encounterMer[facility]07-26-[facility]24 Telephone encounter Note * Telephone Encounter - Kristel Grayson MA - 03/04/2024 8:29 AM EDT Patient given results and verbalized understanding of instructions given. Kristel Grayson MA [facility]07-26-2024 Miscellaneous Notes* Telephone Encounter - Kristel Grayson MA - 03/04/2024 8:29 AM EDT Patient given results and verbalized understanding of instructions given. Kristel Grayson MA * Telephone Encounter - Liat Viramontes APRN.CNP - 03/04/2024 7:15 AM EDT Patient is positive for COVID. Patient is negative for flu and RSV. There are no quarantine recommendations anymore per CDC patient should just treat with [id number] medications. documented in this encounterMercy Health [facility]07-26-2024 Telephone encounter Note * Telephone Encounter - Liat Viramontes APRN.CNP - 03/04/2024 7:15 AM EDT Patient is positive for COVID. Patient is negative for flu and RSV. There are no quarantine recommendations anymore per CDC patient should just treat with [id number] medications. [facility] Work Phone: [phone] History of Present illness Narrative* Marilia Lane PA - 03/03/2024 9:54 AM EDT This note was created using [employer]. Subjective Felecia Davis is a 28 year old female. HPI 28-year-old female presents for nasal congestion, cough x 6 days. Patient states 6 days ago shestarted getting little bit of nasal congestion. She reports dry cough. No fevers. No vomiting or diarrhea. Still eating and drinking. Patient states that she was exposed to somebody with COVID several days prior to her symptoms starting. She would like tested for COVID. Patient is 24 weeks . No abdominal pain, pelvic pain, vaginal bleeding. Patient has been using some nasal saline rinse without much improvement in her symptoms. She has not tried anything else OTC. PAST MEDICAL HISTORY Diagnosis Date Hearing loss thinks its her right ear- exposer to high pitch noises at an employer IBS (irritable bowel syndrome) Lactose intolerance Obesity PAST SURGICAL HISTORY Procedure Laterality Date CHOLECYSTECTOMY 03/2014 Cholecystectomy COLONOSCOPY FLX DX W/COLLJ SPEC WHEN PFRMD 07/11/15 Colonoscopy ESOPHAGOGASTRODUODENOSCOPY TRANSORAL DIAGNOSTIC 07/11/15 EGD ALLERGIES Latex MEDICATIONS 25/iron fum/folic/dha (-1 ORAL) Take by mouth. acetaminophen (TYLENOL) 325 mg tablet Take 2 tablets by mouth every 6 hours as needed (stagger withibuprofen). (Patient not taking: Reported on 03/03/2024) loratadine (CLARITIN) 10 mg tablet Take 1 tablet by mouth once daily. (Patient not taking: Reportedon 09/21/2023) FAMILY HISTORY Problem Relation Age of Onset Heart Mother MVP Diabetes Father Type 2 other (Other) Sister hearing loss- she is her twin Breast Cancer Paternal Grandmother Social History Tobacco Use Smoking status: Never Smokeless tobacco: Never Vaping Use Vaping Use: Never used Substance Use Topics Alcohol use: No Drug use: No Review of Systems Constitutional: Negative for chills and fever. HENT: Positive for congestion and sinus pressure. Negative for ear pain and sore throat. Respiratory: Positive for cough. Negative for shortness of breath. Cardiovascular: Negative for chest pain. Gastrointestinal: Negative for diarrhea and vomiting. Objective BP 110/79 Pulse 88 Temp 36.4 C (97.5 F) Resp 18 Wt 97 kg (213 lb 13.5 oz) LMP 09/14/2023 (Exact Date) SpO2 99% BMI 37.88 kg/m Physical Exam Vitals and nursing note reviewed. Constitutional: General: She is not in acute distress. Appearance: Normal appearance. She is not toxic-appearing. HENT: Right Ear: Tympanic membrane and ear canal normal. Left Ear: Tympanic membrane and ear canal normal. Nose: Congestion present. Mouth/Throat: Mouth: Mucous membranes are moist. Eyes: Conjunctiva/sclera: Conjunctivae normal. Cardiovascular: Rate and Rhythm: Normal rate and regular rhythm. Pulmonary: Effort: Pulmonary effort is normal. Breath sounds: Normal breath sounds. No wheezing, rhonchi or rales. Skin: General: Skin is warm and dry. Neurological: Mental Status: She is alert. Assessment and Plan ASSESSMENT/PLAN: 1. URI, acute - ICD9: 465.9, ICD10: J06.9 - Discussed viral etiology and rationale for treatment. - Symptomatic treatment with prn analgesia - Supportive care with fluids and rest -Patient given safe cold medication list for her symptoms. - COVID & INFLUENZA A/B & RSV NAAT, ROUTINE -Out of window for Tamiflu and antiviral. Patient wanted to know for exposures and she is . Diagnosis and treatment plan were discussed and questions were answered to the patient's satisfaction. Pt acknowledged understanding of concepts and follow up plan. Specific signs and symptoms that would indicate the need for higher level of care were discussed in detail warranting prompt ER evaluation. FABI Moore documented in this encounterMer[facility]05-08-[facility]24 Instructions* Patient Instructions* Sheri Franco APRN.VACUUM FORM OPERATOR - 12/16/2023 9:36 AM EDT We'll get the viral swabs. Stay well hydrated. Push fluids. If you are not feeling better in he next week, let us know. This is a list of medications that can be taken during your . If you plan on breast feeding, this list of medications is also safe during that time. Cold Medications: Robitussin cough syrups, *No Night Time Formulas* Benylin cough syrup Sudafed 30mg or Sudafed Sinus, *After 18 weeks* Tylenol, 2 regular strength or 1 extra strength, *No Aspirin, Motrin, Advil, Aleve* Throat Lozenges: Heartburn: Mylanta Maalox Liquid Sudan, Cepastat Tums Cepacol, Vicks Nasal Camargo: Hemorroids: Arcade Mist Tucks Saline Camargo Preparation H (oint/supp) Constipation: Iron Supplements: Milk of Magnesia, Dulcolax SlowFe Senokot, Fibercon Chromagen (prescription only) Diarrhea: Kaopectate documented in this encounterMercy [facility]05-08-2024 History of Present illness Narrative* Sheri Franco APRN.VACUUM FORM OPERATOR - 12/16/2023 9:15 AM EDT This is a 28 year old female who presents today with: Patient presents with: Acute Visit: Runny nose, throat irritation, cough with some vomiting, fever; feels may be d/t allergies; currently 13 weeks ; symptoms started on Thursday HISTORY OF PRESENT ILLNESS: Felecia Davis is a 28 year old female. Patient presents with: Acute Visit: Runny nose, throat irritation, cough with some vomiting, fever; feels may be d/t allergies; currently 13 weeks ; symptoms started on Thursday Pt presents today with complaint of URI symptom that started Thursday. Thursday evening started with fever that lasted about 6 hours. Max - 101.2 PND. Posttussive gagging and vomiting. + headache. + sore throat d/t coughing. Bilateral ear pain -- L>R. No sick contacts. 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 13 weeks . Has used saline nasal spray and zyrtec. PAST MEDICAL HISTORY: PAST MEDICAL HISTORY Diagnosis Date Hearing loss thinks its her right ear- exposer to high pitch noises at an employer IBS (irritable bowel syndrome) Lactose intolerance Obesity PAST SURGICAL HISTORY Procedure Laterality Date CHOLECYSTECTOMY 03/2014 Cholecystectomy COLONOSCOPY FLX DX W/COLLJ SPEC WHEN PFRMD 07/11/15 Colonoscopy ESOPHAGOGASTRODUODENOSCOPY TRANSORAL DIAGNOSTIC 07/11/15 EGD ALLERGIES Latex MEDICATIONS Current Outpatient Medications Medication Sig 25/iron fum/folic/dha (-1 ORAL) Take by mouth. naproxen (NAPROSYN) 250 mg tablet Take 250 mg by mouth two times a day as needed. acetaminophen (TYLENOL) 325 mg tablet Take 2 tablets by mouth every 6 hours as needed (stagger withibuprofen). loratadine (CLARITIN) 10 mg tablet Take 1 tablet by mouth once daily. (Patient not taking: Reportedon 09/21/2023) No current facility-administered medications for this visit. FAMILY HISTORY Problem Relation Age of Onset Heart Mother MVP Diabetes Father Type 2 other (Other) Sister hearing loss- she is her twin Breast Cancer Paternal Grandmother Social History Tobacco Use Smoking status: Never Smokeless tobacco: Never Vaping Use Vaping Use: Never used Substance Use Topics Alcohol use: No Drug use: No EXAM: BP 122/82 Pulse 99 Temp 37 C (98.6 F) Resp 16 LMP 08/14/2023 (Exact Date) SpO2 97% PHYSICAL EXAM: General Appearance: Well appearing, alert, in no acute distress, well-hydrated, well nourished.. Skin: Skin color, texture, turgor normal, no suspicious rashes or lesions. Head: Normocephalic, no masses, lesions, tenderness or abnormalities. Eyes: Anicteric sclera. Pupils are equally round and reactive to light. Extraocular movements are intact. . Ears: External ears normal, canals clear, Normal TMs bilaterally. Nose/Sinuses: Nares normal, septum midline, mucosa normal, no drainage. Mild bilateral maxillary sinus tenderness. Oropharynx: Lips, mucosa, and tongue normal, teeth and gums normal, oropharynx w/ mild erythema. Neck: Supple, no adenopathy Lungs: Lungs clear to auscultation. No wheezing, rhonchi, rales.. Heart: RRR without murmur, gallop, or rubs. No ectopy. Abdomen: Abdomen soft, non-tender. Bowel sounds normal. No masses, organomegaly. Extremities: No deformities, edema, skin discoloration, clubbing or cyanosis. Good capillary refill. . Neurologic: Gait normal ASSESSMENT/PLAN: 1. Viral URI - ICD9: 465.9, ICD10: J06.9 - Discussed viral etiology and rationale for treatment. - Symptomatic treatment with prn analgesia - Supportive care with fluids and rest Medications safe in discussed. - COVID & INFLUENZA A/B & RSV NAAT, ROUTINE Discussed treatment plan and patient voices understanding. Patient's questions answered appropriately. Medications and potential side effects were discussed and patient voices understanding. Return to the office as scheduled or as needed for worsening/no improvement. Sheri Franco APRN.VACUUM FORM OPERATOR documented in this encounterMercy Health [facility]03-15-2024 History of Present illness Narrative* Jesus Taylor - 10/23/2023 8:59 AM EDT Consultation requested by Dr. Lopes for an opinion regarding left foot pain. My final recommendations will be communicated back to the requesting physician by way of shared Medical record or letterto requesting physician via US mail. Initial Podiatric Office Visit: Chief Complaint: This 27 year old female who presents with chief complaint:left foot pain HPI Patient presents to clinic for evaluation of left foot She has pain and swelling to the ateral aspect of left midfoot. This has been going on since the first of the year. She states when the foot swells, she will experience pain She does recall twisting her left foot when she stepped in a hole back [place]. Patient has tried icing but she feels that icing makes her pain worse. She has tried heat. PAIN EVALUATION 10/23/2023 0833 Pain Level: 5 Pain Location: Foot-Left Description: Aching Duration Amount of Time: 3 Duration Units: Months Frequency: Continuous Intervention/Comfort measure: Relaxation;Reposition No results found for: "HBA1C" PCP: Stefan Bradford MD PAST MEDICAL HISTORY Diagnosis Date Hearing loss thinks its her right ear- exposer to high pitch noises at an employer IBS (irritable bowel syndrome) Lactose intolerance Obesity Current Outpatient Medications Medication Sig 25/iron fum/folic/dha (-1 ORAL) Take by mouth. naproxen (NAPROSYN) 250 mg tablet Take 250 mg by mouth two times a day as needed. acetaminophen (TYLENOL) 325 mg tablet Take 2 tablets by mouth every 6 hours as needed (stagger withibuprofen). loratadine (CLARITIN) 10 mg tablet Take 1 tablet by mouth once daily. (Patient not taking: Reportedon 09/21/2023) No current facility-administered medications for this visit. ALLERGIES Allergen Reactions Latex Rash Powder on gloves PAST SURGICAL HISTORY Procedure Laterality Date CHOLECYSTECTOMY [...] No Drug use: No REVIEW OF SYSTEMS GENERAL: Negative for Malaise, significant weight loss, fever RESPIRATORY: Negative for cough, wheezing and shortness of breath CARDIOVASCULAR: Negative for chest pain, leg swelling and palpitations GI: Negative for abdominal discomfort, blood in stools or black stools and change in bowel habits : Negative for dysuria, frequency and incontinence MUSCULOSKELETAL: Negative for joint pain or swelling, back pain, and muscle pain. SKIN: Negative for lesions, rash, and itching. HEMATOLOGY/LYMPHOLOGY Negative for prolonged bleeding, bruising easily, and swollen nodes. ENDOCRINE: Negative for cold or heat intolerance, polyuria, polydipsia and goiter. NEURO: negative Physical Exam: Constitutional: Pt is a well developed 27 year old female who is alert, oriented and cooperative Eyes: Following during examination. No redness or drainage. Respiratory: RR normal and nonlabored. Even breathing. No evidence of distress or shortness of breath. Psychology: Patient is engaged during conversation. Normal affect and mood. Does not appear depressed or anxious during encounter. Vascular: Dorsalis pedis and posterior tibial pulses palpable as b/l Capillary Fill time < 5 seconds to digits 1-5 b/l Skin temperature warm to warm proximal to distal b/l Hair growth present to digits Neurological: intact light touch/epicritic sensation b/l intact protective sensation no significant neurological deficits Dermatological: Nails 1-5 b/l appear normal. Webspaces clean and dry 1-4 b/l. Skin appears well hydrated and supple. good color, texture, turgor. No open lesions present. No callosities present. Musculoskeletal/Orthopaedic: Patient has minimal pain to palpation of left midfoot. No palpable cyst noted Foot type is neutral structurally AJ ROM is full with knee extended and flexed 1st MPJ is full when loaded and no pain or crepitus are noted with ROM. MTJ, STJ are full and free of pain and crepitus. +5/5 muscle strength dorsiflexion, plantarflexion, inversion, eversion b/l Radiographs: 3 views left foot reviewed October 23, 2023: I have personally reviewed and interpreted these XR myself: no acute fracture ASSESSMENT: (S91.508J) Foot sprain, left, initial encounter (primary encounter diagnosis) (M79.672) Foot pain, left PLAN: 1. History and physical examination performed. 2. XR reviewed with patient and interpreted today 3. Discussed complaint of left foot pain. Discussed complaint of possible "goose-bump" as possible soft-tissue mass but no palpable mass on exam. She states the pain is improving. Offered mri to furether evaluate the left foot. She declined. 4. If pain fails to improve, consider mri Jesus Taylor DPM Podiatry [address] [facility] [address] Dept: [phone] Dept * Tawnya Lopez RN - 10/23/2023 8:30 AM EDT AMB ROOMING INTAKE FLOWSHEET DATA Pain Pain Level: 5 Pain Location: Foot-Left Description: Aching Duration Amount of Time: 3 Duration Units: Months Frequency: Continuous Intervention/Comfort measure: Relaxation, Reposition Patient presents with: Left Foot - New, Pain Patient presents for left foot pain. Pain began 3 months ago when she started back to work after a break. States that it hurts to plantar flex her toes. States that when this began she had "goose eggs" to the top of her foot that would come and go. Pain is all the time, but gets better with rest. Worse with stairs. States that either [place] or [place] she was out in the yard and stepped in a hole causing her to fall. Unsure if related to current pain. XR done 08/28/23 documented in this encounterMercy Health [facility]02-12-2024 History of Present illness Narrative* Drake Mcdonald MD - 09/21/2023 6:04 PM EST Patient presents with: Ear Pain: left worse, sore throat and nausea x 5 days HPI: Feeling sick for 5 days. Exposure to flu at work. Positive symptoms: Sore throat, Earache, Nausea, Sinus pressure, little initial Nasal Congestion, post-nasal drainage, little cough Negative symptoms: Fever, Vomiting, Diarrhea, OTC: Nyquil, Dayquil MEDICATIONS: Current Outpatient Medications Medication Sig acetaminophen (TYLENOL) 325 mg tablet Take 2 tablets by mouth every 6 hours as needed (stagger withibuprofen). loratadine (CLARITIN) 10 mg tablet Take 1 tablet by mouth once daily. (Patient not taking: Reportedon 09/21/2023) No current facility-administered medications for this visit. ALLERGIES: ALLERGIES Allergen Reactions Latex Rash Powder on gloves VITALS: BP 124/84 Pulse 102 Temp 36.7 C (98 F) Resp 16 Wt 94.8 kg (209 lb) LMP 08/14/2023 (Exact Date) SpO2 97% BMI 37.02 kg/m PHYSICAL EXAM: GEN: mildly ill appearing HEENT: PERRL, EOMI, conjunctiva clear Ears: canals clear. TMs without erythema, bulge, or effusion Sinuses: non-tender frontal sinus, non-tender maxillary sinuses Throat: moist mucous membranes, mild erythema, no exudate Neck: supple, no thyromegaly, no lymphadenopathy HEART: regular rate and rhythm, no murmurs LUNGS: clear to auscultation, no wheezes or crackles, no increased WOB ASSESSMENT/PLAN: 1. Streptococcal pharyngitis - ICD9: 034.0, ICD10: J02.0 (primary diagnosis) 2. Sore throat - ICD9: 462, ICD10: J02.9 - Alere Strep Test positive - Discussed supportive care treatment with as needed analgesia. - Contagious disease precautions discussed- including considered contagious until on antibiotics for 24 hours - COVID & INFLUENZA A/B & RSV NAAT, ROUTINE - STREP A MOLECULAR (POC) - AMOXICILLIN 500 MG CAPSULE 3. Exposure to influenza - ICD9: V01.79, ICD10: Z20.828 - COVID & INFLUENZA A/B & RSV NAAT, ROUTINE Drake Mcdonald MD documented in this encounterMercy Health [facility]02-06-2024 NotePap Smear Specimen AdequacyFebruary 2023 4:37pmComment.Satisfactory for evaluation. Endocervical and/or squamous metaplasticcells (endocervical component)are present.[facility] A#[id number] [facility] on above: Satisfactory for evaluation. Endocervical and/or squamous metaplasticcells (endocervical component)are present.09-15-2023 NotePap Smear Specimen Adequacy September 15, 2023 4:37pmComment.Satisfactory for evaluation. Endocervical and/or squamous metaplasticcells (endocervical component)are present.[facility] INTER[facility]AC[facility] A#[id number] HospitalComment on above:Satisfactory for evaluation. Endocervical and/or squamous metaplasticcells (endocervical component)are present.09-15-2023 NotePap Smear Specimen AdequacyFebruary 2023 5:37pmComment.Satisfactory for evaluation. Endocervical and/or squamous metaplasticcells (endocervical component)are present.[facility] INTER[facility]AC[facility] A#[id number] HospitalComment on above:Satisfactory for evaluation. Endocervical and/or squamous metaplasticcells (endocervical component)are present.09-15-2023 NotePap Smear Specimen AdequacyFebruary 2023 5:37pmComment.Satisfactory for evaluation. Endocervical and/or squamous metaplasticcells (endocervical component)are present.[facility] INTER[facility]ACED A#[id number] HospitalCominsight surgical hospital on above:Satisfactory for evaluation. Endocervical and/or squamous metaplasticcells (endocervical component)are present.08-28-2023 History of Present illness Narrative* Myra Bess RT(R) - 08/28/2023 10:00 AM EST Radiology Service Progress Note PATIENT NAME: Felecia Davis DATE OF SERVICE: August 28, 2023 TIME: 9:55 AM PATIENT IDENTITY VERIFICATION COMPLETED USING TWO (2) IDENTIFIERS: Name and Date of confirmedby patient verbally. FALL SCREENING: Has the patient had 2 falls in the last year or 1 fall with injury or currently using an Ambulatory Assistive Device (Walker, Cane, Wheelchair, Crutches, etc.)? No PATIENT GENDER DATA: Female. status: : No status: NO. PATIENT RELEVANT IMPLANT DATA REVIEWED: Not Applicable RADIOLOGY DEPARTMENT: General X-ray: Exam(s) Completed: Lower Extremity X- Ray(s): Foot, Left and Wt. Bearing PERIPHERAL IV DATA: Not applicable SIGNED BY: RT Dillon(R) August 28, 2023 9:55 AM documented in this encounterMercy Health [facility]01-01-2024 History of Present illness Narrative* Jacquelin Goodson, CALVIN.VACUUM FORM OPERATOR - 08/10/2023 12:58 PM EST Telemedicine Visit - Distance Health Virtual Visit Note Patient seen on [employer] Video Visit platform. Location of patient: [place] I have communicated my name and active licensure. The patient's identity and physical location wereverified at the time of this visit. Either the patient or their legal inside sales representative has been informed of the risks and benefits of -- and alternatives to -- treatment through a remote evaluation andconsents to proceed with the evaluation remotely. History of Present Illness Felecia Davis is a 27 year old year old [...] tablet Take 1 tablet by mouth every 12hours for 5 days. Take with food acetaminophen (TYLENOL) 325 mg tablet Take 2 tablets by mouth every 6 hours as needed (stagger withibuprofen). oxyCODONE IR (ROXICODONE) 5 mg immediate release [...] nose; rinse mouth afterwards. (do not use isnosebleeds) Salt water gargles (1/2 tsp salt in a cup of warm water; gargle and spit out) several times a day. Warm tea with honey Soup broth Chloraseptic lozenges or spray Mucinex DM for sinus and chest congestion and cough. Augmentin as prescribed-take with food Always use over the counter medications as directed by the manager integrity - Red flags discussed for need for in person care - All questions answered Jacquelin Goodson APRN.CNP If you let us know who your primary care provider is, we will send them a notification of today s visit through our electronic medical records system. Since not all providers have access to our notifications, we strongly encourage you to share the following record of today s visit with your primarycare provider at your next visit. This will help in providing you the best care. If you do not have an established Primary Care physician and would like to continue care with a [facility] Virtual Primary Care physician, please ask your provider to place a "Establish PrimaryCare" order. Use [employer] to manage your care, wherever you are, 02/03, on your mobile device or computer. [employer] connects you to [employer] so you can access all your health information in one place and also schedule and request virtual appointments with primary care providers. documented in this encounterMercy Health [facility] Hospital01-01-2024 Instructions* Patient Instructions* Jacquelin Goodson APRN.CNP - 08/10/2023 12:58 PM [...] nose; rinse mouth afterwards. (do not use isnosebleeds) Salt water gargles (1/2 tsp salt in a cup of warm water; gargle and spit out) several times a day. Warm tea with honey Soup broth Chloraseptic lozenges or spray Mucinex DM for sinus and chest congestion and cough. Augmentin as prescribed-take with food Always use over the counter medications as directed by the manager integrity documented in this encounterMercy Health [facility] Hospital11-03-2023 History of Present illness Narrative* Drake Mcdonald MD - 06/12/2023 5:50 PM EDT Patient presents with: Suture Removal: left ring finger, 2 sutures x 13 days HPI: Cut her left ring finger. Had 2 sutures placed at the [facility] ER 05/29/23. Patient presents for suture removal. Denies bleeding, drainage, dehiscence, erythema, or signs of infection. MEDICATIONS: fluticasone (FLONASE ALLERGY RELIEF) 50 mcg/actuation nasal spray Use 2 Sprays in each nostril oncedaily. acetaminophen (TYLENOL) 325 mg tablet Take 2 tablets by mouth every 6 hours as needed (stagger withibuprofen). loratadine (CLARITIN) 10 mg tablet Take 1 [...] - ICD9: V58.89, 883.0, ICD10: S61.215D Drake Mcdonald MD documented in this encounterMercy Health [facility] Hospital10-23-2023 Miscellaneous Notes* Telephone Encounter - Sonny Wick LPN - 06/01/2023 5:02 PM EDT See MC message. Sonny Shamika MENDIETA documented in this encounterMercy Health – [facility]10-20-2023 Discharge summary Author Khurram Hansen [facility] May 30, 2023 12:08am Note Date/Time May 29, 2023 1 1:35pm [facility] Medical Records Department [address] [place] [id number] Emergency Department Summary 05/29/23 MR#: [id number] Acct: [id number] Name: FELECIA DAVIS FILEMON Rep #:[id number] : 1995 27 From: Khurram Hansen MD PCP: Dr. Stefan Bradford MD Status:REG E R Location: ED HPI History of Present Illness Chief Complaint: Laceration Informant: patient Narrative Narrative: Accidentally cut the dorsal surface of her left nondominant hand ring finger when she was carving pumpkins shortly before arrival. Last tetanus is unknown. Bleeding was controlled. No loss of function or range of motion. No other injury. She is not on any blood thinners. [facility] Medical History COVID-19 virus infection Home Medications NK 04/02/22 [History Last Taken Unknown] Allergy/AdvReac Type Severity Reaction Status Date / Time latex Allergy Rash Verified 04/02/22 13:18 Family History Grandmother Breast cancer Surgical History Hx of cholecystectomy Social History current occupational status: employed current occupation: [employer] Smoking Status: Never smoker alcohol intake: never substance use type: does not use caffeine: No frequency: 1-2 times per week seatbelt use: always do you feel safe at home: Yes additional social history: single- works at [address] [employer] ROS ROS ED Constitutional Constitutional ED: Denies fever(s) Gastrointestinal Gastrointestinal: Denies nausea or vomiting Integumentary Reports other Details: Laceration as in history of present illness. Neurologic Neurologic: Denies paresthesias or weakness Hematologic/Lymphatic Hematologic/Lymphatic: Denies easy bleeding or easy bruising Allergic/Immunologic Allergic/Immunologic ED: Denies urticaria EXAM Physical Exam Narrative Exam Narrative: General: Patient awake alert no acute distress. HEENT: No sign of trauma Cardiorespiratory shows easy unlabored breathing. Extremities show a 1.5 cm laceration on the dorsum of the left ring finger overlying the DIP joint. It is shallow but does just go through the epidermis. When she flexes the finger it opens up. Her extensor is fully intact. No sensory changes. No visible tendon in that area. Const Vital Signs: 05/29/23 23:11 Temperature 97.5 F L Temperature Source Temporal Pulse Rate 98 Respiratory Rate 16 Blood Pressure 137/99 H Blood Pressure Mean 111 Pulse Ox 99 MDM MDM MDM Narrative Medical decision making narrative: The patient about risk benefits and options. She was nervous about having sutures. But I explained that this area opens up every time she bends her finger. Gluing it would likely not last. Even with suturing and I think placing a splint would be of benefit. She did agree to suturing. She was very nervous about it. So I did proceed with applying LET on it. I do not think this is going to cause any notable ischemia on this young healthy person. We will then use local lidocaine also suture this. Tetanus will be updated. Procedure: Suture of left ring finger laceration 1.5 cm The area was cleansed and draped. LET initially applied. I then added 1 cc of 1% plain lidocaine locally with good anesthesia. It was sutured with 2 interrupted 4-0 Ethilon with good cosmesis and hemostasis. She tolerated it well. Range of motion was good afterwards. We discussed reasons to return follow-up and timing of suture removal. Discharge Plan Triage Chief Complaint: Laceration ED Provider: Khurram Hansen Dx/Rx/DC Orders Clinical Impression: Sutured skin wound, Laceration of left ring finger Instructions: ED Laceration, Hand: All Closures Prescriptions: No Action NK Primary Care Provider: Stefan Bradford Referrals: Stefan Bradford MD [Primary Care Provider] - 10-14 Days suture removal Disposition Disposition: Home, Self Care What to do if you have Problems For any increased pain, shortness of breath, bleeding, nausea or vomiting, chestpain, or any unexpected problems, contact your Primary Care Provider. Call [facility] ([phone]) or report to the closest Emergency Room. Call 911 if necessary. 05/30/237 <Electronically signed by Khurram Hansen MD> Cosigner Signature (if applicable): CC: Dr. Stefan Bradford MD ~ Signed [facility] Work Phone: 1(349) 300-213108-15-2023 History of Present illness Narrative* To Ayala, CALVIN.VACUUM FORM OPERATOR - 03/24/2023 1:38 PM EDT Subjective HPI Nontoxic-appearing female presents urgent care [...] spray Use 2 Sprays in each nostril oncedaily. acetaminophen (TYLENOL) 325 mg tablet Take 2 tablets by mouth every 6 hours as needed (stagger withibuprofen). predniSONE (DELTASONE) 10 mg tablet Take 3 [...] edema pre and postauricular area. No evidence ofperichondritis. Nose: Nose normal. Eyes: Pupils: Pupils are [...] of care. This note was generated using [employer] software. It may contain errors in wording, punctuation, or spelling. To Ayala APRN.SAHARA documented in this encounterMercy [facility]06-02-2023 Miscellaneous Notes* Telephone Encounter - Beth Blanco - 01/09/2023 9:55 AM EDT Images from the original note were not included. Elías Dinero MD You 36 minutes ago (9:15 AM) Sometimes it's the irrigations getting stuck in the sinus now that she's debrided. I sent a course of doxy for the discoloration, continue with irrigations, try to do head rolls to try to get all theirrigation out of her nose after she irrigates so less comes out later. MH * Telephone Encounter - Beth Blanco - 01/09/2023 8:30 AM EDT Attempted to call the patient. Message left on unidentified voicemail to return call to office or check [employer]. If pt calls back, please relay [employer] message to her and get answers. Thank you! * Telephone Encounter - Ayse Shanks Ma - 01/08/2023 4:17 PM EDT Patient called indicating that she has been having discharge this morning. Indicates it is clear and at times it can be brownish thick. Was informed to call the office if she started having some discharge. Surgery was on 12/19. Please advise. documented in this encounterMercy Health [facility]04-14-2023 Instructions* Patient Instructions* Hazel Cisneros APRN.[facility] - 11/21/2022 1:03 PM EDT PATIENT PREOPERATIVE INSTRUCTIONS No ref. provider found has scheduled you for your procedure at this surgery center: [facility]: [phone] -- [address] [address]. Please read below carefully for your personalized [...] Procedures: - YOU MUST HAVE A RESPONSIBLE LEAD SOFTWARE ARCHITECT TAKE YOU HOME. A RAILWAY SIGNALLING ENGINEER OR SOCIAL AND POLITICAL STUDIES PROFESSOR CANNOT BE MADE A RESPONSIBLE LEAD SOFTWARE ARCHITECT. - We recommend that a responsible person stays with you overnight to take care of you. - You cannot stay in a hotel alone after outpatient surgery. You will not be permitted to have yoursurgery, if you do not have someone to take care of you. Arrival Time for Surgery: -You will receive a call from [facility] the afternoon before surgery after 2:30 pm(or Thursday for Thursday surgery) for a scheduled arrival time. - If you have not heard by 4 pm, please contact [facility] at [phone]. Please be aware that emergency situations arise, which may delay or change your surgical time. If this happens, we will notify you as soon as possible and regret any inconvenience. If you already have an Advance Directive, please fax a copy to [phone] or email to for it to be added to your chart. If you do not have an Advance Directive, you can find the appropriate form and more information at [email or web address]. We recommend that youcomplete the Advance Directive form found on the website and bring it with you the day of your surgery. It can be witnessed and scanned into your chart that day. Hazel Cisneros APRN.CNP documented in this encounterMercy Health [facility]04-14-2023 History and physical note * Hazel Cisneros APRN.CNP - 11/21/2022 1:00 PM EDT HISTORY AND PHYSICAL EXAMINATION SERVICE DATE: 11/21/2022 SERVICE TIME: 1:18 PM PRIMARY CARE PHYSICIAN: Stefan Bradford MD REASON FOR VISIT: Felecia Cline is a 27 year old female who is scheduled for Procedure(s): NASAL / SINUS ENDOSCOPY W/MAXILLARY ANTROSTOMY (Right) STEREOTACTIC COMPUTER-ASSISTED (NAVIGATIONAL) PROCEDURE CRANIAL EXTRADURAL (N/A) ENDOSCOPY NASAL/SINUS W/ ETHMOIDECTOMY, TOTAL (Bilateral) at the request of Dr. Elías Dinero MD for consultation. My final recommendation will be communicated back to the requesting physician by way of shared medical record or letter. Subjective The patient has the following: ACTIVE PROBLEM LIST Obesity COVID-19 Immunization Status Overdue - COVID-19 VACCINE (2 - Novavax series) Overdue since 05/20/2022 04/29/2022 Imm Admin: COVID-19 vaccine (NOVAVAX) CHIEF COMPLAINT: Pre-op exam HPI: Felecia Cline is a 27 year old seen for PAC due to scheduled above surgery because of chronicsinusitis. 09/19/2022, Dr. Dinero Chief Complaint: Felecia Cline is a 26 year old female who is here for Patient presents with: Sinus Problem New Patient Consultation requested by Camden Podlogar [address] [facility] [id number] for an opinion regarding sinusitis. My final [...] disease, will let patient know of results. Ifsignificant findings, will have patient return for possible surgical discussion. All questions answered. Elías Dinero MD HPI: Felecia Cline is a 26 year old female referred for sinus concerns. Patient seen by [facility] on 05/30/22 HPI as follows and reviewed by me today, 09/19/22 : Thursday went to Urgent Care with sore throat for a day. Tested negative for strep. Symptoms have been progressing including headache, nasal congestion, rhinorrhea, sinus pain above and below right eye, jaw pain,right ear pain and nausea. Also notes some [...] pressure, no major nasal obstruction. Does have PND.Only decreased smell when she has increased symptoms. 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 Has had several antibiotics each year for [...] yes, dog (owns dog), trees, molds and "others" Use of nasal steroids for 8 weeks in the past 12 months: yes, no benefit Prior Sinus Surgery: denies Reactive Airway Disease: denies, but has hx of "asthmatic bronchitis" REVIEW OF SYSTEMS: General: No weight loss, malaise or fevers. Neurological: No history of TIA's, stroke, EXCEL SPECIALIST tumor, impaired sensorium, hemiplegia, paraplegia orquadraplegia. No neurological symptoms or problems. Respiratory: No history of current cough or dyspnea, or pneumonia in the past 6 weeks. No history of respiratory/pulmonary symptoms or problems. Cardiovascular: No history of HTN requiring medication, no history of angina, CHF, CA, cardiac surgery or stents. Denies rest pain, [...] > 1 time per night or hematuria. CLINICAL ENGINEERING MANAGER: Negative for abnormal vaginal bleeding, abnormal vaginal [...] spray Use 2 Sprays in each nostril oncedaily. Taking Yes loratadine (CLARITIN) 10 mg tablet [...] (Src) 98.4 (Temporal) Resp 14 Ht 5' 3" (1.60m) Wt 200 lb (90.7kg) SpO2 97% [...] or any previous visit (from the past 49870 hour(s)). Assessment Patient has the following medical [...] or younger Non-male patient STOP-Bang Score: 4 [id number] Score: Age: <65 Sex: female CHF history: No Hypertension history: No Stroke/TIA/thromboembolism history: No Vascular disease history: No Diabetes history: No [id number] Score: 1 ARISCAT Score: Age: <=50 Preoperative [...] Edwards present: no Lip Bite Test: II Microretrognathia/Micronagthia/Recessed Chin: No DENTAL Dental findings: teeth intact. II - ANESTHESIA PLAN ASA Score: 2 Anesthetic Plan: other Anesthetic plan additional comments: *PACC/TCI - anesthesia choice. Beta Ravi Monitoring Plan Post Procedure Analgesic Plan Informed Consent Anesthetic risks, benefits, alternatives, personnel and consent discussed: yes. Patient / Responsible Libertarian agrees to proceed: yes Patient / Surrogate [...] instructions and voices comprehension and compliance. SIGNATURE: Hazel Cisneros APRN.CNP PATIENT NAME: Felecia Cline DATE: November 21, 2022 TIME: 1:00 PM PAGER/CONTACT #: documented in this encounterMercy Health [facility]03-22-2023 History of Present illness Narrative* Drake Mcdonald MD - 10/29/2022 12:57 PM EDT Patient presents with: Nausea: feverish, hand feel shaky and sweaty x this am, bruise on right forearm with swelling HPI: Feeling sick today. Positive symptoms: Feverish, sweating, Nausea, shaky, Negative symptoms: Cough, Nasal Congestion, Vomiting, Diarrhea, Body Aches, Headache, OTC: none. MEDICATIONS: Current Outpatient Medications Medication Sig fluticasone (FLONASE ALLERGY RELIEF) 50 mcg/actuation nasal spray Use 2 Sprays in each nostril oncedaily. loratadine (CLARITIN) 10 mg tablet Take 1 tablet by mouth once daily. No current facility-administered medications for this visit. ALLERGIES: ALLERGIES Allergen Reactions Latex Rash Powder on gloves VITALS: BP 124/76 Pulse 94 Temp 36.3 C (97.3 F) Resp 16 Wt 92.5 kg (204 lb) LMP 04/19/2021 VhS910% BMI 36.14 kg/m PHYSICAL EXAM: GEN: mildly [...] or blood in vomit or stool. Drake Mcdonald MD documented in this encounterMercy Health [facility]03-09-2023 Miscellaneous Notes* Telephone Encounter - Bijal Oskar - 10/16/2022 11:54 AM EST Called and left message for patient regarding surgical scheduling. documented in this encounterMercy Health [facility]02-21-2023 Miscellaneous Notes* Telephone Encounter - Cora Sanchez RN - 09/30/2022 2:57 PM EST Called and spoke with patient. Agreed to do a virtual visit with Dr. Dinero this afternoon to review CT results. Will add patient on to schedule. documented in this encounterMercy Health – The [facility]02-21-2023 History of Present illness Narrative* Elías Dinero MD - 09/30/2022 2:41 PM EST Images from the original note were not included. SECTION OF RHINOLOGY, SINUS AND SKULL BASE SURGERY Head and Neck [place], [facility] NOTE Chief Complaint: Patient presents with: Sinusitis [...] surgical therapies. She has failed to have senior living improvement appropriate aggressive medical therapy and therefore, [...] and taste function, injury to surrounding structures i ncluding vision loss or double vision, possible CSF leak necessitating repair, and possible need for re-operation) and potential benefits of surgery, a consent form was signed. We will schedule surgery at her convenience. PAC COVID - self swab I spent more than 21-40 minutes loze-dk-gwye with the patient and over half the time was devoted tocounseling and/or coordination of care. More than 25-mins in face to face care, not including time to review her imaging and coordination of care. Elías Dinero MD HPI: Ms. Cline returns to [...] spray Use 2 Sprays in each nostril oncedaily. predniSONE (DELTASONE) 10 mg tablet Take 4 [...] the right maxillary sinus; see below for Grupo Tonio score for degree of sinus opacification. [...] 0 Left Ostiomeatal Complex: 0 LEFT Grupo Tonio Score: 0 Right Frontal Sinus: 0 Right Anterior Ethmoid Air Cells: 0 Right posterior Ethmoid Air Cells: 0 Right Maxillary Sinus: 2 Right Sphenoid Sinus: 0 Right Ostiomeatal Complex: 2 RIGHT [place] Tonio Score: 0 TOTAL Grupo Tonio Score: 4 Nasal Cavities: Visualized nasal cavities are patent. Developmental Anomalies: None Other: The visualized mastoid air cells and middle ear cavities are clear. The soft tissues of the face and orbits are within normal limits within the limitations of the study. Individual Pension Adviser (topogram) images: No significant findings. OBJECTIVE VITAL SIGNS: LMP 04/19/2021 GENERAL: Very pleasant, no acute distress. FACE: symmetric, Cn7 intact EYES: EOMI, gross vision intact, PERRL NOSE: Intranasal examination shows healthy mucosa anteriorly with a fairly straight nasal septum. No anterior drainage OC/OP: clear NECK: soft, FROM Elías Dinero MD documented in this encounterMercy Health [facility]02-17-2023 History of Present illness Narrative* Marci Barbosa RT(R) - 09/26/2022 3:40 PM EST Radiology Service Progress Note PATIENT NAME: Felecia Cline DATE OF SERVICE: September 26, 2022 TIME: 3:30 PM PATIENT IDENTITY VERIFICATION COMPLETED USING TWO (2) IDENTIFIERS: Name and Date of confirmedby patient verbally. FALL SCREENING: Has the patient [...] 26, 2022 3:30 PM documented in this encounterMercy Health – [facility]02-13-2023 Miscellaneous Notes* Telephone Encounter - Sheri Franco APRN.CNP - 09/22/2022 7:14 PM EST [employer] message sent w/ letter. Sheri Franco APRN.VACUUM FORM OPERATOR * Telephone Encounter - Dorita Obrien RN - 09/22/2022 1:19 PM EST Patient calls and states that she was off of work today. Patient plans to go back to work on Thursday09/23/2022. Patient asking if provider can write a letter for her to be off today and ok to go back to work on Thursday? If agreeable can send letter through [employer]. Please review and advise, Dorita Obrien RN documented in this encounterMercy Health – The Jewish Hospital02-10-2023 Instructions* Patient Instructions* Elías Dinero MD - 09/19/2022 1:10 PM EST Get your CT scan Keep up with your allergy treatments Use your nasal spray as directed on the bottle. When spraying, point away from the midline (your septum), and towards the outer corner of your eye. documented in this encounterMercy Health – The Jewish Hospital02-10-2023 History of Present illness Narrative* Elías Dinero MD - 09/19/2022 1:00 PM EST Images from the original note were not included. SECTION OF RHINOLOGY, SINUS AND SKULL BASE SURGERY Head and Neck [place], [facility] NOTE Chief Complaint: Felecia Cline is a 26 year old female who is here for Patient presents with: Sinus Problem New Patient Consultation requested by [facility] Podlogar [address] [facility] [address] for an opinion regarding sinusitis. My final [...] disease, will let patient know of results. Ifsignificant findings, will have patient return for possible surgical discussion. All questions answered. Elías Dinero MD HPI: Felecia Cline is a 26 year old female referred for sinus concerns. Patient seen by VACUUM FORM OPERATOR on 05/30/22 HPI as follows and reviewed by me today, 09/19/22 : Thursday went to Urgent Care with sore throat for a day. Tested negative for strep. Symptoms have been progressing including headache, nasal congestion, rhinorrhea, sinus pain above and below right eye, jaw pain,right ear pain and nausea. Also notes some [...] pressure, no major nasal obstruction. Does have PND.Only decreased smell when she has increased symptoms. Trialed on mucinex, flonase daily for over a month and allergy medications which do not help senior living. Has had several antibiotics each year for [...] yes, dog (owns dog), trees, molds and "others" Use of nasal steroids for 8 weeks in the past 12 months: yes, no benefit Prior Sinus Surgery: denies Reactive Airway Disease: denies, but has hx of "asthmatic bronchitis" ALLERGIES ALLERGIES Allergen Reactions Latex Rash Powder on gloves MEDICATIONS Current Outpatient Medications Medication Sig loratadine (CLARITIN) 10 mg tablet Take 1 tablet by mouth once daily. fluticasone (FLONASE ALLERGY RELIEF) 50 mcg/actuation nasal spray Use 2 Sprays in each nostril oncedaily. predniSONE (DELTASONE) 10 mg tablet Take 4 [...] neck, external nose, external ears, mouth and facefails to demonstrate any significant abnormality or asymmetry to critical face to face observation.Skin and scalp are normal. EYES: PERRL, gross [...] wnl, eos wnl PROCEDURE Nasal endoscopy SURGEON Elías Dinero MD ANESTHESIA Topical afrin and lidocaine bilateral nares FINDINGS Grupo-Toro Endoscopic Scoring System Polyps (0 [...] were seen. She tolerated the procedure well. Elías Dinero MD documented in this encounterMercy Health – [facility]02-06-2023 Instructions* Patient Instructions* Sheri Franco APRN.VACUUM FORM OPERATOR - 09/15/2022 3:02 PM EST Home going [...] help open respiratory and sinus passages. - [place] [facility] [place] may offer relief of nasal and head [...] your symptoms get worse. documented in this encounterMercy Health – The [facility] Hospital02-06-2023 History of Present illness Narrative* Sheri Franco APRN.VACUUM FORM OPERATOR - 09/15/2022 2:49 PM EST This is a 26 year old female who presents today with: Patient presents with: Sore Throat: Started Fri evening Head Congestion Fatigue: X couple weeks Nausea: No vomiting/diarrhea HISTORY OF PRESENT ILLNESS: Felecia Cline is a 26 year old female. [...] APRN.SAHARA This note was partially generated using [employer] recognition system. Note was reviewed for accuracy. There may be minor misspellings or grammar miscues with [employer] voice recognition. documented in this encounterMercy Health – The Jewish Hospital11-29-2022 History of Present illness Narrative* Myra Bess RT(R) - 07/08/2022 10:40 AM EST Radiology Service Progress Note PATIENT NAME: Felecia Cline DATE OF SERVICE: July 08, 2022 TIME: 11:41 AM PATIENT IDENTITY VERIFICATION COMPLETED USING TWO (2) IDENTIFIERS: Name and Date of confirmedby patient verbally. FALL SCREENING: Has the patient had 2 falls in the last year or 1 fall with injury or currently using an Ambulatory Assistive Device (Walker, Cane, Wheelchair, Crutches, etc.)? No PATIENT GENDER DATA: Female. status: : No status: NO. PATIENT RELEVANT IMPLANT DATA REVIEWED: Not Applicable RADIOLOGY DEPARTMENT: General X-ray: Exam(s) Completed: Lower Extremity X- Ray(s): Foot, Right and Wt. Bearing PERIPHERAL IV DATA: Not applicable SIGNED BY: RT Dillon(R) July 08, 2022 11:41 AM documented in this encounterMercy Health – The Jewish Hospital11-29-2022 History of Present illness Narrative* Liat Viramontes APRN.VACUUM FORM OPERATOR - 07/08/2022 10:35 AM EST Images from the original note were not included. Subjective Patient came in with complaints of right foot pain. Patient says she was mopping and slipped in herkitchen. Patient says she is just having pain on the outer aspect. Patient denies any loss of feeling in her foot. Patient denies any redness or swelling. The history is provided by the patient. No languages and literature instructor was used. Review of Systems Constitutional: Negative. [...] by mouth once daily. (Patient not taking: Nosig reported) ondansetron orally disintegrating (ZOFRAN ODT) 4 [...] maintained. IMPRESSION IMPRESSION: No acute osseous abnormality Lime Trimmer: KATLYN Transcribe Date/Time: Jul 08 2022 12:05P Dictated by : FELECIA VAUGHAN MD Was instructed to rest elevate foot and baby it for a few days see if this helps with the pain. If pain is persistent patient will follow-up with primary care provider. Patient was okay with this care plan. Liat Viramontes APRN.SAHARA documented in this encounterCleveland [id number] History of Present illness Narrative* Smitha Neville, MULTI SKILLED OPERATOR.VACUUM FORM OPERATOR - 05/30/2022 10:19 AM EDT 05/30/2022 Patient presents with: Nasal Congestion Headache [...] by mouth once daily. (Patient not taking: Nosig reported) ondansetron orally disintegrating (ZOFRAN ODT) 4 [...] BP Cuff Size: Regular Adult) Pulse 103 Temp36.6 C (97.8 F) Resp 16 Wt 94.9 kg (209 lb 3.2 oz) LMP 04/19/2021 SpO2 97% BMI 37.06 kg/m. Vital signs reviewed by this provider. APPEARANCE [...] 473.9, ICD10: J32.9 - CONSULT TO ENT Smitha Podlogdeb, MULTI SKILLED OPERATOR.VACUUM FORM OPERATOR Prescription instructions reviewed with patient as applicable. [...] which included preparing to see the patient, [id number] patient care, completing clinical documentation, obtaining and/or reviewing separately obtained history, performing a medically appropriate examination, counseling and educating the pat ient/family/caregiver, and ordering medications, tests, or procedures. documented in this encounterMercy Health – The Jewish Hospital10-17-2022 Instructions* Patient Instructions* Michelle Mercado APRN.CNP - 05/26/2022 11:55 AM EDT Rest, increase water intake Motrin or Tylenol as needed for fever or pain. Salt water gargles, chloraseptic spray or lozenges as needed for sore throat. Warm beverages, honey. Nasal saline spray as needed Cool mist humidifier at night Strep is negative documented in this encounterMercy Health – The Jewish Hospital10-17-2022 History of Present illness Narrative* Michelle Mercado APRN.CNP - 05/26/2022 11:38 AM EDT Subjective The history is provided by the patient. No languages and literature instructor was used. HPI Felecia Cline is a 26 year old female [...] have confirmed and edited as necessary, the [facility] Review of Systems Constitutional: Negative for chills, [...] for higher level of care were discussed indetail warranting prompt ER evaluation. Michelle Mercado APRN.VACUUM FORM OPERATOR documented in this encounterMercy Health – The Jewish Hospital08-11-2022 History of Present illness Narrative* Liat Viramontes APRN.CNP - 03/20/2022 5:25 PM EDT Patient came in with abdominal pain that is getting worse. Patient said its on the right lower sideand above her umbilicus. Patient said she has noticed significant swelling and is unable to change positions. Pain is a 7/10. Patient said it even hurts to have a bowel movement. Patient does still have appendix. Patient was sent to ER for full evaluation at this time. documented in this encounterMercy Health – The Jewish Hospital02-18-2022 History of Present illness Narrative* Paige Miller RT(R) - 09/27/2021 9:20 AM [facility] Progress Note PATIENT NAME: Felecia Cline DATE OF SERVICE: September 27, 2021 TIME: 9:17 AM PATIENT IDENTITY VERIFICATION COMPLETED USING TWO (2) IDENTIFIERS: Name and Date of confirmedby patient verbally. FALL SCREENING: Has the patient had 2 falls in the last year or 1 fall with injury or currently using an Ambulatory Assistive Device (Walker, Cane, Wheelchair, Crutches, etc.)? No PATIENT GENDER DATA: Female. status: : No status: NO. PATIENT RELEVANT IMPLANT DATA REVIEWED: Yes RADIOLOGY DEPARTMENT: General X-ray: Exam(s) Completed: Spine X-Ray(s): Lumbar AP / LAT / L5-S1 andSacrum/Coccyx PERIPHERAL IV DATA: Not applicable SIGNED BY: RT Haritha(R) September 27, 2021 9:17 AM [facility] of Present illness Narrative* Paige Miller RT(R) - 05/02/2021 10:30 AM EDT Radiology Service Progress Note PATIENT NAME: Felecia Cline DATE OF SERVICE: May 02, 2021 TIME: 10:32 AM PATIENT IDENTITY VERIFICATION COMPLETED USING TWO (2) IDENTIFIERS: Name and Date of confirmedby patient verbally. FALL SCREENING: Has the patient had 2 falls in the last year or 1 fall with injury or currently using an Ambulatory Assistive Device (Walker, Cane, Wheelchair, Crutches, etc.)? No PATIENT GENDER DATA: Female. status: : No status: NO. PATIENT RELEVANT IMPLANT DATA REVIEWED: Yes RADIOLOGY DEPARTMENT: General X-ray: Exam(s) Completed: Abdomen X-Ray: Abdomen with upright PERIPHERAL IV DATA: Not applicable SIGNED BY: RT Haritha(R) May 02, 2021 10:32 AM [facility] History of Past illness Narrative* Problem Noted Date Resolved Date Bowel habit changes 07/11/2015 07/11/2015 Dysphagia 07/11/2015 07/11/2015 documented as of this encounter (statuses as of 03/20/2022) [address]02[address]2015 History of Past illness Narrative* Problem Noted Date Resolved Date Bowel habit changes 07/11/2015 07/11/2015 Dysphagia 07/11/2015 07/11/2015 documented as of this encounter (statuses as of 05/26/2022) [facility] History of Past illness Narrative* Problem Noted Date Resolved Date Bowel habit changes 07/11/2015 07/11/2015 Dysphagia 07/11/2015 07/11/2015 documented as of this encounter (statuses as of 05/30/2022) [place] [address]-02-2015 History of Past illness Narrative* Problem Noted Date Resolved Date Bowel habit changes 07/11/2015 07/11/2015 Dysphagia 07/11/2015 07/11/2015 documented as of this encounter (statuses as of 07/08/2022) [address]02[address]2015 History of Past illness Narrative* Problem Noted Date Resolved Date Bowel habit changes 07/11/2015 07/11/2015 Dysphagia 07/11/2015 07/11/2015 documented as of this encounter (statuses as of 09/16/2022) [address]02[address]2015 History of Past illness Narrative* Problem Noted Date Resolved Date Bowel habit changes 07/11/2015 07/11/2015 Dysphagia 07/11/2015 07/11/2015 documented as of this encounter (statuses as of 09/19/2022) [facility] of [facility] illness Narrative* Problem Noted Date Resolved Date Bowel habit changes 07/11/2015 07/11/2015 Dysphagia 07/11/2015 07/11/2015 documented as of this encounter (statuses as of 09/23/2022) [facility] of Past illness Narrative* Problem Noted Date Resolved Date Bowel habit changes 07/11/2015 07/11/2015 Dysphagia 07/11/2015 07/11/2015 documented as of this encounter (statuses as of 09/30/2022) [facility] of Past illness Narrative* Problem Noted Date Resolved Date Bowel habit changes 07/11/2015 07/11/2015 Dysphagia 07/11/2015 07/11/2015 documented as of this encounter (statuses as of 09/30/2022) [facility] of [facility] illness Narrative* Problem Noted Date Resolved Date Bowel habit changes 07/11/2015 07/11/2015 Dysphagia 07/11/2015 07/11/2015 documented as of this encounter (statuses as of 10/16/2022) [facility] of [facility] illness Narrative* Problem Noted Date Resolved Date Bowel habit changes 07/11/2015 07/11/2015 Dysphagia 07/11/2015 07/11/2015 documented as of this encounter (statuses as of 10/28/2022) [facility] of [facility] illness Narrative* Problem Noted Date Resolved Date Bowel habit changes 07/11/2015 07/11/2015 Dysphagia 07/11/2015 07/11/2015 documented as of this encounter (statuses as of 10/29/2022) [facility] of [facility] illness Narrative* Problem Noted Date Resolved Date Bowel habit changes 07/11/2015 07/11/2015 Dysphagia 07/11/2015 07/11/2015 documented as of this encounter (statuses as of 11/12/2022) [facility] of [facility] illness Narrative* Problem Noted Date Resolved Date Bowel habit changes 07/11/2015 07/11/2015 Dysphagia 07/11/2015 07/11/2015 documented as of this encounter (statuses as of 11/22/2022) [facility] of [facility] Narrative* Problem Noted Date Resolved Date Bowel habit changes 07/11/2015 07/11/2015 Dysphagia 07/11/2015 07/11/2015 documented as of this encounter (statuses as of 01/09/2023) [facility] of [facility] Narrative* Problem Noted Date Diagnosed Date Resolved Date Bowel habit changes 07/11/2015 07/11/20 15 Dysphagia 07/11/2015 07/11/2015 documented as of this encounter (statuses as of 03/25/2023) [facility] Narrative* Problem Noted Date Diagnosed Date Resolved Date Bowel habit changes 07/11/2015 07/11/20 15 Dysphagia 07/11/2015 07/11/2015 documented as of this encounter (statuses as of 06/02/2023) [facility] Narrative* Problem Noted Date Diagnosed Date Resolved Date Bowel habit changes 07/11/2015 07/11/20 15 Dysphagia 07/11/2015 07/11/2015 documented as of this encounter (statuses as of 06/13/2023) [facility] Narrative* Problem Noted Date Diagnosed Date Resolved Date Bowel habit changes 07/11/2015 07/11/20 15 Dysphagia 07/11/2015 07/11/2015 documented as of this encounter (statuses as of 06/15/2023) [facility] Narrative* Problem Noted Date Diagnosed Date Resolved Date Bowel habit changes 07/11/2015 07/11/20 15 Dysphagia 07/11/2015 07/11/2015 documented as of this encounter (statuses as of 08/10/2023) [facility] Narrative* Problem Noted Date Diagnosed Date Resolved Date Bowel habit changes 07/11/2015 07/11/20 15 Dysphagia 07/11/2015 07/11/2015 documented as of this encounter (statuses as of 09/15/2023) [facility] Narrative* Problem Noted Date Diagnosed Date Resolved Date Bowel habit changes 07/11/2015 07/11/20 15 Dysphagia 07/11/2015 07/11/2015 documented as of this encounter (statuses as of 09/22/2023) [facility] Narrative* Problem Noted Date Diagnosed Date Resolved Date Bowel habit changes 07/11/2015 07/11/20 15 Dysphagia 07/11/2015 07/11/2015 documented as of this encounter (statuses as of 10/23/2023) [facility] noteNo assessment information availableWCleveland Clinic Work Phone: evaluation note* Diagnosis Onset Date Resolution Status Infertility acute JULISSA (stress urinary incontinence, female) acute Vaginal discharge noneactive Bilateral mastodynia noneact [facility] Work Phone: evaluation note* Diagnosis Right lower quadrant abdominal pain- Primary Abdominal pain, right lower quadrant [facility]* Diagnosis Sore throat- Primary Acute pharyngitis Viral illness Unspecified viral infection, in conditions classified elsewhere and of unspecified site documented in this encounter [facility] note* Diagnosis Sinus pain- Primary Other diseases of nasal cavity and sinuses Frequent sinus infections documented in this encounter [facility] note* Diagnosis Pain- Primary Generalized pain documented in this encounter [facility] note* Diagnosis Viral upper respiratory tract infection- Primary Acute upper respiratory infections of unspecified site Nausea Nausea alone Acute pharyngitis, unspecified etiology Fatigue, unspecified type documented in this encounter [facility] note* Diagnosis Allergic rhinitis, unspecified seasonality, unspecified trigger- Primary Chronic sinusitis, unspecified location documented in this encounter [facility] note* Diagnosis Other chronic sinusitis- Primary Allergic rhinitis, unspecified seasonality, unspecified trigger Preoperative examination Preoperative examination, unspecified documented in this encounter [facility] note* Diagnosis Encounter for screening for COVID-19- Primary Nausea Nausea alone Encounter for screening for COVID-19 Other chronic sinusitis documented in this encounter [facility] note* Diagnosis Pre-operative examination- Primary Preoperative examination, unspecified Class 2 obesity without serious comorbidity with body mass index (BMI) of 35.0 to 35.9 in adult, unspecified obesity type Encounter for screening for COVID-19 Other chronic sinusitis documented in this encounter [facility] note* Diagnosis Insect bite of right ear, initial encounter- Primary [facility]* Diagnosis Laceration of left ring finger, foreign body presence unspecified, nail damage status unspecified, subsequent encounter- Primary [facility]* Diagnosis Chronic sinusitis, unspecified location documented in this encounter [facility] note* Diagnosis Acute maxillary sinusitis, recurrence not specified- Primary documented in this encounter [facility] note* Diagnosis Foot pain, left- Primary Pain in limb documented in this encounter [facility] note* Diagnosis Onset Date Resolution Status Infertility acute Encounter for routine gynecological examination noneactive [facility] Work Phone: Evaluation note* Diagnosis Streptococcal pharyngitis- Primary Streptococcal sore throat Sore throat Acute pharyngitis Exposure to influenza Contact with or exposure to other viral diseases documented in this encounter [facility] note* Diagnosis Foot sprain, left, initial encounter- Primary Foot pain, left Pain in limb documented in this encounter [facility] note* Diagnosis Onset Date Resolution Status Encounter for routine gynecological examination noneactive FH: spina bifida acute Hx of depression, currently acute Obesity (BMI 30-39.9) acute acute JULISSA (stress urinary incontinence, female) acute Supervision of high-risk acute [facility] Work Phone: evaluation note* Diagnosis Onset Date Resolution Status Encounter for routine gynecological examination noneactive FH: spina bifida acute Hx of depression, currently acute Obesity (BMI 30-39.9) acute acute JULISSA (stress urinary incontinence, female) acute Supervision of high-risk acute FH: spina bifida acute Hx of depression, currently acute Obesity (BMI 30-39.9) acute acute Supervision of high-risk acute [facility] Work Phone: Evaluation note* Diagnosis Viral URI- Primary Acute upper respiratory infections of unspecified site [facility]* Diagnosis Sinobronchitis- Primary Unspecified sinusitis (chronic) documented in this encounter [facility] note* Diagnosis URI, acute- Primary Acute upper respiratory infections of unspecified site documented in this encounter [facility] note* Diagnosis Pre-operative examination- Primary Preoperative examination, unspecified Class 2 obesity without serious comorbidity with body mass index (BMI) of 35.0 to 35.9 in adult, unspecified obesity type Gestational diabetes mellitus (GDM) in third trimester, gestational diabetes method of control unspecified- Primary [facility]* Diagnosis Pre-operative examination- Primary Preoperative examination, unspecified Class 2 obesity without serious comorbidity with body mass index (BMI) of 35.0 to 35.9 in adult, unspecified obesity type Tendonitis Enthesopathy of unspecified site [facility]* Diagnosis Pain Generalized pain Pre-operative examination- Primary Preoperative examination, unspecified Class 2 obesity without serious comorbidity with body mass index (BMI) of 35.0 to 35.9 in adult, unspecified obesity type [facility]* Diagnosis Acute bilateral low back pain with left-sided sciatica Pre-operative examination- Primary Preoperative examination, unspecified Class 2 obesity without serious comorbidity with body mass index (BMI) of 35.0 to 35.9 in adult, unspecified obesity type [facility]* Diagnosis Acute LUQ pain Abdominal pain, left upper quadrant Pre-operative examination- Primary Preoperative examination, unspecified Class 2 obesity without serious comorbidity with body mass index (BMI) of 35.0 to 35.9 in adult, unspecified obesity type [facility]* Diagnosis Pre-operative examination- Primary Preoperative examination, unspecified Class 2 obesity without serious comorbidity with body mass index (BMI) of 35.0 to 35.9 in adult, unspecified obesity type Right wrist pain- Primary Pain in joint, forearm Right wrist pain Pain in joint, forearm [facility]* Diagnosis Pre-operative examination- Primary Preoperative examination, unspecified Class 2 obesity without serious comorbidity with body mass index (BMI) of 35.0 to 35.9 in adult, unspecified obesity type Right wrist pain Pain in joint, forearm [facility]* Diagnosis Pre-operative examination- Primary Preoperative examination, unspecified Class 2 obesity without serious comorbidity with body mass index (BMI) of 35.0 to 35.9 in adult, unspecified obesity type Right wrist pain Pain in joint, forearm documented in this encounter [facility] note* Diagnosis Pre-operative examination- Primary Preoperative examination, unspecified Class 2 obesity without serious comorbidity with body mass index (BMI) of 35.0 to 35.9 in adult, unspecified obesity type Treatment not available- Primary Procedure not carried out for other reasons [facility]* Diagnosis Pre-operative examination- Primary Preoperative examination, unspecified Class 2 obesity without serious comorbidity with body mass index (BMI) of 35.0 to 35.9 in adult, unspecified obesity type Acute bacterial conjunctivitis of right eye- Primary Acute non-recurrent maxillary sinusitis Productive cough Cough [facility]* Diagnosis Pre-operative examination- Primary Preoperative examination, unspecified Class 2 obesity without serious comorbidity with body mass index (BMI) of 35.0 to 35.9 in adult, unspecified obesity type Treatment not available- Primary Procedure not carried out for other reasons [facility]* Diagnosis Pre-operative examination- Primary Preoperative examination, unspecified Class 2 obesity without serious comorbidity with body mass index (BMI) of 35.0 to 35.9 in adult, unspecified obesity type Rhinosinusitis- Primary Unspecified sinusitis (chronic) Acute otitis media, bilateral Unspecified otitis media [facility] Additional Instructions Take medication as prescribed. Continue Tylenol Motrin. Continue oral fluids. 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 Return if any worsening respiratory symptoms.[facility] Work Phone: Hospital Discharge instructions Additional Instructions You have a small umbilical hernia which is a source of your discomfort. These typically do not require any treatment and you should follow-up with your primary care doctor. If it becomes larger or more painful or you have vomiting or worsening symptoms come back to the ER. [facility] Work Phone: Hospital Discharge instructionsAmbulatory Orders* Physical Therapy Referral Location: None Selected [facility] Work Phone: Reason for referral (narrative)* Diagnostic Procedure Only (Urgent) - Closed Specialty Diagnoses / Procedures Referred By Lacie t Referred To Contact XR IMAGING Diagnoses Pain Procedures XR FOOT GENERAL 3V AP/LAT/OBL RIGHT RADEX FOOT COMPLETE MINIMUM 3 VIEWS Liat Viramontes APRN.VACUUM FORM OPERATOR [address] [place] [address] Xr Imaging Referral ID Status Reason Start Date Expiration Date V isits Requested Visits Authorized [id number] Closed Auto-Generate d Referral 07/08/2022 08/07/2023 1 1 [facility] for referral (narrative)* Diagnostic Procedure Only (Routine) - Closed Specialty Diagnoses / Procedures Referred By Contac t Referred To Contact XR IMAGING Diagnoses Left foot pain Procedures XR FOOT GENERAL 3V AP/LAT/OBL LEFT RADEX FOOT COMPLETE MINIMUM 3 VIEWS Patt Lopes APRN.VACUUM FORM OPERATOR [address] [place] [address] [place] [address] Referral ID Status Reason Start Date Expiration Date V isits Requested Visits Authorized [id number] Closed Auto-Generate d Referral 08/28/2023 09/26/2024 1 1 [facility] for referral (narrative)* Diagnostic Procedure Only (Urgent) - Closed Specialty Diagnoses / Procedures Referred By Contac t Referred To Contact XR IMAGING Diagnoses Pain Procedures XR FOOT GENERAL 3V AP/LAT/OBL RIGHT RADEX FOOT COMPLETE MINIMUM 3 VIEWS Liat Viramontes APRN.VACUUM FORM OPERATOR [address] [place] [address] [place] [address] Referral ID Status Reason Start Date Expiration Date V isits Requested Visits Authorized [id number] Closed Auto-Generate d Referral 07/08/2022 08/07/2023 1 1 [facility] for referral (narrative)* Diagnostic Procedure Only (Urgent) - Closed Specialty Diagnoses / Procedures Referred By Contac t Referred To Contact XR IMAGING Diagnoses Acute bilateral low back pain with left-sided sciatica Procedures XR LUMBAR GENERAL 3V AP/LAT/L5-S1 RADEX SPINE LUMBOSACRAL 2/3 VIEWS Liat Viramontes APRN.VACUUM FORM OPERATOR [address] [place] [address] [place] [address] Referral ID Status Reason Start Date Expiration Date V isits Requested Visits Authorized [id number] Closed Auto-Generate d Referral 09/27/2021 10/27/2022 1 1 * Diagnostic Procedure Only (Urgent) - Closed Specialty Diagnoses / Procedures Referred By Contac t Referred To Contact XR IMAGING Diagnoses Acute bilateral low back pain with left-sided sciatica Procedures XR SACRUM/COCCYX 3V AP/LAT RADEX SACRUM & COCCYX MINIMUM 2 VIEWS Liat Viramontes APRN.VACUUM FORM OPERATOR [address] [place] [address] [place] [address] Referral ID Status Reason Start Date Expiration Date V isits Requested Visits Authorized [id number] Closed Auto-Generate d Referral 09/27/2021 10/27/2022 1 1 [facility] for referral (narrative)* Diagnostic Procedure Only (Urgent) - Closed Specialty Diagnoses / Procedures Referred By Contac t Referred To Contact XR IMAGING Diagnoses Acute LUQ pain Procedures XR ABDOMEN 2V ROUTINE SUPINE W UPRIGHT/DECUB/CTL RADIOLOGIC EXAM ABDOMEN 2 VIEWS Jay Mccormick APRN.SAHARA, DNP [address] [place] [address] [place] [address] Referral ID Status Reason Start Date Expiration Date V isits Requested Visits Authorized [id number] Closed Auto-Generate d Referral 05/01/2021 05/31/2022 1 1 [facility] for referral (narrative)* Diagnostic Procedure Only (Routine) - Authorized Specialty Diagnoses / Procedures Referred By Contac t Referred To Contact US IMAGING Diagnoses Right wrist pain Procedures US DVT UPPER RIGHT DUP-SCAN XTR VEINS UNILATERAL/LIMITED STUDY Sheri Franco APRN.VACUUM FORM OPERATOR [address] [place] [address] [place] [address] Referral ID Status Reason Start Date Expiration Date Visits Requested Visits Authorized [id number] Authorized Auto-Generat ed Referral 4 08/04/2025 1 1 * Outpatient Procedure (Urgent) - New Request Specialty Diagnoses / Procedures Referred By Contac t Referred To Contact [facility] Diagnoses Right wrist pain Procedures US ARM VEIN DVT UNL VAS LAB DUP-SCAN XTR VEINS UNILATERAL/LIMITED STUDY Sheri Franco APRN.VACUUM FORM OPERATOR [address] [place] [address] [facility] [address] [place] [address] Referral ID Status Reason Start Date Expiration Date Visits Requested Visits Authorized [id number] New Request Auto-Generat ed Referral 4 07/05/2025 1 1 * Diagnostic Procedure Only (Urgent) - Closed Specialty Diagnoses / Procedures Referred By Contac t Referred To Contact XR IMAGING Diagnoses Right wrist pain Procedures XR WRIST SPECIFY 1V RIGHT RADEX WRIST 2 VIEWS Sheri Franco APRN.VACUUM FORM OPERATOR [address] [place] [address] [place] [address] Referral ID Status Reason Start Date Expiration Date V isits Requested Visits Authorized [id number] Closed Auto-Generate d Referral 07/05/2024 08/04/2025 1 1 [facility] Diagnostic Procedure Only (Urgent) - Closed Specialty Diagnoses / Procedures Referred By Contac t Referred To Contact XR IMAGING Diagnoses Right wrist pain Procedures XR WRIST SPECIFY 1V RIGHT RADEX WRIST 2 VIEWS Sheri Franco APRN.VACUUM FORM OPERATOR [address] [place] [address] [place] [address] Referral ID Status Reason Start Date Expiration Date V isits Requested Visits Authorized [id number] Closed Auto-Generate d Referral 07/05/2024 08/04/2025 1 1 [facility] for referral (narrative)* Diagnostic Procedure Only (Routine) - Closed Specialty Diagnoses / Procedures Referred By Contac t Referred To Contact US IMAGING Diagnoses Right wrist pain Procedures US DVT UPPER RIGHT DUP-SCAN XTR VEINS UNILATERAL/LIMITED STUDY Sheri Franco APRN.VACUUM FORM OPERATOR [address] [place] [address] [place] [address] Referral ID Status Reason Start Date Expiration Date V isits Requested Visits Authorized [id number] Closed Auto-Generate d Referral 07/05/2024 08/04/2025 1 1 [facility] for referral (narrative)No reason for referral information [facility] Work [facility] Narrative* Diagnostic Procedure Only (Routine) - Closed Specialty Diagnoses / Procedures Referred By Contac t Referred To Contact XR IMAGING Diagnoses Left foot pain Procedures XR FOOT GENERAL 3V AP/LAT/OBL LEFT RADEX FOOT COMPLETE MINIMUM 3 VIEWS Patt Lopes APRN.VACUUM FORM OPERATOR [address] [place] [address] [place] [address] Referral ID Status Reason Start Date Expiration Date V isits Requested Visits Authorized [id number] Closed Auto-Generate d Referral 08/28/2023 09/26/2024 1 1 [facility] for visit Narrative* Diagnostic Procedure Only (Urgent) - Closed Specialty Diagnoses / Procedures Referred By Contac t Referred To Contact XR IMAGING Diagnoses Pain Procedures XR FOOT GENERAL 3V AP/LAT/OBL RIGHT RADEX FOOT COMPLETE MINIMUM 3 VIEWS Liat Viramontes APRN.VACUUM FORM OPERATOR [address] [place] [address] [place] [address] Referral ID Status Reason Start Date Expiration Date V isits Requested Visits Authorized [id number] Closed Auto-Generate d Referral 07/08/2022 08/07/2023 1 1 [facility] for visit Narrative* Diagnostic Procedure Only (Urgent) - Closed Specialty Diagnoses / Procedures Referred By Contac t Referred To Contact XR IMAGING Diagnoses Acute bilateral low back pain with left-sided sciatica Procedures XR LUMBAR GENERAL 3V AP/LAT/L5-S1 RADEX SPINE LUMBOSACRAL 2/3 VIEWS Liat Viramontes, MULTI SKILLED OPERATOR.VACUUM FORM OPERATOR [address] [place] [address] [place] [address] Referral ID Status Reason Start Date Expiration Date V isits Requested Visits Authorized [id number] Closed Auto-Generate d Referral 09/27/2021 10/27/2022 1 1 [facility] for visit Narrative* Diagnostic Procedure Only (Urgent) - Closed Specialty Diagnoses / Procedures Referred By Contac t Referred To Contact XR IMAGING Diagnoses Acute LUQ pain Procedures XR ABDOMEN 2V ROUTINE SUPINE W UPRIGHT/DECUB/CTL RADIOLOGIC EXAM ABDOMEN 2 VIEWS Jay Mccormick, MULTI SKILLED OPERATOR.SAHARA, DNP [address] [place] [address] [place] [address] Referral ID Status Reason Start Date Expiration Date V isits Requested Visits Authorized [id number] Closed Auto-Generate d Referral 05/01/2021 05/31/2022 1 1 [facility] for visit Narrative* Diagnostic Procedure Only (Urgent) - Closed Specialty Diagnoses / Procedures Referred By Contac t Referred To Contact XR IMAGING Diagnoses Right wrist pain Procedures XR WRIST SPECIFY 1V RIGHT RADEX WRIST 2 VIEWS Sheri Franco, MULTI SKILLED OPERATOR.VACUUM FORM OPERATOR [address] [place] [address] [place] [address] Referral ID Status Reason Start Date Expiration Date V isits Requested Visits Authorized [id number] Closed Auto-Generate d Referral 07/05/2024 08/04/2025 1 1 [facility] for visit Narrative* Diagnostic Procedure Only (Routine) - Closed Specialty Diagnoses / Procedures Referred By Contac t Referred To Contact US IMAGING Diagnoses Right wrist pain Procedures US DVT UPPER RIGHT DUP-SCAN XTR VEINS UNILATERAL/LIMITED STUDY Sheri Franco, MULTI SKILLED OPERATOR.VACUUM FORM OPERATOR [address] [place] [address] [facility] [place] [address] Referral ID Status Reason Start Date Expiration Date V isits Requested Visits Authorized [id number] Closed Auto-Generate d Referral 07/05/2024 08/04/2025 1 1 [facility] Summary Purpose Family History No Family History Records Found Relationship Condition Age at Onset Recorded Date/T heather grandmother Malignant neoplasm of breast Unknown Relationship Condition Age at Onset Recorded Date/T heather grandmother Malignant neoplasm of breast 50 mother Diabetes mellitus Unknown father Diabetes mellitus Unknown sister Diabetes mellitus Unknown Relationship Condition Age at Onset Recorded Date/T heather grandmother Malignant neoplasm of breast 50 mother Diabetes mellitus Unknown father Diabetes mellitus Unknown sister Diabetes mellitus Unknown Plantar fasciitis, bilateral Unknown Osteoarthritis Unknown Bilateral carpal tunnel syndrome Unknown Advance Directives No Advanced Directives Records Found Advance Directive Response Recorded Date/ Time Living Will No March 05, 2022 1:15pm Power of Carbon Brushes Assembler No March 05 1:15pm Advance Directive Response Recorded Date/ Time Living Will No March 20 6:02pm Power of Carbon Brushes Assembler No March 20 022 6:02pm Advance Directive Response Recorded Date/ Time Living Will No May 29 11:19pm Power of Carbon Brushes Assembler No May 29, 2023 11:19pm Advance Directive Response Recorded Date/ Time Living Will No May 29 10:19pm Power of Carbon Brushes Assembler No May 29, 2023 10:19pm Chief Complaint and Reason for Visit Chief Complaint headache Chief Complaint headache discharge and incontinence ABD PAIN Reason for Visit Infertility JULISSA (stress urinary incontinence, female) Vaginal discharge Bilateral mastodynia Chief Complaint LAC TO LEFT RING FIN INEZ Chief Complaint LAC TO LEFT RING FIN INEZ 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 Reason for Visit Infertility Encounter for routine gynecological examination Chief Complaint 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 Reason for Visit Infertility Encounter for routine gynecological examination Chief Complaint 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 New OB, MIKE 06/17, LMP 09/10/23 Reason for Visit Encounter for routin e gynecological examination FH: spina bifida Hx of depression, currently Obesity (BMI 30-39.9) JULISSA (stress urinary incontinence, female) Supervision of high-risk Chief Complaint 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 New OB, MIKE 06/17, LMP 09/10/23 11wk OB E-ORDER AND JAYANT Reason for Visit Encounter for routin e gynecological examination FH: spina bifida Hx of depression, currently Obesity (BMI 30-39.9) JULISSA (stress urinary incontinence, female) Supervision of high-risk FH: spina bifida Hx of depression, currently Obesity (BMI 30-39.9) Supervision of high-risk Chief Complaint Admit Date Heavy, painful periods *Copay $25 January 082024 9:51am Chief Complaint Admit Date Heavy, painful periods *Copay $25 January 082024 9:51am LUMBAR SPINE April 14, 2025 10:16am Room 5 April 14, 2025 10:55am Reason for Visit Admit Date Dysmenorrhea January 19, 2025 9:51 am Menorrhagia with regular cycle January 9:51am Reason for Referral Specialty Diagnoses / Procedures Referred By Contac t Referred To Contact Ent - Otolaryngology Diagnoses Frequent sinus infections Procedures CONSULT TO ENT OFFICE/OUTPATIENT [facility] 60-74 MINUTES Smitha Neville APRN.VACUUM FORM OPERATOR [address] [place] [address] Referral ID Status Reason Start Date Expiration Date Visits Requested Visits Authorized [id number] Authorized PCP Requested Referral 05/30/2023 1 1 Specialty Diagnoses / Procedures Referred By Contac t Referred To Contact Diagnoses Preoperative examination Procedures REFER TO PACC - PRE ANESTHESIA CONSULTATION CLINIC OFFICE/OUTPATIENT [facility] 60-74 MINUTES Elías Dinero MD [address] [place] [address] Referral ID Status Reason Start Date Expiration Date Visits Requested Visits Authorized [id number] Authorized PCP Requested Referral 09/30/2022 09/30/2023 1 1 Specialty Diagnoses / Procedures Referred By Contac t Referred To Contact Podiatry Diagnoses Foot pain, left Procedures CONSULT TO PODIATRY OFFICE/OUTPATIENT [facility] 60 MINUTES Patt Lopes APRN.VACUUM FORM OPERATOR [address] [place] [address] Referral ID Status Reason Start Date Expiration Date Visits Requested Visits Authorized [id number] Authorized PCP Requested Referral 09/15/2023 09/14/2024 1 1 Health Concerns Infection Onset Date Last Indicated Resolved Time COVID-19 Rule-Out 10/29/2022 10/29/2022 Infection Onset Date Last Indicated Resolved Time COVID-19 Rule-Out 09/21/2023 09/21/2023 Additional Source Comments INFORMATION SOURCE (unrecogn ized section and content) DATE CREATED AUTHOR 07/26/2018 [facility] DATE CREATED AUTHOR AUTHOR'S ORGANIZ ATION 12/13/2022 [facility] DATE CREATED AUTHOR AUTHOR'S ORGANIZ ATION 03/27/2024 [facility] DATE CREATED AUTHOR AUTHOR'S ORGANIZ ATION 07/09/2024 [facility] DATE CREATED AUTHOR AUTHOR'S ORGANIZ ATION 05/22/2025 [facility] DATE CREATED AUTHOR AUTHOR'S ORGANIZ ATION 05/30/2025 [facility] Goals (unrecognized section and content) Goals may be documented in a n alternate sectionGoals may be documented in an alternate sectionGoals may be documented in an alternate sectionGoals may be documented in an alternate sectionGoals may be documented in an alternate sectionGoals may be documented in an alternate sectionGoals may be documented in an alternate sectionGoals may be documented in an alternate sectionGoals may be documented in an alternate sectionGoals may be documented in an alternate sectionGoals may be documented in an alternate section Source Comments (unrecognize d section and content) In the event this informatio n is protected by the Federal Confidentiality of Alcohol and Drug Abuse Patient Records regulations: The Federal rules restrict any use of the information to criminally investigate or prosecute any alcohol or drug abuse patient.[facility] the event this information is protected by the Federal Confidentiality of Alcohol and Drug Abuse Patient Records regulations: The Federal rules restrict any use of the information to criminally investigate or prosecute any alcohol or drug abuse patient.[facility] the event this information is protected by the Federal Confidentiality of Alcohol and Drug Abuse Patient Records regulations: The Federal rules restrict any use of the information to criminally investigate or prosecute any alcohol or drug abuse patient.[facility] the event this information is protected by the Federal Confidentiality of Alcohol and Drug Abuse Patient Records regulations: The Federal rules restrict any use of the information to criminally investigate or prosecute any alcohol or drug abuse patient.[facility] the event this information is protected by the Federal Confidentiality of Alcohol and Drug Abuse Patient Records regulations: The Federal rules restrict any use of the information to criminally investigate or prosecute any alcohol or drug abuse patient.[facility] the event this information is protected by the Federal Confidentiality of Alcohol and Drug Abuse Patient Records regulations: The Federal rules restrict any use of the information to criminally investigate or prosecute any alcohol or drug abuse patient.[facility] the event this information is protected by the Federal Confidentiality of Alcohol and Drug Abuse Patient Records regulations: The Federal rules restrict any use of the information to criminally investigate or prosecute any alcohol or drug abuse patient.[facility] the event this information is protected by the Federal Confidentiality of Alcohol and Drug Abuse Patient Records regulations: The Federal rules restrict any use of the information to criminally investigate or prosecute any alcohol or drug abuse patient.[facility] the event this information is protected by the Federal Confidentiality of Alcohol and Drug Abuse Patient Records regulations: The Federal rules restrict any use of the information to criminally investigate or prosecute any alcohol or drug abuse patient.[facility] the event this information is protected by the Federal Confidentiality of Alcohol and Drug Abuse Patient Records regulations: The Federal rules restrict any use of the information to criminally investigate or prosecute any alcohol or drug abuse patient.[facility] the event this information is protected by the Federal Confidentiality of Alcohol and Drug Abuse Patient Records regulations: The Federal rules restrict any use of the information to criminally investigate or prosecute any alcohol or drug abuse patient.[facility] the event this information is protected by the Federal Confidentiality of Alcohol and Drug Abuse Patient Records regulations: The Federal rules restrict any use of the information to criminally investigate or prosecute any alcohol or drug abuse patient.[facility] the event this information is protected by the Federal Confidentiality of Alcohol and Drug Abuse Patient Records regulations: The Federal rules restrict any use of the information to criminally investigate or prosecute any alcohol or drug abuse patient.[facility] the event this information is protected by the Federal Confidentiality of Alcohol and Drug Abuse Patient Records regulations: The Federal rules restrict any use of the information to criminally investigate or prosecute any alcohol or drug abuse patient.[facility] the event this information is protected by the Federal Confidentiality of Alcohol and Drug Abuse Patient Records regulations: The Federal rules restrict any use of the information to criminally investigate or prosecute any alcohol or drug abuse patient.[facility] the event this information is protected by the Federal Confidentiality of Alcohol and Drug Abuse Patient Records regulations: The Federal rules restrict any use of the information to criminally investigate or prosecute any alcohol or drug abuse patient.[facility] the event this information is protected by the Federal Confidentiality of Alcohol and Drug Abuse Patient Records regulations: The Federal rules restrict any use of the information to criminally investigate or prosecute any alcohol or drug abuse patient.[facility] the event this information is protected by the Federal Confidentiality of Alcohol and Drug Abuse Patient Records regulations: The Federal rules restrict any use of the information to criminally investigate or prosecute any alcohol or drug abuse patient.[facility] the event this information is protected by the Federal Confidentiality of Alcohol and Drug Abuse Patient Records regulations: The Federal rules restrict any use of the information to criminally investigate or prosecute any alcohol or drug abuse patient.[facility] the event this information is protected by the Federal Confidentiality of Alcohol and Drug Abuse Patient Records regulations: The Federal rules restrict any use of the information to criminally investigate or prosecute any alcohol or drug abuse patient.[facility] the event this information is protected by the Federal Confidentiality of Alcohol and Drug Abuse Patient Records regulations: The Federal rules restrict any use of the information to criminally investigate or prosecute any alcohol or drug abuse patient.[facility] the event this information is protected by the Federal Confidentiality of Alcohol and Drug Abuse Patient Records regulations: The Federal rules restrict any use of the information to criminally investigate or prosecute any alcohol or drug abuse patient.[facility] the event this information is protected by the Federal Confidentiality of Alcohol and Drug Abuse Patient Records regulations: The Federal rules restrict any use of the information to criminally investigate or prosecute any alcohol or drug abuse patient.[facility] the event this information is protected by the Federal Confidentiality of Alcohol and Drug Abuse Patient Records regulations: The Federal rules restrict any use of the information to criminally investigate or prosecute any alcohol or drug abuse patient.[facility] the event this information is protected by the Federal Confidentiality of Alcohol and Drug Abuse Patient Records regulations: The Federal rules restrict any use of the information to criminally investigate or prosecute any alcohol or drug abuse patient.[facility] the event this information is protected by the Federal Confidentiality of Alcohol and Drug Abuse Patient Records regulations: The Federal rules restrict any use of the information to criminally investigate or prosecute any alcohol or drug abuse patient.[facility] the event this information is protected by the Federal Confidentiality of Alcohol and Drug Abuse Patient Records regulations: The Federal rules restrict any use of the information to criminally investigate or prosecute any alcohol or drug abuse patient.[facility] the event this information is protected by the Federal Confidentiality of Alcohol and Drug Abuse Patient Records regulations: The Federal rules restrict any use of the information to criminally investigate or prosecute any alcohol or drug abuse patient.[facility] the event this information is protected by the Federal Confidentiality of Alcohol and Drug Abuse Patient Records regulations: The Federal rules restrict any use of the information to criminally investigate or prosecute any alcohol or drug abuse patient.[facility] the event this information is protected by the Federal Confidentiality of Alcohol and Drug Abuse Patient Records regulations: The Federal rules restrict any use of the information to criminally investigate or prosecute any alcohol or drug abuse patient.[facility] the event this information is protected by the Federal Confidentiality of Alcohol and Drug Abuse Patient Records regulations: The Federal rules restrict any use of the information to criminally investigate or prosecute any alcohol or drug abuse patient.[facility]In the event this information is protected by the Federal Confidentiality of Alcohol and Drug Abuse Patient Records regulations: The Federal rules restrict any use of the information to criminally investigate or prosecute any alcohol or drug abuse patient.[facility] the event this information is protected by the Federal Confidentiality of Alcohol and Drug Abuse Patient Records regulations: The Federal rules restrict any use of the information to criminally investigate or prosecute any alcohol or drug abuse patient.[facility]In the event this information is protected by the Federal Confidentiality of Alcohol and Drug Abuse Patient Records regulations: The Federal rules restrict any use of the information to criminally investigate or prosecute any alcohol or drug abuse patient.[facility]In the event this information is protected by the Federal Confidentiality of Alcohol and Drug Abuse Patient Records regulations: The Federal rules restrict any use of the information to criminally investigate or prosecute any alcohol or drug abuse patient.[facility]In the event this information is protected by the Federal Confidentiality of Alcohol and Drug Abuse Patient Records regulations: The Federal rules restrict any use of the information to criminally investigate or prosecute any alcohol or drug abuse patient.[facility]In the event this information is protected by the Federal Confidentiality of Alcohol and Drug Abuse Patient Records regulations: The Federal rules restrict any use of the information to criminally investigate or prosecute any alcohol or drug abuse patient.[facility]In the event this information is protected by the Federal Confidentiality of Alcohol and Drug Abuse Patient Records regulations: The Federal rules restrict any use of the information to criminally investigate or prosecute any alcohol or drug abuse patient.[facility]In the event this information is protected by the Federal Confidentiality of Alcohol and Drug Abuse Patient Records regulations: The Federal rules restrict any use of the information to criminally investigate or prosecute any alcohol or drug abuse patient.[facility]In the event this information is protected by the Federal Confidentiality of Alcohol and Drug Abuse Patient Records regulations: The Federal rules restrict any use of the information to criminally investigate or prosecute any alcohol or drug abuse patient.[facility] Care Teams (unrecognized sec tion and content) Web Analyst Relationship Specialty Start Date End Date Stefan Bradford MD [address] [facility] [place] [address] PCP - General Internal Medicine 08/19/17 Web Analyst Relationship Specialty Start Date End Date Stefan Bradford MD [address] [facility] [place] [address] PCP - General Internal Medicine 08/19/17 Web Analyst Relationship Specialty Start Date End Date Stefan Bradford MD [address] [facility] [place] [address] PCP - General Internal Medicine 08/19/17 Web Analyst Relationship Specialty Start Date End Date Stefan Bradford MD [address] [facility] [place] [address] PCP - General Internal Medicine 08/19/17 Web Analyst Relationship Specialty Start Date End Date Stefan Bradford MD [address] [facility] [place] [address] PCP - General Internal Medicine 08/19/17 Web Analyst Relationship Specialty Start Date End Date Stefan Bradford MD [address] [facility] [place] [address] PCP - General Internal Medicine 08/19/17 Web Analyst Relationship Specialty Start Date End Date Stefan Bradford MD [address] [facility] [place] [address] PCP - General Internal Medicine 08/19/17 Web Analyst Relationship Specialty Start Date End Date Stefan Bradford MD [address] [facility] [place] [address] PCP - General Internal Medicine 08/19/17 Web Analyst Relationship Specialty Start Date End Date Stefan Bradford MD [address] [facility] [place] [address] PCP - General Internal Medicine 08/19/17 Web Analyst Relationship Specialty Start Date End Date Stefan Bradford MD [address] [facility] [place] [address] PCP - General Internal Medicine 08/19/17 Web Analyst Relationship Specialty Start Date End Date Stefan Bradford MD [address] [facility] [place] [address] PCP - General Internal Medicine 08/19/17 Web Analyst Relationship Specialty Start Date End Date Stefan Bradford MD [address] [facility] [place] [address] PCP - General Internal Medicine 08/19/17 Web Analyst Relationship Specialty Start Date End Date Stefan Bradford MD [address] [facility] [place] [address] PCP - General Internal Medicine 08/19/17 Web Analyst Relationship Specialty Start Date End Date Stefan Bradford MD [address] [facility] [place] [address] PCP - General Internal Medicine 08/19/17 Team Status: Active Member Role Status Dates Dr. Stefan Bradford MD Family Provider Active Dr. Stefan Bradford MD Primary Care Provider Active Team Status: Inactive Member Role Status Dates Dr. Stefan Bradford MD Primary Care Provider Active Dr. Khurram Hansen MD Emergency Provider Active Web Analyst Relationship Specialty Start Date End Date Stefan Bradford MD [address] [facility] [place] [address] PCP - General Internal Medicine 08/19/17 Web Analyst Relationship Specialty Start Date End Date Stefan Bradford MD [address] [facility] [place] [address] PCP - General Internal Medicine 08/19/17 Web Analyst Relationship Specialty Start Date End Date Stefan Bradford MD [address] [place] [address] PCP - General Internal Medicine 08/19/17 Web Analyst Relationship Specialty Start Date End Date Stefan Bradford MD [address] [place] [address] PCP - General Internal Medicine 08/19/17 Team Status: Inactive Member Role Status Dates Dr. Stefan Bradofrd MD Primary Care Provider, Referring Provider Active Teresa Morillo INFORMATION ASSURANCE MANAGER, INFORMATION ASSURANCE MANAGER-C Attending Provider Active Team Status: Inactive Member Role Status Dates Dr. Stefan Bradford MD Primary Care Provider Active Dr. Khurram Hansen MD Attending Provider, Emergency Provider Active Team Status: Inactive Member Role Status Dates Dr. Stefan Bradford MD Primary Care Provider Active Teresa Morillo INFORMATION ASSURANCE MANAGER, INFORMATION ASSURANCE MANAGER-C Attending Provider, Referring Provider Active Web Analyst Relationship Specialty Start Date End Date Stefan Bradford MD [address] [place] [address] PCP - General Internal Medicine 08/19/17 Web Analyst Relationship Specialty Start Date End Date Stefan Bradford MD [address] [place], [place] [address] PCP - General Internal Medicine 08/19/17 Team Status: Inactive Member Role Status Dates Dr. Stefan Bradford MD Primary Care Provider, Referring Provider Active Leia Salazar CNM Attending Provider Active Team Status: Inactive Member Role Status Dates Dr. Stefan Bradford MD Primary Care Provider Active Leia Salazar CNM Attending Provider Active Team Status: Inactive Member Role Status Dates Dr. Stefan Bradford MD Referring Provider Active Teresa Morillo INFORMATION ASSURANCE MANAGER, INFORMATION ASSURANCE MANAGER-C Attending Provider Active Team Status: Inactive Member Role Status Dates Dr. Stefan Bradford MD Primary Care Provider Active Leia Salazar CNM Attending Provider, Referring Pro vider Active Web Analyst Relationship Specialty Start Date End Date Stefan Bradford MD [address] [facility] [place] [address] PCP - General Internal Medicine 08/19/17 Web Analyst Relationship Specialty Start Date End Date Stefan Bradford MD [address] [facility] [place] [address] PCP - General Internal Medicine 08/19/17 Web Analyst Relationship Specialty Start Date End Date Stefan Bradford MD [address] [facility] [place] [address] PCP - General Internal Medicine 08/19/17 Web Analyst Relationship Specialty Start Date End Date Stefan Bradford MD [address] [facility] [place] [address] PCP - General Internal Medicine 08/19/17 Web Analyst Relationship Specialty Start Date End Date Stefan Bradford MD [address] [facility] [place] [address] PCP - General Internal Medicine 08/19/17 Web Analyst Relationship Specialty Start Date End Date Stefan Bradford MD [address] [facility] [place] [address] PCP - General Internal Medicine 08/19/17 Ruth Schmid PA-C [address] [place] [address] [facility] 07/17/24 Mary Cabrera APRN.CNP [address] [place] [address] Bead Preparer Internal Medicine 07/17/24 Katherin Persaud PA-C [address] [place] [address] Bead Preparer Family [facility] 07/17/24 Web Analyst Relationship Specialty Start Date End Date Stefan Bradford MD [address] [place] [address] PCP - General Internal Medicine 08/19/17 Ruth Schmid PA-C [address] [place] [address] [phone] Bead Preparer Family Medicine 07/17/24 Mary Cabrera APRN.VACUUM FORM OPERATOR [address] [place] [address] Bead Prep[facility] Internal Medicine 07/17/24 Katherin Persaud PA-C [address] [place] [address] [facility] 07/17/24 Web Analyst Relationship Specialty Start Date End Date Stefan Bradford MD [address] [place] [address] PCP - General Internal Medicine 08/19/17 Ruth Schmid PA-C [address] [place] [phone] [facility] 07/17/24 Mary Cabrera APRN.VACUUM FORM OPERATOR [address] [place] [address] Bead Preparer Internal Medicine 07/17/24 Katherin Persaud PA-C [address] [place] [address] [facility] 07/17/24 Web Analyst Relationship Specialty Start Date End Date Stefan Bradford MD [address] [place], [place] [id number] PCP - General Internal Medicine 08/19/17 Ruth Schmid PA-C [address] [place] [address] [facility] 07/17/24 Older, MaryCALVIN.VACUUM FORM OPERATOR [address] [place], [place] [id number] [facility] Internal [facility] 07/17/24 Katherin Persaud PA-C [address] [place], [place] [id number] [facility] 07/17/24 Team Status: Active Member Role Status Dates Dr. Stefan Bradford MD Primary Care Provider Active Team Status: Inactive Member Role Status Dates Dr. Stefan Bradford MD Primary Care Provider Active Start: January 19, 2025 End: January 19, 2025 Dr. Stefan Bradford MD Referring Provider Active Start: January 19, 2025 End: January 19, 2025 Teresa Morillo INFORMATION ASSURANCE MANAGER, INFORMATION ASSURANCE MANAGER-C Attending Provider Active Start: January 19, 2025 End: January 19, 2025 Team Status: Active Member Role/Relationship Status Dates Dr. Stefan Bradford MD Primary Care Provider Active Team Status: Inactive Member Role/Relationship Status Dates Dr. Stefan Bradford MD Primary Care Provider Active Start: January 19, 2025 End: January 19, 2025 Dr. Stefan Bradford MD Referring Provider Active Start: January 19, 2025 End: January 19, 2025 Teresa Morillo INFORMATION ASSURANCE MANAGER, INFORMATION ASSURANCE MANAGER-C Attending Provider Active Start: January 19, 2025 End: January 19, 2025 Team Status: Active Member Role/Relationship Status Dates Dr. Stefan Bradford MD Primary Care Provider Active Start: April 14, 2025 Dr. Stefan Bradford MD Referring Provider Active Start: April 14, 2025 FABI York Attending Provider Active Star t: April 14, 2025 Team Status: Inactive Member Role/Relationship Status Dates Dr. Stefan Bradford MD Primary Care Provider Active Start: April 14, 2025 End: April 14, 2025 Dr. Arthur Mcgill MD Attending Provider Active S tart: April 14, 2025 End: April 14, 2025 Team Status: Inactive Member Role/Relationship Status Dates Dr. Stefan Bradford MD Primary Care Provider Active Start: April 14, 2025 End: April 14, 2025 Dr. Stefan Bradford MD Referring Provider Active Start: April 14, 2025 End: April 14, 2025 FABI York Attending Provider Active Star t: April 14, 2025 End: April 14, 2025 Reason for Visit (unrecogniz ed section and content) Reason Comments Sore Throat Casimiro ear pain, conges tion x2 days Reason Comments Nasal Congestion Headache Cough Nausea [...] ENT OFFICE/OUTPATIENT NEW HIGH MDM 60-74 MINUTES Smitha Neville APRN.VACUUM FORM OPERATOR [address] [place] [address] Referral ID Status Reason Start Date Expiration Date V isits Requested Visits Authorized [id number] Closed PCP Requested Referral 05/30/2022 05/30/2023 1 [...] To Contact Radiology / RADIO CT SCAN [facility] Diagnoses Chronic sinusitis, unspecified Chronic sinusitis, unspecified location [J32.9] Procedures CT MAXILLOFACIAL W/O CONTRAST MATERIAL CT WO SINUS STEREO [address] Elías Dinero MD [address] [place] [address] Scan [facility] [address] [place] [address] Referral ID Status Reason Start Date Expiration Date Visits Re quested Visits Authorized [id number] Closed 09/21/2022 11/20/2022 1 1 Reason Comments Sinus Problem Reason Comments Ear Pain left worse, sore thr oat and nausea x 5 days Reason Comments New Pain Specialty Diagnoses / Procedures Referred By Lacie t Referred To Contact Podiatry Diagnoses Foot pain, left Procedures CONSULT TO PODIATRY OFFICE/OUTPATIENT [facility] 60 MINUTES Patt Lopes APRN.VACUUM FORM OPERATOR [address] [place] [address] Referral ID Status Reason Start Date Expiration Date V isits Requested Visits Authorized [id number] Closed PCP Requested Referral 09/15/2023 09/14/2024 1 1 Reason Comments Acute Visit Runny nose, throat i rritation, cough with some vomiting, fever; feels may be d/t allergies; currently 13 weeks ; symptoms started on Thursday Reason Comments Nasal Congestion Headache, cough, sin us pressure and pain, x 5 daysPossible covid exposure Reason Comments Results Reason Comments Telemedicine Reason Comments Acute Visit R hand tingling/numb ness intermittent since having IV 3 weeks Reason Comments Cough Reason Comments URI Reason Comments Upper Respiratory Infection Reason Comments Nasal Congestion drainage, sore throa t x seen by [facility] on 10/09 still ongoing FOR RECORDS PERTAINING TO PATIENTS WHO ARE [...] BE BASED ON THE PRIMARY CLINICAL RECORDS. [facility] provides no warranty or guarantee of the accuracy or completeness of information in this document.
== END | disposition home or self-care (01) ==
LOC: MRI 16:50
PROVIDERS: PCP Internal Medicine; Referring Provider Student in an Organized Health Care Education/Training Program; Visit Provider Student in an Organized Health Care Education/Training Program
DX: G95.9 Disease of spinal cord, unspecified (principal)
CPT/HCPCS: 72141